=== PATIENT | female | born 1995 | race Caucasian/White ===

== ENCOUNTER 2025-06-08 06:55 | Day surgery (SDC) | payer MEDICAID, SELFPAY ==
[2025-06-08] VITALS (8 sets, daily range): BP systolic 100–133; BP diastolic 53–79; PULSE 78–96; RESP 14–16; TEMP 36.4–36.9; O2SAT 16–96; BMI 34.4
--- OUTSIDE RECORDS SUMMARY | 2025-06-08 07:02 | XMS RPT_ITS | CCD ---
Author Organization [facility] Care Team Providers Care Hand Zipper Trimmer Name Role Phone Unavailable Unavailable Unavailable UNKNOWN, PROVIDER Unavailable Unavailable Brody Carballo Unavailable Unavailable SAMANTHA STEELE Unavailable Unavailable IAN ARIZMENDI Unavailable Unavailable NICK MULE OPERATOR, MS ESPARZA Primary Care Physician [phone] Unavailable Primary Care Provider Unavailaba ROMERO MULE OPERATOR, ISAIAS Primary Care Physician ISAIAS ROMERO Primary Care Unavailable SAMANTHA GEE Referring Unavailabl e MARLEN, SAMANTHA Nelson Attending Unavailabl e SAMANTHA GEE Referring Unavailabl e VIN TAYLOR Attending Unavailable ISAIAS ROMERO Primary Care Unavailable ABBEAR DO, DR PRICE Primary Care Physician [phone] HYUN EUBANKS, AJ Attending Unavailable ROMAR DO, DR PRICE Primary Care Unavailable REBECCA MULE OPERATOR, SAMANTHA Puri Attending Unavailable ROMAR DO, DR PRICE Primary Care Unavailable REBECCA MULE OPERATOR, SAMANTHA Puri Attending Unavailable ROMAR DO, DR PRICE Primary Care Unavailable REBECCA MULE OPERATOR, SAMANTHA Puri Attending Unavailable ROMAR DO, DR PRICE Primary Care Unavailable ROMAR DO, DR PRICE Attending Unavailable ROMAR DO, DR PRICE Primary Care Unavailable ROMAR DO, DR PRICE Attending Unavailable ROMAR DO, DR PRICE Primary Care Unavailable ROMAR DO, DR PRICE Primary Care Unavailable MARVIN VARNER, MARCIA Rousseau Attending Honeyv azam Ga NP-CSamantha Attending Provider MARVIN VARNER, MARCIA Rousseau Attending Shirley ailable SHASHANK EUBANKS, DR PRICE Primary Care Unavailable SAMANTHA GA Attending Unavailable ROMAR DO, DR PRICE Primary Care Unavailable ROMAR DO, DR PRICE Referring Unavailable ROMAR DO, DR PRICE Attending Unavailable ROMAR DO, DR PRICE Primary Care Unavailable ROMAR DO, DR PRICE Primary Care Unavailable ROMAR DO, DR PRICE Attending Unavailable ROMAR DO, DR PRICE Primary Care Unavailable ROMAR DO, DR PRICE Attending Unavailable ROMAR DO, DR PRICE Primary Care Unavailable ROMAR DO, DR PRICE Attending Unavailable ROMAR DO, DR PRICE Primary Care Unavailable ROMAR DO, DR PRICE Attending Unavailable BARBARA DO, VITO Attending Unavailable ROMAR DO, DR PRICE Primary Care Unavailable ROMAR DO, DR PRICE Primary Care Unavailable ROMAR DO, DR PRICE Attending Unavailable ROMAR DO, DR PRICE Primary Care Unavailable ROMAR DO, DR PRICE Attending Unavailable BEITLER CATASTROPHE CLAIMS SUPERVISOR-CNM, MARCIA Rousseau Attending Unav ailable ROMAR DO, DR PRICE Primary Care Unavailable ROMAR DO, DR PRICE Primary Care Unavailable ROMAR DO, DR PRICE Attending Unavailable ROMAR DO, DR PRICE Primary Care Unavailable ROMAR DO, DR PRICE Attending Unavailable ROMAR DO, DR PRICE Primary Care Unavailable HARMEETCELESTE FISHMAN-PERSONAL CARE ASSISTANT, SAMANTHA Attending Unava ilable RUSSELL DO, NATALIE Puri Attending Unavailaba SOLARES MD, ABNER Callahan Unavail able ROMAR DO, DR PRICE Primary Care Unavailable Harmeet MULE OPERATOR-CSamantha Attending Physician Samantha Ga Attending Unavailable Samantha Ga Attending Unavailable Samantha Ga Attending Unavailable Chetan Woodall Attending Unavailable Allergies Allergy Classification Reported Allergen(s) Allergy Type Date of Onset Reaction(s) Facility (1 source) No Known Latex Allergy Allergy to Substance [address] [facility] (1 source) No Known Food Allergy Allergy to Substance [address] [facility] (1 source) UNKNOWN ALLERY. PT STATES SOME TYPE OF ANTIBIOTIC Allergy to Substance [address] [facility] (20 sources) cefdinir; Translations: [cefdinir] Drug Allergy 5 shortness of breath, rash, swelling in hands, Shortness of breath, rash, swelling of hands [facility] (20 sources) Ciprofloxacin; Translations: [ciprofloxacin] Drug Allergy 5 rash, swelling in hands, rash, swelling in hands [facility] (1 source) cefdinir Drug Allergy 5 [facility] (1 source) Ciprofloxacin Drug Allergy 5 [facility] Medications Current Medications Medication Drug Class(es) Dates Sig (Normalized) Sig (Original) amitriptyline hydrochloride 10 mg oral tablet (13 sources) Tricyclic Antidepressant Start: 12-01-2024 take 1 tablet by mouth once daily Start: 09-30-2024 End: 12-01-2024 take 1 tablet by mouth at bedtime Amitriptyline 25 mg tablet Discontinued 25 mg PO AT BEDTIME November 30, 2024 11:00pm December 01, 2024 12:43pm Start: 05-13-2024 End: 12-01-2024 take 1 tablet by mouth at bedtime Amitriptyline 50 mg tablet Discontinued 50 mg PO AT BEDTIME November 30, 2024 11:00pm December 01, 2024 12:43pm amLODIPine 5 mg oral tablet (5 sources) Dihydropyridine Calcium Channel [place] Start: 04-07-2025 amLODIPine 5 mg oral tablet Dose : 5 mg = 1 tab(s), Oral, qDay, # 90 tab(s), 0 Refill(s), [facility]: [id number], 157.5, cm, 04/07/25 11:08:00 EDT, Height, kg, 04/07/25 11:08:00 EDT, Dosing Weight Start Date: 04/07/25 Status: Ordered Medication Dispense Status: Completed Quantity: 90.0 Unit: tab(s) Total Allowed Fills: 1 Fills Dispensed: 0 Start: 01-13-2025 amLODIPine 5 m g oral tablet Dose : 5 mg = 1 tab(s), Oral, qDay, # 90 tab(s), 0 Refill(s), [facility]: [id number], 158, cm, 01/13/25 15:04:00 EDT, Height, kg, 01/13/25 15:04:00 EDT, Dosing Weight Start Date: 01/13/25 Status: Ordered Medication Dispense Status: Completed Quantity: 90.0 Unit: tab(s) Total Allowed Fills: 1 Fills Dispensed: 0 amoxicillin 500 mg oral tablet (1 source) Penicillin-class Antibacterial Start: 06-08-2022 End: 06-18-2022 amoxicillin 500 mg oral tablet Dose : 500 mg = 1 tab(s), Oral, TID, Take with a probiotic, X 10 day(s), # 30 tab(s), 0 Refill(s), 06/18/22 21:43:00 EST Start Date: 06/08/22 Stop Date: 06/18/22 Status: Ordered bacitracin 0.5 unt/mg topical ointment (1 source) Start: 07-06-2023 End: 07-20-2023 bacitracin topical ointment Apply 1 appl, Topical, TID, right ear until healed, X 14 day(s), # 30 gram(s), 0 Refill(s), [facility]acy: [id number], Ointment, 158.5, cm, 07/06/23 11:21:00 EST, Height, 73.1, kg, 07/06/23 11:21:00 EST, Dosing Weight Start Date: 07/06/23 Stop Date: 07/20/23 Status: Ordered cephalexin 500 mg oral capsule (1 source) Cephalosporin Antibacterial Start: 08-15-2021 End: 08-29-2021 Keflex 500 mg oral capsule Dose : 500 mg = 1 cap(s), Oral, QID, X 14 day(s), # 56 cap(s), 0 Refill(s), 08/29/21 11:19:00 EST, [facility]acy: [id number], 155, cm, 08/15/21 8:24:00 EST, Height, 75, kg, 08/15/21 8:24:00 EST, Dosing Weight Start Date: 08/15/21 Stop Date: 08/29/21 Status: Ordered chlorhexidine gluconate 40 mg/ml medicated liquid soap (11 sources) Start: 01-13-2025 Hibiclens 4% topical soap See Instructions, PRN Rash, Rinse area with water, then apply minimum amount necessary to cover skin or wound area and wash gently. Rinse again thoroughly., # 240 mL, 1 Refill(s), [facility]acy: [id number], 158, cm, 01/13/25 15:04:00 EDT, Height, kg, 01/13/25 15:04:00 EDT, Dosing Weight Start Date: 01/13/25 Status: Ordered Medication Dispense Status: Completed Quantity: 240.0 Unit: mL Total Allowed Fills: 2 Fills Dispensed: 0 Start: 05-13-2024 Hibiclens 4% t opical soap See Instructions, PRN Rash, Rinse area with water, then apply minimum amount necessary to cover skin or wound area and wash gently. Rinse again thoroughly., # 240 mL, 1 Refill(s), [facility]acy: [id number], 158, cm, 05/13/24 15:02:00 EDT, Height, kg, 05/13/24 15:02:00 EDT, Dosing Weight Start Date: 05/13/24 Status: Ordered Quantity: 240.0 Unit: mL Repeat number: 2 Diclegis 10 mg-10 mg oral delayed release tablet (4 sources) Start: 03-16-2021 take 1 tablet by mouth once daily at bedtime as needed for nausea Diclegis 10 mg-10 mg oral delayed release tablet Dose = 2 tab(s), Oral, qHS, PRN Nausea, # 20 tab(s), 0 Refill(s), Nausea Start Date: 03/16/21 Status: Ordered 24 hr diclofenac sodium 100 mg extended release oral tablet (1 source) Nonsteroidal Anti-inflammatory Drug Start: 03-08-2023 End: 04-07-2023 diclofenac sodium 100 mg oral tablet, extended release Dose : 100 mg = 1 tab(s), Oral, qDayM, PRN as needed for pain, with food and plenty of fluids. No other NSAIDs while on med., # 30 tab(s), 0 Refill(s), [facility]: [id number], 157, cm, 03/08/23 13:29:00 EDT, Height, kg, 03/08/23 13:29:00 EDT, Dosing Weight Start Date: 03/08/23 Stop Date: 04/07/23 Status: Ordered DME MISCellaneous (5 sources) Start: 01-13-2025 DME MISCellaneous See Instructions, Procare comfort form wrist medium left and right, Dx: G56.03, # 1 EA, 0 Refill(s), Carpal tunnel syndrome, bilateral, 85.2 Start Date: 01/13/25 Status: Ordered Medication Dispense Status: Completed Quantity: 1.0 Unit: EA Total Allowed Fills: 1 Fills Dispensed: 0 Indications: Carpal tunnel syndrome, bilateral upper limbs; Start: 01-13-2025 DME MISCellane ous See Instructions, BP cuff and machine, Dx: I10, # 1 EA, 0 Refill(s), 85.2 Start Date: 01/13/25 Status: Ordered Medication Dispense Status: Completed Quantity: 1.0 Unit: EA Total Allowed Fills: 1 Fills Dispensed: 0 Start: 11-11-2024 DME MISCellane ous See Instructions, Procare comfort form wrist medium bilateral, Dx: G56.03, # 1 EA, 0 Refill(s), Bilateral carpal tunnel syndrome, 83.7 Start Date: 11/11/24 Status: Ordered Quantity: 1.0 Unit: EA Repeat number: 1 Indications: Carpal tunnel syndrome, bilateral upper limbs; docusate sodium 100 mg oral capsule (8 sources) Start: 03-03-2025 End: 06-01-2025 docusate sodium 100 mg oral capsule Dose : 100 mg = 1 cap(s), Oral, BID, PRN for constipation, with plenty of water, # 180 cap(s), 0 Refill(s), [facility]acy: [id number], 157.5, cm, 03/03/25 8:50:00 EDT, Height, kg, 03/03/25 8:50:00 EDT, Dosing Weight Start Date: 03/03/25 Stop Date: 06/01/25 Status: Ordered Medication Dispense Status: Completed Quantity: 180.0 Unit: cap(s) Total Allowed Fills: 1 Fills Dispensed: 0 Start: 09-29-2022 Colace 100 mg oral capsule Dose : 100 mg = 1 cap(s), Oral, BID, # 20 cap(s), 0 Refill(s), [facility]acy: [id number], 155, cm, 09/27/22 20:11:00 EDT, Height Start Date: 09/29/22 Status: Ordered Start: 09-04-2021 End: 09-14-2021 Colace 100 mg oral capsule D ose : 100 mg = 1 cap(s), Oral, BID, PRN for constipation, # 20 cap(s), 0 Refill(s), [facility]: [id number], 155, cm, 08/31/21 19:32:00 EST, Height, kg, 08/31/21 19:32:00 EST, Dosing Weight Start Date: 09/04/21 Stop Date: 09/14/21 Status: Ordered doxylamine succinate 10 mg / pyridoxine hydrochloride 10 mg delayed release oral tablet (2 sources) Start: 03-16-2021 take 1 tablet by mouth once daily at bedtime as needed for nausea Diclegis 10 mg-10 mg oral delayed release tablet Dose = 2 tab(s), Oral, qHS, PRN Nausea, # 20 tab(s), 0 Refill(s), Nausea Start Date: 03/16/21 Status: Ordered escitalopram 10 mg oral tablet (14 sources) Serotonin Reuptake Inhibitor Start: 04-07-2025 End: 07-06-2025 take 1 tablet by mouth once daily escitalopram 20 mg oral tablet Dose : 20 mg = 1 tab(s), Oral, qDay, Take with 10 mg dose PO daily for total of 30 mg PO daily., # 90 tab(s), 0 Refill(s), [facility]: [facility], 157.5, cm, 04/07/25 11:08:00 EDT, Height, kg, 04/07/25 11:08:00 EDT, Dosing Weight Start Date: 04/07/25 Stop Date: 07/06/25 Status: Ordered Medication Dispense Status: Completed Quantity: 90.0 Unit: tab(s) Total Allowed Fills: 1 Fills Dispensed: 0 Start: 12-30-2024 End: 03-30-2025 escitalopram 20 mg oral tabl et Dose : 20 mg = 1 tab(s), Oral, qDay, # 90 tab(s), 0 Refill(s), [facility]: [facility], 158, cm, 12/30/24 10:38:00 EDT, Height, kg, 12/30/24 10:38:00 EDT, Dosing Weight Start Date: 12/30/24 Stop Date: 03/30/25 Status: Ordered Medication Dispense Status: Completed Quantity: 90.0 Unit: tab(s) Total Allowed Fills: 1 Fills Dispensed: 0 Start: 11-11-2024 End: 12-22-2025 take 1 tablet by mouth once daily escitalopram 10 mg oral tablet Dose : 10 mg = 1 tab(s), Oral, qDay, Take with 20 mg dose PO daily for total of 30 mg PO daily., # 90 tab(s), 0 Refill(s), [facility]: [id number], 157.5, cm, 04/07/25 11:08:00 EDT, Height, kg, 04/07/25 11:08:00 EDT, Dosing Weight Start Date: 04/07/25 Stop Date: 07/06/25 Status: Ordered Medication Dispense Status: Completed Quantity: 90.0 Unit: tab(s) Total Allowed Fills: 1 Fills Dispensed: 0 Norgestimate-Ethinyl Estradi ol (14 sources) Progestin, Estrogen Start: 12-01-2024 take 0.25 tablet by mouth once daily Start: 12-01-2024 take 0.25 tablet by mouth once daily Norgestimate-Ethinyl Estradiol (Sprintec (28)) 0.25-0.035 mg tablet Active 1 {tbl} PO daily December 01, 2024 12:00am Start: 11-11-2024 take 1 tablet by nicolás th once daily Sprintec 0.25 mg-35 mcg oral tablet Dose = 1 tab(s), Oral, qDay, # 28 tab(s), 3 Refill(s), [facility]: [id number], 158, cm, 09/30/24 16:03:00 EDT, Height, kg, 09/30/24 16:03:00 EDT, Dosing Weight Start Date: 11/11/24 Status: Ordered Quantity: 28.0 Unit: tab(s) Repeat number: 4 Start: 09-29-2022 take 1 tablet by nicolás th once daily Sprintec 0.25 mg-35 mcg oral tablet Dose = 1 tab(s), Oral, qDay, # 28 tab(s), 3 Refill(s), [facility]: [id number], 155, cm, 09/27/22 20:11:00 EDT, Height Start Date: 09/29/22 Status: Ordered Quantity: 28.0 Unit: tab(s) Repeat number: 4 Start: 09-29-2022 take 1 tablet by nicolás th once daily Sprintec 0.25 mg-35 mcg oral tablet Dose = 1 tab(s), Oral, qDay, # 28 tab(s), 3 Refill(s), [facility]: [id number], 155, cm, 09/27/22 20:11:00 EDT, Height Start Date: 09/29/22 Status: Ordered ferrous sulfate 325 mg oral tablet (5 sources) Start: 04-07-2025 End: 07-06-2025 ferrous sulfate 325 mg (65 m g elemental iron) oral tablet Dose : 325 mg = 1 tab(s), Oral, Sun/Sun/Sun, may take with food to minimize abdominal discomfort, # 39 tab(s), 0 Refill(s), [facility]: [id number], 157.5, cm, 04/07/25 11:08:00 EDT, Height, kg, 04/07/25 11:08:00 EDT, Dosing Weight Start Date: 04/07/25 Stop Date: 07/06/25 Status: Ordered Medication Dispense Status: Completed Quantity: 39.0 Unit: tab(s) Total Allowed Fills: 1 Fills Dispensed: 0 Start: 12-30-2024 End: 03-30-2025 ferrous sulfate 325 mg (65 m g elemental iron) oral tablet Dose : 325 mg = 1 tab(s), Oral, Sun/Sun/Sun, may take with food to minimize abdominal discomfort, # 39 tab(s), 0 Refill(s), [facility]: [id number], 158, cm, 12/30/24 10:38:00 EDT, Height, kg, 12/30/24 10:38:00 EDT, Dosing Weight Start Date: 12/30/24 Stop Date: 03/30/25 Status: Ordered Medication Dispense Status: Completed Quantity: 39.0 Unit: tab(s) Total Allowed Fills: 1 Fills Dispensed: 0 1 ml galcanezumab-gnlm 120 mg/ml auto-injector (8 sources) Start: 12-01-2024 End: 05-05-2025 inject 1 dose by subcutaneous injection every month Emgality Autoinjector 120 mg/mL subcutaneous solution Dose : 120 mg =, qmonth, 0 Refill(s) Start Date: 12/16/24 Status: Ordered Medication Dispense Status: Completed Total Allowed Fills: 1 Fills Dispensed: 0 Hydrocortisone / Neomycin / Polymyxin B (1 source) Aminoglycoside Antibacterial, Polymyxin-class Antibacterial, Corticosteroid Start: 06-08-2022 End: 06-18-2022 Cortisporin otic use hydrocortisone/n eomycin/polymyxi n B otic Dose = 4 drop(s), Ear, left, QID, X 10 day(s), # 10 mL, 0 Refill(s) Start Date: 06/08/22 Stop Date: 06/18/22 Status: Ordered ibuprofen 600 mg oral tablet (3 sources) Nonsteroidal Anti-inflammatory Drug Start: 09-29-2022 ibuprofen 600 mg oral tablet Dose : 600 mg = 1 tab(s), Oral, q8h, # 30 tab(s), 0 Refill(s), [facility]: [id number], 155, cm, 09/27/22 20:11:00 EDT, Height Start Date: 09/29/22 Status: Ordered Start: 09-04-2021 End: 09-09-2021 ibuprofen 600 mg oral tablet Dose : 600 mg = 1 tab(s), Oral, q6h, PRN for pain, Take with food or milk., X 5 day(s), # 20 tab(s), 0 Refill(s), 09/09/21 3:58:00 EST, [facility]acy: [id number], 155, cm, 08/31/21 19:32:00 EST, Height, kg, 08/31/21 19:32:00 EST, Dosing Weight Start Date: 09/04/21 Stop Date: 09/09/21 Status: Ordered Start: 08-29-2014 End: 07-15-2016 take 1 tablet by mouth three times daily as needed for pain Ibuprofen (Ibuprofen) 800 Mg Tab Tab, 800 Mg Po THREE TIMES A DAY PRN PAIN 08/29/14 Discontinued melatonin 3 mg oral capsule (14 sources) Start: 12-01-2024 take 1 capsule by mo uth at bedtime as needed Start: 01-30-2024 End: 02-29-2024 take 1-2 tablets by mouth once daily at bedtime as needed melatonin 3 mg oral tablet 1-2 tabs, Oral, qHS, PRN as needed for insomnia, Do not drive, operate heavy machinery, or drink alcohol while on med., # 60 tab(s), 0 Refill(s), [facility]: [facility], 158.5, cm, 01/30/24 14:51:00 EDT, Height, kg, 01/30/24 14:51:00 EDT, Dosing Weight Start Date: 01/30/24 Stop Date: 02/29/24 Status: Ordered Medication Dispense Status: Completed Quantity: 60.0 Unit: tab(s) Total Allowed Fills: 1 Fills Dispensed: 0 metroNIDAZOLE 500 mg oral tablet (4 sources) Nitroimidazole Antimicrobial Start: 05-29-2024 End: 06-05-2024 metroNIDAZOLE 500 mg oral tablet Dose : 500 mg = 1 tab(s), Oral, q8hr, X 7 day(s), # 21 tab(s), 0 Refill(s), 06/05/24 10:35:00 AM EST, [facility]acy: [id number], 158, cm, 05/28/24 10:51:00 EST, Height, 80.73, kg, 05/28/24 10:51:00 EST, Dosing Weight Start Date: 05/29/24 Stop Date: 06/05/24 Status: Ordered Start: 07-06-2023 End: 08-05-2023 metroNIDAZOLE 1% topical cre am Apply 1 giorgio, Topical, qDay, PRN Rash, apply a thin film to affected area around mouth after washing, # 60 gram(s), 0 Refill(s), [facility]acy: [id number], Cream, 158.5, cm, 07/06/23 11:21:00 EST, Height, 73.1, kg, 07/06/23 11:21:00 EST, Dosing Weight Start Date: 07/06/23 Stop Date: 08/05/23 Status: Ordered naratriptan 2.5 mg oral tablet (1 source) Serotonin-1b and Serotonin-1d Receptor Agonist Start: 12-16-2024 naratriptan 2.5 mg oral tablet Dose : 2.5 mg = 1 tab(s), Oral, qDay, PRN as needed for migraine headache, # 18 tab(s), 0 Refill(s) Start Date: 12/16/24 Status: Ordered Quantity: 18.0 Unit: tab(s) Repeat number: 1 norethindrone 0.35 mg oral tablet (10 sources) Start: 12-16-2024 Swati 0.35 mg oral tablet Dose : 0.35 mg = 1 tab(s), Oral, qDay, # 84 tab(s), 3 Refill(s), [facility]: [facility], 158, cm, 12/16/24 15:28:00 EDT, Height, kg, 12/16/24 15:28:00 EDT, Dosing Weight Start Date: 12/16/24 Status: Ordered Medication Dispense Status: Completed Quantity: 84.0 Unit: tab(s) Total Allowed Fills: 4 Fills Dispensed: 0 Start: 09-29-2022 norethindrone 0.35 mg oral tablet Dose : 0.35 mg = 1 tab(s), Oral, qDay, # 28 tab(s), 0 Refill(s), [facility]: [facility], 155, cm, 09/27/22 20:11:00 EDT, Height Start Date: 09/29/22 Status: Ordered Start: 09-04-2021 norethindrone 0.35 mg oral tablet Dose : 0.35 mg = 1 tab(s), Oral, qDay, # 28 tab(s), 5 Refill(s), [facility]: [facility], 155, cm, 08/31/21 19:32:00 EST, Height, kg, 08/31/21 19:32:00 EST, Dosing Weight Start Date: 09/04/21 Status: Ordered nystatin 100 unt/mg topical powder (11 sources) Polyene Antifungal Start: 12-01-2024 Start: 11-11-2024 End: 01-10-2025 nystatin 100,000 units/g top ical powder Apply 1 giorgio, Topical, TID, PRN Skin irritation, Apply to affected area 2 to 3 times daily until healing complete, # 60 gram(s), 1 Refill(s), [facility]: [facility], Powder, 158, cm, 11/11/24 15:59:00 EDT, Height, 83.7, kg, 11/11/24 15:59:00 EDT, Dosing Weight Start Date: 11/11/24 Stop Date: 01/10/25 Status: Ordered Medication Dispense Status: Completed Quantity: 60.0 Unit: g Total Allowed Fills: 2 Fills Dispensed: 0 Start: 06-08-2022 End: 06-18-2022 nystatin 100,000 units/g top ical ointment Apply 1 giorgio, Topical, TID, X 10 day(s), # 30 gram(s), 0 Refill(s), 65 Start Date: 06/08/22 Stop Date: 06/18/22 Status: Ordered ondansetron 4 mg disintegrating oral tablet (1 source) Serotonin-3 Receptor Antagonist Start: 02-22-2025 End: 03-08-2025 ondansetron 4 mg oral tablet, disintegrating Dose : 4 mg = 1 tab(s), Oral, q6h, PRN Nausea/Vomiting, # 20 tab(s), 0 Refill(s), 03/08/25 7:01:00 PM EDT Start Date: 02/22/25 Stop Date: 03/08/25 Status: Ordered Medication Dispense Status: Completed Quantity: 20.0 Unit: tab(s) Total Allowed Fills: 1 Fills Dispensed: 0 pantoprazole 40 mg delayed release oral tablet (1 source) Proton Pump Inhibitor Start: 05-05-2025 AD (6 sources) Start: 05-14-2021 take 1 tablet by mouth once daily AD Dose = 1 tab(s), Oral, qDay, 0 Refill(s) Start Date: 05/14/21 Status: Ordered sertraline 100 mg oral tablet (8 sources) Serotonin Reuptake Inhibitor Start: 03-24-2024 End: 01-02-2025 sertraline 100 mg oral tablet Dose : 100 mg = 1 tab(s), Oral, qDay, # 100 tab(s), 1 Refill(s), [facility]: [id number], 158, cm, 05/13/24 15:02:00 EDT, Height, kg, 05/13/24 15:02:00 EDT, Dosing Weight Start Date: 06/16/24 Stop Date: 01/02/25 Status: Ordered Quantity: 100.0 Unit: tab(s) Repeat number: 2 Start: 07-20-2023 End: 09-18-2023 take 1 tablet by mouth once daily sertraline 50 mg oral tablet Dose : 50 mg = 1 tab(s), Oral, qDay, Take 25 mg tab PO daily for two weeks, then increase to 50 mg tab daily thereafter., # 60 tab(s), 0 Refill(s), [facility]: [id number], 158.5, cm, 07/06/23 11:21:00 EST, Height, kg, 07/06/23 11:21:00 EST, Dosing Weight Start Date: 07/20/23 Stop Date: 09/18/23 Status: Ordered Start: 07-06-2023 End: 07-20-2023 take 1 tablet by mouth once daily sertraline 25 mg oral tablet Dose : 25 mg = 1 tab(s), Oral, qDay, Take one tab PO daily for two weeks, then increase to 50 mg tab daily thereafter., X 14 day(s), # 14 tab(s), 0 Refill(s), 07/20/23 11:40:00 AM EST, [facility]acy: [id number], 158.5, cm, 07/06/23 11:21:00 EST, Height, kg, 07/06/23 11:21:00 EST, Dosing Weight Start Date: 07/06/23 Stop Date: 07/20/23 Status: Ordered sulfamethoxazole 800 mg / trimethoprim 160 mg oral tablet (2 sources) Dihydrofolate Reductase Inhibitor Antibacterial, Sulfonamide Antimicrobial Start: 02-22-2025 End: 03-01-2025 take 1 tablet by mouth twice daily Bactrim DS 800 mg-160 mg oral tablet Dose = 1 tab(s), Oral, BID, X 7 day(s), # 14 tab(s), 0 Refill(s), 85.2 Start Date: 02/22/25 Stop Date: 03/01/25 Status: Ordered Medication Dispense Status: Completed Quantity: 14.0 Unit: tab(s) Total Allowed Fills: 1 Fills Dispensed: 0 Start: 09-11-2023 End: 09-18-2023 take 1 tablet by mouth twice daily Bactrim DS 800 mg-160 mg oral tablet Dose = 1 tab(s), Oral, BID, X 7 day(s), # 14 tab(s), 0 Refill(s), 73.1 Start Date: 09/11/23 Stop Date: 09/18/23 Status: Ordered Triamcinolone (1 source) Corticosteroid Start: 08-15-2021 End: 08-29-2021 triamcinolone 0.025% topical ointment Apply 1 giorgio, Topical, BID, X 14 day(s), # 30 gram(s), 0 Refill(s), [facility]: [id number], Ointment, 155, cm, 08/15/21 8:24:00 EST, Height, 75, kg, 08/15/21 8:24:00 EST, Dosing Weight Start Date: 08/15/21 Stop Date: 08/29/21 Status: Ordered ubrogepant 100 mg oral tablet (8 sources) Start: 12-16-2024 Ubrelvy 100 mg oral tablet Dose : 100 mg = 1 tab(s), Oral, Once, PRN as needed for migraine headache, may repeat dose in 2 hours if needed, # 16 tab(s), 0 Refill(s) Start Date: 12/16/24 Status: Ordered Medication Dispense Status: Completed Quantity: 16.0 Unit: tab(s) Total Allowed Fills: 1 Fills Dispensed: 0 Start: 12-01-2024 take 1 tablet by mouth once Completed/Discontinued Medications Medication Drug Class(es) Dates Sig (Normalized) Sig (Original) [No Home Meds] , (1 source) End: 07-15-2016 cyclobenzaprine hydrochloride 10 mg oral tablet (1 source) Muscle Relaxant Start: 08-29-2014 End: 07-15-2016 Cyclobenzaprine Hcl (Cyclobenzaprine) 10 Mg Tab Tab, 10 Mg Po EVERY 8 HOURS PRN MUSCLE SPASMS 08/29/14 Discontinued mupirocin 0.02 mg/mg topical ointment (1 source) RNA Synthetase Inhibitor Antibacterial Start: 07-15-2016 Mupirocin (Bactroban Ointment) 2 % OIN 1 GIORGIO TOP THREE TIMES A DAY 1 7 DAYS 07/15/16 Start: 07-15-2016 Mupirocin (Ignacia troban Ointment) 2 % OIN 1 GIORGIO TOP THREE TIMES A DAY 1 7 DAYS 07/15/16 polyethylene glycol [id number] mg powder for oral solution (4 sources) Osmotic Laxative Start: 03-03-2025 End: 05-02-2025 take 17 doses by mouth once daily as needed for constipation MiraLax oral powder for reconstitution Dose : 17 gram(s) =, Oral, qDay, PRN Constipation, dissolve in water or juice, # 250 gram(s), 1 Refill(s), [facility]: [id number], 157.5, cm, 03/03/25 8:50:00 EDT, Height, kg, 03/03/25 8:50:00 EDT, Dosing Weight Start Date: 03/03/25 Stop Date: 05/02/25 Status: Ordered Medication Dispense Status: Completed Quantity: 250.0 Unit: g Total Allowed Fills: 2 Fills Dispensed: 0 predniSONE 10 mg oral tablet (4 sources) Start: 12-01-2024 End: 12-01-2024 Prednisone 10 mg tablet Discontinued 10 mg PO As Directed November 30, 2024 11:00pm December 01, 2024 12:44pm see taper instructions 40,60,20,10 X2 days each dose Start: 11-11-2024 End: 11-19-2024 prednisone 10mg tab (TAPER) Taper 40-30-20-10 x 2 days each dose, Oral, qDayM, Take with food/meal. No NSAIDs while on this med., # 20 tab(s), 0 Refill(s), [facility]: [id number], 158, cm, 11/11/24 15:59:00 EDT, Height, kg, 11/11/24 15:59:00 EDT, Dosing Weight Start Date: 11/11/24 Stop Date: 11/19/24 Status: Ordered Quantity: 20.0 Unit: tab(s) Repeat number: 1 rimegepant 75 mg disintegrating oral tablet (8 sources) Start: 12-01-2024 End: 12-01-2024 take 1 tablet by mouth once as needed Rimegepant 75 mg tablet,disintegrating Discontinued 75 mg PO ONCE as needed November 30, 2024 11:00pm December 01, 2024 12:44pm as a single dose Start: 05-27-2024 Nurtec ODT 75 mg oral tablet, disintegrating Dose : 75 mg = 1 tab(s), Oral, Once, PRN as needed for migraine headache, # 8 tab(s), 0 Refill(s) Start Date: 05/27/24 Status: Ordered Quantity: 8.0 Unit: tab(s) Repeat number: 1 wheat dextrin oral powder fo r reconstitution (4 sources) Start: 03-03-2025 End: 05-02-2025 wheat dextrin oral powder fo r reconstitution 4 gram(s), Oral, BID, PRN as needed for constipation, dissolve in 4 to 8 oz of beverage or soft food- hot or cold, # 244 gram(s), 1 Refill(s), [facility]: [id number], 157.5, cm, 03/03/25 8:50:00 EDT, Height, kg, 03/03/25 8:50:00 EDT, Dosing Weight Start Date: 03/03/25 Stop Date: 05/02/25 Status: Ordered Medication Dispense Status: Completed Quantity: 244.0 Unit: g Total Allowed Fills: 2 Fills Dispensed: 0 Problems Active Problems Problem Classification Problem Date Documented Da te Episodic/Chronic Abdominal pain (15 sources) Abdominal pain; Translations: [Right upper quadrant pain] Onset: 8 09-30-2024 Episodic Administrative/social admission (11 sources) Difficulty cutting own toenails 05-28-2024 Episodic Anxiety disorders (20 sources) Generalized anxiety disorder; Translations: [Generalized anxiety disorder] Onset: 5 07-06-2023 Chronic Harris (5 sources) Superficial partial thickness burn of abdominal wall 12-30-2024 Episodic Cardiac dysrhythmias (11 sources) Tachycardia 05-13-2024 Episodic Coagulation and hemorrhagic disorders (9 sources) Thrombocytopenic disorder 09-10-2024 Chronic Diseases of mouth; excluding dental (15 sources) Stomatitis 07-03-2023 Episodic Diseases of white blood cells (6 sources) Leukocytosis; Translations: [Elevated white blood cell count, unspecified] Onset: 5 04-07-2025 Chronic Disorders of lipid metabolism (9 sources) Mixed hyperlipidemia 09-10-2024 Chronic Essential hypertension (5 sources) Hypertensive disorder 01-13-2025 Chronic Headache; including migraine (16 sources) Headache 01-04-2023 Episodic Headache; including migraine (2 sources) Headache; including migraine; Translations: [Headache, unspecified] Onset: 3 Immunizations and screening for infectious disease (5 sources) Anti-nuclear factor positive 01-13-2025 Episodic Mood disorders (20 sources) Recurrent major depressive episodes, moderate ; Translations: [Recurrent major depressive episodes, mild ] 07-06-2023 Chronic Nausea and vomiting (2 sources) Nausea; Translations: [Nausea] Onset: Episodic Nutritional deficiencies (7 sources) Iron deficiency; Translations: [Iron deficiency] Onset: 5 12-30-2024 Episodic Other and unspecified benign neoplasm (8 sources) Hemangioma of liver 10-28-2024 Episodic Other connective tissue disease (11 sources) Pain of toe of left foot 05-28-2024 Episodic Other connective tissue disease (11 sources) Pain of toe of right foot 05-28-2024 Episodic Other endocrine disorders (8 sources) Hyperestrogenism 10-03-2024 Chronic Other gastrointestinal disorders (1 source) Diarrhea; Translations: [Diarrhea, unspecified] Onset: Episodic Other gastrointestinal disorders (4 sources) Constipation 04-07-2025 Episodic Other gastrointestinal disorders (2 sources) Constipation, unspecified; Translations: [Constipation, unspecified] Onset: Episodic Other gastrointestinal disorders (1 source) Diarrhea, unspecified; Translations: [Diarrhea, unspecified] Onset: Episodic Other inflammatory condition of skin (15 sources) Perioral dermatitis 07-06-2023 Chronic Other liver diseases (8 sources) Steatosis of liver 10-28-2024 Chronic Other liver diseases (3 sources) Fatty (change of) liver, not elsewhere classified; Translations: [Fatty (change of) liver, not elsewhere classified] Onset: 5 Chronic Other liver diseases (12 sources) Elevated liver enzymes level; Translations: [Abnormal levels of other serum enzymes] 09-10-2024 Episodic Other male genital disorders (5 sources) Impotence 02-10-2025 Chronic Other nervous system disorders (20 sources) Carpal tunnel syndrome 11-01-2023 Chronic Other nervous system disorders (12 sources) Carpal tunnel syndrome of right wrist 01-30-2024 Chronic Other nervous system disorders (1 source) Carpal tunnel syndrome, bilateral upper limbs; Translations: [Carpal tunnel syndrome, bilateral upper limbs] Onset: 5 Chronic Other and delivery including normal (9 sources) Onset: 1 03-16-2021 Episodic Comment on above: System added from do cumentation. Status documented as Yes on Admission Other skin disorders (12 sources) Ingrowing nail; Translations: [Ingrowing nail] Onset: 4 Episodic Other upper respiratory disease (2 sources) Seasonal allergy; Translations: [Other seasonal allergic rhinitis] 12-01-2024 Chronic Other upper respiratory disease (11 sources) Lesion of nose 05-13-2024 Episodic Poisoning by nonmedicinal substances (12 sources) Insect sting 01-30-2024 Episodic Residual codes; unclassified (12 sources) Difficulty sleeping 01-30-2024 Episodic Residual codes; unclassified (8 sources) Flushing 09-30-2024 Episodic Skin and subcutaneous tissue infections (20 sources) Paronychia of toe of right foot; Translations: [Furuncle] 11-01-2023 Episodic Unclassified (2 sources) Unknown / UNK(Unknown) Onset: 8 Unclassified (19 sources) Otalgia of left ear 12-15-2021 Urinary tract infections (2 sources) Urinary tract infectious disease; Translations: [Urinary tract infection, site not specified] Onset: 5 Episodic Past or Other Problems Problem Classification Problem Date Documented Da te Episodic/Chronic Deficiency and other anemia (2 sources) Anemia, unspecified; Translations: [Anemia, unspecified] Onset: 03-08-2023 Episodic Other liver diseases (1 source) Abnormal levels of other serum enzymes; Translations: [Abnormal levels of other serum enzymes] Onset: 12-01-2024 Episodic Other screening for suspected conditions (not mental disorders or infectious disease) (2 sources) Encounter for screening for malignant neoplasm of cervix; Translations: [Encounter for screening for malignant neoplasm of cervix] Onset: 12-16-2024 Episodic Residual codes; unclassified (1 source) Flushing; Translations: [Flushing] Onset: 12-02-2024 Episodic Unclassified (1 source) PAIN,ABDOMEN,BACK ,SIDES Onset: 08-10-2017 Results Test Name Value Interpretation Reference Range Facility Gastroenterology Visit Repor ton 05-05-2025 Gastroenterology Visit Report [facility] [place] [address] OFFICE VISIT Date of Service: 05/05/25 MR#: [id number] Acct: [id number] Name: BELGICA CORBIN Rep #: [id number] : 1995 Provider: IMER meneses Age/Sex: 30/F Location[place] [facility] [email or web address] Status: Signed Intake Vital Signs 12/01/24 13:50 05/05/25 15:37 Height 5 ft 1 in 5 ft 1 in Weight: 185 lb 8 oz 184 lb 2 oz BMI 35.0 34.7 BP 161/120 H 105/61 Respiration 18 16 Pulse 103 H 93 Temp 98.0 F Temp Source Temporal Pulse Oximetry (%) 96 96 Oxygen Delivery Method room air room air Intake Visit Reasons: Test Result-Elevated liver enzymes Chief Complaint: high liver labs Active Directory Architect Required: No Accompanied by: and kids Is patient in pain?: No Allergies cefdinir (From Omnicef) Allergy (Severe, Verified 05/05/25 15:33) Shortness of breath, rash, swelling of hands ciprofloxacin Adverse Reaction (Mild, Verified 05/05/25 15:33) rash, swelling in hands Medications ???Medication ???Instructions ???Recorded ???Confirmed ???Type amitriptyline 10 mg tablet 10 mg PO QDAY 12/01/24 05/05/25 Hi story escitalopram oxalate 10 mg tablet 10 mg PO QDAY 12/01/24 05/05/25 H istory melatonin 3 mg capsule 3 mg PO HS PRN 12/01/24 05/05/25 H istory norgestimate 0.25 mg-ethinyl 1 tab PO QDAY 12/01/24 05/05/25 Hi story estradiol 0.035 mg tablet (Sprintec (28)) nystatin 100,000 unit/gram topical 1 applic topical TID PRN 5 05/05/25 History powder ubrogepant 100 mg tablet (Ubrelvy) 100 mg PO ONCE PRN 12/01/2404/16 History pantoprazole 40 mg tablet,delayed 40 mg PO QDAY #90 tabs 05/05/25 1 Rx release PFSH Medical History Stomatitis Sleep difficulties Recurrent headache Perioral dermatitis Paronychia of great toe, right Otalgia of left ear Depression Carpal tunnel syndrome, bilateral Tachycardia Recurrent boils Nasal lesion Family History Father Heart disease Myocardial infarction Mother Hypertension Sister Multiple sclerosis Social History Smoking Status: Never smoker alcohol intake: current alcohol intake frequency: holidays/special occasions only substance use type: does not use caffeine: Yes HPI HPI Chief Complaint: high liver labs Details: OV 12/01/2024 29-year-old female presenting with elevated liver enzymes in the setting of hepatic steatosis and hepatomegaly on imaging, likely consistent with MAS viral hepatitis panel is negative, and elastography suggest minimal fibrosis (F1). LD, particularly given her significant weight gain of 45 pounds over the past 6 months. MRI also noted a small hepatic hemangioma, an incidental and likely benign finding. She reports intermittent RUQ pain, often postprandial, which raises suspicion for biliary dyskinesia despite a normal ultrasound of the gallbladder and CBD. A HIDA scan has been ordered to assess gallbladder function. Additional labs including repeat CBC, CMP, in addition to autoimmune/infectious workup are pending to further evaluate potential causes of transaminitis. TSH, lipase, and iron studies are within normal limits. The patient will follow-up in 1 month to review results and discuss weight management strategies, as lifestyle modification remains a cornerstone of MASLD management. Consideration for hepatology referral will depend on her evolving clinical picture and lab findings. Note: Ambassador speech recognition building rigger software was used to create portions of this document. Sound-alike and misspelled words, as well as other building rigger errors may be contained in the documentation. Patient Instructions: Labs - patient will have completed at [facility] HIDA - patient will have completed at [facility] Plan Details Follow Up: 1 Month - seen in office today with and two toddlers - abdominal pain is primarily on the right and mid abdomen, worse with palpation of the abdomen - pain can be sharp and dull - pain is not triggered by PO intake - nausea can be triggered by PO intake - denies any HB - denies any weight loss HIDA completed 04/20/2025 revealed an EF of 87% ABD US 04/21/2025 no changes from previously - no previous EGD ROS Const Constitutional: Positive for headache(s); No fatigue, fever(s) or weight change ENT ENT: Positive for headache(s); No difficulty swallowing Gastro GI: Positive for abdominal pain; No belching, bloating, change in bowel habits, change in stool character, coffee ground emesis, constipation, cramping, diarrhea, heartburn, difficulty swallowing, feeling full early, excessive flatus, incontinent (more content not included)... Normal [facility] US ABDOMEN COMPLETEon 2024 US ABDOMEN COMPLETE ORIGINAL EXAMINATION: COMPLETE ABDOMINAL [id number]/7/2025 12:45 pm ULTRASOUND ABDOMEN COMPLETE COMPARISON: Ultrasound 09/23/2024 TECHNIQUE: This report is based on interpretation of permanently recorded ultrasound images. HISTORY: ORDERING SYSTEM PROVIDED HISTORY: Reason for Exam: generalized abdominal pain, history of enterocolitis, FINDINGS: Liver: . The visualized liver is mildly heterogeneous and coarsened with increased echogenicity. No suspicious focal lesion is seen and there is no obvious nodularity of the visualized liver margins. There is antegrade blood flow in the main portal vein. Bile ducts: There is no intrahepatic biliary duct dilatation. The common duct 3 mm at the dawosn hepatis. Gallbladder: The gallbladder is distended satisfactorily without calculi, wall thickening, pericholecystic edema or tenderness. Pancreas: The visualized pancreas shows no focal lesion or mass but some portions are obscured by bowel gas artifacts. . No free fluid is seen in the abdomen. Spleen: The spleen is normal in size and echogenic appearance. Kidneys: Limited survey images of the kidneys show normal cortical thickness and echogenicity and no pelvocaliectasis. . Visualized aorta: Normal Visualized IVC: Normal IMPRESSION: Hepatic steatosis or other diffuse hepatocellular disease. No acute findings. Interpreted by: Jr Arreola MD Preliminary Report By: Jr Arreola MD Electronically signed By Jr Arreola MD Dictated Date: 04/21/2025 4:51:55 PM Prelim Date: 04/21/2025 4:52:58 PM Sign Date: 04/21/2025 4:52:58 PM Ordering Provider: DEE ENCARNACION RP Normal [facility] HEPATOBILIARY DUCT SYSTEM IMAGINGon 04-20-2025 OR HEPATOBILIARY DUCT SYSTEM IMAGING ORIGINAL EXAMINATION: HIDA SCAN WITH EJECTION [id number]/6/2025 3:04 pm TECHNIQUE: Approximately 8 millicuries Tc99m Mebrofenin was administered IV. Then, dynamic images of the abdomen were obtained in the anterior projection for 60 mins. Slow infusion of 1.7 mcg cholecystokinin was administered intravenously over 30 mins. Images were obtained in the anterior projection and regions of interest were drawn around the gallbladder and ejection fraction was calculated. COMPARISON: None HISTORY: ORDERING SYSTEM PROVIDED HISTORY: RUQ FINDINGS: Prompt, homogenous uptake by the liver is noted with normal appearance of radiotracer excretion into the biliary system. Clearance of blood pool activity appears appropriate. Gallbladder and small bowel are visualized in appropriate time. Gallbladder ejection fraction is 87%. Normal value is >35% for CCK protocol. IMPRESSION: Gallbladder ejection fraction of 87%. Interpreted by: Romy Parker MD Preliminary Report By: Romy Parker MD Electronically signed By Romy Parker MD Dictated Date: 04/20/2025 3:47:00 PM Prelim Date: 04/20/2025 3:48:20 PM Sign Date: 04/20/2025 3:48:20 PM Ordering Provider: SAMANTHA GA RP Normal [facility] .Auto Diffon 04-07-2025 Basophil, Absolute 0.0 10 3/mcL Normal 0.0-0.3 [facility] Comment on above: Performed By: #### T SHR, CMP, CBC, [id number], LIP, GFR, ANEU, ADIFF #### [address] [address] #### LH, FSH #### [address] [address] Basophils/100 WBC (Bld) 0.7 % Normal 0.0-2.5 [facility] Comment on above: Performed By: #### T SHR, CMP, CBC, 533505, LIP, GFR, ANEU, ADIFF #### [address] [address] #### LH, FSH #### [address] [address] Eosinophil, Absolute 0.3 10 3/mcL Normal 0.0-0.7 [facility] Comment on above: Performed By: #### T SHR, CMP, CBC, 379004, LIP, GFR, ANEU, ADIFF #### [address] [address] #### LH, FSH #### [address] [address] Eosinophils/100 WBC (Bld) 5.3 % Normal 0.0-6.0 [facility] Comment on above: Performed By: #### T SHR, CMP, CBC, 059997, LIP, GFR, ANEU, ADIFF #### [address] [address] #### LH, FSH #### [address] [address] Lymphocyte, Absolute 1.7 10 3/mcL Normal 0.9-4.3 [facility] Comment on above: Performed By: #### T SHR, CMP, CBC, 141444, LIP, GFR, ANEU, ADIFF #### [address] [address] #### LH, FSH #### [address] [address] Lymphocytes/100 WBC (Bld) 29.2 % Normal 20.0-40.0 [facility] Comment on above: Performed By: #### T SHR, CMP, CBC, 061739, LIP, GFR, ANEU, ADIFF #### [address] [address] #### LH, FSH #### [address] [address] Monocyte, Absolute 0.6 10 3/mcL Normal 0.1-1.4 [facility] Comment on above: Performed By: #### T SHR, CMP, CBC, 868981, LIP, GFR, ANEU, ADIFF #### [address] [address] #### LH, FSH #### [address] [address] Monocytes/100 WBC (Bld) 10.2 % Normal 2.0-13.0 [facility] Comment on above: Performed By: #### T SHR, CMP, CBC, 522238, LIP, GFR, ANEU, ADIFF #### [address] [address] #### LH, FSH #### [address] [address] Neutrophils/100 WBC (Bld) 54.6 % Normal 50.0-75.0 [facility] Comment on above: Performed By: #### T SHR, CMP, CBC, 907131, LIP, GFR, ANEU, ADIFF #### [address] [address] #### LH, FSH #### [address] [address] .GFRon 04-07-2025 GFR/1.73 sq M.predicted among non-blacks MDRD (S/P/Bld) [Vol rate/Area] mL/min/{1.73_m2} Normal [facility] Comment on above: Result Comment: Stages of Chronic Kidney Disease (CKD) Stage Description eGFR(ml/min/1.73 sq.m.) CKD 1 Normal kidney function or >=90 normal kindney function with possible kidney damage (ex. Proteinuria) CKD 2 Kidney damage with mild loss 60-89 of kidney function CKD 3a Mild to moderate loss of kidney 45-59 function CKD 3b Moderate to severe loss of 30-44 of kindey function CKD 4 Severe loss of kidney function 15-29 CKD 5 Kidney failure <15 Note: (go live 2024) the eGFR calculation was updated to the 2020 CKD-EPI creatinine equation without a race factor to calculate the eGFR results. Performed By: #### T SHR, CMP, CBC, 857683, LIP, GFR, ANEU, ADIFF #### [address] [address] #### LH, FSH #### [address] [address] .NEUABSon 04-07-2025 Neutrophil, Absolute 3.1 10 3/mcL Normal 2.3-8.1 [facility] Comment on above: Performed By: #### T SHR, CMP, CBC, 841859, LIP, GFR, ANEU, ADIFF #### [address] [address] #### LH, FSH #### [address] [address] CBCon 04-07-2025 Erythrocyte distribution width (RBC) [Ratio] 14.2 % Normal 11.5-15.5 [facility] Comment on above: Performed By: #### T SHR, CMP, CBC, 997518, LIP, GFR, ANEU, ADIFF #### [place] [address] #### LH, FSH #### [place] [address] Hematocrit (Bld) [Volume fraction] 45.7 % Normal 34.0-46.0 [facility] Comment on above: Performed By: #### T SHR, CMP, CBC, 503698, LIP, GFR, ANEU, ADIFF #### [place] [address] #### LH, FSH #### [place] [address] Hgb 15.4 G/dL Normal 12.0-16.0 [facility] Comment on above: Performed By: #### T SHR, CMP, CBC, 569302, LIP, GFR, ANEU, ADIFF #### [place] [address] #### LH, FSH #### [place] [address] MCH (RBC) [Entitic mass] 27.5 pg Normal 27.0-33.0 [facility] Comment on above: Performed By: #### T SHR, CMP, CBC, 475595, LIP, GFR, ANEU, ADIFF #### [place] [address] #### LH, FSH #### [address] [address] MCHC 33.7 G/dL Normal 32.0-36.0 [facility] Comment on above: Performed By: #### T SHR, CMP, CBC, 178468, LIP, GFR, ANEU, ADIFF #### [place] [address] #### LH, FSH #### [place] [address] MCV (RBC) [Entitic vol] 81.5 fL Normal 80.0-99.0 [facility] Comment on above: Performed By: #### T SHR, CMP, CBC, 540687, LIP, GFR, ANEU, ADIFF #### [place] [address] #### LH, FSH #### [place] [address] Platelet 290 10 3/mcL Normal 150-450 [facility] Comment on above: Performed By: #### T SHR, CMP, CBC, 052131, LIP, GFR, ANEU, ADIFF #### [place] [address] #### LH, FSH #### [place] [address] Platelet mean volume (Bld) [Entitic vol] 8.4 fL Normal 6.6-10.5 [facility] Comment on above: Performed By: #### T SHR, CMP, CBC, 959253, LIP, GFR, ANEU, ADIFF #### [place] [address] #### LH, FSH #### [place] [address] RBC 5.61 10 6/mcL High 4.10-5.30 [facility] Comment on above: Performed By: #### T SHR, CMP, CBC, 462894, LIP, GFR, ANEU, ADIFF #### [place] [address] #### LH, FSH #### [place] [address] WBC 5.7 10 3/mcL Normal 4.5-10.8 [facility] Comment on above: Performed By: #### T SHR, CMP, CBC, 956727, LIP, GFR, ANEU, ADIFF #### [place] [address] #### LH, FSH #### [place] [address] CMPon 04-07-2025 Albumin Level 4.1 G/dL Normal 3.5-5.0 [facility] Comment on above: Performed By: #### T SHR, CMP, CBC, 771296, LIP, GFR, ANEU, ADIFF #### [place] [address] #### LH, FSH #### [place] [address] Albumin/Globulin [Mass ratio] 1.1 {ratio} Normal 1.1-2.5 [facility] Comment on above: Performed By: #### T SHR, CMP, CBC, 945160, LIP, GFR, ANEU, ADIFF #### [place] [address] #### LH, FSH #### [place] [address] ALP [Catalytic activity/Vol] 121 U/L Normal 40-135 [facility] Comment on above: Performed By: #### T SHR, CMP, CBC, 618818, LIP, GFR, ANEU, ADIFF #### [place] [address] #### LH, FSH #### [place] [id number] ALT [Catalytic activity/Vol] 67 U/L High 14-59 [facility] Comment on above: Performed By: #### T SHR, CMP, CBC, 388495, LIP, GFR, ANEU, ADIFF #### [place] [address] #### LH, FSH #### [address] [address] AST [Catalytic activity/Vol] 38 U/L Normal 10-40 [facility] Comment on above: Performed By: #### T SHR, CMP, CBC, 565197, LIP, GFR, ANEU, ADIFF #### [place] [address] #### LH, FSH #### [place] [address] Bili Total 0.4 mg/dL Normal 0.2-1.0 [facility] Comment on above: Result Comment: Use of this assay is not recommended for patients undergoing treatment with eltrombopag due to the potential for falsely elevated results. Performed By: #### T SHR, CMP, CBC, 889910, LIP, GFR, ANEU, ADIFF #### [place] [address] #### LH, FSH #### [place] [address] BUN/Creatinine Ratio 16 ratio Normal 7-27 [facility] Comment on above: Performed By: #### T SHR, CMP, CBC, 213556, LIP, GFR, ANEU, ADIFF #### [place] [address] #### LH, FSH #### [place] [address] Calcium [Mass/Vol] 9.5 mg/dL Normal 8.4-10.2 [facility] Comment on above: Performed By: #### T SHR, CMP, CBC, 615024, LIP, GFR, ANEU, ADIFF #### [place] [address] #### LH, FSH #### [place] [address] Chloride [Moles/Vol] 104 mmol/L Normal 98-107 [facility] Comment on above: Performed By: #### T SHR, CMP, CBC, 802800, LIP, GFR, ANEU, ADIFF #### [address] [address] #### LH, FSH #### [address] [address] CO2 [Moles/Vol] 27 mmol/L Normal 22-29 [facility] Comment on above: Performed By: #### T SHR, CMP, CBC, 532574, LIP, GFR, ANEU, ADIFF #### [place] [address] #### LH, FSH #### [address] [address] Creatinine [Mass/Vol] 0.64 mg/dL Normal 0.51-0.95 [facility] Comment on above: Performed By: #### T SHR, CMP, CBC, 183239, LIP, GFR, ANEU, ADIFF #### [place] [address] #### LH, FSH #### [place] [address] Electrolyte Balance 9.0 mEq/L Normal 4.0-15.0 [facility] Comment on above: Performed By: #### T SHR, CMP, CBC, 288715, LIP, GFR, ANEU, ADIFF #### [address] [address] #### LH, FSH #### [address] [address] Globulin 3.9 G/dL Normal 2.7-4.4 [facility] Comment on above: Performed By: #### T SHR, CMP, CBC, 728622, LIP, GFR, ANEU, ADIFF #### [place] [address] #### LH, FSH #### [address] [address] Glucose [Mass/Vol] 104 mg/dL Normal 70-105 [facility] Comment on above: Performed By: #### T SHR, CMP, CBC, 480862, LIP, GFR, ANEU, ADIFF #### [address] [address] #### LH, FSH #### [address] [address] Potassium [Moles/Vol] 4.1 mmol/L Normal 3.5-5.1 [facility] Comment on above: Performed By: #### T SHR, CMP, CBC, 770170, LIP, GFR, ANEU, ADIFF #### [place] [address] #### LH, FSH #### [place] [address] Sodium [Moles/Vol] 140 mmol/L Normal 136-145 [facility] Comment on above: Performed By: #### T SHR, CMP, CBC, 182325, LIP, GFR, ANEU, ADIFF #### [place] [address] #### LH, FSH #### [place] [address] Total Protein 8.0 G/dL Normal 6.4-8.2 [facility] Comment on above: Performed By: #### T SHR, CMP, CBC, 178701, LIP, GFR, ANEU, ADIFF #### [place] [address] #### LH, FSH #### [address] [address] Urea nitrogen [Mass/Vol] 10 mg/dL Normal 7-18 [facility] Comment on above: Performed By: #### T SHR, CMP, CBC, [id number], LIP, GFR, ANEU, ADIFF #### [place] [address] #### LH, FSH #### [address] [address] FEon 04-07-2025 Iron [Mass/Vol] 125 ug/dL Normal 50-170 [facility] Comment on above: Performed By: #### T SHR, CMP, CBC, [id number], LIP, GFR, ANEU, ADIFF #### [place] [id number] [place], [place] [address] #### LH, FSH #### [address] [address] LABORATORYOrdered By: SYSTEM SYSTEM on 04-07-2025 Albumin BCP dye [Mass/Vol] 4.1 G/dL Normal 3.5 - 5.0 G/dL AO ADM SS Albumin/Globulin [Mass ratio] 1.1 {ratio} Normal 1.1 - 2.5 ratio AO ADM SS ALP [Catalytic activity/Vol] 121 U/L Normal 40 - 135 U/L AO ADM SS ALT With P-5'-P [Catalytic activity/Vol] 67 U/L High 14 - 59 U/L AO ADM SS AST With P-5'-P [Catalytic activity/Vol] 38 U/L Normal 10 - 40 U/L AO ADM SS Basophils (Bld) [#/Vol] 0.0 103/mcL Normal 0.0 - 0.3 10^3/mcL AO Workflow SS Basophils/100 WBC (Bld) 0.7 % Normal 0.0 - 2.5 % AO Workflow SS Bilirubin [Mass/Vol] 0.4 mg/dL Normal 0.2 - 1 .0 mg/dL AO ADM SS Comment on above: Interpretive Data: U se of this assay is not recommended for patients undergoing treatment with eltrombopag due to the potential for falsely elevated results. Calcium [Mass/Vol] 9.5 mg/dL Normal 8.4 - 10. 2 mg/dL AO ADM SS Chloride [Moles/Vol] 104 mmol/L Normal 98 - 10 7 mmol/L AO ADM SS CO2 [Moles/Vol] 27 mmol/L Normal 22 - 29 mmol/L AO ADM SS Creatinine [Mass/Vol] 0.64 mg/dL Normal 0.51 - 0.95 mg/dL AO ADM SS Electrolyte Balance 9.0 mEq/L Normal 4.0 - 15 .0 mEq/L AO ADM SS Eosinophil, Absolute 0.3 103/mcL Normal 0.0 - 0 .7 10^3/mcL AO Workflow SS Eosinophils/100 WBC (Bld) 5.3 % Normal 0.0 - 6.0 % AO Workflow SS Erythrocyte distribution width (RBC) [Ratio] 14.2 % Normal 11.5 - 15.5 % AO Workflow SS Estimated Glomerular Filtration Rate ml/min/1.73sqm Invalid Interpretation Code AO Chemistry S Comment on above: Interpretive Data: Stages of Chronic Kidney Disease (CKD) Stage Description eGFR(ml/min/1.73 sq.m.) CKD 1 Normal kidney function or >=90 normal kindney function with possible kidney damage (ex. Proteinuria) CKD 2 Kidney damage with mild loss 60-89 of kidney function CKD 3a Mild to moderate loss of kidney 45-59 function CKD 3b Moderate to severe loss of 30-44 of kindey function CKD 4 Severe loss of kidney function 15-29 CKD 5 Kidney failure <15 Note: (go live 2024) the eGFR calculation was updated to the 2020 CKD-EPI creatinine equation without a race factor to calculate the eGFR results. Globulin 3.9 G/dL Normal 2.7 - 4.4 G/dL AO ADM SS Glucose [Mass/Vol] 104 mg/dL Normal 70 - 105 mg/dL AO ADM SS Hematocrit (Bld) [Volume fraction] 45.7 % Normal 34.0 - 46.0 % AO Workflow SS Hemoglobin (Bld) [Mass/Vol] 15.4 G/dL Normal 12.0 - 16.0 G/dL AO Workflow SS Iron [Mass/Vol] 125 ug/dL Normal 50 - 170 mcg/dL AO ADM SS Lipase [Catalytic activity/Vol] 30 U/L Normal 16 - 77 U/L AO ADM SS Lymphocytes (Bld) [#/Vol] 1.7 103/mcL Normal 0.9 - 4.3 10^3/mcL AO Workflow SS Lymphocytes/100 WBC (Bld) 29.2 % Normal 20.0 - 40.0 % AO Workflow SS MCH (RBC) [Entitic mass] 27.5 pg Normal 27.0 - 33.0 pg AO Workflow SS MCHC 33.7 G/dL Normal 32.0 - 36.0 G/dL AO Workflow SS MCV (RBC) [Entitic vol] 81.5 fL Normal 80.0 - 99.0 fL AO Workflow SS Monocytes (Bld) [#/Vol] 0.6 103/mcL Normal 0.1 - 1.4 10^3/mcL AO Workflow SS Monocytes/100 WBC (Bld) 10.2 % Normal 2.0 - 13.0 % AO Workflow SS Neutrophils (Bld) [#/Vol] 3.1 103/mcL Normal 2.3 - 8.1 10^3/mcL AO Workflow SS Neutrophils/100 WBC (Bld) 54.6 % Normal 50.0 - 75.0 % AO Workflow SS Platelet mean volume (Bld) [Entitic vol] 8.4 fL Normal 6.6 - 10.5 fL AO Workflow SS Platelets (Bld) [#/Vol] 290 103/mcL Normal 150 - 450 10^3/mcL AO Workflow SS Potassium [Moles/Vol] 4.1 mmol/L Normal 3.5 - 5.1 mmol/L AO ADM SS Protein [Mass/Vol] 8.0 G/dL Normal 6.4 - 8.2 G/dL AO ADM SS RBC (Bld) [#/Vol] 5.61 106/mcL High 4.10 - 5.30 10^6/mcL AO Workflow SS Sodium [Moles/Vol] 140 mmol/L Normal 136 - 145 mmol/L AO ADM SS Urea nitrogen [Mass/Vol] 10 mg/dL Normal 7 - 18 mg/dL AO ADM SS Urea nitrogen/Creatinine [Mass ratio] 16 ratio Normal 7 - 27 ratio AO ADM SS WBC (Bld) [#/Vol] 5.7 103/mcL Normal 4.5 - 10.8 10^3/mcL AO Workflow SS LIPon 04-07-2025 Lipase Level 30 U/L Normal 16-77 [facility] Comment on above: Performed By: #### T SHR, CMP, CBC, [id number], LIP, GFR, ANEU, ADIFF #### [address] [address] #### LH, FSH #### [address] [address] .Auto Diffon 02-22-2025 Basophil, Absolute 0.0 10 3/mcL Normal 0.0-0.3 [facility] Comment on above: Performed By: #### A DIFF, CBC, ANEU #### [address] [address] Basophils/100 WBC (Bld) 0.1 % Normal 0.0-2.5 [facility] Comment on above: Performed By: #### A DIFF, CBC, ANEU #### [address] [address] Eosinophil, Absolute 0.0 10 3/mcL Normal 0.0-0.7 [facility] Comment on above: Performed By: #### A DIFF, CBC, ANEU #### [address] [address] Eosinophils/100 WBC (Bld) 0.1 % Normal 0.0-6.0 [facility] Comment on above: Performed By: #### A DIFF, CBC, ANEU #### [address] [address] Lymphocyte, Absolute 0.5 10 3/mcL Low 0.9-4.3 [facility] Comment on above: Performed By: #### A DIFF, CBC, ANEU #### [address] [address] Lymphocytes/100 WBC (Bld) 3.7 % Low 20.0-40.0 [facility] Comment on above: Performed By: #### A DIFF, CBC, ANEU #### [address] [address] Monocyte, Absolute 0.7 10 3/mcL Normal 0.1-1.4 [facility] Comment on above: Performed By: #### A DIFF, CBC, ANEU #### [address] [address] Monocytes/100 WBC (Bld) 5.2 % Normal 2.0-13.0 [facility] Comment on above: Performed By: #### A DIFF, CBC, ANEU #### [address] [address] Neutrophils/100 WBC (Bld) 90.9 % High 50.0-75.0 [facility] Comment on above: Performed By: #### A DIFF, CBC, ANEU #### [address] [address] .GFRon 02-22-2025 Estimated Glomerular Filtration Rate 120 ml/min/1.73sqm Normal [facility] Comment on above: Result Comment: Stages of Chronic Kidney Disease (CKD) Stage Description eGFR(ml/min/1.73 sq.m.) CKD 1 Normal kidney function or >=90 normal kindney function with possible kidney damage (ex. Proteinuria) CKD 2 Kidney damage with mild loss 60-89 of kidney function CKD 3a Mild to moderate loss of kidney 45-59 function CKD 3b Moderate to severe loss of 30-44 of kindey function CKD 4 Severe loss of kidney function 15-29 CKD 5 Kidney failure <15 Note: (go live 2024) the eGFR calculation was updated to the 2020 CKD-EPI creatinine equation without a race factor to calculate the eGFR results. Performed By: #### T SHR, CMP, CBC, [id number], LIP, GFR, ANEU, ADIFF #### [place] [address] #### LH, FSH #### [address] [address] .MDWon 02-22-2025 Monocyte Distribution Width 19.42 Normal 0.00-20.00 [facility] Comment on above: Result Comment: For ED adult patients suspected of sepsis, MDW<=20.0 does not rule out sepsis or risk of sepsis Performed By: #### A DIFF, CBC, ANEU #### [place] [address] .NEUABSon 02-22-2025 Neutrophil, Absolute 12.0 10 3/mcL High 2.3-8.1 [facility] Comment on above: Performed By: #### A DIFF, CBC, ANEU #### [place] [address] CBCon 02-22-2025 Erythrocyte distribution width (RBC) [Ratio] 14.7 % Normal 11.5-15.5 [facility] Comment on above: Performed By: #### A DIFF, CBC, ANEU #### [place] [address] Hematocrit (Bld) [Volume fraction] 43.6 % Normal 34.0-46.0 [facility] Comment on above: Performed By: #### A DIFF, CBC, ANEU #### [place] [address] Hgb 14.5 G/dL Normal 12.0-16.0 [facility] Comment on above: Performed By: #### A DIFF, CBC, ANEU #### [address] [address] MCH (RBC) [Entitic mass] 27.6 pg Normal 27.0-33.0 [facility] Comment on above: Performed By: #### A DIFF, CBC, ANEU #### [address] [address] MCHC 33.2 G/dL Normal 32.0-36.0 [facility] Comment on above: Performed By: #### A DIFF, CBC, ANEU #### [address] [address] MCV (RBC) [Entitic vol] 83.1 fL Normal 80.0-99.0 [facility] Comment on above: Performed By: #### A DIFF, CBC, ANEU #### [address] [address] Platelet 278 10 3/mcL Normal 150-450 [facility] Comment on above: Performed By: #### A DIFF, CBC, ANEU #### [address] [address] Platelet mean volume (Bld) [Entitic vol] 8.5 fL Normal 6.6-10.5 [facility] Comment on above: Performed By: #### A DIFF, CBC, ANEU #### [address] [address] RBC 5.25 10 6/mcL Normal 4.10-5.30 [facility] Comment on above: Performed By: #### A DIFF, CBC, ANEU #### [address] [address] WBC 13.2 10 3/mcL High 4.5-10.8 [facility] Comment on above: Performed By: #### A DIFF, CBC, ANEU #### [address] [address] CMPon 02-22-2025 Albumin Level 3.9 G/dL Normal 3.5-5.0 [facility] Comment on above: Performed By: #### T SHR, CMP, CBC, [id number], LIP, GFR, ANEU, ADIFF #### [place] [address] #### LH, FSH #### [address] [address] Albumin/Globulin [Mass ratio] 1.1 {ratio} Normal 1.1-2.5 [facility] Comment on above: Performed By: #### T SHR, CMP, CBC, 833234, LIP, GFR, ANEU, ADIFF #### [place] [address] #### LH, FSH #### [place] [address] ALP [Catalytic activity/Vol] 111 U/L Normal 40-135 [facility] Comment on above: Performed By: #### T SHR, CMP, CBC, 439347, LIP, GFR, ANEU, ADIFF #### [place] [address] #### LH, FSH #### [place] [address] ALT [Catalytic activity/Vol] 69 U/L High 14-59 [facility] Comment on above: Performed By: #### T SHR, CMP, CBC, 331524, LIP, GFR, ANEU, ADIFF #### [place] [address] #### LH, FSH #### [place] [id number] AST [Catalytic activity/Vol] 35 U/L Normal 10-40 [facility] Comment on above: Performed By: #### T SHR, CMP, CBC, [id number], LIP, GFR, ANEU, ADIFF #### [place] [address] #### LH, FSH #### [place] [address] Bili Total 0.6 mg/dL Normal 0.2-1.0 [facility] Comment on above: Result Comment: Use of this assay is not recommended for patients undergoing treatment with eltrombopag due to the potential for falsely elevated results. Performed By: #### T SHR, CMP, CBC, 295168, LIP, GFR, ANEU, ADIFF #### [place] [address] #### LH, FSH #### [place] [address] BUN/Creatinine Ratio 19 ratio Normal 7-27 [facility] Comment on above: Performed By: #### T SHR, CMP, CBC, 470467, LIP, GFR, ANEU, ADIFF #### [place] [address] #### LH, FSH #### [place] [address] Calcium [Mass/Vol] 9.2 mg/dL Normal 8.4-10.2 [facility] Comment on above: Performed By: #### T SHR, CMP, CBC, 095546, LIP, GFR, ANEU, ADIFF #### [place] [address] #### LH, FSH #### [place] [address] Chloride [Moles/Vol] 105 mmol/L Normal 98-107 [facility] Comment on above: Performed By: #### T SHR, CMP, CBC, 251428, LIP, GFR, ANEU, ADIFF #### [place] [address] #### LH, FSH #### [place] [id number] CO2 [Moles/Vol] 24 mmol/L Normal 22-29 [facility] Comment on above: Performed By: #### T SHR, CMP, CBC, 507456, LIP, GFR, ANEU, ADIFF #### [place] [address] #### LH, FSH #### [place] [address] Creatinine [Mass/Vol] 0.69 mg/dL Normal 0.51-0.95 [facility] Comment on above: Performed By: #### T SHR, CMP, CBC, 085825, LIP, GFR, ANEU, ADIFF #### [place] [address] #### LH, FSH #### [place] [address] Electrolyte Balance 11.0 mEq/L Normal 4.0-15.0 [facility] Comment on above: Performed By: #### T SHR, CMP, CBC, 779885, LIP, GFR, ANEU, ADIFF #### [place] [address] #### LH, FSH #### [place] [address] Globulin 3.7 G/dL Normal 2.7-4.4 [facility] Comment on above: Performed By: #### T SHR, CMP, CBC, 067503, LIP, GFR, ANEU, ADIFF #### [place] [address] #### LH, FSH #### [place] [address] Glucose [Mass/Vol] 142 mg/dL High 70-105 [facility] Comment on above: Performed By: #### T SHR, CMP, CBC, 817127, LIP, GFR, ANEU, ADIFF #### [place] [address] #### LH, FSH #### [place] [address] Potassium [Moles/Vol] 4.0 mmol/L Normal 3.5-5.1 [facility] Comment on above: Performed By: #### T SHR, CMP, CBC, 787236, LIP, GFR, ANEU, ADIFF #### [place] [address] #### LH, FSH #### [address] [address] Sodium [Moles/Vol] 140 mmol/L Normal 136-145 [facility] Comment on above: Performed By: #### T SHR, CMP, CBC, 390589, LIP, GFR, ANEU, ADIFF #### [address] [address] #### LH, FSH #### [address] [address] Total Protein 7.6 G/dL Normal 6.4-8.2 [facility] Comment on above: Performed By: #### T SHR, CMP, CBC, 304903, LIP, GFR, ANEU, ADIFF #### [address] [address] #### LH, FSH #### [place] [address] Urea nitrogen [Mass/Vol] 13 mg/dL Normal 7-18 [facility] Comment on above: Performed By: #### T SHR, CMP, CBC, 621338, LIP, GFR, ANEU, ADIFF #### [place] [address] #### LH, FSH #### [address] [address] [address] ABD/PELVIS W/ IV CONTRAST ONLYon 02-22-2025 CT ABD/PELVIS W/ IV CONTRAST ONLY ORIGINAL EXAMINATION: CT OF THE ABDOMEN AND PELVIS WITH CONTRAST02/22/2025 6:32 pm TECHNIQUE: CT of the abdomen and pelvis was performed with the administration of intravenous contrast. Multiplanar reformatted images are provided for review. Automated exposure control, iterative reconstruction, and/or weight based adjustment of the mA/kV was utilized to reduce the radiation dose to as low as reasonably achievable. COMPARISON: MRI liver 10/28/2024. HISTORY: ORDERING SYSTEM PROVIDED HISTORY: Reason for Exam: Abdominal pain, acute, nonlocalized, FINDINGS: The included lung bases are clear. There is no visible pleural or pericardial effusion. The heart is normal in size. Trace pericardial fluid. Hepatic steatosis. Fatty sparing adjacent to the gallbladder fossa is noted. The liver is normal in contour. The spleen, pancreas, and adrenal glands are within normal limits. The gallbladder is unremarkable. Symmetric nephrograms. No hydronephrosis. The ureters are normal in course and caliber. The urinary bladder is under distended. The uterus is within normal limits. No adnexal mass. The large and small bowel demonstrate no obstruction. The appendix is normal. Some fluid-filled mid to distal small bowel loops and fluid in the right-sided colon. No free intraperitoneal fluid or gas is identified. The aorta is normal in caliber. No abdominopelvic lymphadenopathy. There is no acute fracture or aggressive osseous lesion. No acute soft tissue abnormality. Small fat containing umbilical hernia. There is a large amount of subcutaneous fat, compatible with obesity. IMPRESSION: Multiple nondilated fluid-filled small bowel loops and right-side colon. Although nonspecific, mild enterocolitis may be considered. Hepatic steatosis. I have personally reviewed the images of this examination and agree with the resident's findings and interpretation. Interpreted by: Neil Becerra DO Preliminary Report By: Aniket Vogel Electronically signed By Neil Becerra DO Dictated Date: 02/22/2025 6:41:26 PM Prelim Date: 02/22/2025 6:48:03 PM Sign Date: 02/22/2025 7:14:31 PM Ordering Provider: VITO Knight [facility] LABORATORYOrdered By: SYSTEM SYSTEM on 02-22-2025 Albumin BCP dye [Mass/Vol] 3.9 G/dL Normal 3.5 - 5.0 G/dL AO ADM SS Albumin/Globulin [Mass ratio] 1.1 {ratio} Normal 1.1 - 2.5 ratio AO ADM SS ALP [Catalytic activity/Vol] 111 U/L Normal 40 - 135 U/L AO ADM SS ALT With P-5'-P [Catalytic activity/Vol] 69 U/L High 14 - 59 U/L AO ADM SS AST With P-5'-P [Catalytic activity/Vol] 35 U/L Normal 10 - 40 U/L AO ADM SS Basophils (Bld) [#/Vol] 0.0 103/mcL Normal 0.0 - 0.3 10^3/mcL AO Workflow SS Basophils/100 WBC (Bld) 0.1 % Normal 0.0 - 2.5 % AO Workflow SS Bilirubin [Mass/Vol] 0.6 mg/dL Normal 0.2 - 1 .0 mg/dL AO ADM SS Comment on above: Interpretive Data: U se of this assay is not recommended for patients undergoing treatment with eltrombopag due to the potential for falsely elevated results. Calcium [Mass/Vol] 9.2 mg/dL Normal 8.4 - 10. 2 mg/dL AO ADM SS Chloride [Moles/Vol] 105 mmol/L Normal 98 - 10 7 mmol/L AO ADM SS CO2 [Moles/Vol] 24 mmol/L Normal 22 - 29 mmol/L AO ADM SS Creatinine [Mass/Vol] 0.69 mg/dL Normal 0.51 - 0.95 mg/dL AO ADM SS Electrolyte Balance 11.0 mEq/L Normal 4.0 - 15 .0 mEq/L AO ADM SS Eosinophil, Absolute 0.0 103/mcL Normal 0.0 - 0 .7 10^3/mcL AO Workflow SS Eosinophils/100 WBC (Bld) 0.1 % Normal 0.0 - 6.0 % AO Workflow SS Erythrocyte distribution width (RBC) [Ratio] 14.7 % Normal 11.5 - 15.5 % AO Workflow SS Estimated Glomerular Filtration Rate 120 ml/min/1.73sqm Invalid Interpretation Code AO Chemistry S Comment on above: Interpretive Data: Stages of Chronic Kidney Disease (CKD) Stage Description eGFR(ml/min/1.73 sq.m.) CKD 1 Normal kidney function or >=90 normal kindney function with possible kidney damage (ex. Proteinuria) CKD 2 Kidney damage with mild loss 60-89 of kidney function CKD 3a Mild to moderate loss of kidney 45-59 function CKD 3b Moderate to severe loss of 30-44 of kindey function CKD 4 Severe loss of kidney function 15-29 CKD 5 Kidney failure <15 Note: (go live 2024) the eGFR calculation was updated to the 2020 CKD-EPI creatinine equation without a race factor to calculate the eGFR results. Globulin 3.7 G/dL Normal 2.7 - 4.4 G/dL AO ADM SS Glucose [Mass/Vol] 142 mg/dL High 70 - 105 mg/dL AO ADM SS Hematocrit (Bld) [Volume fraction] 43.6 % Normal 34.0 - 46.0 % AO Workflow SS Hemoglobin (Bld) [Mass/Vol] 14.5 G/dL Normal 12.0 - 16.0 G/dL AO Workflow SS Lipase [Catalytic activity/Vol] 23 U/L Normal 16 - 77 U/L AO ADM SS Lymphocytes (Bld) [#/Vol] 0.5 103/mcL Low 0.9 - 4.3 10^3/mcL AO Workflow SS Lymphocytes/100 WBC (Bld) 3.7 % Low 20.0 - 40.0 % AO Workflow SS MCH (RBC) [Entitic mass] 27.6 pg Normal 27.0 - 33.0 pg AO Workflow SS MCHC 33.2 G/dL Normal 32.0 - 36.0 G/dL AO Workflow SS MCV (RBC) [Entitic vol] 83.1 fL Normal 80.0 - 99.0 fL AO Workflow SS Monocyte distribution width Auto (Bld) [Entitic vol] 19.42 1 Normal 0.00 - 20.00 AO Workflow SS Comment on above: Result Comment: For ED adult patients suspected of sepsis, MDW<=20.0 does not rule out sepsis or risk of sepsis Monocytes (Bld) [#/Vol] 0.7 103/mcL Normal 0.1 - 1.4 10^3/mcL AO Workflow SS Monocytes/100 WBC (Bld) 5.2 % Normal 2.0 - 13.0 % AO Workflow SS Neutrophils (Bld) [#/Vol] 12.0 103/mcL High 2.3 - 8.1 10^3/mcL AO Workflow SS Neutrophils/100 WBC (Bld) 90.9 % High 50.0 - 75.0 % AO Workflow SS Platelet mean volume (Bld) [Entitic vol] 8.5 fL Normal 6.6 - 10.5 fL AO Workflow SS Platelets (Bld) [#/Vol] 278 103/mcL Normal 150 - 450 10^3/mcL AO Workflow SS Potassium [Moles/Vol] 4.0 mmol/L Normal 3.5 - 5.1 mmol/L AO ADM SS Protein [Mass/Vol] 7.6 G/dL Normal 6.4 - 8.2 G/dL AO ADM SS RBC (Bld) [#/Vol] 5.25 106/mcL Normal 4.10 - 5.30 10^6/mcL AO Workflow SS Sodium [Moles/Vol] 140 mmol/L Normal 136 - 145 mmol/L AO ADM SS Troponin I.cardiac DL <= 0.01 ng/mL [Mass/Vol] ng/L Normal 0 - 51 ng/L AO ADM SS Comment on above: Interpretive Data: H igh Sensitive Troponin I Reference Ranges: Female: 0-51 ng/L Male: 0-76 ng/L Testing performed on [employer] using a homogeneous sandwich chemiluminescent immunoassay based on myhub technology. Urea nitrogen [Mass/Vol] 13 mg/dL Normal 7 - 18 mg/dL AO ADM SS Urea nitrogen/Creatinine [Mass ratio] 19 ratio Normal 7 - 27 ratio AO ADM SS WBC (Bld) [#/Vol] 13.2 103/mcL High 4.5 - 10.8 10^3/mcL AO Workflow SS LABORATORYOrdered By: Amada Simon on 02-22-2025 Ammonium urate crystals LM Ql (Urine sed) Trace /HPF Invalid Interpretation Code AO Auto Urine SS Appearance (U) Turbid *ABN* (02/22/25 5:39 PM) Invalid Interpretation Code Clear AO Auto Urine SS Bacteria LM.HPF (Urine sed) [#/Area] 2 /[HPF] Invalid Interpretation Code Negative AO Auto Urine SS Bilirubin Ql (U) Small *ABN* (02/22/25 5:39 PM) Invalid Interpretation Code Negative AO Auto Urine SS Calcium phosphate crystals LM.HPF (Urine sed) [#/Area] Trace /HPF Normal AO Auto Urine SS Color (U) Yellow (02/22/25 5:39 PM) Normal AO Auto Urine SS Crystals.amorphous LM.HPF (Urine sed) [#/Area] 3 /[HPF] Normal AO Auto Urine SS Glucose Test strip (U) [Mass/Vol] Negative Normal Negative AO Auto Urine SS HCG ( test) Ql Negative (02/22/25 5:39 PM) Normal AO Manual Urine SS Hemoglobin Auto test strip (U) [Mass/Vol] Trace (02/22/25 5:39 PM) Normal Negative AO Auto Urine SS Ketones Ql (U) Negative Normal Negative AO Auto Urine SS test (u) int Not detected Invalid Interpretation Code AO Manual Urine SS UA Leuk Est Negative (02/22/25 5:39 PM) Normal Negative AO Auto Urine SS UA Nitrite Positive *ABN* (02/22/25 5:39 PM) Invalid Interpretation Code Negative AO Auto Urine SS UA pH 6.0 (02/22/25 5:39 PM) Normal 5.0 - 8.0 AO Auto Urine SS UA Protein Trace mg/dL Normal Negative AO Auto Urine SS UA RBC 0-2 /HPF Normal 0-2 AO Auto Urine SS UA Spec Grav >=1.030 *ABN* (02/22/25 5:39 PM) Invalid Interpretation Code 1.015-1.02 5 AO Auto Urine SS UA Specimen Type Not Given (02/22/25 5:39 PM) Normal AO Auto Urine SS UA Squam Epithelial 0-2 /HPF Normal 0-20 AO Au to Urine SS UA Urobilinogen 0.2 E.U./dL Normal 0.2-1.0 AO Auto Urine SS WBC LM.HPF (Urine sed) [#/Area] 10-20 /HPF Invalid Interpretation Code 0-5 AO Auto Urine SS LIPon 02-22-2025 Lipase Level 23 U/L Normal 16-77 [facility] Comment on above: Performed By: #### A DIFF, CBC, ANEU #### [address] [address] PREGUon 02-22-2025 HCG ( test) Ql (U) Negative Normal [facility] Comment on above: Performed By: #### P REGU, UAMIC, UA #### [address] [address] test (u) int Not detected Invalid Interpretation Code [facility] Comment on above: Performed By: #### P REGU, UAMIC, UA #### [address] [address] TROPHSon 02-22-2025 High Sensitivity Troponin I <4 Normal 0-51 [facility] Comment on above: Result Comment: High Sensitive Troponin I Reference Ranges: Female: 0-51 ng/L Male: 0-76 ng/L Testing performed on [employer] using a homogeneous sandwich chemiluminescent immunoassay based on myhub technology. Performed By: #### T SHR, CMP, CBC, [id number], LIP, GFR, ANEU, ADIFF #### [address] [address] #### LH, FSH #### [address] [address] UAon 02-22-2025 Color (U) Yellow Normal [facility] Comment on above: Performed By: #### P REGU, UAMIC, UA #### [place] [address] Glucose (U) [Mass/Vol] Negative Normal Negative [facility] Comment on above: Performed By: #### P REGU, UAMIC, UA #### [place] [address] Ketones Ql (U) Negative Normal Negative [facility] Comment on above: Performed By: #### P REGU, UAMIC, UA #### [place] [address] UA Appear Turbid Abnormal Clear [facility] Comment on above: Performed By: #### P REGU, UAMIC, UA #### [place] [address] UA Bili Small Abnormal Negative [facility] Comment on above: Performed By: #### P REGU, UAMIC, UA #### [place] [address] UA Blood Trace Normal Negative [facility] Comment on above: Performed By: #### P REGU, UAMIC, UA #### [place] [address] UA Leuk Est Negative Normal Negative [facility] Comment on above: Performed By: #### P REGU, UAMIC, UA #### [place] [address] UA Nitrite Positive Abnormal Negative [facility] Comment on above: Performed By: #### P REGU, UAMIC, UA #### [place] [address] UA pH 6.0 Normal 5.0 - 8.0 [facility] Comment on above: Performed By: #### P REGU, UAMIC, UA #### [place] [address] UA Protein Trace Normal Negative [facility] Comment on above: Performed By: #### P REGU, UAMIC, UA #### [place] [address] UA Spec Grav >=1.030 Abnormal 1.015-1.[address] [facility] Comment on above: Performed By: #### P REGU, UAMIC, UA #### [place] [address] UA Urobilinogen 0.2 E.U./dL Normal 0.2-1.0 [facility] Comment on above: Performed By: #### P REGU, UAMIC, UA #### [place] [address] UA Specimen Type Not Given Normal [facility] Comment on above: Performed By: #### P REGU, UAMIC, UA #### [place] [address] UAMICon 02-22-2025 UA Am Biurate Crystals Trace Abnormal [facility] Comment on above: Performed By: #### P REGU, UAMIC, UA #### [place] [address] UA Amorphus 3+ /hpf Normal [facility] Comment on above: Performed By: #### P REGU, UAMIC, UA #### [place] [address] UA Bacteria 2+ /hpf Abnormal Negative [facility] Comment on above: Performed By: #### P REGU, UAMIC, UA #### [place] [address] UA CA Phosphate Crystals Trace Normal [facility] Comment on above: Performed By: #### P REGU, UAMIC, UA #### [place] [address] UA RBC 0-2 Normal 0-2 [facility] Comment on above: Performed By: #### P REGU, UAMIC, UA #### [place] [address] UA Squam Epithelial 0-2 Normal 0-20 [facility] Comment on above: Performed By: #### P REGU, UAMIC, UA #### [facility] [place] [address] [place], [place] [address] UA WBC 10-20 Abnormal 0-5 [facility] Comment on above: Performed By: #### P REGU, UAMIC, UA #### [facility] [place] [address] [place], [place] [address] XR CHEST 1 VIEWon 02-22-2025 XR CHEST 1 VIEW ORIGINAL EXAMINATION: ONE XRAY VIEW OF THE CHEST02/22/2025 6:33 pm COMPARISON: Chest radiograph 12/09/2019. HISTORY: ORDERING SYSTEM PROVIDED HISTORY: Reason for Exam: chest pain FINDINGS: Cardiomediastinal contours are within normal limits. Hypoventilatory changes with associated bronchovascular crowding. No focal consolidation. No pneumothorax or large pleural effusion. No acute osseous abnormalities. IMPRESSION: Hypoventilatory changes without an acute radiographic process. I have personally reviewed the images of this examination and agree with the resident's findings and interpretation. Interpreted by: Neil Becerra DO Preliminary Report By: Aniket Vogel Electronically signed By Neil Becerra DO Dictated Date: 02/22/2025 6:58:56 PM Prelim Date: 02/22/2025 7:01:22 PM Sign Date: 02/22/2025 9:01:30 PM Ordering Provider: VITO Knight [facility] Cytology Reporton 2024 [facility] Cytology Report . Pathology Reports Accession: Collected Date/Time: Received Date/Time: Pathologist: [id number] 12/16/2024 16:20 EDT 12/17/2024 12:34 EDT [facility] Cytology Report SPECIMEN: Specimen Description: Liquid Prep Reflex ASCUS+ Specimen: Cervical Screening or Diagnostic: Screening RELEVANT HISTORY: LMP: 11/2024 SPECIMEN ADEQUACY: SATISFACTORY FOR EVALUATION Endocervical/Transformationa l zone component present INTERPRETATION/RESULTS: NEGATIVE FOR INTRAEPITHELIAL LESION OR MALIGNANCY ORGANISMS: Shift in kaur consistent with bacterial vaginosis COMMENT: This Pap Test was successfully processed and evaluated with the assistance of the [employer] Test Imaging System. Verified by Pathology report verified by [facility] Screened by: KUSHAL Electronically signed by Mariel Kridler CT (ASCP) Sign-Out Date: 12/22/2024 12:03 Performing Lab: [facility], [address] [place] [address] Pathology Dept Disclaimer The Pap test is a screening test for cervical cancer. As evidenced by published data, it is subject to both inherent false negative and false positive results. Your patient's results should be interpreted in context with pertinent clinical history including gynecological examination. Normal [facility] CTPCRon 12-18-[address] C[address] trachomatis Interp See CT Interp N Normal See CT Interp N [facility] Comment on above: Result Comment: Clinical Interpretation: C. trachomatis DNA not detected. Specimen is presumptive negative for C. trachomatis. A negative result does not preclude C. trachomatis infection because results depend on adequate specimen collection, absence of inhibitors, and sufficient DNA to be detected. Performed By: #### A DIFF, CBC, ANEU #### [address] [address] C.trachomatis PCR Negative Normal Negative [facility] Comment on above: Result Comment: Mole cular (PCR) assay performed on the [employer] Aurora 4800 system. Performed By: #### A DIFF, CBC, ANEU #### [address] [address] Chlam Source Cervix Normal [facility] Comment on above: Performed By: #### A DIFF, CBC, ANEU #### [address] [address] [id number] 12-18-2024 GC PCR Source Cervix Normal [facility] Comment on above: Performed By: #### A DIFF, CBC, ANEU #### [address] [address] N. gonorrhoeae (PCR) Negative Normal Negative [facility] Comment on above: Result Comment: Mole cular (PCR) assay performed on the [employer] Aurora 4800 System. Performed By: #### A DIFF, CBC, ANEU #### [address] [address] N. gonorrhoeae Interp See NG Interp N Normal See NG Interp N [facility] Comment on above: Result Comment: Clinical Interpretation: N. gonorrhoeae DNA not detected. Specimen is presumptive negative for N. gonorrhoeae. A negative result does not preclude Neisseria gonorrhoeae infection because results depend on adequate specimen collection, absence of inhibitors, and sufficient DNA to be detected. Performed By: #### A DIFF, CBC, ANEU #### [facility] [place] [address] [place], [place] [address] LABORATORYOrdered By: Lorna Molina on 12-16-2024 C. trachomatis DNA AVIVA+probe Ql (Unsp spec) See CT Interp N 3 (12/16/24 4:20 PM) Normal See CT Interp N [facility] Comment on above: Result Comment: Clinical Interpretation: C. trachomatis DNA not detected. Specimen is presumptive negative for C. trachomatis. A negative result does not preclude C. trachomatis infection because results depend on adequate specimen collection, absence of inhibitors, and sufficient DNA to be detected. C. trachomatis DNA AVIVA+probe Ql (Unsp spec) Negative 2 (12/16/24 4:20 PM) Normal Negative [facility] Comment on above: Interpretive Data: M olecular (PCR) assay performed on the [employer] Aurora 4800 system. N. gonorrhoeae DNA AVIVA+probe Ql (Unsp spec) See NG Interp N 4 (12/16/24 4:20 PM) Normal See NG Interp N [facility] Auto Viro/Sero SS Comment on above: Result Comment: Clinical Interpretation: N. gonorrhoeae DNA not detected. Specimen is presumptive negative for N. gonorrhoeae. A negative result does not preclude Neisseria gonorrhoeae infection because results depend on adequate specimen collection, absence of inhibitors, and sufficient DNA to be detected. N. gonorrhoeae DNA AVIVA+probe Ql (Unsp spec) Negative 1 (12/16/24 4:20 PM) Normal Negative [facility]Sero SS Comment on above: Interpretive Data: M olecular (PCR) assay performed on the [employer] Aurora 4800 System. Laboratory - Specimen inform ationOrdered By: Lorna Molina on 12-16-2024 Specimen source Nom (Unsp spec) Cervix (12/16/24 4:20 PM) Normal AH Auto Viro/Sero SS ANCAon 12-09-2024 C-ANCA 0.7 Normal 0.0-20.0 [facility] Comment on above: Result Comment: NEW REFERENCE RANGES FOR ANCA BY EIA: NEGATIVE <= 20 UNITS WEAK POSITIVE 21 - 30 UNITS MOD. TO STRONG POSITIVE > 30 UNITS A positive result indicates the presence of AZ-3 antibodies and suggests the possibility of certain autoimmune vasculitides such as Price???s granulomatosis. A negative result indicates no AZ-3 antibody or levels below the negative cut-off of the assay. These results were obtained with the [employer] QUANTA Lite AZ-3 IgG BERNADETTE. AZ-3 values obtained with different manufacturers??? assay methods may not be used interchangeably. The magnitude of the reported IgG level cannot be correlated to an endpoint titer. Results of this assay should be used in conjunction with clinical findings. Performed By: #### A DIFF, CBC, ANEU #### [place] [address] Cytoplasmic Neutro. Ab. See Below Normal [facility] Comment on above: Performed By: #### A DIFF, CBC, ANEU #### [place] [address] P-ANCA 0.8 Normal 0.0-20.0 [facility] Comment on above: Result Comment: REFE RENCE RANGES FOR ANCA BY EIA: NEGATIVE <= 20 UNITS WEAK POSITIVE 21 - 30 UNITS MOD. TO STRONG POSITIVE > 30 UNITS A positive result indicates the presence of MPO antibodies and suggests the possibility of certain autoimmune vasculitides such as microscopic polyarteritis, and crescentic glomerulonephritis. A negative result indicates no MPO antibody or levels below the negative cut-off of the assay. These results were obtained with the [employer] QUANTA Lite MPO IgG BERNADETTE. MPO values obtained with different manufacturers??? assay methods may not be used interchangeably. The magnitude of the reported IgG level cannot be correlated to an endpoint titer. Results of this assay should be used in conjunction with clinical findings. Performed By: #### A DIFF, CBC, ANEU #### [place] [id number] ANAIFSon 12-04-2024 Antinuclear Ab Pattern Nuclear dense fine speckled Normal [facility] Comment on above: Result Comment: Perf ormed By: [facility] [employer] [address] [place] [address] Director Of Human Resources: Jose Carlos III, M.D. CLIA#: [id number] Performed By: #### A DIFF, CBC, ANEU #### [place] [address] Antinuclear Ab Screen Positive Abnormal Negative [facility] Comment on above: Result Comment: Anti -nuclear antibody test is used as an aid in diagnosis of systemic autoimmune diseases. Where positive and clinically warranted, follow-up using disease-specific testing is recommended. Low positive titers are not uncommon with advanced age, certain chronic infections, and malignancies among others. Test methodology: Indirect fluorescence immunoassay (IFA) using HEp-2 cells. Performed By: [facility] [employer] [address] [place] [address] Director Of Human Resources: Jose Carlos III, M.D. CLIA#: [id number] Performed By: #### A DIFF, CBC, ANEU #### [place] [address] Antinuclear Ab Titer 1:640 Normal [facility] Comment on above: Result Comment: Perf ormed By: [facility] [employer] [address] [place] [address] Director Of Human Resources: Jose Carlos III, M.D. CLIA#: [id number] Performed By: #### A DIFF, CBC, ANEU #### [place] [address] [facility] Hep B Core Total Ab Negative Normal Negative [facility] Comment on above: Result Comment: Perf ormed At: [facility] [id number] Petr Pratt PhD Ph:[phone] Performed By: #### A DIFF, CBC, ANEU #### [place] [address] AHAVGon 12-03-2024 Hepatitis A Antibody IgG Negative Normal [facility] Comment on above: Result Comment: No s erological evidence of past exposure to hepatitis A virus or hepatitis A vaccination. Should recent infection be suspected, repeat testing is suggested 3-4 weeks after this draw. Performed By: [facility] [employer] [address] [place] [address] Director Of Human Resources: Carlos Burnett III#: [id number] Performed By: #### A DIFF, CBC, ANEU #### [place] [address] HAVMon 12-03-2024 Hep A IgM Ab Non-Reactive Normal Non-Reacti ve [facility] Comment on above: Performed By: #### A DIFF, CBC, ANEU #### [place] [address] Hep A IgM Ab Int See Interp Normal [facility] Comment on above: Result Comment: Clinical Interpretation: No serological evidence of a current Hepatitis A infection. Performed By: #### A DIFF, CBC, ANEU #### [place] [address] HBSABon 12-03-2024 Hep B Surf Ab <3.1 Low >=10.0 [facility] Comment on above: Result Comment: 0 to < 10.0 mIU/mL Nonreactive Patient is considered not to have protective immunity to HBV infection >/= 10.0 mIU/mL Reactive Patient is considered to have protective immunity to HBV infection. This assay is traceable to the World Health Organization (WHO) Hepatitis B Immunoglobulin 1st International Reference Preparation (1976). The accepted criteria for immunity to HBV is anti-HBs activity >/= 10.0 mIU/mL, as defined by the WHO International Reference Preparation. Performed By: #### A DIFF, CBC, ANEU #### [place] [id number] HBSAGon 12-03-2024 Hep B Surf Ag Non-Reactive Normal Non-Reacti ve [facility] Comment on above: Performed By: #### A DIFF, CBC, ANEU #### [place] [id number] HCVon 12-03-2024 Hep C Ab Non-Reactive Normal Non-Reacti ve [facility] Comment on above: Performed By: #### A DIFF, CBC, ANEU #### [place] [address] Hep C Ab Int See Interp Normal [facility] Comment on above: Result Comment: Clinical Interpretation: Nonreactive: Samples with a value < 0.80 are considered nonreactive (negative) for antibodies to HCV. A negative test result does not exclude the possibility of exposure to or infection with HCV. HCV antibodies may be undetectable in some stages of the infection and in some clinical conditions. Performed By: #### A DIFF, CBC, ANEU #### [place] [address] SMUSCon 12-03-2024 Actin (Smooth Muscle) Antibody 2 units Normal 0-19 [facility] Comment on above: Result Comment: Nega tive 0 - 19 Weak positive 20 - 30 Moderate to strong positive >30 Actin Antibodies are found in 52-85% of patients with autoimmune hepatitis or chronic active hepatitis and in 22% of patients with primary biliary cirrhosis. Performed At: [facility] [address] [id number] Petr Pratt PhD Ph:[phone] Performed By: #### A DIFF, CBC, ANEU #### [place] [address] .Auto Diffon 12-02-2024 Basophil, Absolute 0.1 10 3/mcL Normal 0.0-0.3 [facility] Comment on above: Performed By: #### A DIFF, CBC, ANEU #### [place] [address] Basophils/100 WBC (Bld) 0.8 % Normal 0.0-2.5 [facility] Comment on above: Performed By: #### A DIFF, CBC, ANEU #### [place] [address] Eosinophil, Absolute 0.3 10 3/mcL Normal 0.0-0.7 [facility] Comment on above: Performed By: #### A DIFF, CBC, ANEU #### [address] [address] Eosinophils/100 WBC (Bld) 4.7 % Normal 0.0-6.0 [facility] Comment on above: Performed By: #### A DIFF, CBC, ANEU #### [address] [address] Lymphocyte, Absolute 1.7 10 3/mcL Normal 0.9-4.3 [facility] Comment on above: Performed By: #### A DIFF, CBC, ANEU #### [address] [address] Lymphocytes/100 WBC (Bld) 25.1 % Normal 20.0-40.0 [facility] Comment on above: Performed By: #### A DIFF, CBC, ANEU #### [address] [address] Monocyte, Absolute 0.6 10 3/mcL Normal 0.1-1.4 [facility] Comment on above: Performed By: #### A DIFF, CBC, ANEU #### [address] [address] Monocytes/100 WBC (Bld) 8.9 % Normal 2.0-13.0 [facility] Comment on above: Performed By: #### A DIFF, CBC, ANEU #### [address] [address] Neutrophils/100 WBC (Bld) 60.5 % Normal 50.0-75.0 [facility] Comment on above: Performed By: #### A DIFF, CBC, ANEU #### [address] [address] .GFRon 12-02-2024 GFR/1.73 sq M.predicted among non-blacks MDRD (S/P/Bld) [Vol rate/Area] mL/min/{1.73_m2} Normal [facility] Comment on above: Result Comment: Stages of Chronic Kidney Disease (CKD) Stage Description eGFR(ml/min/1.73 sq.m.) CKD 1 Normal kidney function or >=90 normal kindney function with possible kidney damage (ex. Proteinuria) CKD 2 Kidney damage with mild loss 60-89 of kidney function CKD 3a Mild to moderate loss of kidney 45-59 function CKD 3b Moderate to severe loss of 30-44 of kindey function CKD 4 Severe loss of kidney function 15-29 CKD 5 Kidney failure <15 Note: (go live 2024) the eGFR calculation was updated to the 2020 CKD-EPI creatinine equation without a race factor to calculate the eGFR results. Performed By: #### P REGU, UAMIC, UA #### [address] [address] .NEUABSon 12-02-2024 Neutrophil, Absolute 4.0 10 3/mcL Normal 2.3-8.1 [facility] Comment on above: Performed By: #### A DIFF, CBC, ANEU #### [place] [address] CBCon 12-02-2024 Erythrocyte distribution width (RBC) [Ratio] 14.1 % Normal 11.5-15.5 [facility] Comment on above: Performed By: #### A DIFF, CBC, ANEU #### [place] [address] Hematocrit (Bld) [Volume fraction] 40.2 % Normal 34.0-46.0 [facility] Comment on above: Performed By: #### A DIFF, CBC, ANEU #### [address] [address] Hgb 13.5 G/dL Normal 12.0-16.0 [facility] Comment on above: Performed By: #### A DIFF, CBC, ANEU #### [address] [address] MCH (RBC) [Entitic mass] 27.1 pg Normal 27.0-33.0 [facility] Comment on above: Performed By: #### A DIFF, CBC, ANEU #### [place] [address] MCHC 33.5 G/dL Normal 32.0-36.0 [facility] Comment on above: Performed By: #### A DIFF, CBC, ANEU #### [address] [address] MCV (RBC) [Entitic vol] 80.7 fL Normal 80.0-99.0 [facility] Comment on above: Performed By: #### A DIFF, CBC, ANEU #### [address] [address] Platelet 273 10 3/mcL Normal 150-450 [facility] Comment on above: Performed By: #### A DIFF, CBC, ANEU #### [address] [address] Platelet mean volume (Bld) [Entitic vol] 8.3 fL Normal 6.6-10.5 [facility] Comment on above: Performed By: #### A DIFF, CBC, ANEU #### [address] [address] RBC 4.98 10 6/mcL Normal 4.10-5.30 [facility] Comment on above: Performed By: #### A DIFF, CBC, ANEU #### [address] [address] WBC 6.6 10 3/mcL Normal 4.5-10.8 [facility] Comment on above: Performed By: #### A DIFF, CBC, ANEU #### [address] [address] CERULon 12-02-2024 Ceruloplasmin 30.0 mg/dL Normal 22.0-58.0 [facility] Comment on above: Performed By: #### A DIFF, CBC, ANEU #### [address] [address] CMPon 12-02-2024 Albumin Level 3.4 G/dL Low 3.5-5.0 [facility] Comment on above: Performed By: #### P REGU, UAMIC, UA #### [address] [address] Albumin/Globulin [Mass ratio] 0.8 {ratio} Low 1.1-2.5 [facility] Comment on above: Performed By: #### P REGU, UAMIC, UA #### [address] [address] ALP [Catalytic activity/Vol] 114 U/L Normal 40-135 [facility] Comment on above: Performed By: #### P REGU, UAMIC, UA #### [place] [phone] ALT [Catalytic activity/Vol] 80 U/L High 14-59 [facility] Comment on above: Performed By: #### P REGU, UAMIC, UA #### [place] [phone] AST [Catalytic activity/Vol] 50 U/L High 10-40 [facility] Comment on above: Performed By: #### P REGU, UAMIC, UA #### [place] [address] Bili Total 0.2 mg/dL Normal 0.2-1.0 [facility] Comment on above: Result Comment: Use of this assay is not recommended for patients undergoing treatment with eltrombopag due to the potential for falsely elevated results. Performed By: #### P REGU, UAMIC, UA #### [place] [id number] BUN/Creatinine Ratio 15 ratio Normal 7-27 [facility] Comment on above: Performed By: #### P REGU, UAMIC, UA #### [address] [address] Calcium [Mass/Vol] 9.0 mg/dL Normal 8.4-10.2 [facility] Comment on above: Performed By: #### P REGU, UAMIC, UA #### [place] [id number] Chloride [Moles/Vol] 103 mmol/L Normal 98-107 [facility] Comment on above: Performed By: #### P REGU, UAMIC, UA #### [place] [phone] CO2 [Moles/Vol] 24 mmol/L Normal 22-29 [facility] Comment on above: Performed By: #### P REGU, UAMIC, UA #### [place] [id number] Creatinine [Mass/Vol] 0.59 mg/dL Normal 0.51-0.95 [facility] Comment on above: Performed By: #### P REGU, UAMIC, UA #### [place] [id number] Electrolyte Balance 10.0 mEq/L Normal 4.0-15.0 [facility] Comment on above: Performed By: #### P REGU, UAMIC, UA #### [place] [address] Globulin 4.0 G/dL Normal 2.7-4.4 [facility] Comment on above: Performed By: #### P REGU, UAMIC, UA #### [place] [address] Glucose [Mass/Vol] 132 mg/dL High 70-105 [facility] Comment on above: Performed By: #### P REGU, UAMIC, UA #### [place] [address] Potassium [Moles/Vol] 3.7 mmol/L Normal 3.5-5.1 [facility] Comment on above: Performed By: #### P REGU, UAMIC, UA #### [place] [address] Sodium [Moles/Vol] 137 mmol/L Normal 136-145 [facility] Comment on above: Performed By: #### P REGU, UAMIC, UA #### [place] [id number] Total Protein 7.4 G/dL Normal 6.4-8.2 [facility] Comment on above: Performed By: #### P REGU, UAMIC, UA #### [place] [phone] Urea nitrogen [Mass/Vol] 9 mg/dL Normal 7-18 [facility] Comment on above: Performed By: #### P REGU, UAMIC, UA #### [address] [address] FEon 12-02-2024 Iron [Mass/Vol] 39 ug/dL Low 50-170 [facility] Comment on above: Performed By: #### A DIFF, CBC, ANEU #### [address] [address] Justin 12-02-2024 Ferritin [Mass/Vol] 79.0 ng/mL Normal 8.0-252.0 [facility] Comment on above: Performed By: #### A DIFF, CBC, ANEU #### [address] [address] HFPon 12-02-2024 Bili Indirect Unable to Calculate Normal [facility] Comment on above: Result Comment: Unab le to calculate this test result accurately. Results used to calculate this test are outside the reportable range. Performed By: #### A DIFF, CBC, ANEU #### [place] [address] Albumin Level 3.5 G/dL Normal 3.5-5.0 [facility] Comment on above: Performed By: #### A DIFF, CBC, ANEU #### [place] [address] Albumin/Globulin [Mass ratio] 0.9 {ratio} Low 1.1-2.5 [facility] Comment on above: Performed By: #### A DIFF, CBC, ANEU #### [address] [address] ALP [Catalytic activity/Vol] 113 U/L Normal 40-135 [facility] Comment on above: Performed By: #### A DIFF, CBC, ANEU #### [place] [address] ALT [Catalytic activity/Vol] 84 U/L High 14-59 [facility] Comment on above: Performed By: #### A DIFF, CBC, ANEU #### [address] [address] AST [Catalytic activity/Vol] 51 U/L High 10-40 [facility] Comment on above: Performed By: #### A DIFF, CBC, ANEU #### [place] [address] Bili Direct <0.1 Normal 0.0-0.2 [facility] Comment on above: Result Comment: Use of this assay is not recommended for patients undergoing treatment with eltrombopag due to the potential for falsely elevated results. Performed By: #### A DIFF, CBC, ANEU #### [place] [address] Bili Total 0.2 mg/dL Normal 0.2-1.0 [facility] Comment on above: Result Comment: Use of this assay is not recommended for patients undergoing treatment with eltrombopag due to the potential for falsely elevated results. Performed By: #### A DIFF, CBC, ANEU #### [place] [address] Globulin 3.9 G/dL Normal 2.7-4.4 [facility] Comment on above: Performed By: #### A DIFF, CBC, ANEU #### [place] [address] Total Protein 7.4 G/dL Normal 6.4-8.2 [facility] Comment on above: Performed By: #### A DIFF, CBC, ANEU #### [place] [id number] IBCon 12-02-2024 TIBC 342 mcg/dL Normal 250-450 [facility] Comment on above: Performed By: #### A DIFF, CBC, ANEU #### [place] [address] LABORATORYOrdered By: SYSTEM SYSTEM on 12-02-2024 Albumin BCP dye [Mass/Vol] 3.5 G/dL Normal 3.5 - 5.0 G/dL AO ADM SS Albumin/Globulin [Mass ratio] 0.9 {ratio} Low 1.1 - 2.5 ratio AO ADM SS ALP [Catalytic activity/Vol] 113 U/L Normal 40 - 135 U/L AO ADM SS ALT With P-5'-P [Catalytic activity/Vol] 84 U/L High 14 - 59 U/L AO ADM SS AST With P-5'-P [Catalytic activity/Vol] 51 U/L High 10 - 40 U/L AO ADM SS Basophils (Bld) [#/Vol] 0.1 103/mcL Normal 0.0 - 0.3 10^3/mcL AO Workflow SS Basophils/100 WBC (Bld) 0.8 % Normal 0.0 - 2.5 % AO Workflow SS Bilirubin [Mass/Vol] 0.2 mg/dL Normal 0.2 - 1 .0 mg/dL AO ADM SS Comment on above: Interpretive Data: U se of this assay is not recommended for patients undergoing treatment with eltrombopag due to the potential for falsely elevated results. Bilirubin.direct [Mass/Vol] mg/dL Normal 0.0 - 0.2 mg/dL AO ADM SS Comment on above: Interpretive Data: U se of this assay is not recommended for patients undergoing treatment with eltrombopag due to the potential for falsely elevated results. Bilirubin.direct [Mass/Vol] Unable to Calculate Invalid Interpretation Code AO Chemistry S Comment on above: Result Comment: Unab le to calculate this test result accurately. Results used to calculate this test are outside the reportable range. Ceruloplasmin [Mass/Vol] 30.0 mg/dL Normal 22.0 - 58.0 mg/dL ADM SS Eosinophil, Absolute 0.3 103/mcL Normal 0.0 - 0 .7 10^3/mcL AO Workflow SS Eosinophils/100 WBC (Bld) 4.7 % Normal 0.0 - 6.0 % AO Workflow SS Erythrocyte distribution width (RBC) [Ratio] 14.1 % Normal 11.5 - 15.5 % AO Workflow SS Ferritin [Mass/Vol] 79.0 ng/mL Normal 8.0 - 252.0 ng/mL AO ADM SS Globulin 3.9 G/dL Normal 2.7 - 4.4 G/dL AO ADM SS Hematocrit (Bld) [Volume fraction] 40.2 % Normal 34.0 - 46.0 % AO Workflow SS Hemoglobin (Bld) [Mass/Vol] 13.5 G/dL Normal 12.0 - 16.0 G/dL AO Workflow SS Iron [Mass/Vol] 39 ug/dL Low 50 - 170 mcg/dL AO ADM SS Iron binding capacity [Mass/Vol] 342 mcg/dL Normal 250 - 450 mcg/dL AO ADM SS Lymphocytes (Bld) [#/Vol] 1.7 103/mcL Normal 0.9 - 4.3 10^3/mcL AO Workflow SS Lymphocytes/100 WBC (Bld) 25.1 % Normal 20.0 - 40.0 % AO Workflow SS MCH (RBC) [Entitic mass] 27.1 pg Normal 27.0 - 33.0 pg AO Workflow SS MCHC 33.5 G/dL Normal 32.0 - 36.0 G/dL AO Workflow SS MCV (RBC) [Entitic vol] 80.7 fL Normal 80.0 - 99.0 fL AO Workflow SS Monocytes (Bld) [#/Vol] 0.6 103/mcL Normal 0.1 - 1.4 10^3/mcL AO Workflow SS Monocytes/100 WBC (Bld) 8.9 % Normal 2.0 - 13.0 % AO Workflow SS Neutrophils (Bld) [#/Vol] 4.0 103/mcL Normal 2.3 - 8.1 10^3/mcL AO Workflow SS Neutrophils/100 WBC (Bld) 60.5 % Normal 50.0 - 75.0 % AO Workflow SS Platelet mean volume (Bld) [Entitic vol] 8.3 fL Normal 6.6 - 10.5 fL AO Workflow SS Platelets (Bld) [#/Vol] 273 103/mcL Normal 150 - 450 10^3/mcL AO Workflow SS Protein [Mass/Vol] 7.4 G/dL Normal 6.4 - 8.2 G/dL AO ADM SS RBC (Bld) [#/Vol] 4.98 106/mcL Normal 4.10 - 5.30 10^6/mcL AO Workflow SS WBC (Bld) [#/Vol] 6.6 103/mcL Normal 4.5 - 10.8 10^3/mcL AO Workflow SS Albumin BCP dye [Mass/Vol] 3.4 G/dL Low 3.5 - 5.0 G/dL AO ADM SS Albumin/Globulin [Mass ratio] 0.8 {ratio} Low 1.1 - 2.5 ratio AO ADM SS ALP [Catalytic activity/Vol] 114 U/L Normal 40 - 135 U/L AO ADM SS ALT With P-5'-P [Catalytic activity/Vol] 80 U/L High 14 - 59 U/L AO ADM SS AST With P-5'-P [Catalytic activity/Vol] 50 U/L High 10 - 40 U/L AO ADM SS Bilirubin [Mass/Vol] 0.2 mg/dL Normal 0.2 - 1 .0 mg/dL AO ADM SS Comment on above: Interpretive Data: U se of this assay is not recommended for patients undergoing treatment with eltrombopag due to the potential for falsely elevated results. Calcium [Mass/Vol] 9.0 mg/dL Normal 8.4 - 10. 2 mg/dL AO ADM SS Chloride [Moles/Vol] 103 mmol/L Normal 98 - 10 7 mmol/L AO ADM SS CO2 [Moles/Vol] 24 mmol/L Normal 22 - 29 mmol/L AO ADM SS Creatinine [Mass/Vol] 0.59 mg/dL Normal 0.51 - 0.95 mg/dL AO ADM SS Electrolyte Balance 10.0 mEq/L Normal 4.0 - 15 .0 mEq/L AO ADM SS Estimated Glomerular Filtration Rate ml/min/1.73sqm Invalid Interpretation Code AO Chemistry S Comment on above: Interpretive Data: Stages of Chronic Kidney Disease (CKD) Stage Description eGFR(ml/min/1.73 sq.m.) CKD 1 Normal kidney function or >=90 normal kindney function with possible kidney damage (ex. Proteinuria) CKD 2 Kidney damage with mild loss 60-89 of kidney function CKD 3a Mild to moderate loss of kidney 45-59 function CKD 3b Moderate to severe loss of 30-44 of kindey function CKD 4 Severe loss of kidney function 15-29 CKD 5 Kidney failure <15 Note: (go live 2024) the eGFR calculation was updated to the 2020 CKD-EPI creatinine equation without a race factor to calculate the eGFR results. Globulin 4.0 G/dL Normal 2.7 - 4.4 G/dL AO ADM SS Glucose [Mass/Vol] 132 mg/dL High 70 - 105 mg/dL AO ADM SS Potassium [Moles/Vol] 3.7 mmol/L Normal 3.5 - 5.1 mmol/L AO ADM SS Protein [Mass/Vol] 7.4 G/dL Normal 6.4 - 8.2 G/dL AO ADM SS Sodium [Moles/Vol] 137 mmol/L Normal 136 - 145 mmol/L AO ADM SS Urea nitrogen [Mass/Vol] 9 mg/dL Normal 7 - 18 mg/dL AO ADM SS Urea nitrogen/Creatinine [Mass ratio] 15 ratio Normal 7 - 27 ratio AO ADM SS LABORATORYOrdered By: Harinder galan on 12-02-2024 HAV IgM IA Ql See Interp 5 *NA* (12/02/24 11:20 AM) Invalid Interpretation Code Chemistry S Comment on above: Result Comment: Clinical Interpretation: No serological evidence of a current Hepatitis A infection. HAV IgM IA Ql Non-Reactive (12/02/24 11:20 AM) Normal Non-Reacti ve AH ADM SS HBV surface Ab Qn (S) mIU/mL Low >=10.0 mIU/ mL AH ADM SS Comment on above: Interpretive Data: 0 to < 10.0 mIU/mL Nonreactive Patient is considered not to have protective immunity to HBV infection >/= 10.0 mIU/mL Reactive Patient is considered to have protective immunity to HBV infection. This assay is traceable to the World Health Organization (WHO) Hepatitis B Immunoglobulin 1st International Reference Preparation (1976). The accepted criteria for immunity to HBV is anti-HBs activity >/= 10.0 mIU/mL, as defined by the WHO International Reference Preparation. HBV surface Ag IA Ql Non-Reactive (12/02/24 11:20 AM) Normal Non-Reacti ve AH ADM SS HCV Ab IA Ql Non-Reactive (12/02/24 11:20 AM) Normal Non-Reacti ve AH ADM SS HCV Ab IA Ql See Interp 6 *NA* (12/02/24 11:20 AM) Invalid Interpretation Code Chemistry S Comment on above: Result Comment: Clinical Interpretation: Nonreactive: Samples with a value < 0.80 are considered nonreactive (negative) for antibodies to HCV. A negative test result does not exclude the possibility of exposure to or infection with HCV. HCV antibodies may be undetectable in some stages of the infection and in some clinical conditions. Gastroenterology Visit Repor ton 12-01-2024 Gastroenterology Visit Report [facility] [address] [place] [address] OFFICE VISIT Date of Service: 12/01/24 MR#: [id number] Acct: [id number] Name: BELGICA CORBIN Rep #: [id number] : 1995 Provider: IMER meneses Age/Sex: 29/F [place] [facility] [place] Status: Signed Intake Vital Signs 12/01/24 13:50 12/01/24 14:29 Height 5 ft 1 in Weight: 185 lb 8 oz BMI 35.0 BP 161/120 H 153/80 H Respiration 18 Pulse 103 H Pulse Oximetry (%) 96 Oxygen Delivery Method room air Intake Visit Reasons: ELEVATED LIVER ENZYMES HEPATIC STEATOSIS Chief Complaint: high liver labs Active Directory Architect Required: No Accompanied by: Is patient in pain?: No Allergies cefdinir (From Omnicef) Allergy (Severe, Verified 12/01/24 07:33) Shortness of breath, rash, swelling of hands ciprofloxacin Adverse Reaction (Mild, Verified 12/01/24 07:33) rash, swelling in hands Medications ???Medication ???Instructions ???Recorded ???Confirmed ???Type amitriptyline 10 mg tablet 10 mg PO QDAY 12/01/24 12/01/24 Hi story escitalopram oxalate 10 mg tablet 10 mg PO QDAY 12/01/24 12/01/24 H istory galcanezumab-gnlm 120 mg/mL 120 mg subcut QMONTH 12/01/2411/13 History subcutaneous pen injector (Emgality Pen) melatonin 3 mg capsule 3 mg PO HS PRN 12/01/24 12/01/24 H istory norgestimate 0.25 mg-ethinyl 1 tab PO QDAY 12/01/24 12/01/24 Hi story estradiol 0.035 mg tablet (Sprintec (28)) nystatin 100,000 unit/gram topical 1 applic topical TID PRN 2 5 12/01/24 History powder ubrogepant 100 mg tablet (Ubrelvy) 100 mg PO ONCE PRN 12/01/2411/13 History Nurse's Note: Right abdominal stabbing pain and pressure. Elevated liver enzymes. [facility] Medical History Stomatitis Sleep difficulties Recurrent headache Perioral dermatitis Paronychia of great toe, right Otalgia of left ear Depression Carpal tunnel syndrome, bilateral Tachycardia Recurrent boils Nasal lesion Family History Father Heart disease Myocardial infarction Mother Hypertension Sister Multiple sclerosis Social History Smoking Status: Never smoker alcohol intake: current alcohol intake frequency: holidays/special occasions only substance use type: does not use caffeine: Yes HPI HPI Chief Complaint: high liver labs Details: BELGICA CORBIN, is a 29 F who presents to the office today for HAV Ab IgM Ab: 09/16/2024 non-reactive HBV Core IgM Ab 09/16/2024 non-reactive HCV Ab Ab 09/16/2024 non-reactive CBC: 09/30/2024 HGB 13.5, PLT 324 CMP: 09/30/2024 AST 43, ALT 82 Fe: 09/16/2024 144 TSH: 09/30/2024 WNL Lipase: 09/30/2024 29 ABD US: 09/23/2024 hepatic steatosis Elastography 10/28/2024 Median Velocity 1.32, IQR 7.4%, F1 MRI Liver 10/28/2024 very prominent hepatic steatosis w/o cirrhosis, hemangioma - seen in office today with her - elevated liver enzymes for about 3 months - Mickie Perez - ABD US was completed completed the end of October - intermittent abdominal pain, can be intense and cause nausea - denies any h/o GB disease - family h/o liver disease secondary to Alcohol scheduled to have more labs completed - weight gain 45lbs in the past 6 months - denies any dietary or medication changes to contribute to weight loss - denies any chance of now - she does have tattoos - denies any h/o IVDU - she has never had a blood transfusion RUQ pain, radiates through to back - can be severe and just in the past 6-7 months ROS Const Constitutional: Positive for fatigue, headache(s) and weight change (gain); No fever(s) ENT ENT: Positive for headache(s); No difficulty swallowing Gastro GI: Positive for abdominal pain, heartburn and nausea/dyspepsia; No belching, bloating, change in bowel habits, change in stool character, coffee ground emesis, constipation, cramping, diarrhea, difficulty swallowing, feeling full early, excessive flatus, incontinent of stools, Vomiting blood/hematemesis, Blood in stool, loose stools, Black,tarry stools, pain with swallowing, vomiting or other Musc Musculoskeletal: Positive for numbness, tingling and leg pain at night; No joint pain Skin Skin: No yellowing of the eye or itchy eyes Neuro Neurology: Positive for headache(s), numbness and tingling Psych Psychiatric: No anxiety, Positive for depression and Positive for inattentiveness Endo Endocrine: Positive for fatigue and weight change (gain) Aller/Imm Allergy/Immunologic: No itchy eyes Eddie/Lymp Hematologic/Lymphatic: Positive for easy bruising; No easy bleeding Exam Const General: cooperative, healthy appearing, no (more content not included)... Normal [facility] MRI LIVERon 10-28-2024 MRI LIVER ORIGINAL EXAMINATION: MRI LIVER WITH AND WITHOUT IV CONTRAST TECHNIQUE: Multiplanar multisequence MRI of the abdomen limited was performed with and without administration of intravenous contrast. COMPARISON: Abdominal ultrasound 09/23/2024. HISTORY: CLINICAL STATEMENT: Hepatic steatosis, rule out fibrosis, right upper quadrant pain, elevated liver enzymes FINDINGS: Marked diffuse liver signal dropout on chemical shift imaging is noted with areas of minimal sparing in the anterior right hepatic lobe. The liver is normal in contour. No cirrhotic morphology is identified. No hepatic mass lesion visualized. There is a subcentimeter DWI hyperintense central right hepatic lobe lesion which demonstrates blush of contrast on arterial phase imaging and retains contrast on later delayed imaging. No other contributory findings. IMPRESSION: Very prominent hepatic steatosis without cirrhotic liver morphology. Subcentimeter right hepatic lobe capillary hemangioma. This finding is considered benign and requires no further follow-up imaging. No other focal liver lesions seen. I have personally reviewed the images of this examination and agree with the resident's findings and interpretation. Interpreted by: Angie Vega MD Preliminary Report By: Aniket Vogel Electronically signed By Angie Vega MD Dictated Date: 10/28/2024 10:25:46 AM Prelim Date: 10/28/2024 11:48:09 AM Sign Date: 10/28/2024 11:48:09 AM Ordering Provider: DEE ENCARNACION [facility] US ELASTOGRAPHY LIVER ONLYon 10-28-2024 US ELASTOGRAPHY LIVER ONLY ORIGINAL EXAMINATION: Hepatic elastography TECHNIQUE: 2D Shear Wave Elastography of the liver was performed in the right lobe. This report is based on interpretation of permanently recorded ultrasound images. A detailed grayscale evaluation of the liver and other right upper quadrant organs is not performed. COMPARISON: Ultrasound 09/23/2024 HISTORY: ORDERING SYSTEM PROVIDED HISTORY: Reason for Exam: hepatic steatosis, rule out fibrosis, RUQ pain, elevated liver enzymes, FINDINGS: Median velocity: 1.32 m/s IQR/median ratio: 7.4% (Value less than or equal to 15% should be seen to ensure exam adequacy.) IMPRESSION: Elastography indicates a essentially no risk of clinically significant liver fibrosis. Shear Wave Liver Elastography-liver fibrosis staging Median Velocity: Recommendation: 1.35-1.66 m/s (5.48 kPa - 8.29 kPa) Normal to mild risk of clinically significant liver fibrosis : METAVIR Stage F1 1.66-1.77 m/s (8.29 kPa - 9.40 kPa) Kipl-yz-ffwuyxfs risk of clinically significant liver fibrosis. (METAVIR Stage F2) 1.77-1.99 m/s (9.40 kPa - 11.9 kPa) Moderate to severe risk of clinically significant liver fibrosis (METAVIR Stage F3) > 1.99 m/s (> 11.9 kPa) Advanced Fibrosis and/or Cirrhosis: (METAVIR Stage F4) Interpreted by: Jr Arreola MD Preliminary Report By: Jr Arreola MD Electronically signed By Jr Arreola MD Dictated Date: 10/28/2024 5:20:37 PM Prelim Date: 10/28/2024 5:21:19 PM Sign Date: 10/28/2024 5:21:19 PM Ordering Provider: DEE ENCARNACION [facility] LCon 10-20-2024 Order Number [id number] [facility] Comment on above: Order Comment: estro gens total [id number] to [facility] Performed By: #### A DIFF, CBC, ANEU #### [address] Test Name estrogens total Normal [facility] Comment on above: Order Comment: estro gens total [id number] to [facility] Performed By: #### A DIFF, CBC, ANEU #### [address] [place], [place] [address] Misc LCon 10-17-2024 Misc Test Result COMMENT Normal [facility] Comment on above: Order Comment: estro gens total [id number] to [facility] Result Comment: Test Ordered: [id number] Estrogens, Total Estrogens, Total 95 pg/mL Prepubertal < 40 Female Cycle: 1-10 Days 16 - 328 11-20 Days 34 - 501 21-30 Days 48 - 350 Post-Menopausal 40 - 244 Performed At: [facility] [address] [id number] Petr Pratt PhD Ph:[phone] Performed At: [facility] [address] [id number] Joe Virgen MD Ph:[phone] Performed By: #### A DIFF, CBC, ANEU #### [address] [place], [place] [address] HCGQon 10-14-2024 hCG, quantitative <1.[address] [facility] Comment on above: Result Comment: HCG Levels with Gestation age: 0.2- 1 week. . . . . . . . . . . . . . . 5 - 50 mIU/mL 1-2 weeks . . . . . . . . . . . . . . . 50 - 500 mIU/mL 2-3 weeks . . . . . . . . . . . . . . . 100 - 5,000 mIU/ml 3-4 weeks . . . . . . . . . . . . . . . 500 - 10,000 mIU/mL 4-5 weeks . . . . . . . . . . . . . . . 1,000 - 5,000 mIU/mL 5-6 weeks . . . . . . . . . . . . . . . 10,000 - 100,000 mIU/mL 6-8 weeks . . . . . . . . . . . . . . . 15,000 - 200,000 mIU/mL 2-3 months . . . . . . . . . . . . . . . 10,000 - 100,000 mIU/mL Performed By: #### A DIFF, CBC, ANEU #### [address] [address] [facility] LCon 10-06-2024 LC Order Number [id number] [facility] Comment on above: Performed By: #### A DIFF, CBC, ANEU #### [address] Test Name Estrogens, Total Normal [facility] Comment on above: Performed By: #### A DIFF, CBC, ANEU #### [place] [address] ESTGENon 10-03-2024 Estradiol 474.0 pg/mL [facility] Comment on above: Result Comment: Adul t Female Range Follicular phase 12.5 - 166.0 Ovulation phase 85.8 - 498.0 Luteal phase 43.8 - 211.0 Postmenopausal <6.0 - 54.7 1st trimester 215.0 - >4300.0 Valorie ECLIA methodology Performed At: [facility] [address] [id number] Joe Virgen MD Ph:[phone] Performed At: [facility] [address] [id number] Petr Pratt PhD Ph:[phone] Performed By: #### P TRINIDAD GOTTLIEB, UA #### [place] [id number] Estrone 143 pg/mL Normal 27-231 [facility] Comment on above: Result Comment: Rang e Adult (Premenopausal) 27 - 231 Menstrual Cycle (1-10 days) 19 - 149 Menstrual Cycle (11-20 days) 32 - 176 Menstrual Cycle (21-30 days) 37 - 200 Performed By: #### P TOLUU UAMIC, UA #### [address] [address] [facility] LCon 10-02-2024 [facility] Test Result COMMENT Normal [facility] Comment on above: Result Comment: Test Ordered: [id number] Estrogens, Total Estrogens, Total 933 pg/mL Prepubertal < 40 Female Cycle: 1-10 Days 16 - 328 11-20 Days 34 - 501 21-30 Days 48 - 350 Post-Menopausal 40 - 244 Performed At: [facility] [address] [id number] Petr Pratt PhD Ph:[phone] Performed At: [facility] [address] [id number] Joe Virgen MD Ph:[phone] Performed By: #### A DIFF, CBC, ANEU #### [place] [address] .Auto Diffon 09-30-2024 Basophil, Absolute 0.0 10 3/mcL Normal 0.0-0.2 [facility] Comment on above: Performed By: #### T SHR, CMP, CBC, [id number], LIP, GFR, ANEU, ADIFF #### [place] [address] #### LH, FSH #### [address] [address] Basophils/100 WBC (Bld) 0.5 % Normal 0.0-2.5 [facility] Comment on above: Performed By: #### T SHR, CMP, CBC, [id number], LIP, GFR, ANEU, ADIFF #### [place] [address] #### LH, FSH #### [address] [address] Eosinophil, Absolute 0.4 10 3/mcL Normal 0.0-0.7 [facility] Comment on above: Performed By: #### T SHR, CMP, CBC, [id number], LIP, GFR, ANEU, ADIFF #### [place] [address] #### LH, FSH #### [address] [address] Eosinophils/100 WBC (Bld) 4.5 % Normal 0.0-7.0 [facility] Comment on above: Performed By: #### T SHR, CMP, CBC, [id number], LIP, GFR, ANEU, ADIFF #### [place] [address] #### LH, FSH #### [address] [address] Lymphocyte, Absolute 2.1 10 3/mcL Normal 0.9-4.3 [facility] Comment on above: Performed By: #### T SHR, CMP, CBC, [id number], LIP, GFR, ANEU, ADIFF #### [place] [address] #### LH, FSH #### [address] [address] Lymphocytes/100 WBC (Bld) 25.3 % Normal 20.0-40.0 [facility] Comment on above: Performed By: #### T SHR, CMP, CBC, [id number], LIP, GFR, ANEU, ADIFF #### [place] [address] #### LH, FSH #### [address] [address] Monocyte, Absolute 0.6 10 3/mcL Normal 0.1-1.4 [facility] Comment on above: Performed By: #### T SHR, CMP, CBC, 862750, LIP, GFR, ANEU, ADIFF #### [place] [address] #### LH, FSH #### [address] [address] Monocytes/100 WBC (Bld) 7.7 % Normal 2.0-13.0 [facility] Comment on above: Performed By: #### T SHR, CMP, CBC, 817615, LIP, GFR, ANEU, ADIFF #### [place] [address] #### LH, FSH #### [address] [address] Neutrophils/100 WBC (Bld) 62.0 % Normal 50.0-75.0 [facility] Comment on above: Performed By: #### T SHR, CMP, CBC, 559513, LIP, GFR, ANEU, ADIFF #### [address] [address] #### LH, FSH #### [address] [address] .GFRon 09-30-2024 GFR/1.73 sq M.predicted among non-blacks MDRD (S/P/Bld) [Vol rate/Area] mL/min/{1.73_m2} Normal [facility] Comment on above: Result Comment: Stages of Chronic Kidney Disease (CKD) Stage Description eGFR(ml/min/1.73 sq.m.) CKD 1 Normal kidney function or >=90 normal kindney function with possible kidney damage (ex. Proteinuria) CKD 2 Kidney damage with mild loss 60-89 of kidney function CKD 3a Mild to moderate loss of kidney 45-59 function CKD 3b Moderate to severe loss of 30-44 of kindey function CKD 4 Severe loss of kidney function 15-29 CKD 5 Kidney failure <15 Note: (go live 2024) the eGFR calculation was updated to the 2020 CKD-EPI creatinine equation without a race factor to calculate the eGFR results. Performed By: #### P REGU, UAMIC, UA #### [address] [address] .NEUABSon 09-30-2024 Neutrophil, Absolute 5.1 10 3/mcL Normal 2.3-8.1 [facility] Comment on above: Performed By: #### T SHR, CMP, CBC, [id number], LIP, GFR, ANEU, ADIFF #### [address] [address] #### LH, FSH #### [address] [address] CBCon 09-30-2024 Erythrocyte distribution width (RBC) [Ratio] 13.6 % Normal 11.5-15.5 [facility] Comment on above: Performed By: #### T SHR, CMP, CBC, 213663, LIP, GFR, ANEU, ADIFF #### [place] [address] #### LH, FSH #### [place] [address] Hematocrit (Bld) [Volume fraction] 39.8 % Normal 34.0-46.0 [facility] Comment on above: Performed By: #### T SHR, CMP, CBC, 564158, LIP, GFR, ANEU, ADIFF #### [place] [address] #### LH, FSH #### [place] [address] Hgb 13.5 G/dL Normal 12.0-16.0 [facility] Comment on above: Performed By: #### T SHR, CMP, CBC, 050912, LIP, GFR, ANEU, ADIFF #### [place] [address] #### LH, FSH #### [place] [address] MCH (RBC) [Entitic mass] 27.2 pg Normal 27.0-33.0 [facility] Comment on above: Performed By: #### T SHR, CMP, CBC, [id number], LIP, GFR, ANEU, ADIFF #### [place] [address] #### LH, FSH #### [place] [address] MCHC 33.9 G/dL Normal 32.0-36.0 [facility] Comment on above: Performed By: #### T SHR, CMP, CBC, 099041, LIP, GFR, ANEU, ADIFF #### [place] [address] #### LH, FSH #### [place] [address] MCV (RBC) [Entitic vol] 80.2 fL Normal 80.0-99.0 [facility] Comment on above: Performed By: #### T SHR, CMP, CBC, 085772, LIP, GFR, ANEU, ADIFF #### [place] [address] #### LH, FSH #### [place] [address] Platelet 324 10 3/mcL Normal 150-450 [facility] Comment on above: Performed By: #### T SHR, CMP, CBC, 984350, LIP, GFR, ANEU, ADIFF #### [place] [address] #### LH, FSH #### [place] [address] Platelet mean volume (Bld) [Entitic vol] 8.5 fL Normal 6.6-10.5 [facility] Comment on above: Performed By: #### T SHR, CMP, CBC, 434694, LIP, GFR, ANEU, ADIFF #### [place] [address] #### LH, FSH #### [place] [address] RBC 4.96 10 6/mcL Normal 4.10-5.30 [facility] Comment on above: Performed By: #### T SHR, CMP, CBC, 746838, LIP, GFR, ANEU, ADIFF #### [place] [address] #### LH, FSH #### [place] [address] WBC 8.3 10 3/mcL Normal 4.5-10.8 [facility] Comment on above: Performed By: #### T SHR, CMP, CBC, 615778, LIP, GFR, ANEU, ADIFF #### [place] [address] #### LH, FSH #### [place] [address] CMPon 09-30-2024 Albumin Level 3.7 G/dL Normal 3.5-5.0 [facility] Comment on above: Performed By: #### P REGU, UAMIC, UA #### [address] [address] Albumin/Globulin [Mass ratio] 0.9 {ratio} Low 1.1-2.5 [facility] Comment on above: Performed By: #### P REGU, UAMIC, UA #### [address] [address] ALP [Catalytic activity/Vol] 133 U/L Normal 40-135 [facility] Comment on above: Performed By: #### P REGU, UAMIC, UA #### [address] [address] ALT [Catalytic activity/Vol] 82 U/L High 14-59 [facility] Comment on above: Performed By: #### P REGU, UAMIC, UA #### [address] [address] AST [Catalytic activity/Vol] 43 U/L High 10-40 [facility] Comment on above: Performed By: #### P REGU, UAMIC, UA #### [address] [address] Bili Total 0.2 mg/dL Normal 0.2-1.0 [facility] Comment on above: Result Comment: Use of this assay is not recommended for patients undergoing treatment with eltrombopag due to the potential for falsely elevated results. Performed By: #### P REGU, UAMIC, UA #### [address] [address] BUN/Creatinine Ratio 21 ratio Normal 7-27 [facility] Comment on above: Performed By: #### P REGU, UAMIC, UA #### [address] [address] Calcium [Mass/Vol] 9.8 mg/dL Normal 8.4-10.2 [facility] Comment on above: Performed By: #### P REGU, UAMIC, UA #### [address] [address] Chloride [Moles/Vol] 101 mmol/L Normal 98-107 [facility] Comment on above: Performed By: #### P REGU, UAMIC, UA #### [place] [address] CO2 [Moles/Vol] 25 mmol/L Normal 22-29 [facility] Comment on above: Performed By: #### P REGU, UAMIC, UA #### [place] [address] Creatinine [Mass/Vol] 0.67 mg/dL Normal 0.55-1.02 [facility] Comment on above: Result Comment: Test ing performed on Siemens Dimension EXL analyzer using a modified kinetic Crisitan technique. Performed By: #### P REGU, UAMIC, UA #### [place] [address] Electrolyte Balance 10.0 mEq/L Normal 4.0-15.0 [facility] Comment on above: Performed By: #### P REGU, UAMIC, UA #### [place] [address] Globulin 3.9 G/dL High 1.5-3.8 [facility] Comment on above: Performed By: #### P REGU, UAMIC, UA #### [place] [address] Glucose [Mass/Vol] 141 mg/dL High 70-105 [facility] Comment on above: Performed By: #### P REGU, UAMIC, UA #### [place] [address] Potassium [Moles/Vol] 3.7 mmol/L Normal 3.5-5.1 [facility] Comment on above: Performed By: #### P REGU, UAMIC, UA #### [place] [address] Sodium [Moles/Vol] 136 mmol/L Normal 136-145 [facility] Comment on above: Performed By: #### P REGU, UAMIC, UA #### [place] [address] Total Protein 7.6 G/dL Normal 6.4-8.2 [facility] Comment on above: Performed By: #### P REGU, UAMIC, UA #### [address] [address] Urea nitrogen [Mass/Vol] 14 mg/dL Normal 7-18 [facility] Comment on above: Performed By: #### P REGU, UAMIC, UA #### [place] [id number] FSHon 09-30-2024 FSH 4.1 mIU/mL Normal [facility] Comment on above: Result Comment: Adul t Female FSH Reference Ranges (06/08/99): Follicular phase 2.5 - 10.2 mIU/mL Midcycle phase 3.4 - 33.4 mIU/mL Luteal phase 1.5 - 9.1 mIU/mL Post menopausal 23.0 -116.3 mIU/mL Adult Male: 1.4 - 18.1 mIU/mL Performed By: #### P REGU, UAMIC, UA #### [address] [address] LHon 09-30-2024 LH 11.2 mIU/mL Normal [facility] Comment on above: Result Comment: No te - New Reference Range in effect 20Adult Female LH Reference Ranges: Follicular phase 1.9 - 12.5 mIU/mL Midcycle phase 8.7 - 76.3 mIU/mL Luteal phase 0.5 - 16.9 mIU/mL Post menopausal 5.0 - 55.2 mIU/mL Performed By: #### P REGU, UAMIC, UA #### [address] [address] LIPon 09-30-2024 Lipase Level 29 U/L Normal 16-77 [facility] Comment on above: Performed By: #### T SHR, CMP, CBC, 390238, LIP, GFR, ANEU, ADIFF #### [address] [address] #### LH, FSH #### [facility] [address] [place] [address] TSHRon 09-30-2024 TSH Qn 1.33 m[IU]/L Normal 0.36-3.74 [facility] Comment on above: Performed By: #### P REGU, UAMIC, UA #### [address] [place], [place] [address] US ABDOMEN LIMITEDon 025 US ABDOMEN LIMITED ORIGINAL EXAMINATION: LIMITED ABDOMINAL ULTRASOUND09/23/2024 10:02 am Limited ultrasound of the abdomen attention right upper quadrant TECHNIQUE: This report is based on interpretation of permanently recorded ultrasound images. COMPARISON: None HISTORY: ORDERING SYSTEM PROVIDED HISTORY: Reason for Exam: elevated liver enzymes, FINDINGS: The gallbladder is distended satisfactorily without calculi, wall thickening, pericholecystic edema or tenderness. There is no intrahepatic bile duct dilatation. The common duct is 3 mm at the dawson hepatis. The visualized liver is 21.8 cm vertical dimension and shows coarsening of echotexture and increased echogenicity with decreased through transmission. There is some masking of the portal triads. Antegrade blood flow in the main portal vein. There are some areas of focal fatty sparing adjacent to the gallbladder.. The pancreas is partially obscured by artifacts and suboptimally evaluated.. No ascites is seen in the RIGHT upper quadrant. Limited survey images of the RIGHT kidney show normal size and echogenicity with no pelvocaliectasis. IMPRESSION: Hepatic steatosis or other diffuse hepatocellular disease. No acute findings. Interpreted by: Jr Arreola MD Preliminary Report By: Jr Arreola MD Electronically signed By Jr Arreola MD Dictated Date: 09/23/2024 4:00:09 PM Prelim Date: 09/23/2024 4:01:47 PM Sign Date: 09/23/2024 4:01:47 PM Ordering Provider: DEE Knight [facility] FEon 09-16-2024 Iron [Mass/Vol] 144 ug/dL Normal 50-170 [facility] Comment on above: Performed By: #### A DIFF, CBC, ANEU #### [address] [place], [place] [address] HEPACon 09-16-2024 Hep A IgM Ab Non-Reactive Normal Non-Reacti [facility] Comment on above: Performed By: #### A DIFF, CBC, ANEU #### [place] [address] Hep A IgM Ab Int [facility] Comment on above: Result Comment: No s erological evidence of a current Hepatitis A infection. See Interp Performed By: #### A DIFF, CBC, ANEU #### [place] [address] Hep B Core IgM Ab Non-Reactive Normal Non-Reacti [facility] Comment on above: Performed By: #### A DIFF, CBC, ANEU #### [place] [address] Hep B Core IgM Ab Int [facility] Comment on above: Result Comment: Samp les with a value < 0.80 Index are considered nonreactive (negative) for IgM antibodies to hepatitis B core antigen. See Interp Performed By: #### A DIFF, CBC, ANEU #### [place] [address] Hep B Surf Ag Non-Reactive [place] Non-Reacti [facility] Comment on above: Performed By: #### A DIFF, CBC, ANEU #### [place] [address] Hep C Ab Non-Reactive [place] Non-Reacti [facility] Comment on above: Performed By: #### A DIFF, CBC, ANEU #### [place] [address] Hep C Ab Int [facility] Comment on above: Result Comment: Nonr eactive: Samples with a value < 0.80 are considered nonreactive (negative) for antibodies to HCV. A negative test result does not exclude the possibility of exposure to or infection with HCV. HCV antibodies may be undetectable in some stages of the infection and in some clinical conditions. See Interp Performed By: #### A DIFF, CBC, ANEU #### [place] [address] IBCon 09-16-2024 TIBC 334 mcg/dL Normal 250-450 [facility] Comment on above: Performed By: #### A DIFF, CBC, ANEU #### [address] [place], [place] [address] LABORATORYOrdered By: Philippe Cross on 09-16-2024 HAV IgM IA Ql Non-Reactive (09/16/24 10:58 AM) Normal Non-Reacti ve AH ADM SS HAV IgM IA Ql No serological evide nce of a current Hepatitis A infection. Invalid Interpretation Code Chemistry S HBV core IgM IA Ql Non-Reactive (09/16/24 10:58 AM) Normal Non-Reacti ve AH ADM SS HBV core IgM IA Ql Samples with a value < 0.80 Index are considered nonreactive (negative) for IgM antibodies to hepatitis B core antigen. Invalid Interpretation Code Chemistry S HBV surface Ag IA Ql Non-Reactive (09/16/24 10:58 AM) Normal Non-Reacti ve AH ADM SS HCV Ab IA Ql Non-Reactive (09/16/24 10:58 AM) Normal Non-Reacti ve AH ADM SS HCV Ab IA Ql Nonreactive: Samples with a value < 0.80 are considered nonreactive (negative) for antibodies to HCV.A negative test result does not exclude the possibility of exposure to or infection with HCV. HCV antibodies may be undetectable in some stages of the infection and in some clinical conditions. Invalid Interpretation Code Chemistry S LABORATORYOrdered By: SYSTEM SYSTEM on 09-16-2024 Iron [Mass/Vol] 144 ug/dL Normal 50 - 170 mcg/dL AO ADM SS Iron binding capacity [Mass/Vol] 334 mcg/dL Normal 250 - 450 mcg/dL AO ADM SS .Auto Diffon 09-09-2024 Basophil, Absolute 0.1 10 3/mcL Normal 0.0-0.2 [facility] Comment on above: Performed By: #### A DIFF, CBC, ANEU #### [address] [place], [place] [address] Basophils/100 WBC (Bld) 1.2 % Normal 0.0-2.5 [facility] Comment on above: Performed By: #### A DIFF, CBC, ANEU #### [address] [place], [place] [address] Eosinophil, Absolute 0.3 10 3/mcL Normal 0.0-0.7 [facility] Comment on above: Performed By: #### A DIFF, CBC, ANEU #### [address] [address] Eosinophils/100 WBC (Bld) 5.2 % Normal 0.0-7.0 [facility] Comment on above: Performed By: #### A DIFF, CBC, ANEU #### [address] [address] Lymphocyte, Absolute 2.0 10 3/mcL Normal 0.9-4.3 [facility] Comment on above: Performed By: #### A DIFF, CBC, ANEU #### [address] [address] Lymphocytes/100 WBC (Bld) 29.6 % Normal 20.0-40.0 [facility] Comment on above: Performed By: #### A DIFF, CBC, ANEU #### [address] [address] Monocyte, Absolute 0.5 10 3/mcL Normal 0.1-1.4 [facility] Comment on above: Performed By: #### A DIFF, CBC, ANEU #### [address] [address] Monocytes/100 WBC (Bld) 7.5 % Normal 2.0-13.0 [facility] Comment on above: Performed By: #### A DIFF, CBC, ANEU #### [address] [address] Neutrophils/100 WBC (Bld) 56.5 % Normal 50.0-75.0 [facility] Comment on above: Performed By: #### A DIFF, CBC, ANEU #### [address] [address] .GFRon 09-09-2024 Estimated Glomerular Filtration Rate 101 ml/min/1.73sqm Normal [facility] Comment on above: Result Comment: Stages of Chronic Kidney Disease (CKD) Stage Description eGFR(ml/min/1.73 sq.m.) CKD 1 Normal kidney function or >=90 normal kindney function with possible kidney damage (ex. Proteinuria) CKD 2 Kidney damage with mild loss 60-89 of kidney function CKD 3a Mild to moderate loss of kidney 45-59 function CKD 3b Moderate to severe loss of 30-44 of kindey function CKD 4 Severe loss of kidney function 15-29 CKD 5 Kidney failure <15 Note: (go live 2024) the eGFR calculation was updated to the 2020 CKD-EPI creatinine equation without a race factor to calculate the eGFR results. Performed By: #### P REGU, UAMIC, UA #### [place] [address] .NEUABSon 09-09-2024 Neutrophil, Absolute 3.7 10 3/mcL Normal 2.3-8.1 [facility] Comment on above: Performed By: #### A DIFF, CBC, ANEU #### [place] [address] CBCon 09-09-2024 Erythrocyte distribution width (RBC) [Ratio] 14.3 % Normal 11.5-15.5 [facility] Comment on above: Performed By: #### A DIFF, CBC, ANEU #### [place] [address] Hematocrit (Bld) [Volume fraction] 42.1 % Normal 34.0-46.0 [facility] Comment on above: Performed By: #### A DIFF, CBC, ANEU #### [place] [address] Hgb 14.2 G/dL Normal 12.0-16.0 [facility] Comment on above: Performed By: #### A DIFF, CBC, ANEU #### [place] [address] MCH (RBC) [Entitic mass] 27.4 pg Normal 27.0-33.0 [facility] Comment on above: Performed By: #### A DIFF, CBC, ANEU #### [place] [address] MCHC 33.7 G/dL Normal 32.0-36.0 [facility] Comment on above: Performed By: #### A DIFF, CBC, ANEU #### [address] [address] MCV (RBC) [Entitic vol] 81.4 fL Normal 80.0-99.0 [facility] Comment on above: Performed By: #### A DIFF, CBC, ANEU #### [address] [address] Platelet 121 10 3/mcL Low 150-450 [facility] Comment on above: Performed By: #### A DIFF, CBC, ANEU #### [address] [address] Platelet mean volume (Bld) [Entitic vol] 8.5 fL Normal 6.6-10.5 [facility] Comment on above: Performed By: #### A DIFF, CBC, ANEU #### [address] [address] RBC 5.18 10 6/mcL Normal 4.10-5.30 [facility] Comment on above: Performed By: #### A DIFF, CBC, ANEU #### [address] [address] WBC 6.6 10 3/mcL Normal 4.5-10.8 [facility] Comment on above: Performed By: #### A DIFF, CBC, ANEU #### [address] [address] CMPon 09-09-2024 Albumin Level 3.8 G/dL Normal 3.5-5.0 [facility] Comment on above: Performed By: #### P REGU, UAMIC, UA #### [address] [address] Albumin/Globulin [Mass ratio] 1.0 {ratio} Low 1.1-2.5 [facility] Comment on above: Performed By: #### P REGU, UAMIC, UA #### [address] [address] ALP [Catalytic activity/Vol] 124 U/L Normal 40-135 [facility] Comment on above: Performed By: #### P REGU, UAMIC, UA #### [address] [address] ALT [Catalytic activity/Vol] 89 U/L High 14-59 [facility] Comment on above: Performed By: #### P REGU, UAMIC, UA #### [address] [address] AST [Catalytic activity/Vol] 67 U/L High 10-40 [facility] Comment on above: Performed By: #### P REGU, UAMIC, UA #### [address] [address] Bili Total 0.2 mg/dL Normal 0.2-1.0 [facility] Comment on above: Result Comment: Use of this assay is not recommended for patients undergoing treatment with eltrombopag due to the potential for falsely elevated results. Performed By: #### P REGU, UAMIC, UA #### [address] [address] BUN/Creatinine Ratio 11 ratio Normal 7-27 [facility] Comment on above: Performed By: #### P REGU, UAMIC, UA #### [address] [address] Calcium [Mass/Vol] 9.3 mg/dL Normal 8.4-10.2 [facility] Comment on above: Performed By: #### P REGU, UAMIC, UA #### [address] [address] Chloride [Moles/Vol] 103 mmol/L Normal 98-107 [facility] Comment on above: Performed By: #### P REGU, UAMIC, UA #### [address] [address] CO2 [Moles/Vol] 23 mmol/L Normal 22-29 [facility] Comment on above: Performed By: #### P REGU, UAMIC, UA #### [address] [address] Creatinine [Mass/Vol] 0.81 mg/dL Normal 0.55-1.02 [facility] Comment on above: Result Comment: Test ing performed on Siemens Dimension EXL analyzer using a modified kinetic Cristian technique. Performed By: #### P REGU, UAMIC, UA #### [address] [address] Electrolyte Balance 11.0 mEq/L Normal 4.0-15.0 [facility] Comment on above: Performed By: #### P REGU, UAMIC, UA #### [address] [address] Globulin 3.7 G/dL Normal 1.5-3.8 [facility] Comment on above: Performed By: #### P REGU, UAMIC, UA #### [address] [address] Glucose [Mass/Vol] 87 mg/dL Normal 70-105 [facility] Comment on above: Performed By: #### P REGU, UAMIC, UA #### [address] [address] Potassium [Moles/Vol] 3.7 mmol/L Normal 3.5-5.1 [facility] Comment on above: Performed By: #### P REGU, UAMIC, UA #### [address] [address] Sodium [Moles/Vol] 137 mmol/L Normal 136-145 [facility] Comment on above: Performed By: #### P REGU, UAMIC, UA #### [address] [address] Total Protein 7.5 G/dL Normal 6.4-8.2 [facility] Comment on above: Performed By: #### P REGU, UAMIC, UA #### [address] [address] Urea nitrogen [Mass/Vol] 9 mg/dL Normal 7-18 [facility] Comment on above: Performed By: #### P TRINIDAD GOTTLIEB, UA #### [address] [place] [address] LABORATORYOrdered By: SYSTEM SYSTEM on 09-09-2024 Basophils (Bld) [#/Vol] 0.1 103/mcL Normal 0.0 - 0.2 10^3/mcL AO Workflow SS Basophils/100 WBC (Bld) 1.2 % Normal 0.0 - 2.5 % AO Workflow SS Eosinophil, Absolute 0.3 103/mcL Normal 0.0 - 0 .7 10^3/mcL AO Workflow SS Eosinophils/100 WBC (Bld) 5.2 % Normal 0.0 - 7.0 % AO Workflow SS Erythrocyte distribution width (RBC) [Ratio] 14.3 % Normal 11.5 - 15.5 % AO Workflow SS Hematocrit (Bld) [Volume fraction] 42.1 % Normal 34.0 - 46.0 % AO Workflow SS Hemoglobin (Bld) [Mass/Vol] 14.2 G/dL Normal 12.0 - 16.0 G/dL AO Workflow SS Lymphocytes (Bld) [#/Vol] 2.0 103/mcL Normal 0.9 - 4.3 10^3/mcL AO Workflow SS Lymphocytes/100 WBC (Bld) 29.6 % Normal 20.0 - 40.0 % AO Workflow SS MCH (RBC) [Entitic mass] 27.4 pg Normal 27.0 - 33.0 pg AO Workflow SS MCHC 33.7 G/dL Normal 32.0 - 36.0 G/dL AO Workflow SS MCV (RBC) [Entitic vol] 81.4 fL Normal 80.0 - 99.0 fL AO Workflow SS Monocytes (Bld) [#/Vol] 0.5 103/mcL Normal 0.1 - 1.4 10^3/mcL AO Workflow SS Monocytes/100 WBC (Bld) 7.5 % Normal 2.0 - 13.0 % AO Workflow SS Neutrophils (Bld) [#/Vol] 3.7 103/mcL Normal 2.3 - 8.1 10^3/mcL AO Workflow SS Neutrophils/100 WBC (Bld) 56.5 % Normal 50.0 - 75.0 % AO Workflow SS Platelet mean volume (Bld) [Entitic vol] 8.5 fL Normal 6.6 - 10.5 fL AO Workflow SS Platelets (Bld) [#/Vol] 121 103/mcL Low 150 - 450 10^3/mcL AO Workflow SS RBC (Bld) [#/Vol] 5.18 106/mcL Normal 4.10 - 5.30 10^6/mcL AO Workflow SS WBC (Bld) [#/Vol] 6.6 103/mcL Normal 4.5 - 10.8 10^3/mcL AO Workflow SS Albumin BCP dye [Mass/Vol] 3.8 G/dL Normal 3.5 - 5.0 G/dL AO ADM SS Albumin/Globulin [Mass ratio] 1.0 {ratio} Low 1.1 - 2.5 ratio AO ADM SS ALP [Catalytic activity/Vol] 124 U/L Normal 40 - 135 U/L AO ADM SS ALT With P-5'-P [Catalytic activity/Vol] 89 U/L High 14 - 59 U/L AO ADM SS AST With P-5'-P [Catalytic activity/Vol] 67 U/L High 10 - 40 U/L AO ADM SS Bilirubin [Mass/Vol] 0.2 mg/dL Normal 0.2 - 1 .0 mg/dL AO ADM SS Comment on above: Interpretive Data: U se of this assay is not recommended for patients undergoing treatment with eltrombopag due to the potential for falsely elevated results. Calcium [Mass/Vol] 9.3 mg/dL Normal 8.4 - 10. 2 mg/dL AO ADM SS Chloride [Moles/Vol] 103 mmol/L Normal 98 - 10 7 mmol/L AO ADM SS CO2 [Moles/Vol] 23 mmol/L Normal 22 - 29 mmol/L AO ADM SS Creatinine [Mass/Vol] 0.81 mg/dL Normal 0.55 - 1.02 mg/dL AO ADM SS Comment on above: Interpretive Data: T esting performed on Siemens Dimension EXL analyzer using a modified kinetic Cristian technique. Electrolyte Balance 11.0 mEq/L Normal 4.0 - 15 .0 mEq/L AO ADM SS Estimated Glomerular Filtration Rate 101 ml/min/1.73sqm Invalid Interpretation Code AO Chemistry S Comment on above: Interpretive Data: Stages of Chronic Kidney Disease (CKD) Stage Description eGFR(ml/min/1.73 sq.m.) CKD 1 Normal kidney function or >=90 normal kindney function with possible kidney damage (ex. Proteinuria) CKD 2 Kidney damage with mild loss 60-89 of kidney function CKD 3a Mild to moderate loss of kidney 45-59 function CKD 3b Moderate to severe loss of 30-44 of kindey function CKD 4 Severe loss of kidney function 15-29 CKD 5 Kidney failure <15 Note: (go live 2024) the eGFR calculation was updated to the 2020 CKD-EPI creatinine equation without a race factor to calculate the eGFR results. Globulin 3.7 G/dL Normal 1.5 - 3.8 G/dL AO ADM SS Glucose [Mass/Vol] 87 mg/dL Normal 70 - 105 mg/dL AO ADM SS Potassium [Moles/Vol] 3.7 mmol/L Normal 3.5 - 5.1 mmol/L AO ADM SS Protein [Mass/Vol] 7.5 G/dL Normal 6.4 - 8.2 G/dL AO ADM SS Sodium [Moles/Vol] 137 mmol/L Normal 136 - 145 mmol/L AO ADM SS Urea nitrogen [Mass/Vol] 9 mg/dL Normal 7 - 18 mg/dL AO ADM SS Urea nitrogen/Creatinine [Mass ratio] 11 ratio Normal 7 - 27 ratio AO ADM SS LABORATORYOrdered By: Amada Simon on 09-09-2024 Cholesterol [Mass/Vol] 238 mg/dL High 0 - 200 mg/dL AO ADM SS Comment on above: Interpretive Data: C holesterol Reference Interval: Less than 200 Desirable 200-239 Borderline high risk 240 and above High risk Cholesterol in HDL [Mass/Vol] 71 mg/dL High 40 - 60 mg/dL AO ADM SS Cholesterol in LDL [Mass/Vol] 148 mg/dL High 0 - 130 mg/dL AO ADM SS Triglyceride [Mass/Vol] 97 mg/dL Normal 0 - 150 mg/dL AO ADM SS Comment on above: Interpretive Data: T riglyceride Reference Interval: Less than 150 Normal 150-199 Borderline high risk 200-499 High risk 500 or higher Very high risk LIPIDon 09-09-2024 Cholesterol [Mass/Vol] 238 mg/dL High 0-200 [facility] Comment on above: Result Comment: Chol esterol Reference Interval: Less than 200 Desirable 200-239 Borderline high risk 240 and above High risk Performed By: #### P REGU, UAMIC, UA #### [address] [address] Cholesterol in HDL [Mass/Vol] 71 mg/dL High 40-60 [facility] Comment on above: Performed By: #### P REGU, UAMIC, UA #### [address] [place], [place] [address] Cholesterol in LDL [Mass/Vol] 148 mg/dL High 0-130 [facility] Comment on above: Performed By: #### P REGU, UAMIC, UA #### [address] [place], [place] [address] Triglyceride [Mass/Vol] 97 mg/dL Normal 0-150 [facility] Comment on above: Result Comment: Trig lyceride Reference Interval: Less than 150 Normal 150-199 Borderline high risk 200-499 High risk 500 or higher Very high risk Performed By: #### P REGU, UAMIC, UA #### [address] [place], [place] [address] CTPCRon 05-28-2024 C. trachomatis Interp Normal See CT Interp N [facility] Comment on above: Result Comment: C. t rachomatis DNA not detected. Specimen is presumptive negative for C. trachomatis. A negative result does not preclude C. trachomatis infection because results depend on adequate specimen collection, absence of inhibitors, and sufficient DNA to be detected. See CT Interp N Performed By: #### T SHR, CMP, CBC, [id number], LIP, GFR, ANEU, ADIFF #### [address] [address] #### LH, FSH #### [address] [address] C.trachomatis PCR Negative Normal Negative [facility] Comment on above: Result Comment: Mole cular (PCR) assay performed on the Valorie Aurora 4800 system. Performed By: #### T SHR, CMP, CBC, [id number], LIP, GFR, ANEU, ADIFF #### [address] [address] #### LH, FSH #### [address] [address] Chlam Source Cervix Normal [facility] Comment on above: Performed By: #### T SHR, CMP, CBC, [id number], LIP, GFR, ANEU, ADIFF #### [address] [address] #### LH, FSH #### [address] [address] [id number] 05-28-2024 GC PCR Source Cervix Normal [facility] Comment on above: Performed By: #### T SHR, CMP, CBC, 114206, LIP, GFR, ANEU, ADIFF #### [address] [address] #### LH, FSH #### [place] [address] N. gonorrhoeae (PCR) Negative Normal Negative [facility] Comment on above: Result Comment: Mole cular (PCR) assay performed on the [employer] Aurora 4800 System. Performed By: #### T SHR, CMP, CBC, [id number], LIP, GFR, ANEU, ADIFF #### [address] [address] #### LH, FSH #### [place] [address] N. gonorrhoeae Interp Normal See NG Interp N [facility] Comment on above: Result Comment: N. g onorrhoeae DNA not detected. Specimen is presumptive negative for N. gonorrhoeae. A negative result does not preclude Neisseria gonorrhoeae infection because results depend on adequate specimen collection, absence of inhibitors, and sufficient DNA to be detected. See NG Interp N Performed By: #### T SHR, CMP, CBC, [id number], LIP, GFR, ANEU, ADIFF #### [place] [address] #### LH, FSH #### [place] [address] LABORATORYOrdered By: Lorna Molina on 05-27-2024 C. trachomatis DNA AVIVA+probe Ql (Unsp spec) Negative 2 (05/27/24 2:00 PM) Normal Negative AH Auto Viro/Sero SS Comment on above: Interpretive Data: M olecular (PCR) assay performed on the [employer] Aurora 4800 system. C. trachomatis DNA AVIVA+probe Ql (Unsp spec) C. trachomatis DNA not detected. Specimen is presumptive negative forC. trachomatis.A negative result does not preclude C. trachomatis infection becauseresults depend on adequate specimen collection, absence of inhibitors,and sufficient DNA to be detected. Normal See CT Interp N AH Auto Viro/Sero SS N. gonorrhoeae DNA AVIVA+probe Ql (Unsp spec) Negative 1 (05/27/24 2:00 PM) Normal Negative AH Auto Viro/Sero SS Comment on above: Interpretive Data: M olecular (PCR) assay performed on the [employer] Aurora 4800 System. N. gonorrhoeae DNA AVIVA+probe Ql (Unsp spec) N. gonorrhoeae DNA not detected. Specimen is presumptive negative forN. gonorrhoeae. A negative result does not preclude Neisseria gonorrhoeaeinfection because results depend on adequate specimen collection, absenceof inhibitors, and sufficient DNA to be detected. Normal See NG Interp N Auto Viro/Sero SS Laboratory - Specimen inform ationOrdered By: Lorna Molina on 05-27-2024 Specimen source Nom (Unsp spec) Cervix (05/27/24 2:00 PM) Normal Auto Viro/Sero SS No Panel InformationOrdered By: Joceline Hubbard on 05-27-2024 Affirm Pathogens DNA Direct Probe Gardnerella vaginalis DNA Probe Positive Sejal species DNA Probe Negative Trichomonas vaginalis DNA Probe Negative [facility] [id number] 07-20-2023 Complement C3A 165.0 mg/dL High 84.0-160.0 [facility] ([place]) Comment on above: Result Comment: No te - New Reference Range in effect 20 Performed By: #### F T4, TSH, ESR #### [facility] [place] [address] [place], [place] [address] #### C3C4A #### [facility] [address] [place] [address] Complement C4A 41.0 mg/dL High 16.0-38.0 [facility] ([place]) Comment on above: Performed By: #### F T4, TSH, ESR #### [address] [address] #### C3C4A #### [place] [address] ESRon 07-20-2023 Erythrocyte Sed Rate 7 mm/hr Normal 0-20 [facility] ([place]) Comment on above: Performed By: #### F T4, TSH, ESR #### [address] [address] #### C3C4A #### [place] [address] FT4on 07-20-2023 Free T4 [Mass/Vol] 0.84 ng/dL Normal 0.76-1.46 [facility] ([place]) Comment on above: Performed By: #### F T4, TSH, ESR #### [address] [address] #### C3C4A #### [place] [address] LABORATORYOrdered By: SYSTEM SYSTEM on 07-20-2023 Complement C3 [Mass/Vol] 165.0 mg/dL High 84.0 - 160.0 mg/dL AH ADM SS Comment on above: Interpretive Data: * *Note - New Reference Range in effect 20 Complement C4 [Mass/Vol] 41.0 mg/dL High 16.0 - 38.0 mg/dL AH ADM SS Free T4 [Mass/Vol] 0.84 ng/dL Normal 0.76 - 1.46 ng/dL AO ADM SS TSH Qn 0.72 m[IU]/L Normal 0.36 - 3.74 mcIU/mL AO ADM SS LABORATORYOrdered By: Domonique Vogel on 07-20-2023 ESR Photometric method (Bld) [Velocity] 7 mm/hr Normal 0 - 20 mm/hr AO Man Heme SS TSHon 07-20-2023 TSH Qn 0.72 m[IU]/L Normal 0.36-3.74 [facility] ([place]) Comment on above: Performed By: #### F T4, TSH, ESR #### [address] [address] #### C3C4A #### [address] [address] [facility]. Send Out See Comments Normal [facility] ([place]) Comment on above: Order Comment: Food, allergen, Mixed Nuts, ARUP 48426 X 8 Result Comment: Comp lete reference lab report scanned to EMR. Performed By: #### F T4, TSH, ESR #### [address] [address] #### C3C4A #### [address] 05-10-2023 Yeast IgE <0.35 Normal <0.35 [facility] ([place]) Comment on above: Result Comment: Perf ormed By: [facility] [place] [address] Director Of Human Resources: Jose Carlos III, M.D. CLIA#: [id number] Performed By: #### F T4, TSH, ESR #### [address] [address] #### C3C4A #### [place] [address] Yeast-Class Class 0 Normal Class 0 [facility] ([place]) Comment on above: Result Comment: Perf ormed By: [facility] [place] [address] Director Of Human Resources: Jose Carlos III, M.D. CLIA#: [id number] Performed By: #### F T4, TSH, ESR #### [address] [address] #### C3C4A #### [address] 05-10-2023 Shirley IgE <0.35 Normal <0.35 [facility] ([place]) Comment on above: Result Comment: Perf ormed By: [facility] [employer] [place] [address] Director Of Human Resources: Jose Carlos III, M.D. CLIA#: [id number] Performed By: #### F T4, TSH, ESR #### [address] [address] #### C3C4A #### [address] [address] Shirley-Class Class 0 Normal Class 0 [facility] ([place]) Comment on above: Result Comment: Perf ormed By: [place] [address] Director Of Human Resources: Jose Carlos III, M.D. CLIA#: [id number] Performed By: #### F T4, TSH, ESR #### [address] [address] #### C3C4A #### [place] [address] EGGWHTon 05-10-2023 Egg White Class Class 0 Normal Class 0 [facility] ([place]) Comment on above: Result Comment: Perf ormed By: [place] [address] Director Of Human Resources: Jose Carlos III, M.D. CLIA#: [id number] Performed By: #### F T4, TSH, ESR #### [address] [address] #### C3C4A #### [place] [id number] Egg White IgE <0.35 Normal <0.35 [facility] ([place]) Comment on above: Result Comment: Perf ormed By: [place] [address] Director Of Human Resources: Jose Carlos III, M.D. CLIA#: [id number] Performed By: #### F T4, TSH, ESR #### [address] [address] #### C3C4A #### [place] [address] EGYOLKon 05-10-2023 Egg Yolk Class Class 0 Normal Class 0 [facility] ([place]) Comment on above: Result Comment: Perf ormed By: [place] [id number] Director Of Human Resources: Jose Carlos III, M.D. CLIA#: [id number] Performed By: #### F T4, TSH, ESR #### [address] [address] #### C3C4A #### [address] [address] Egg Yolk IgE <0.35 Normal <0.35 [facility] ([place]) Comment on above: Result Comment: Perf ormed By: [place] [address] Director Of Human Resources: Jose Carlos III, M.D. CLIA#: [id number] Performed By: #### F T4, TSH, ESR #### [address] [address] #### C3C4A #### [place] [address] MILKCon 05-10-2023 Milk Cow Class Class 0 Normal Class 0 [facility] ([place]) Comment on above: Result Comment: Perf ormed By: [place] [address] Director Of Human Resources: Jose Carlos III, M.D. CLIA#: [id number] Performed By: #### F T4, TSH, ESR #### [place] [address] #### C3C4A #### [place] [id number] Milk Cow IgE <0.35 Normal <0.35 [facility] ([place]) Comment on above: Result Comment: Perf ormed By: [place] [address] Director Of Human Resources: Jose Carlos III, M.D. CLIA#: [id number] Performed By: #### F T4, TSH, ESR #### [place] [address] #### C3C4A #### [address] [address] [facility]. Send Out See Comments Normal [facility] ([place]) Comment on above: Order Comment: Shell fish [place], [place] [address] x 3 Result Comment: Comp janethe reference lab report scanned to EMR. Performed By: #### F T4, TSH, ESR #### [address] [address] #### C3C4A #### [place] [address] PEANUT 05-10-2023 Peanut Class Class 0 Normal Class 0 [facility] ([place]) Comment on above: Result Comment: Perf ormed By: [place] [address] Director Of Human Resources: Jose Carlos III, M.D. CLIA#: [id number] Performed By: #### F T4, TSH, ESR #### [place] [address] #### C3C4A #### [place] [address] Peanut IgE <0.35 Normal <0.35 [facility] ([place]) Comment on above: Result Comment: Perf ormed By: [place] [address] Director Of Human Resources: Jose Carlos III, M.D. CLIA#: [id number] Performed By: #### F T4, TSH, ESR #### [place] [address] #### C3C4A #### [place] [address] POTATO 05-10-2023 Potato Class Class 0 Normal Class 0 [facility] ([place]) Comment on above: Result Comment: Perf ormed By: [facility] [employer] [address] [place] [address] Director Of Human Resources: Jose Carlos III, M.D. CLIA#: [id number] Performed By: #### F T4, TSH, ESR #### [place] [id number] #### C3C4A #### [address] [address] Potato IgE <0.35 Normal <0.35 [facility] ([place]) Comment on above: Result Comment: Perf ormed By: [place] [address] Director Of Human Resources: Jose Carols III, M.D. CLIA#: [id number] Performed By: #### F T4, TSH, ESR #### [address] [address] #### C3C4A #### [address] 05-10-2023 Rice Class Class 0 Normal Class 0 [facility] ([place]) Comment on above: Result Comment: Perf ormed By: [place] [address] Director Of Human Resources: Jose Carlos III, M.D. CLIA#: [id number] Performed By: #### F T4, TSH, ESR #### [address] [address] #### C3C4A #### [place] [address] Rice IgE <0.35 Normal <0.35 [facility] ([place]) Comment on above: Result Comment: Perf ormed By: [place] [address] Director Of Human Resources: Jose Carlos III, M.D. CLIA#: [id number] Performed By: #### F T4, TSH, ESR #### [address] [address] #### C3C4A #### [address] 05-10-2023 Shrimp IgE <0.35 Normal <0.35 [facility] ([place]) Comment on above: Result Comment: Perf ormed By: [place] [address] Director Of Human Resources: Jose Carlos III, M.D. CLIA#: [id number] Performed By: #### F T4, TSH, ESR #### [address] [address] #### C3C4A #### [place] [address] Shrimp-Class Class 0 Normal Class 0 [facility] ([place]) Comment on above: Result Comment: Perf ormed By: [place] [address] Director Of Human Resources: Jose Carlos III, M.D. CLIA#: [id number] Performed By: #### F T4, TSH, ESR #### [place] [address] #### C3C4A #### [address] 05-10-2023 Soybean IgE <0.35 Normal <0.35 [facility] ([place]) Comment on above: Result Comment: Perf ormed By: [place] [address] Director Of Human Resources: Jose Carlos III, M.D. CLIA#: [id number] Performed By: #### F T4, TSH, ESR #### [address] [address] #### C3C4A #### [place] [address] Soybean-Class Class 0 Normal Class 0 [facility] ([place]) Comment on above: Result Comment: Perf ormed By: [place] [address] Director Of Human Resources: Jose Carlos III, M.D. CLIA#: [id number] Performed By: #### F T4, TSH, ESR #### [address] [address] #### C3C4A #### [address] 05-10-2023 Tomato IgE <0.35 Normal <0.35 [facility] ([place]) Comment on above: Result Comment: Perf ormed By: [place] [id number] Director Of Human Resources: Jose Carlos III, M.D. CLIA#: [id number] Performed By: #### F T4, TSH, ESR #### [address] [address] #### C3C4A #### [address] [address] Tomato-Class Class 0 Normal Class 0 [facility] ([place]) Comment on above: Result Comment: Perf ormed By: [place] [id number] Director Of Human Resources: Jose Carlos III, M.D. CLIA#: [id number] Performed By: #### F T4, TSH, ESR #### [address] [address] #### C3C4A #### [place] [id number] Dwayne 05-10-2023 Wheat Class Class 0 Normal Class 0 [facility] ([place]) Comment on above: Result Comment: Perf ormed By: [place] [id number] Director Of Human Resources: Jose Carlos III, M.D. CLIA#: [id number] Performed By: #### F T4, TSH, ESR #### [address] [address] #### C3C4A #### [place] [id number] Wheat IgE <0.35 Normal <0.35 [facility] ([place]) Comment on above: Result Comment: Perf ormed By: [place] [id number] Director Of Human Resources: Jose Carlos III, M.D. CLIA#: [id number] Performed By: #### F T4, TSH, ESR #### [address] [address] #### C3C4A #### [address] [address] IGEon 05-09-2023 IgE 71.0 IU/mL Normal 0.0-378.0 [facility] ([place]) Comment on above: Result Comment: No te - New Reference Range in effect 20 Performed By: #### F T4, TSH, ESR #### [place] [address] [place], [place] [address] #### C3C4A #### [address] [address] .Auto Diffon 03-08-2023 Basophil, Absolute 0.0 10 3/mcL Normal 0.0-0.2 [facility] ([place]) Comment on above: Performed By: #### C MP, ADIFF, GFR, CBC, TSH, ANEU #### [address] [address] Basophils/100 WBC (Bld) 0.5 % Normal 0.0-2.5 [facility] ([place]) Comment on above: Performed By: #### C MP, ADIFF, GFR, CBC, TSH, ANEU #### [address] [address] Eosinophil, Absolute 0.3 10 3/mcL Normal 0.0-0.4 [facility] ([place]) Comment on above: Performed By: #### C MP, ADIFF, GFR, CBC, TSH, ANEU #### [address] [address] Eosinophils/100 WBC (Bld) 3.0 % Normal 0.0-7.0 [facility] ([place]) Comment on above: Performed By: #### C MP, ADIFF, GFR, CBC, TSH, ANEU #### [address] [address] Lymphocyte, Absolute 2.0 10 3/mcL Normal 0.8-3.9 [facility] ([place]) Comment on above: Performed By: #### C MP, ADIFF, GFR, CBC, TSH, ANEU #### [address] [address] Lymphocytes/100 WBC (Bld) 21.2 % Normal 10.0-50.0 [facility] ([place]) Comment on above: Performed By: #### C MP, ADIFF, GFR, CBC, TSH, ANEU #### [address] [address] Monocyte, Absolute 0.9 10 3/mcL Normal 0.2-1.0 [facility] ([place]) Comment on above: Performed By: #### C MP, ADIFF, GFR, CBC, TSH, ANEU #### [address] [address] Monocytes/100 WBC (Bld) 9.4 % Normal 1.7-13.0 [facility] ([place]) Comment on above: Performed By: #### C MP, ADIFF, GFR, CBC, TSH, ANEU #### [address] [address] Neutrophils/100 WBC (Bld) 65.9 % Normal 37.0-80.0 [facility] ([place]) Comment on above: Performed By: #### C MP, ADIFF, GFR, CBC, TSH, ANEU #### [address] [address] .GFRon 03-08-2023 GFR 133 ml/min/1.73sqm Normal [facility] ([place]) Comment on above: Result Comment: GFR Population mean for , Non- Americans Ages 20-29 = 116 mL/min/1.73 sq.m. Ages 30-39 = 107 mL/min/1.73 sq.m. Ages 40-49 = 99 mL/min/1.73 sq.m. Ages 50-59 = 93 mL/min/1.73 sq.m. Ages 60-69 = 85 mL/min/1.73 sq.m. Ages 70+ = 75 mL/min/1.73 sq.m. Chronic Kidney Disease: Less than 60 mL/min/1.73 square meters End Stage Renal Disease: Less than 15 mL/min/1.73 square meters Performed By: #### C MP, ADIFF, GFR, CBC, TSH, ANEU #### [address] [address] GFR Non- 109 ml/min/1.73sqm Normal [facility] ([place]) Comment on above: Result Comment: GFR Population mean for , Non- Americans Ages 20-29 = 116 mL/min/1.73 sq.m. Ages 30-39 = 107 mL/min/1.73 sq.m. Ages 40-49 = 99 mL/min/1.73 sq.m. Ages 50-59 = 93 mL/min/1.73 sq.m. Ages 60-69 = 85 mL/min/1.73 sq.m. Ages 70+ = 75 mL/min/1.73 sq.m. Chronic Kidney Disease: Less than 60 mL/min/1.73 square meters End Stage Renal Disease: Less than 15 mL/min/1.73 square meters Performed By: #### C MP, ADIFF, GFR, CBC, TSH, ANEU #### [address] [address] .NEUABSon 03-08-2023 Neutrophil, Absolute 6.2 10 3/mcL Normal 2.9-6.2 [facility] ([place]) Comment on above: Performed By: #### C MP, ADIFF, GFR, CBC, TSH, ANEU #### [address] [address] CBCon 03-08-2023 Erythrocyte distribution width (RBC) [Ratio] 13.8 % Normal 11.5-14.5 [facility] ([place]) Comment on above: Performed By: #### C MP, ADIFF, GFR, CBC, TSH, ANEU #### [place] [address] Hematocrit (Bld) [Volume fraction] 41.2 % Normal 37.0-47.0 [facility] ([place]) Comment on above: Performed By: #### C MP, ADIFF, GFR, CBC, TSH, ANEU #### [place] [address] Hgb 13.7 G/dL Normal 12.0-16.0 [facility] ([place]) Comment on above: Performed By: #### C MP, ADIFF, GFR, CBC, TSH, ANEU #### [place] [address] MCH (RBC) [Entitic mass] 26.6 pg Low 27.0-31.2 [facility] ([place]) Comment on above: Performed By: #### C MP, ADIFF, GFR, CBC, TSH, ANEU #### [place] [address] MCHC 33.3 G/dL Normal 33.0-37.0 [facility] ([place]) Comment on above: Performed By: #### C MP, ADIFF, GFR, CBC, TSH, ANEU #### [place] [address] MCV (RBC) [Entitic vol] 80.0 fL Normal 80.0-94.0 [facility] ([place]) Comment on above: Performed By: #### C MP, ADIFF, GFR, CBC, TSH, ANEU #### [place] [address] Platelet 317 10 3/mcL Normal 130-400 [facility] ([place]) Comment on above: Performed By: #### C MP, ADIFF, GFR, CBC, TSH, ANEU #### [place] [address] Platelet mean volume (Bld) [Entitic vol] 8.5 fL Normal 7.4-10.4 [facility] ([place]) Comment on above: Performed By: #### C MP, ADIFF, GFR, CBC, TSH, ANEU #### [place] [address] RBC 5.15 10 6/mcL Normal 4.20-5.40 [facility] ([place]) Comment on above: Performed By: #### C MP, ADIFF, GFR, CBC, TSH, ANEU #### [place] [address] WBC 9.4 10 3/mcL Normal 4.6-10.8 [facility] ([place]) Comment on above: Performed By: #### C MP, ADIFF, GFR, CBC, TSH, ANEU #### [place] [address] CMPon 03-08-2023 Albumin Level 4.0 G/dL Normal 3.5-5.0 [facility] ([place]) Comment on above: Performed By: #### C MP, ADIFF, GFR, CBC, TSH, ANEU #### [place] [id number] Albumin/Globulin [Mass ratio] 1.1 {ratio} Normal 1.1-2.5 [facility] ([place]) Comment on above: Performed By: #### C MP, ADIFF, GFR, CBC, TSH, ANEU #### [place] [id number] ALP [Catalytic activity/Vol] 96 U/L Normal 40-135 [facility] ([place]) Comment on above: Performed By: #### C MP, ADIFF, GFR, CBC, TSH, ANEU #### [place] [id number] ALT [Catalytic activity/Vol] 34 U/L Normal 14-59 [facility] ([place]) Comment on above: Performed By: #### C MP, ADIFF, GFR, CBC, TSH, ANEU #### [place] [id number] AST [Catalytic activity/Vol] 15 U/L Normal 10-40 [facility] ([place]) Comment on above: Performed By: #### C MP, ADIFF, GFR, CBC, TSH, ANEU #### [place] [id number] Bili Total 0.3 mg/dL Normal 0.2-1.0 [facility] ([place]) Comment on above: Result Comment: Use of this assay is not recommended for patients undergoing treatment with eltrombopag due to the potential for falsely elevated results. Performed By: #### C MP, ADIFF, GFR, CBC, TSH, ANEU #### [place] [id number] BUN/Creatinine Ratio 17 ratio Normal 7-27 [facility] ([place]) Comment on above: Performed By: #### C MP, ADIFF, GFR, CBC, TSH, ANEU #### [place] [id number] Calcium [Mass/Vol] 9.0 mg/dL Normal 8.4-10.2 [facility] ([place]) Comment on above: Performed By: #### C MP, ADIFF, GFR, CBC, TSH, ANEU #### [address] [address] Chloride [Moles/Vol] 103 mmol/L Normal 98-107 [facility] ([place]) Comment on above: Performed By: #### C MP, ADIFF, GFR, CBC, TSH, ANEU #### [address] [address] CO2 [Moles/Vol] 28 mmol/L Normal 22-29 [facility] ([place]) Comment on above: Performed By: #### C MP, ADIFF, GFR, CBC, TSH, ANEU #### [address] [address] Creatinine [Mass/Vol] 0.65 mg/dL Normal 0.55-1.02 [facility] ([place]) Comment on above: Performed By: #### C MP, ADIFF, GFR, CBC, TSH, ANEU #### [address] [address] Electrolyte Balance 10.0 mEq/L Normal 4.0-15.0 [facility] ([place]) Comment on above: Performed By: #### C MP, ADIFF, GFR, CBC, TSH, ANEU #### [address] [address] Globulin 3.8 G/dL Normal [facility] ([place]) Comment on above: Performed By: #### C MP, ADIFF, GFR, CBC, TSH, ANEU #### [address] [address] Glucose [Mass/Vol] 99 mg/dL Normal 70-105 [facility] ([place]) Comment on above: Performed By: #### C MP, ADIFF, GFR, CBC, TSH, ANEU #### [address] [address] Potassium [Moles/Vol] 4.1 mmol/L Normal 3.5-5.1 [facility] ([place]) Comment on above: Performed By: #### C MP, ADIFF, GFR, CBC, TSH, ANEU #### [facility] [address] [place] [address] Sodium [Moles/Vol] 141 mmol/L Normal 136-145 [facility] ([place]) Comment on above: Performed By: #### C MP, ADIFF, GFR, CBC, TSH, ANEU #### [address] [address] Total Protein 7.8 G/dL Normal 6.4-8.2 [facility] ([place]) Comment on above: Performed By: #### C MP, ADIFF, GFR, CBC, TSH, ANEU #### [address] [address] Urea nitrogen [Mass/Vol] 11 mg/dL Normal 7-18 [facility] ([place]) Comment on above: Performed By: #### C MP, ADIFF, GFR, CBC, TSH, ANEU #### [address] [address] LABORATORYOrdered By: SYSTEM SYSTEM on 03-08-2023 Albumin BCP dye [Mass/Vol] 4.0 G/dL Invalid Interpretation Code 3.5 - 5.0 G/dL AO ADM SS Albumin/Globulin [Mass ratio] 1.1 {ratio} Invalid Interpretation Code 1.1 - 2.5 ratio AO ADM SS ALP [Catalytic activity/Vol] 96 U/L Invalid Interpretation Code 40 - 135 U/L AO ADM SS ALT With P-5'-P [Catalytic activity/Vol] 34 U/L Invalid Interpretation Code 14 - 59 U/L AO ADM SS AST With P-5'-P [Catalytic activity/Vol] 15 U/L Invalid Interpretation Code 10 - 40 U/L AO ADM SS Basophil, Absolute 0.0 103/mcL Invalid Interpretation Code 0.0 - 0.2 10^3/mcL AO Workflow SS Basophils/100 WBC (Bld) 0.5 % Invalid Interpretation Code 0.0 - 2.5 % AO Workflow SS Bilirubin [Mass/Vol] 0.3 mg/dL Invalid Interpretation Code 0.2 - 1.0 mg/dL AO ADM SS Comment on above: Interpretive Data: U se of this assay is not recommended for patients undergoing treatment with eltrombopag due to the potential for falsely elevated results. Calcium [Mass/Vol] 9.0 mg/dL Invalid Interpretation Code 8.4 - 10.2 mg/dL AO ADM SS Chloride [Moles/Vol] 103 mmol/L Invalid Interpretation Code 98 - 107 mmol/L AO ADM SS CO2 [Moles/Vol] 28 mmol/L Invalid Interpretation Code 22 - 29 mmol/L AO ADM SS Creatinine [Mass/Vol] 0.65 mg/dL Invalid Interpretation Code 0.55 - 1.02 mg/dL AO ADM SS Electrolyte Balance 10.0 mEq/L Invalid Interpretation Code 4.0 - 15.0 mEq/L AO ADM SS Eosinophil, Absolute 0.3 103/mcL Invalid Interpretation Code 0.0 - 0.4 10^3/mcL AO Workflow SS Eosinophils/100 WBC (Bld) 3.0 % Invalid Interpretation Code 0.0 - 7.0 % AO Workflow SS Erythrocyte distribution width (RBC) [Ratio] 13.8 % Invalid Interpretation Code 11.5 - 14.5 % AO Workflow SS GFR/1.73 sq M.predicted among blacks MDRD (S/P/Bld) [Vol rate/Area] 133 ml/min/1.73sqm Invalid Interpretation Code AO Chemistry S Comment on above: Interpretive Data: GFR Population mean for , Non- Americans Ages 20-29 = 116 mL/min/1.73 sq.m. Ages 30-39 = 107 mL/min/1.73 sq.m. Ages 40-49 = 99 mL/min/1.73 sq.m. Ages 50-59 = 93 mL/min/1.73 sq.m. Ages 60-69 = 85 mL/min/1.73 sq.m. Ages 70+ = 75 mL/min/1.73 sq.m. Chronic Kidney Disease: Less than 60 mL/min/1.73 square meters End Stage Renal Disease: Less than 15 mL/min/1.73 square meters GFR/1.73 sq M.predicted among non-blacks MDRD (S/P/Bld) [Vol rate/Area] 109 ml/min/1.73sqm Invalid Interpretation Code AO Chemistry S Comment on above: Interpretive Data: GFR Population mean for , Non- Americans Ages 20-29 = 116 mL/min/1.73 sq.m. Ages 30-39 = 107 mL/min/1.73 sq.m. Ages 40-49 = 99 mL/min/1.73 sq.m. Ages 50-59 = 93 mL/min/1.73 sq.m. Ages 60-69 = 85 mL/min/1.73 sq.m. Ages 70+ = 75 mL/min/1.73 sq.m. Chronic Kidney Disease: Less than 60 mL/min/1.73 square meters End Stage Renal Disease: Less than 15 mL/min/1.73 square meters Globulin 3.8 G/dL Invalid Interpretation Code AO ADM SS Glucose [Mass/Vol] 99 mg/dL Invalid Interpretation Code 70 - 105 mg/dL AO ADM SS Hematocrit (Bld) [Volume fraction] 41.2 % Invalid Interpretation Code 37.0 - 47.0 % AO Workflow SS Hemoglobin (Bld) [Mass/Vol] 13.7 G/dL Invalid Interpretation Code 12.0 - 16.0 G/dL AO Workflow SS Lymphocyte, Absolute 2.0 103/mcL Invalid Interpretation Code 0.8 - 3.9 10^3/mcL AO Workflow SS Lymphocytes/100 WBC (Bld) 21.2 % Invalid Interpretation Code 10.0 - 50.0 % AO Workflow SS MCH (RBC) [Entitic mass] 26.6 pg Invalid Interpretation Code 27.0 - 31.2 pg AO Workflow SS MCHC 33.3 G/dL Invalid Interpretation Code 33.0 - 37.0 G/dL AO Workflow SS MCV (RBC) [Entitic vol] 80.0 fL Invalid Interpretation Code 80.0 - 94.0 fL AO Workflow SS Monocyte, Absolute 0.9 103/mcL Invalid Interpretation Code 0.2 - 1.0 10^3/mcL AO Workflow SS Monocytes/100 WBC (Bld) 9.4 % Invalid Interpretation Code 1.7 - 13.0 % AO Workflow SS Neutrophil, Absolute 6.2 103/mcL Invalid Interpretation Code 2.9 - 6.2 10^3/mcL AO Workflow SS Neutrophils/100 WBC (Bld) 65.9 % Invalid Interpretation Code 37.0 - 80.0 % AO Workflow SS Platelet mean volume (Bld) [Entitic vol] 8.5 fL Invalid Interpretation Code 7.4 - 10.4 fL AO Workflow SS Platelets (Bld) [#/Vol] 317 103/mcL Invalid Interpretation Code 130 - 400 10^3/mcL AO Workflow SS Potassium [Moles/Vol] 4.1 mmol/L Invalid Interpretation Code 3.5 - 5.1 mmol/L AO ADM SS Protein [Mass/Vol] 7.8 G/dL Invalid Interpretation Code 6.4 - 8.2 G/dL AO ADM SS RBC (Bld) [#/Vol] 5.15 106/mcL Invalid Interpretation Code 4.20 - 5.40 10^6/mcL AO Workflow SS Sodium [Moles/Vol] 141 mmol/L Invalid Interpretation Code 136 - 145 mmol/L AO ADM SS TSH Qn 1.03 m[IU]/L Invalid Interpretation Code 0.36 - 3.74 mcIU/mL AO ADM SS Urea nitrogen [Mass/Vol] 11 mg/dL Invalid Interpretation Code 7 - 18 mg/dL AO ADM SS Urea nitrogen/Creatinine [Mass ratio] 17 ratio Invalid Interpretation Code 7 - 27 ratio AO ADM SS WBC (Bld) [#/Vol] 9.4 103/mcL Invalid Interpretation Code 4.6 - 10.8 10^3/mcL AO Workflow SS TSHon 03-08-2023 TSH Qn 1.03 m[IU]/L Normal 0.36-3.74 [facility] ([place]) Comment on above: Performed By: #### C MP, ADIFF, GFR, CBC, TSH, ANEU #### [place] [address] LABORATORYOrdered By: SYSTEM SYSTEM on 09-29-2022 Hematocrit (Bld) [Volume fraction] 33.2 % Invalid Interpretation Code 34.0 - 46.0 % AH Workflow SS Hemoglobin (Bld) [Mass/Vol] 11.3 G/dL Invalid Interpretation Code 12.0 - 16.0 G/dL Workflow SS LABORATORYOrdered By: Katlyn Gonzales on 09-27-2022 ABO and Rh group Nom (Bld) O positive (09/27/22 8:11 PM) [facility] Work Phone: Group B Strep Date Performed [id number] [facility] Work Phone: Group B Strep, External Negative (09/27/22 8:11 PM) [facility] Work Phone: Hepatitis B Date Performed [id number] [facility] Work Phone: Hepatitis B, External Negative (09/27/22 8:11 PM) [facility] Work Phone: HIV Antibodies, External Negative (09/27/22 8:11 PM) [facility] Work Phone: RPR, External Nonreactive (09/27/22 8:11 PM) [facility] Work Phone: Rubella, External Immune (09/27/22 8:11 PM) [facility] Work Phone: LABORATORYOrdered By: Yoselin Holder on 09-27-2022 ABO and Rh group Nom (Bld) Blood group O Rh(D) positive Invalid Interpretation Code BB Auto SS Blood group antibody screen Ql Negative ABSC (09/27/22 8:04 PM) Invalid Interpretation Code BB Auto SS LABORATORYOrdered By: SYSTEM SYSTEM on 09-27-2022 Basophils (Bld) [#/Vol] 0.0 103/mcL Invalid Interpretation Code 0.0 - 0.3 10^3/mcL Workflow SS Basophils/100 WBC (Bld) 0.3 % Invalid Interpretation Code 0.0 - 2.5 % Workflow SS Eosinophils (Bld) [#/Vol] 0.1 103/mcL Invalid Interpretation Code 0.0 - 0.7 10^3/mcL Workflow SS Eosinophils/100 WBC (Bld) 0.8 % Invalid Interpretation Code 0.0 - 6.0 % Workflow SS Erythrocyte distribution width (RBC) [Ratio] 14.7 % Invalid Interpretation Code 11.5 - 15.5 % Workflow SS Hematocrit (Bld) [Volume fraction] 37.6 % Invalid Interpretation Code 34.0 - 46.0 % Workflow SS Hemoglobin (Bld) [Mass/Vol] 12.8 G/dL Invalid Interpretation Code 12.0 - 16.0 G/dL Workflow SS Lymphocytes (Bld) [#/Vol] 2.1 103/mcL Invalid Interpretation Code 0.9 - 4.3 10^3/mcL Workflow SS Lymphocytes/100 WBC (Bld) 16.2 % Invalid Interpretation Code 20.0 - 40.0 % Workflow SS MCH (RBC) [Entitic mass] 28.5 pg Invalid Interpretation Code 27.0 - 33.0 pg Workflow SS MCHC 34.0 G/dL Invalid Interpretation Code 32.0 - 36.0 G/dL AH Workflow SS MCV (RBC) [Entitic vol] 83.8 fL Invalid Interpretation Code 80.0 - 99.0 fL AH Workflow SS Monocytes (Bld) [#/Vol] 1.0 103/mcL Invalid Interpretation Code 0.1 - 1.4 10^3/mcL AH Workflow SS Monocytes/100 WBC (Bld) 7.9 % Invalid Interpretation Code 2.0 - 13.0 % AH Workflow SS Neutrophils (Bld) [#/Vol] 9.7 103/mcL Invalid Interpretation Code 2.3 - 8.1 10^3/mcL AH Workflow SS Neutrophils/100 WBC (Bld) 74.8 % Invalid Interpretation Code 50.0 - 75.0 % AH Workflow SS Platelet mean volume (Bld) [Entitic vol] 9.8 fL Invalid Interpretation Code 6.6 - 10.5 fL AH Workflow SS Platelets (Bld) [#/Vol] 234 103/mcL Invalid Interpretation Code 150 - 450 10^3/mcL AH Workflow SS RBC (Bld) [#/Vol] 4.48 106/mcL Invalid Interpretation Code 4.10 - 5.30 10^6/mcL AH Workflow SS WBC (Bld) [#/Vol] 13.0 103/mcL Invalid Interpretation Code 4.5 - 10.8 10^3/mcL AH Workflow SS LABORATORYOrdered By: Lorna Molina on 09-27-2022 Reagin Ab RPR Ql (S) Non-Reactive (09/27/22 8:04 PM) Invalid Interpretation Code Non-Reacti ve AH Man Viro/Sero SS LABORATORYOrdered By: SYSTEM SYSTEM on 09-03-2021 Albumin BCP dye [Mass/Vol] 2.1 G/dL Invalid Interpretation Code 3.2 - 4.8 G/dL ADM SS Albumin/Globulin [Mass ratio] 0.7 {ratio} Invalid Interpretation Code 0.9 - 1.6 ratio AH ADM SS ALP [Catalytic activity/Vol] 192 U/L Invalid Interpretation Code 38 - 126 U/L ADM SS ALT No additional P-5'-P [Catalytic activity/Vol] 27 U/L Invalid Interpretation Code 10 - 49 U/L ADM SS AST [Catalytic activity/Vol] 21 U/L Invalid Interpretation Code 8 - 34 U/L ADM SS Basophils (Bld) [#/Vol] 0.00 103/mcL Invalid Interpretation Code 0.00 - 0.27 10^3/mcL AH Remisol SS Basophils/100 WBC (Bld) 0.3 % Invalid Interpretation Code 0.0 - 2.5 % AH Remisol SS Bilirubin [Mass/Vol] mg/dL Invalid Interpretation Code 0.20 - 1.20 mg/dL AH ADM SS Calcium [Mass/Vol] 8.9 mg/dL Invalid Interpretation Code 8.7 - 10.4 mg/dL AH ADM SS Chloride [Moles/Vol] 108 mmol/L Invalid Interpretation Code 98 - 110 mEq/L AH ADM SS CO2 [Moles/Vol] 26 mmol/L Invalid Interpretation Code 22 - 32 mEq/L AH ADM SS Creatinine [Mass/Vol] 0.98 mg/dL Invalid Interpretation Code 0.50 - 1.20 mg/dL AH ADM SS Electrolyte Balance 8.0 mEq/L Invalid Interpretation Code 4.0 - 15.0 mEq/L AH ADM SS Eosinophils (Bld) [#/Vol] 0.20 103/mcL Invalid Interpretation Code 0.00 - 0.65 10^3/mcL AH Remisol SS Eosinophils/100 WBC (Bld) 1.2 % Invalid Interpretation Code 0.0 - 6.0 % AH Remisol SS Erythrocyte distribution width (RBC) [Ratio] 14.9 % Invalid Interpretation Code 11.5 - 15.5 % AH Remisol SS GFR/1.73 sq M.predicted among blacks MDRD (S/P/Bld) [Vol rate/Area] ml/min/1.73sqm Invalid Interpretation Code AH Chemistry S GFR/1.73 sq M.predicted among non-blacks MDRD (S/P/Bld) [Vol rate/Area] ml/min/1.73sqm Invalid Interpretation Code Chemistry S Globulin 2.9 G/dL Invalid Interpretation Code 1.5 - 3.8 G/dL AH ADM SS Glucose [Mass/Vol] 106 mg/dL Invalid Interpretation Code 70 - 110 mg/dL AH ADM SS Hematocrit (Bld) [Volume fraction] 29.1 % Invalid Interpretation Code 34.0 - 46.0 % AH Remisol SS Hemoglobin (Bld) [Mass/Vol] 9.4 G/dL Invalid Interpretation Code 12.0 - 16.0 G/dL AH Remisol SS LDH Lactate to pyruvate reaction [Catalytic activity/Vol] 189 1 Invalid Interpretation Code 120 - 246 U/L AH ADM SS Lymphocytes (Bld) [#/Vol] 2.20 103/mcL Invalid Interpretation Code 0.90 - 4.32 10^3/mcL AH Remisol SS Lymphocytes/100 WBC (Bld) 13.7 % Invalid Interpretation Code 20.0 - 40.0 % AH Remisol SS MCH (RBC) [Entitic mass] 27.4 pg Invalid Interpretation Code 27.0 - 33.0 pg AH Remisol SS MCHC (RBC) [Mass/Vol] 32.3 G/dL Invalid Interpretation Code 32.0 - 36.0 G/dL AH Remisol SS MCV (RBC) [Entitic vol] 84.7 fL Invalid Interpretation Code 80.0 - 99.0 fL AH Remisol SS Monocytes (Bld) [#/Vol] 1.00 103/mcL Invalid Interpretation Code 0.09 - 1.40 10^3/mcL AH Remisol SS Monocytes/100 WBC (Bld) 6.3 % Invalid Interpretation Code 2.0 - 13.0 % AH Remisol SS Neutrophils (Bld) [#/Vol] 12.80 103/mcL Invalid Interpretation Code 2.25 - 8.10 10^3/mcL AH Remisol SS Neutrophils/100 WBC (Bld) 78.5 % Invalid Interpretation Code 50.0 - 75.0 % AH Remisol SS Platelet mean volume (Bld) [Entitic vol] 9.0 fL Invalid Interpretation Code 6.6 - 10.5 fL AH Remisol SS Platelets (Bld) [#/Vol] 208 103/mcL Invalid Interpretation Code 150 - 450 10^3/mcL AH Remisol SS Potassium [Moles/Vol] 4.4 mmol/L Invalid Interpretation Code 3.5 - 5.0 mEq/L AH ADM SS Protein [Mass/Vol] 5.0 G/dL Invalid Interpretation Code 5.7 - 8.2 G/dL AH ADM SS RBC (Bld) [#/Vol] 3.44 106/mcL Invalid Interpretation Code 4.10 - 5.30 10^6/mcL AH Remisol SS Sodium [Moles/Vol] 142 mmol/L Invalid Interpretation Code 136 - 145 mEq/L AH ADM SS Urea nitrogen [Mass/Vol] 13.0 mg/dL Invalid Interpretation Code 8.0 - 22.0 mg/dL AH ADM SS Urea nitrogen/Creatinine [Mass ratio] 13.3 ratio Invalid Interpretation Code 10.0 - 22.0 ratio AH ADM SS WBC (Bld) [#/Vol] 16.20 103/mcL Invalid Interpretation Code 4.50 - 10.80 10^3/mcL AH Remisol SS Albumin BCP dye [Mass/Vol] 1.8 G/dL Invalid Interpretation Code 3.2 - 4.8 G/dL AH ADM SS Albumin/Globulin [Mass ratio] 0.7 {ratio} Invalid Interpretation Code 0.9 - 1.6 ratio AH ADM SS ALP [Catalytic activity/Vol] 179 U/L Invalid Interpretation Code 38 - 126 U/L AH ADM SS ALT No additional P-5'-P [Catalytic activity/Vol] 27 U/L Invalid Interpretation Code 10 - 49 U/L AH ADM SS AST [Catalytic activity/Vol] 23 U/L Invalid Interpretation Code 8 - 34 U/L AH ADM SS Basophils (Bld) [#/Vol] 0.10 103/mcL Invalid Interpretation Code 0.00 - 0.27 10^3/mcL AH Remisol SS Basophils/100 WBC (Bld) 0.3 % Invalid Interpretation Code 0.0 - 2.5 % AH Remisol SS Bilirubin [Mass/Vol] 0.20 mg/dL Invalid Interpretation Code 0.20 - 1.20 mg/dL AH ADM SS Calcium [Mass/Vol] 8.1 mg/dL Invalid Interpretation Code 8.7 - 10.4 mg/dL AH ADM SS Chloride [Moles/Vol] 110 mmol/L Invalid Interpretation Code 98 - 110 mEq/L ADM SS CO2 [Moles/Vol] 25 mmol/L Invalid Interpretation Code 22 - 32 mEq/L AH ADM SS Creatinine [Mass/Vol] 1.05 mg/dL Invalid Interpretation Code 0.50 - 1.20 mg/dL AH ADM SS Electrolyte Balance 8.0 mEq/L Invalid Interpretation Code 4.0 - 15.0 mEq/L AH ADM SS Eosinophils (Bld) [#/Vol] 0.20 103/mcL Invalid Interpretation Code 0.00 - 0.65 10^3/mcL AH Remisol SS Eosinophils/100 WBC (Bld) 1.1 % Invalid Interpretation Code 0.0 - 6.0 % AH Remisol SS Erythrocyte distribution width (RBC) [Ratio] 15.1 % Invalid Interpretation Code 11.5 - 15.5 % AH Remisol SS GFR/1.73 sq M.predicted among blacks MDRD (S/P/Bld) [Vol rate/Area] ml/min/1.73sqm Invalid Interpretation Code AH Chemistry S GFR/1.73 sq M.predicted among non-blacks MDRD (S/P/Bld) [Vol rate/Area] ml/min/1.73sqm Invalid Interpretation Code Chemistry S Globulin 2.6 G/dL Invalid Interpretation Code 1.5 - 3.8 G/dL ADM SS Glucose [Mass/Vol] 67 mg/dL Invalid Interpretation Code 70 - 110 mg/dL ADM SS Hematocrit (Bld) [Volume fraction] 28.0 % Invalid Interpretation Code 34.0 - 46.0 % Remisol SS Hemoglobin (Bld) [Mass/Vol] 9.3 G/dL Invalid Interpretation Code 12.0 - 16.0 G/dL AH Remisol SS Lymphocytes (Bld) [#/Vol] 2.60 103/mcL Invalid Interpretation Code 0.90 - 4.32 10^3/mcL AH Remisol SS Lymphocytes/100 WBC (Bld) 13.9 % Invalid Interpretation Code 20.0 - 40.0 % AH Remisol SS MCH (RBC) [Entitic mass] 27.7 pg Invalid Interpretation Code 27.0 - 33.0 pg AH Remisol SS MCHC (RBC) [Mass/Vol] 33.2 G/dL Invalid Interpretation Code 32.0 - 36.0 G/dL AH Remisol SS MCV (RBC) [Entitic vol] 83.5 fL Invalid Interpretation Code 80.0 - 99.0 fL AH Remisol SS Monocytes (Bld) [#/Vol] 1.10 103/mcL Invalid Interpretation Code 0.09 - 1.40 10^3/mcL AH Remisol SS Monocytes/100 WBC (Bld) 6.1 % Invalid Interpretation Code 2.0 - 13.0 % AH Remisol SS Neutrophils (Bld) [#/Vol] 14.60 103/mcL Invalid Interpretation Code 2.25 - 8.10 10^3/mcL AH Remisol SS Neutrophils/100 WBC (Bld) 78.6 % Invalid Interpretation Code 50.0 - 75.0 % AH Remisol SS Platelet mean volume (Bld) [Entitic vol] 9.9 fL Invalid Interpretation Code 6.6 - 10.5 fL AH Remisol SS Platelets (Bld) [#/Vol] 171 103/mcL Invalid Interpretation Code 150 - 450 10^3/mcL AH Remisol SS Potassium [Moles/Vol] 4.0 mmol/L Invalid Interpretation Code 3.5 - 5.0 mEq/L AH ADM SS Protein [Mass/Vol] 4.4 G/dL Invalid Interpretation Code 5.7 - 8.2 G/dL AH ADM SS RBC (Bld) [#/Vol] 3.36 106/mcL Invalid Interpretation Code 4.10 - 5.30 10^6/mcL AH Remisol SS Sodium [Moles/Vol] 143 mmol/L Invalid Interpretation Code 136 - 145 mEq/L AH ADM SS Urea nitrogen [Mass/Vol] 13.0 mg/dL Invalid Interpretation Code 8.0 - 22.0 mg/dL AH ADM SS Urea nitrogen/Creatinine [Mass ratio] 12.4 ratio Invalid Interpretation Code 10.0 - 22.0 ratio AH ADM SS WBC (Bld) [#/Vol] 18.60 103/mcL Invalid Interpretation Code 4.50 - 10.80 10^3/mcL AH Remisol SS LABORATORYOrdered By: Iveth Hubbard on 09-02-2021 Appearance (U) Clear (09/02/21 5:48 PM) Invalid Interpretation Code Clear AH Auto Urine SS Bilirubin Ql (U) Negative (09/02/21 5:48 PM) Invalid Interpretation Code Neg-Trace AH Auto Urine SS Color (U) Straw (09/02/21 5:48 PM) Invalid Interpretation Code AH Auto Urine SS Glucose Test strip (U) [Mass/Vol] Negative Invalid Interpretation Code Negativemg /dL AH Auto Urine SS Hemoglobin Auto test strip (U) [Mass/Vol] Trace (09/02/21 5:48 PM) Invalid Interpretation Code Neg-Trace AH Auto Urine SS Ketones Ql (U) Negative Invalid Interpretation Code Neg-Tracem g/dL AH Auto Urine SS UA Leuk Est Negative (09/02/21 5:48 PM) Invalid Interpretation Code Negative AH Auto Urine SS UA Nitrite Negative (09/02/21 5:48 PM) Invalid Interpretation Code Negative AH Auto Urine SS UA pH 5.5 (09/02/21 5:48 PM) Invalid Interpretation Code 5.0 - 8.0 AH Auto Urine SS UA Protein Negative Invalid Interpretation Code Negativemg /dL Auto Urine SS UA Spec Grav <=1.005 *ABN* (09/02/21 5:48 PM) Invalid Interpretation Code 1.006-1.02 9 Auto Urine SS UA Specimen Type Clean Catch (09/02/21 5:48 PM) Invalid Interpretation Code Auto Urine SS UA Urobilinogen 0.2 E.U./dL Invalid Interpretation Code 0.2-1.0E.U ./dL Auto Urine SS LABORATORYOrdered By: Laxmi Fierro on 09-02-2021 Creatinine (U) [Mass/Vol] 22.7 mg/dL Invalid Interpretation Code ADM SS Protein (U) [Mass/Vol] mg/dL Invalid Interpretation Code ADM SS U Ratio Prot/Creat Unable to Calculate Invalid Interpretation Code AH ADM SS Comment on above: Result Comment: Unab le to calculate this test result accurately. Results used to calculate this test are outside the reportable range. LABORATORYOrdered By: SYSTEM SYSTEM on 09-02-2021 Albumin BCP dye [Mass/Vol] 2.1 G/dL Invalid Interpretation Code 3.2 - 4.8 G/dL ADM SS Albumin/Globulin [Mass ratio] 0.7 {ratio} Invalid Interpretation Code 0.9 - 1.6 ratio ADM SS ALP [Catalytic activity/Vol] 228 U/L Invalid Interpretation Code 38 - 126 U/L AH ADM SS ALT No additional P-5'-P [Catalytic activity/Vol] 36 U/L Invalid Interpretation Code 10 - 49 U/L AH ADM SS AST [Catalytic activity/Vol] 36 U/L Invalid Interpretation Code 8 - 34 U/L AH ADM SS Basophils (Bld) [#/Vol] 0.00 103/mcL Invalid Interpretation Code 0.00 - 0.27 10^3/mcL AH Remisol SS Basophils/100 WBC (Bld) 0.1 % Invalid Interpretation Code 0.0 - 2.5 % Remisol SS Bilirubin [Mass/Vol] 0.20 mg/dL Invalid Interpretation Code 0.20 - 1.20 mg/dL AH ADM SS Calcium [Mass/Vol] 9.0 mg/dL Invalid Interpretation Code 8.7 - 10.4 mg/dL AH ADM SS Chloride [Moles/Vol] 109 mmol/L Invalid Interpretation Code 98 - 110 mEq/L AH ADM SS CO2 [Moles/Vol] 25 mmol/L Invalid Interpretation Code 22 - 32 mEq/L AH ADM SS Creatinine [Mass/Vol] 1.21 mg/dL Invalid Interpretation Code 0.50 - 1.20 mg/dL AH ADM SS Electrolyte Balance 8.0 mEq/L Invalid Interpretation Code 4.0 - 15.0 mEq/L AH ADM SS Eosinophils (Bld) [#/Vol] 0.10 103/mcL Invalid Interpretation Code 0.00 - 0.65 10^3/mcL AH Remisol SS Eosinophils/100 WBC (Bld) 0.2 % Invalid Interpretation Code 0.0 - 6.0 % AH Remisol SS Erythrocyte distribution width (RBC) [Ratio] 15.4 % Invalid Interpretation Code 11.5 - 15.5 % AH Remisol SS GFR/1.73 sq M.predicted among blacks MDRD (S/P/Bld) [Vol rate/Area] ml/min/1.73sqm Invalid Interpretation Code AH Chemistry S GFR/1.73 sq M.predicted among non-blacks MDRD (S/P/Bld) [Vol rate/Area] 54 ml/min/1.73sqm Invalid Interpretation Code Chemistry S Globulin 2.9 G/dL Invalid Interpretation Code 1.5 - 3.8 G/dL ADM SS Glucose [Mass/Vol] 89 mg/dL Invalid Interpretation Code 70 - 110 mg/dL AH ADM SS Hematocrit (Bld) [Volume fraction] 30.0 % Invalid Interpretation Code 34.0 - 46.0 % AH Remisol SS Hemoglobin (Bld) [Mass/Vol] 9.8 G/dL Invalid Interpretation Code 12.0 - 16.0 G/dL AH Remisol SS LDH Lactate to pyruvate reaction [Catalytic activity/Vol] 260 1 Invalid Interpretation Code 120 - 246 U/L AH ADM SS Lymphocytes (Bld) [#/Vol] 2.00 103/mcL Invalid Interpretation Code 0.90 - 4.32 10^3/mcL AH Remisol SS Lymphocytes/100 WBC (Bld) 8.6 % Invalid Interpretation Code 20.0 - 40.0 % AH Remisol SS MCH (RBC) [Entitic mass] 27.6 pg Invalid Interpretation Code 27.0 - 33.0 pg AH Remisol SS MCHC (RBC) [Mass/Vol] 32.7 G/dL Invalid Interpretation Code 32.0 - 36.0 G/dL AH Remisol SS MCV (RBC) [Entitic vol] 84.3 fL Invalid Interpretation Code 80.0 - 99.0 fL AH Remisol SS Monocytes (Bld) [#/Vol] 1.40 103/mcL Invalid Interpretation Code 0.09 - 1.40 10^3/mcL AH Remisol SS Monocytes/100 WBC (Bld) 6.3 % Invalid Interpretation Code 2.0 - 13.0 % AH Remisol SS Neutrophils (Bld) [#/Vol] 19.50 103/mcL Invalid Interpretation Code 2.25 - 8.10 10^3/mcL AH Remisol SS Neutrophils/100 WBC (Bld) 84.8 % Invalid Interpretation Code 50.0 - 75.0 % AH Remisol SS Platelet mean volume (Bld) [Entitic vol] 10.1 fL Invalid Interpretation Code 6.6 - 10.5 fL AH Remisol SS Platelets (Bld) [#/Vol] 178 103/mcL Invalid Interpretation Code 150 - 450 10^3/mcL AH Remisol SS Potassium [Moles/Vol] 3.9 mmol/L Invalid Interpretation Code 3.5 - 5.0 mEq/L AH ADM SS Protein [Mass/Vol] 5.0 G/dL Invalid Interpretation Code 5.7 - 8.2 G/dL AH ADM SS RBC (Bld) [#/Vol] 3.56 106/mcL Invalid Interpretation Code 4.10 - 5.30 10^6/mcL AH Remisol SS Sodium [Moles/Vol] 142 mmol/L Invalid Interpretation Code 136 - 145 mEq/L AH ADM SS Urea nitrogen [Mass/Vol] 17.0 mg/dL Invalid Interpretation Code 8.0 - 22.0 mg/dL AH ADM SS Urea nitrogen/Creatinine [Mass ratio] 14.0 ratio Invalid Interpretation Code 10.0 - 22.0 ratio AH ADM SS WBC (Bld) [#/Vol] 23.00 103/mcL Invalid Interpretation Code 4.50 - 10.80 10^3/mcL AH Remisol SS No Panel Informationon 09-02 Culture Urine No growth at 48 hours. [facility] Work Phone: LABORATORYOrdered By: Lorna Molina on 08-31-2021 Reagin Ab RPR Ql (S) Non-Reactive (08/31/21 8:29 PM) Invalid Interpretation Code Non-Reacti ve AH Man Viro/Sero SS LABORATORYOrdered By: Yoselin Holder on 08-31-2021 ABO and Rh group Nom (Bld) Blood group O Rh(D) positive Invalid Interpretation Code AH BB Auto SS Blood group antibody screen Ql NEG (08/31/21 8:24 PM) Invalid Interpretation Code AH BB Auto SS LABORATORYOrdered By: Autumn Reddy on 08-15-2021 Appearance (U) Hazy *ABN* (08/15/21 9:12 AM) Invalid Interpretation Code Clear AH Auto Urine SS Bilirubin Ql (U) Negative (08/15/21 9:12 AM) Invalid Interpretation Code Neg-Trace AH Auto Urine SS Color (U) Yellow (08/15/21 9:12 AM) Invalid Interpretation Code AH Auto Urine SS Glucose Test strip (U) [Mass/Vol] Negative Invalid Interpretation Code Negativemg /dL AH Auto Urine SS Hemoglobin Auto test strip (U) [Mass/Vol] Negative (08/15/21 9:12 AM) Invalid Interpretation Code Neg-Trace AH Auto Urine SS Ketones Ql (U) Negative Invalid Interpretation Code Neg-Tracem g/dL AH Auto Urine SS UA Leuk Est Large *ABN* (08/15/21 9:12 AM) Invalid Interpretation Code Negative AH Auto Urine SS UA Mucous 2+ /HPF Invalid Interpretation Code AH Auto Urine SS UA Nitrite Negative (08/15/21 9:12 AM) Invalid Interpretation Code Negative AH Auto Urine SS UA pH 6.5 (08/15/21 9:12 AM) Invalid Interpretation Code 5.0 - 8.0 AH Auto Urine SS UA Protein Negative Invalid Interpretation Code Negativemg /dL AH Auto Urine SS UA RBC Rare /HPF Invalid Interpretation Code 0-2/HPF AH Auto Urine SS UA Spec Grav 1.010 (08/15/21 9:12 AM) Invalid Interpretation Code 1.006-1.02 9 AH Auto Urine SS UA Specimen Type Clean Catch (08/15/21 9:12 AM) Invalid Interpretation Code AH Auto Urine SS UA Squam Epithelial 25-50 /HPF Invalid Interpretation Code 0-20/HPF AH Auto Urine SS UA Urobilinogen 0.2 E.U./dL Invalid Interpretation Code 0.2-1.0E.U ./dL AH Auto Urine SS WBC LM.HPF (Urine sed) [#/Area] 50-100 /HPF Invalid Interpretation Code 0-5/HPF AH Auto Urine SS ED PROV NOTEon 02-04-2018 Protein mass conc HNO ID: [id number] thor: Ian Arevalo: (none)Author Type: PhysicianType: ED Provider NotesFiled: 05/16/2018 7:20 PMNote Text:[place], [place] [address]DNHOIN INFORMATION MANAGEMENTEMERGENCY DEPARTMENT REPORTPatient: YAEL CORBINBRITTAliciaIAN D.O.[id number]: DEP ER EDDate of Service: 01/30/18CHIEF COMPLAINTChest pain.ALLERGIESOmnicef.SOCIAL HISTORYNo alcohol use, illicit drug use or tobacco use.PAST SURGICAL HISTORYNone.PAST MEDICAL HISTORYSignificant for seasonal allergies.MEDICATIONSMultivi tamin and control pill.HISTORY OF PRESENT ILLNESSThe patient is a 22-year-old female presenting to the emergency departmentwith a chief complaint of chest pain. She states that it has beenconstant for 5 days. She states the only thing that makes it worse istaking a deep breath. She denies any injury. She states sometimes ithurts a little bit more when she moves. She denies any shortness ofbreath but just states it gets intensified when she takes a deep breath.It has not gone away at all. She denies any swelling of her legs. Shedoes take control pills. She does admit to recent travel by car [employer]. She states her cousins have history of blood clots. Shedenies any numbness or tingling. She denies any lightheadedness. Shedenies any back pain. She denies any radiation of the pain. She statesit does hurt when she pushes on her chest.REVIEW OF SYSTEMSA 10-point review of system was performed and negative except for HPI.PHYSICAL EXAMINATIONGeneral: The patient is alert. Blood pressure is 130/91, temperature is99.2, pulse was 127, respirations 26, O2 sat was 98% on room air. Herskin was warm and dry. The head was normocephalic, atraumatic. Eyes:Pupils equal and react to light with normal conjunctivae. ENT: The oralmucosa moist. Heart: In triage her heart rate was tachycardic but uponauscultation she was already under 100. Her heart was regular with nomurmurs, gallops or rubs. Lungs were clear to auscultation bilaterally.No wheezes or rhonchi. The abdomen is soft and nontender. She did havereproducible chest wall tenderness which reproduced her symptoms.Abdomen soft, nontender. There is no lower extremity edema. NegativeHomans.EMERGENCY DEPARTMENT CLINICAL COURSEThe patient remained hemodynamically stable, nonseptic and nontoxicthroughout the entire ED course. I did do a cardiac workup on thepatient including EKG and CT scan of her chest because she wastachycardic upon arrival. Her CBC was unremarkable. Her INR is 1.0.Chemistry panel was unremarkable with negative cardiac enzymes. Hertroponin was negative. test was negative. Urinalysis and drugscreen did not show any acute process. CT scan of the chest did not showany evidence of pulmonary embolism. At this point she was given Toradolfor pain and it has gone away. At this point I did repeat an EKG. Theinitial EKG showed minimal ST depression. I repeated an EKG and it wasread as normal sinus rhythm. At this point she has had chest painconstantly for 5 days, it is reproducible. She has had a negativetroponin and negative CT scan of her chest. She has a very low HEARTscore. It is either a 1 to a 2. At this point I do not think the patient warrants admission. I am going to give her a doctor to follow up withhowever. I told her that if her symptoms return [facility]. At this point I do notsuspect ACS nature of her symptoms. I am going to discharge her home instable condition.IMPRESSIONReproduc ible chest wall pain.DISPOSITIONThe patient to be discharged home. 02/08/18 1004 IAN ARIZMENDI D.O.cc: IAN ARIZMENDI D.O. << Signature on File>> Reported By: IAN ARIZMENDI D.O. Signed By: IAN ARIZMENDI D.O.Tests performed at:[id number] [place], [place] [phone] Normal [facility] EMERGENCY DEPARTMENT REPORTo n 02-04-2018 EMERGENCY DEPARTMENT REPORT [place], [place] [id number] INFORMATION MANAGEMENTEMERGENCY DEPARTMENT REPORTPatient: EMERALDRADHAAliciaIAN D.O.[id number] FStatus: DEP ER EDDate of Service: 01/30/18CHIEF COMPLAINTChest pain.ALLERGIESOmnicef.SOCIAL HISTORYNo alcohol use, illicit drug use or tobacco use.PAST SURGICAL HISTORYNone.PAST MEDICAL HISTORYSignificant for seasonal allergies.MEDICATIONSMultivi tamin and control pill.HISTORY OF PRESENT ILLNESSThe patient is a 22-year-old female presenting to the emergency department with a chiefcomplaint of chest pain. She states that it has been constant for 5 days. She states theonly thing that makes it worse is taking a deep breath. She denies any injury. She statessometimes it hurts a little bit more when she moves. She denies any shortness of breathbut just states it gets intensified when she takes a deep breath. It has not gone away atall. She denies any swelling of her legs. She does take control pills. She doesadmit to recent travel by car to [place]. She states her cousins have history of bloodclots. She denies any numbness or tingling. She denies any lightheadedness. She deniesany back pain. She denies any radiation of the pain. She states it does hurt when shepushes on her chest.REVIEW OF SYSTEMSA 10-point review of system was performed and negative except for HPI.PHYSICAL EXAMINATIONGeneral: The patient is alert. Blood pressure is 130/91, temperature is 99.2, pulse ehx112, respirations 26, O2 sat was 98% on room air. Her skin was warm and dry. The head wasnormocephalic, atraumatic. Eyes: Pupils equal and react to light with normalconjunctivae. ENT: The oral mucosa moist. Heart: In triage her heart rate wastachycardic but upon auscultation she was already under 100. Her heart was regular with nomurmurs, gallops or rubs. Lungs were clear to auscultation bilaterally. No wheezes orrhonchi. The abdomen is soft and nontender. She did have reproducible chest walltenderness which reproduced her symptoms. Abdomen soft, nontender. There is no lowerextremity edema. Negative Homans.EMERGENCY DEPARTMENT CLINICAL COURSEThe patient remained hemodynamically stable, nonseptic and nontoxic throughout the entireED course. I did do a cardiac workup on the patient including EKG and CT scan of her chestbecause she was tachycardic upon arrival. Her CBC was unremarkable. Her INR is 1.0.Chemistry panel was unremarkable with negative cardiac enzymes. Her troponin was negative. test was negative. Urinalysis and drug screen did not show any acute process.CT scan of the chest did not show any evidence of pulmonary embolism. At this point shewas given Toradol for pain and it has gone away. At this point I did repeat an EKG. Theinitial EKG showed minimal ST depression. I repeated an EKG and it was read as normalsinus rhythm. At this point she has had chest pain constantly for 5 days, it isreproducible. She has had a negative troponin and negative CT scan of her chest. She hasa very low HEART score. It is either a 1 to a 2. At this point I do not think the patientwarrants admission. I am going to give her a doctor to follow up with however. I told herthat if her symptoms return she is to come back to the emergency department for furtherevaluation. At this point I do not suspect ACS nature of her symptoms. I am going todischarge her home in stable condition.IMPRESSIONReproduc ible chest wall pain.DISPOSITIONThe patient to be discharged home. 02/08/18 1004 IAN ARIZMENDI D.O.cc: IAN ARIZMENDI D.O. << Signature on File>> Reported By: IAN ARIZMENDI D.O. Signed By: IAN ARIZMENDI D.O.Tests performed at:[address] [phone] Normal [facility] ELECTROCARDIOGRAMon 01-31-20 ELECTROCARDIOGRAM [place], [place] [address]OYENQS INFORMATION MANAGEMENTELECTROCARDIOGRAM REPORTPatient: MARGARET CORBINKELLYOrdering: IAN ARIZMENDI D.O.[id number] Date: 01/30/18Report #: [id number]: REG ER EDSINUS RHYTHMNORMAL ECGno stemiPREVIOUS TRACIN01/30/18 16.54Physician Active Directory Architect: IAN ARIZMENDI D.O.Ventricular Rate EK /minR-R Interval: 749 msP Wave duration: 92 msQRS duration: 72 msP-R interval: 127 msQ-T interval: 361 msQ-T interval (corrected): 399 msQ-T Dispersion: msP wave axis: 35 degQRS axis: 15 degT axis: 39 degSigned in PYRAMIS01/30/182101 IAN ARIZMENDI D.O.cc: << Signature on File>> Reported By: IAN ARIZMENDI D.O. Signed By: IAN ARIZMENDI D.O.Tests performed at:[address] [phone] Normal [facility] ELECTROCARDIOGRAM [place], [place] [id number] INFORMATION MANAGEMENTELECTROCARDIOGRAM REPORTPatient: EMERALDMARGARETKELLYOrdering: NO DOCTOR [id number] Date: 01/30/18Report #: [id number]: REG ER EDSINUS RHYTHM WITH SINUS ARRHYTHMIAno stemiNO PREVIOUS TRACINGPhysician Active Directory Architect: IAN ARIZMENDI D.O.Ventricular Rate EK /minR-R Interval: 604 msP Wave duration: 98 msQRS duration: 78 msP-R interval: 120 msQ-T interval: 317 msQ-T interval (corrected): 377 msQ-T Dispersion: msP wave axis: 41 degQRS axis: 14 degT axis: 45 degSigned in PYRAMIS01/30/182101 IAN ARIZMENDI D.O.cc: << Signature on File>> Reported By: IAN ARIZMENDI D.O. Signed By: IAN ARIZMENDI D.O.Tests performed at:[address] [phone] Normal [facility] BHCG (SERUM)on 01-30-2018 HCG.beta subunit Qn Negative Normal NEGATIVE [facility] Comment on above: Result Comment: Seru m Test is more Sensitive than a UrinePregnancy Test. Please Note Threshold Values: SERUM - 10mlU/mL URINE - 20mlU/mL Performed By: #### L 200.3000, L200.3190 #### - [address] [address] BMPon 01-30-2018 Anion gap 15.9 mmol/L Normal 15-22 [facility] Comment on above: Performed By: #### L 200.3000, L200.3190 ####[address] [address] Calcium 9.6 mg/dL Normal 8.6-10.0 [facility] Comment on above: Performed By: #### L 200.3000, L200.3190 ####ML - UZPH[address]WH[address] [place] [address] Chloride 104 mmol/L Normal 98-107 [facility] Comment on above: Performed By: #### L 200.3000, L200.3190 ####[address] [address] Creatinine 0.62 mg/dL Normal 0.50-0.90 [facility] Comment on above: Performed By: #### L 200.3000, L200.3190 #### - [address] [place] [address] eGFR if AFR DAVI > 60 ml/min/1.73m2 Normal [facility] Comment on above: Result Comment: eGFR >= 60 Indicates normal kidney function. * eGFR IS AN ESTIMATE * (AFR DAVI = ) (non-AFR AM = NON-) MDRD calculation used in the eGFR should not be used to dose medications. For further limitations of the eGFR please refer to the Physician Website or the National Kidney Disease Education Program website (www.nkdep.nih.gov). Performed By: #### L 200.3000, L200.3190 ####ML - [id number] [place] [address] eGFR nonAFR Davi > 60 ml/Min/1.73m2 Normal [facility] Comment on above: Performed By: #### L 200.3000, L200.3190 ####ML - UITSYSBYQR806 [place] [address] Glucose mass conc 111 mg/dL High 74-106 [facility] Comment on above: Performed By: #### L 200.3000, L200.3190 ####ML - JWDUGWRLHU927 [place] [address] Potassium molar conc 3.9 mmol/L Normal 3.5-5.0 [facility] Comment on above: Performed By: #### L 200.3000, L200.3190 ####ML - IRZRVGAAFC[address] [place] [address] Sodium 142 mmol/L Normal 135-145 [facility] Comment on above: Performed By: #### L 200.3000, L200.3190 #### - MATARPOENB387 [place] [address] TCO2 26 mmol/L Normal 22-29 [facility] Comment on above: Performed By: #### L 200.3000, L200.3190 ####[facility] HVXEJOMDFY038 [place] [address] Urea nitrogen 7 mg/dL Normal 6-20 [facility] Comment on above: Performed By: #### L 200.3000, L200.3190 ####ML [facility] [address]UCWG[address] [place] [address] CBCon 01-30-2018 Basophils Auto #/vol (Bld) 0.10 x10(3) Normal 0.00-0.10 [facility] Comment on above: Performed By: #### L 200.3000, L200.3190 ####ML [facility] [address]XFRE[address] [place] [address] Basophils/100 WBC Auto (Bld) 0.9 % Normal 0.0-1.0 [facility] Comment on above: Performed By: #### L 200.3000, L200.3190 ####ML [facility] [address]LOZFODMS[address] [place] [address] Eosinophils 0.20 x10(3) Normal 0.00-0.54 [facility] Comment on above: Performed By: #### L 200.3000, L200.3190 ####ML [facility] OQXCTNSV[address] [place] [address] Eosinophils/100 leukocytes 2.7 % Normal 0.5-4.9 [facility] Comment on above: Performed By: #### L 200.3000, L200.3190 ####[facility] CNJSIVEHJY[address] [place] [address] Erythrocyte distribution width Auto Ratio (RBC) 13.6 % Normal 12.5-15.7 [facility] Comment on above: Performed By: #### L 200.3000, L200.3190 ####ML [facility] WM[address]ZKATVJ[address] [place] [address] Erythrocytes (RBC) 4.94 x10(6) Normal 3.30-5.00 [facility] Comment on above: Performed By: #### L 200.3000, L200.3190 ####[facility] TQ[address] [place] [address] Hematocrit (HCT) 40.7 % Normal 36.0-48.0 [facility] Comment on above: Performed By: #### L 200.3000, L200.3190 ####ML - CQMDOTSCWB559 [place] [address] Hemoglobin mass conc (Bld) 14.0 g/dL Normal 12.0-16.0 [facility] Comment on above: Performed By: #### L 200.3000, L200.3190 ####ML - VKXHWZZGOI[address] [place] [address] Lymphocytes 2.00 x10(3) Normal 1.00-3.50 [facility] Comment on above: Performed By: #### L 200.3000, L200.3190 ####ML - TIDGTJNFHO[address] [place] [address] Lymphocytes/100 leukocytes 28.1 % Normal 16.0-48.0 [facility] Comment on above: Performed By: #### L 200.3000, L200.3190 ####ML - DKXJTOIXIQ[address] [place] [address] MCH 28.4 pg Low 28.5-32.9 [facility] Comment on above: Performed By: #### L 200.3000, L200.3190 ####ML - WILWIIBVNB[address] [place] [address] MCHC mass conc (RBC) 34.5 g/dL Normal 33.0-36.0 [facility] Comment on above: Performed By: #### L 200.3000, L200.3190 ####ML - GQPFLQGRRO[address] [place] [address] MCV 82.4 fL Normal 80.0-99.0 [facility] Comment on above: Performed By: #### L 200.3000, L200.3190 ####ML - RBPGXSXQSF[address] [place] [address] Monocytes 0.70 x10(3) Normal 0.30-0.80 [facility] Comment on above: Performed By: #### L 200.3000, L200.3190 ####ML - PRPGBEVFCB[address] [place] [address] Monocytes/100 leukocytes 9.4 % Normal 4.3-11.2 [facility] Comment on above: Performed By: #### L 200.3000, L200.3190 ####ML - KBVQBFRIQR[address] [place] [address] Neutrophils 4.10 x10(3) Normal 1.40-6.50 [facility] Comment on above: Performed By: #### L 200.3000, L200.3190 ####ML - VWEKMPQFNP[address] [place] [address] Neutrophils/100 WBC Auto (Bld) 58.9 % Normal 45.0-73.0 [facility] Comment on above: Performed By: #### L 200.3000, L200.3190 ####ML - [address] [address] Platelet mean volume (PMV) 8.2 fL Normal 7.5-9.5 [facility] Comment on above: Performed By: #### L 200.3000, L200.3190 ####ML - [address] [address] Platelets 274 X10(3) Normal 150-450 [facility] Comment on above: Performed By: #### L 200.3000, L200.3190 ####ML [facility] TILE[address]NXIE[address] [place] [address] WBC (Leukocytes) 6.9 x10(3) Normal 4.5-10.0 [facility] Comment on above: Performed By: #### L 200.3000, L200.3190 ####ML - VPCZLZMODG[address] [place] [address] CKon 01-30-2018 Creatine kinase (CK) 75 U/L Normal 26-192 [facility] Comment on above: Result Comment: Rela tive Index is not calculated as it is onlyapplicable to CK values greater than or equal to 192 IU/L. NO RELATIVE INDEX PERFORMED Performed By: #### L 200.3000, L200.3190 ####ML - [address] [address] CK-MBon 01-30-2018 CKMB ng/mL Low 1.0-5.34 [facility] Comment on above: Result Comment: R elative Index cannot be reported with a CKMB that is below 1.0 ng/mL. Performed By: #### L 200.3000, L200.3190 ####ML - [facility] [address] [address] [address] CHEST FOR PE W/ CONTon CT CHEST FOR PE W/ CONT [place] [id number]: BELGICA CORBINPhys: IAN ARIZMENDI D.O.: 95 Age: 22 Sex: FAcct: [id number] Loc: EDExam Date: 01/30/18 Status: REG ERRadiology No.: [id number] Number: [id number] # Type/[id number] CT / CT CHEST FOR PE W/ CONTCTA Chest with IV contrast, PE Protocol with 3-D rendering and PostprocessingClinical statement: Midsternal chest painComparison: None3-D rendering and postprocessing were performed on an independent workstation.Axial, reconstructed coronal/sagittal, and 3-D rendered images were reviewed.Findings: No pulmonary arterial filling defect is noted. The aorta shows nodilatation or dissection. Atherosclerotic aortic and coronary calcificationsare noted. No pericardial or pleural effusion. No adenopathy is noted. Nopneumothorax. No consolidation or suspicious nodule is seen.IMPRESSION:No acute process. No evidence of PE or aortic dissection.This exam was performed according to our departmental dose optimizationprogram, and includes the following measures where applicable: automatedexposure control, adjustment of the mAs and/or kVp according to patient sizeand/or exam, and an iterative reconstruction algorithm.Professional interpretation provided by [facility] [id number].Thank you for this referral.< >Reported By: NEIL BECERRA D.O.Signed In NovaPro By: NEIL BECERRA D.O. << Signature on File>> Reported By: NEIL BECERRA D.O. Signed By: NEIL BECERRA D.O.Tests performed at:[address] [phone] Normal [facility] DRUG SCREENon 01-30-2018 AMPHETAMINE Negative Normal NEGATIVE [facility] Comment on above: Performed By: #### L 200.3000, L200.3190 ####ML - KTGEBFZBWL764 [place] [address] BARBITUATES Negative Normal NEGATIVE [facility] Comment on above: Performed By: #### L 200.3000, L200.3190 ####ML - VWZFTGAMEH[address] [place] [address] BENZODIAZEPINE Negative Normal NEGATIVE [facility] Comment on above: Performed By: #### L 200.3000, L200.3190 ####ML - CFNZLIWQFV[address] [place] [address] CANNABINOID Negative Normal NEGATIVE [facility] Comment on above: Performed By: #### L 200.3000, L200.3190 #### - BOJORJXLNG[address] [place] [address] OXYCODONE Negative Normal NEGATIVE [facility] Comment on above: Performed By: #### L 200.3000, L200.3190 ####ML - GGDSOSRBMC[address] [place] [address] Protein Negative Normal NEGATIVE [facility] Comment on above: Performed By: #### L 200.3000, L200.3190 ####ML - DENFUTJZUT422 [place] [address] Urine, cocaine presence Negative Normal NEGATIVE [facility] Comment on above: Performed By: #### L 200.3000, L200.3190 ####ML - UUHEWCXKXK171 [place] [address] Urine, methadone presence Negative Normal NEGATIVE [facility] Comment on above: Performed By: #### L 200.3000, L200.3190 ####ML - QLEHJYSJFP[address] [place] [address] Urine, opiates presence Negative Normal NEGATIVE [facility] Comment on above: Performed By: #### L 200.3000, L200.3190 ####ML - SBQHXBJGRG256 [place] [address] Urine, phencyclidine presence Negative Normal NEGATIVE [facility] Comment on above: Result Comment: COMM ENT: SPECIMEN TYPE - URINE. Unconfirmed screening results for the Drug Screen Panel should not be used for non-medical purposes.CUTOFFS: Amphetamine cutoff concentration: 1000 ng/mL Cocaine cutoff concentration: 300 ng/mL Opiates cutoff concentration: 300 ng/mL Benzodiazepine cutoff concentration: 200 ng/mL Barbituate cutoff concentration: 200 ng/mL Cannabinoid cutoff concentration: 50 ng/mL Propoxyphene cutoff concentration: 300 ng/mL Methadone cutoff concentration: 300 ng/mL Oxycodone cutoff concentration: 100 ng/mL Phencyclidine cutoff concentration: 25 ng/mL Valorie Method Performed By: #### L 200.3000, L200.3190 ####ML - [facility] PMSUKPDKTY429 [place] [address] PTon 01-30-2018 INR Coag RelTime (PPP) 1.1 {INR} Normal [facility] Comment on above: Result Comment: CO UMADIN PROTOCOLSINR values are generated for use in patients on coumadin.INR values stabilize 7 days after the start of coumadin orchanges in coumadin dosage. The usual TARGET/INR range is:INDICATION INR RANGEProphylaxis/treatment of: Venous Thrombosis, Pulmonary Embolism 2.0-3.0Prevention of systemic embolism from: Tissue heart valves 2.0-3.0 Acute myocardial infarction (to prevent systemic embolism) 2.0-3.0 AMI (to prevent recurrent GA) 2.5-3.5Valvular heart disease 2.0-3.0 Atrial fibrillation 2.0-3.0Mechanical prosthetic valves (high risk) 2.5-3.5Bileaflet mechanical valve in aortic position 2.0-3.0Presence of Lupus Anticoagulant orAntiphospholipid Antibodies 2.5-3.5PANIC VALUE: GREATER THAN OR EQUAL TO 4.5 Performed By: #### L 200.3000, L200.3190 ####ML - [facility] DYUUEWCSDT[address] [place] [address] Prothrombin time (PT) Coag time (PPP) 12.5 s Normal 9.4-12.5 [facility] Comment on above: Performed By: #### L 200.3000, L200.3190 ####ML - [facility] FXZXJGRDLK102 [place] [address] PTTon 01-30-2018 aPTT 30.2 s Normal 25.1-36.5 [facility] Comment on above: Result Comment: Hepa rin Protocol Therapeutic Range = 54.0-90.0 secs Performed By: #### L 200.3000, L200.3190 ####ML - [facility] MJVPPVHSTO[address] [place] [address] TROPONIN Ton 01-30-2018 Troponin T.cardiac mass conc ug/L Normal 0-0.010 [facility] Comment on above: Performed By: #### L 200.3000, L200.3190 ####ML - [facility] FZLKJKHUGO[address] [place] [address] SCon 10-07-2017 [facility] RE[facility] This is a preliminary report only, as the practitioner review and authentication has not occurred. [facility] DATE OF SERVICE: 10/07/2017HISTORY OF PRESENT ILLNESS: This 22-year-old female presents with pain in the leftside of her neck after awakening last night. No fever or chills. No nausea orvomiting. Pain is worse with movement. She denies any pain to the bones of theneck. She states it is all left sided, worse with palpation and movement of her headto the right. This has happened in the past.PHYSICAL EXAMINATION:Vital Signs: Noted and within normal limits.General: Nontoxic, no acute distress.Neck: There is tenderness along the left paraspinal musculature. No rash. Noexternal signs of injury. No meningismus.Extremities: Upper extremities: Strength is 5/5 and symmetric. Distal sensation isintact.Given the above, I feel the symptoms are consistent with acute cervical strain. Shewill be treated with antiinflammatories and muscle relaxers. Follow up withoutpatient referral.DIAGNOSTIC IMPRESSION: Acute cervical strain. __JESSIKA Templeton-DENTON/[id number]: 10/07/2017 16:59DT: 10/07/2017 21:15SSI File#: [id number] #: [id number] [facility] PATIENT NAME: BELGICA CORBIN [id number] [facility] [address] Epstein MEDICAL REC #: [id number] [address] [facility]IC[facility] Normal [facility] ED PROV NOTEon 08-11-2017 Protein mass conc HNO ID: [id number] thor: [place]: (none)Author Type: PhysicianType: ED Provider NotesFiled: 05/16/2018 2:07 PMNote Text:[place], [place] [address]KLZZGY INFORMATION MANAGEMENTEMERGENCY DEPARTMENT REPORTPatient: EMERALDTAY CARR M.D.[id number] FStatus: DEP ER EDDate of Service: 08/10/17This dictation is an addendum to previous dictated note. I saw thispatient in conjunction with Samantha echeverria PA. I personallyexamined her. She does have tenderness in the right lower quadrant. Sobecause of that we went ahead and performed a CT scan with a concernobviously being that she had appendicitis. However, at this time itappears more of an ovarian cyst. The patient will be discharge home. Shecan follow up as an outpatient. 08/23/17 1741 BREANA MIGUEL M.D.cc: TAY MIGUEL M.D. << Signature on File>> Reported By: TAY MIGUEL M.D. Signed By: TAY MIGUEL M.D.Tests performed at:[place] [phone] Normal [facility] Protein mass conc HNO ID: [id number] thor: Tay Palm: (none)Author Type: PhysicianType: ED Provider NotesFiled: 05/16/2018 2:07 PMNote Text:[place], [place] [address]CAMDWP INFORMATION MANAGEMENTEMERGENCY DEPARTMENT REPORTPatient: BRUNO CORBIN NATHAN A M.D. as dictated by JESSIKA MOREIRA-[id number]/27/[id number] FStatus: DEP ER EDDate of Service: 08/10/17CHIEF COMPLAINTAbdominal pain.HISTORY OF PRESENT ILLNESSThis is a 22-year-old female who presents to the emergency department withconcern of abdominal pain. [facility] and theyreferred her to the ER because of concern for possible appendicitis. Shesaid that she had pain in her right lower portion of her abdomen andback, and her significant other said that when she was going out to worktoday she fell down on the sidewalk from the pain. She did not loseconsciousness. She did not hit her head. She is continuing to have painrating it at a 10 out of 10. She denies any nausea or vomiting. Norecent diarrhea.PAST MEDICAL HISTORYKidney stones in the past.PAST SURGICAL HISTORYNegative.ALLERGIESOmn icef.MEDICATIONSNo home regular medications.PHYSICAL EXAMINATIONVitals: Temperature is 97.9, pulse 90, respirations 20, blood /85, O2 sat is 100% on room air. Physical exam this is awell-nourished, well-developed 22-year-old female. When I go in toevaluate her she is reclining in the bed. She does not appear to be insignificant distress related to pain despite rating her pain as a 10 outof 10. She is able to converse. Her face is symmetric. She isnormocephalic, atraumatic. Neck is supple. Heart has a regular rhythm.Rate is 90. Lungs are clear to auscultation posteriorly. Abdomen issoft. Positive bowel sounds are auscultated. Reproducible tenderness inthe right upper and right lower quadrants of the abdomen most tender inthe lower aspect of the abdomen there. She has no CVA tendernessposteriorly. She is denying any urinary pain, frequency, or blood.EMERGENCY DEPARTMENT COURSECBC and BMP are unremarkable. Urine is negative for urinary tractinfection. She is not . Hepatic panel and lipase are normal.CT of the abdomen and pelvis with contrast was obtained and shows no signof acute appendicitis. There is a noted right ovarian cyst measuringapproximately 4 cm in diameter.IMPRESSIONRight ovarian cyst.PLANAt this time the patient was notified of the findings of her CT scan. Atthis time we will plan to discharge her home. She may follow up with areferral with Dr. Alen Sargent in outpatient basis. She has alsorecently become established with a information systems supervisor. Return to the ER ifworsening symptoms arise. 08/23/17 1741 TAY MIGUEL M.D.cc: TAY MIGUEL M.D. << Signature on File>> Reported By: TAY MIGUEL M.D. Signed By: TAY MIGUEL M.D.Tests performed at:[address] [phone] Normal [facility] ED REPORTon 08-11-2017 ED REPORT [place], [place] [address]LNBXMP INFORMATION MANAGEMENTEMERGENCY DEPARTMENT REPORTPatient: BRUNO CORBIN NATHAN A M.D. as dictated by JESSIKA MOREIRA-[id number]/27/95 FStatus: DEP ER EDDate of Service: 08/10/17CHIEF COMPLAINTAbdominal pain.HISTORY OF PRESENT ILLNESSThis is a 22-year-old female who presents to the emergency department with concern ofabdominal pain. She had gone to [facility] originally and they referred her to the ERbecause of concern for possible appendicitis. She said that she had pain in her rightlower portion of her abdomen and back, and her significant other said that when she wasgoing out to work today she fell down on the sidewalk from the pain. She did not loseconsciousness. She did not hit her head. She is continuing to have pain rating it at a 10out of 10. She denies any nausea or vomiting. No recent diarrhea.PAST MEDICAL HISTORYKidney stones in the past.PAST SURGICAL HISTORYNegative.ALLERGIESOmn icef.MEDICATIONSNo home regular medications.PHYSICAL EXAMINATIONVitals: Temperature is 97.9, pulse 90, respirations 20, blood pressure 130/85, O2 sat is100% on room air. Physical exam this is a well-nourished, well-developed 85-qses-hbsjehybp. When I go in to evaluate her she is reclining in the bed. She does not appear chelsi in significant distress related to pain despite rating her pain as a 10 out of 10. Sheis able to converse. Her face is symmetric. She is normocephalic, atraumatic. Neck issupple. Heart has a regular rhythm. Rate is 90. Lungs are clear to auscultationposteriorly. Abdomen is soft. Positive bowel sounds are auscultated. Reproducibletenderness in the right upper and right lower quadrants of the abdomen most tender in thelower aspect of the abdomen there. She has no CVA tenderness posteriorly. She is denyingany urinary pain, frequency, or blood.EMERGENCY DEPARTMENT COURSECBC and BMP are unremarkable. Urine is negative for urinary tract infection. She is not. Hepatic panel and lipase are normal. CT of the abdomen and pelvis with contrastwas obtained and shows no sign of acute appendicitis. There is a noted right ovarian cystmeasuring approximately 4 cm in diameter.IMPRESSIONRight ovarian cyst.PLANAt this time the patient was notified of the findings of her CT scan. At this time we willplan to discharge her home. She may follow up with a referral with Dr. Alen Sargent inoutpatient basis. She has also recently become established with a information systems supervisor. Return tothe ER if worsening symptoms arise. 08/23/17 1741 TAY MIGUEL M.D.cc: TAY MIGUEL M.D. << Signature on File>> Reported By: TAY MIGUEL M.D. Signed By: TAY MIGUEL M.D.Tests performed at:[address] [phone] Normal [facility] EMERGENCY DEPARTMENT REPORTo n 08-11-2017 EMERGENCY DEPARTMENT REPORT [place], [place] [address]TTHVOG INFORMATION MANAGEMENTEMERGENCY DEPARTMENT REPORTPatient: LOANMANUELTAY CARR M.D.[id number] FStatus: DEP ER EDDate of Service: 08/10/17This dictation is an addendum to previous dictated note. I saw this patient in conjunctionwith Samantha echeverria PA. I personally examined her. She does have tenderness in theright lower quadrant. So because of that we went ahead and performed a CT scan with aconcern obviously being that she had appendicitis. However, at this time it appears moreof an ovarian cyst. The patient will be discharge home. She can follow up as an outpatient. 08/23/17 1741 BREANA MIGUEL M.D.cc: TAY MIGUEL M.D. << Signature on File>> Reported By: TAY MIGUEL M.D. Signed By: TAY MIGUEL M.D.Tests performed at:[address] [phone] Normal [facility] BHCG (URINE)on 08-10-2017 HCG.beta subunit ( test) Ql (U) Negative Normal NEGATIVE [facility] Comment on above: Result Comment: Seru m Test is more Sensitive than a UrinePregnancy Test. Please Note Threshold Values: SERUM - 10mlU/mL URINE - 20mlU/mL Performed By: #### L 200.4105 ####ML - [facility] [id number] [place] [address] BMPon 08-10-2017 Anion gap 20.8 mmol/L Normal - [facility] Comment on above: Performed By: #### L 100.0010 ####ML - [facility] TBZBXJMSWS328 [place] [address] Calcium 8.9 mg/dL Normal 8.6-10.0 [facility] Comment on above: Performed By: #### L 100.0010 ####[address] [address] Chloride 100 mmol/L Normal 98-107 [facility] Comment on above: Performed By: #### L 100.0010 ####[address] [address] Creatinine 0.54 mg/dL Normal 0.50-0.90 [facility] Comment on above: Performed By: #### L 100.0010 ####[address] [address] eGFR if AFR DAVI > 60 ml/min/1.73m2 Normal [facility] Comment on above: Result Comment: eGFR >= 60 Indicates normal kidney function. * eGFR IS AN ESTIMATE * (AFR DAVI = ) (non-AFR AM = NON-) MDRD calculation used in the eGFR should not be used to dose medications. For further limitations of the eGFR please refer to the Physician Website or the National Kidney Disease Education Program website (www.nkdep.nih.gov). Performed By: #### L 100.0010 ####[facility] SFIZZDMIOH[address] [place] [address] eGFR nonAFR Davi > 60 ml/Min/1.73m2 Normal [facility] Comment on above: Performed By: #### L 100.0010 ####[facility] [place] [address] Glucose mass conc 113 mg/dL High 74-106 [facility] Comment on above: Performed By: #### L 100.0010 ####ML [facility] [address]SH[address] [place] [address] Potassium molar conc 3.8 mmol/L Normal 3.5-5.0 [facility] Comment on above: Performed By: #### L 100.0010 ####ML [facility] JYQLMBOGMA[address] [place] [address] Sodium 138 mmol/L Normal 135-145 [facility] Comment on above: Performed By: #### L 100.0010 ####ML [facility] VMKBJNEHND[address] [place] [address] TCO2 21 mmol/L Low 22-29 [facility] Comment on above: Performed By: #### L 100.0010 ####ML [facility] [facility] [id number] [place] [address] 92064 Urea nitrogen 7 mg/dL Normal 6-20 [facility] Comment on above: Performed By: #### L 100.0010 ####ML [facility] GWFRTBXAPQ[address] [place] [address] 33700 CBCon 08-10-2017 Basophils Auto #/vol (Bld) 0.00 x10(3) Normal 0.00-0.10 [facility] Comment on above: Performed By: #### L 200.0010 ####ML [facility] DOALCIDCPT[address] [place] [address] 52397 Basophils/100 WBC Auto (Bld) 0.6 % Normal 0.0-1.0 [facility] Comment on above: Performed By: #### L 200.0010 ####ML [facility] MPKHHXWDVP[address] [place] [address] 87708 Eosinophils 0.20 x10(3) Normal 0.00-0.54 [facility] Comment on above: Performed By: #### L 200.0010 ####ML [facility] PKSFEEAN[address] [place] [address] 25721 Eosinophils/100 leukocytes 2.2 % Normal 0.5-4.9 [facility] Comment on above: Performed By: #### L 200.0010 ####ML [facility] DWLMTLVJJO[address] [place] [address] 65347 Erythrocyte distribution width Auto Ratio (RBC) 13.9 % Normal 12.5-15.7 [facility] Comment on above: Performed By: #### L 200.0010 ####ML - AMFXGXVYUI7[address] [place] [address] Erythrocytes (RBC) 4.80 x10(6) Normal 3.30-5.00 [facility] Comment on above: Performed By: #### L 200.0010 ####ML - PFQQNRCFBK[address] [place] [address] 94786 Hematocrit (HCT) 38.9 % Normal 36.0-48.0 [facility] Comment on above: Performed By: #### L 200.0010 ####ML - XHBNFDACNG[address] [place] [address] 59729 Hemoglobin mass conc (Bld) 13.2 g/dL Normal 12.0-16.0 [facility] Comment on above: Performed By: #### L 200.0010 ####ML [facility] AGAPIRPUKL[address] [place] [address] 23237 Lymphocytes 1.50 x10(3) Normal 1.00-3.50 [facility] Comment on above: Performed By: #### L 200.0010 ####ML [facility] AJFIFBEIDQ[address] [place] [address] 11504 Lymphocytes/100 leukocytes 18.4 % Normal 16.0-48.0 [facility] Comment on above: Performed By: #### L 200.0010 ####ML [facility] SDESSSYJDH[address] [place] [address] 92170 MCH 27.5 pg Low 28.5-32.9 [facility] Comment on above: Performed By: #### L 200.0010 ####ML - NRKSMVCBIH[address] [place] [address] 22683 MCHC mass conc (RBC) 34.0 g/dL Normal 33.0-36.0 [facility] Comment on above: Performed By: #### L 200.0010 ####ML [facility] WIPRWAGBMJ[address] [place] [address] 49159 MCV 81.0 fL Normal 80.0-99.0 [facility] Comment on above: Performed By: #### L 200.0010 ####ML [facility] SLOZZEZSVN[address] [place] [address] 39746 Monocytes 0.80 x10(3) Normal 0.30-0.80 [facility] Comment on above: Performed By: #### L 200.0010 ####ML [facility] NUMXYAULCW[address] [place] [address] 47950 Monocytes/100 leukocytes 9.8 % Normal 4.3-11.2 [facility] Comment on above: Performed By: #### L 200.0010 ####ML [facility] HPNMMJPVJS[address] [place] [address] 29141 Neutrophils 5.70 x10(3) Normal 1.40-6.50 [facility] Comment on above: Performed By: #### L 200.0010 ####ML [facility] KSYSSQALAN[address] [place] [address] 86598 Neutrophils/100 WBC Auto (Bld) 69.0 % Normal 45.0-73.0 [facility] Comment on above: Performed By: #### L 200.0010 ####[address] [address] Platelet mean volume (PMV) 8.3 fL Normal 7.5-9.5 [facility] Comment on above: Performed By: #### L 200.0010 ####ML [facility] SXBUALALPU[address] [place] [address] 77914 Platelets 271 X10(3) Normal 150-450 [facility] Comment on above: Performed By: #### L 200.0010 ####ML [address] [address] WBC (Leukocytes) 8.2 x10(3) Normal 4.5-10.0 [facility] Comment on above: Performed By: #### L 200.0010 ####ML [facility] NPFPAMEZIU[address] [place] [address] ABD/PEL W CONTRASTon 07-17 CT ABD/PEL W CONTRAST [facility] [place], [place] [address]Cpkv: BELGICA CORBINPhys: SAMANTHA STEELE-CDOB: [birth year] Age: 22 Sex: FAcct: [id number] Loc: EDExam Date: 08/10/17 Status: REG ERRadiology No.: [id number] Number: [id number] # [id number] CT / CT ABD/PEL W CONTRASTCOMPUTED TOMOGRAPHY ABDOMEN/PELVIS WITH IV CONTRASTClinical information: Abdominal painComparison: None.The liver is normal in size and attenuation. No focal mass, diffuse change, orbiliary duct dilatation is seen. The spleen and pancreas are normal inappearance. Gallbladder is unremarkable.The adrenal glands are normal in configuration. The kidneys are functioningand show no mass or hydronephrosis. No retroperitoneal mass or adenopathy ispresent. The urinary bladder is unremarkable. Uterus is normal in size. Rightovary contains a 4 cm cyst. No additional pelvic mass or free fluid isidentified.There is no abnormality of the stomach, small or large bowel. The appendix isseen and appears normal. Skeletal structures are normal. Scans obtainedthrough the lung bases show no significant findings.IMPRESSION:4 cm right ovarian cyst, almost certainly benign. No imaging followup asindicated.No CT findings to suggest appendicitis.This exam was performed according to our departmental dose optimizationprogram, and includes the following measures where applicable: automatedexposure control, adjustment of the mAs and/or kVp according to patient sizeand/or exam, and an iterative reconstruction algorithm.Professional interpretation provided by [facility] [address].Thank you for this referral.< >Reported By: BARBARA PASTRANA M.D.Signed In NovaPro By: BARBARA PASTRANA M.D. << Signature on File>> Reported By: BARBARA PASTRANA M.D. Signed By: BARBARA PASTRANA M.D.Tests performed at:[address] [phone] Normal [facility] HEPATIC PANELon 08-10-2017 A:G RATIO 1.41 Normal 1.1-2.5 [facility] Comment on above: Performed By: #### L 100.0030, L100.0350 ####ML - [facility] FDIAZNAFMH[address] [place] [address] 83608 Alanine aminotransferase (ALT) 26 U/L Normal 5-33 [facility] Comment on above: Performed By: #### L 100.0030, L100.0350 ####ML - RGQKNJTUAX111 [place] [address] Albumin 4.4 g/dL Normal 3.5-5.2 [facility] Comment on above: Performed By: #### L 100.0030, L100.0350 ####ML - KEHHBIYFUL954 [place] [address] ALK. PHOS 67 U/L Normal 35-105 [facility] Comment on above: Performed By: #### L 100.0030, L100.0350 ####ML [facility] WLQGOQVVTN830 [place] [address] Aspartate aminotransferase (AST) 22 U/L Normal 5-32 [facility] Comment on above: Performed By: #### L 100.0030, L100.0350 ####[facility] PHLC[address] [place] [address] 89096 Bilirubin Ql (U) 0.5 mg/dL Normal 0.2-1.2 [facility] Comment on above: Performed By: #### L 100.0030, L100.0350 ####ML - CQEXAVKIZW[address] [place] [address] 65463 DIRECT BILIRUBI <0.2 Normal 0.0-0.3 [facility] Comment on above: Performed By: #### L 100.0030, L100.0350 ####[facility] KLOSDRAYGX125 [place] [address] Globulin 3.1 g/dL Normal 1.5-4.5 [facility] Comment on above: Performed By: #### L 100.0030, L100.0350 ####ML - BHHYVLELIP339 [place] [address] Protein 7.5 g/dL Normal 6.4-8.3 [facility] Comment on above: Performed By: #### L 100.0030, L100.0350 ####ML - PEFSEFEASM370 [place] [address] LIPASEon 08-10-2017 Lipase 23 U/L Normal 13-60 [facility] Comment on above: Performed By: #### L 100.0030, L100.0350 ####ML - [facility] YCATFRFRWT[address] [place] [address] [facility] DATE OF SERVICE: 08/10/2017CHIEF COMPLAINT: Right lower quadrant abdominal pain.HISTORY OF PRESENT ILLNESS: This 22-year-old female presented with right lowerquadrant pain. No other complaints. She just saw her information systems supervisor yesterday. Aftershe got home, the pain started.DRUG ALLERGIES: OMNICEF.MEDICATIONS: She is on control.PHYSICAL EXAMINATION:Vital signs: Blood pressure is 118/80, pulse 110, respirations 16, temperature 98,pulse oximetry 98.HEENT: Within normal limits.Lungs: Within normal limits.Abdomen: Severe tenderness in the right lower quadrant. No rebound tenderness. Nopalpable mass.ASSESSMENT: Right lower quadrant abdominal pain.PLAN: Discussed with patient treatment and plan. I will send her to the emergencyroom for further evaluation to rule out appendicitis. MEGAN Welsh/[id number]: 08/10/2017 14:37DT: 08/11/2017 15:03SSI File#: [id number] #: [id number]/Reviewed by08/16/17 190Du PUENTES *[facility] PATIENT NAME: BELGICA CORBIN [id number] [facility] [address] Epstein MEDICAL REC #: [id number], [place] [address] STATCARE REPORT STATCARE PHYSICIAN Normal [facility] TUSCARASTEVEN STATCARE REPORT Normal [facility] URINALYSISon 08-10-2017 Bilirubin Ql (U) Negative Normal NEGATIVE [facility] Comment on above: Order Comment: Sourc e: Clean Catch .. Y Performed By: #### L 200.3000, L200.3190 ####ML - [facility] NJNXXOTJHC[address] [place] [address] URINE APPEARANC CLEAR Normal CLEAR [facility] Comment on above: Order Comment: Sourc e: Clean Catch .. Y Performed By: #### L 200.3000, L200.3190 ####ML - [facility] VWHFGEFUFP[address] [place] [address] URINE KETONE Negative Normal NEGATIVE [facility] Comment on above: Order Comment: Sourc e: Clean Catch .. Y Performed By: #### L 200.3000, L200.3190 ####ML - [facility] GHTFPEAFRP[address] [facility] [place] [address] URINE SPECIFIC <=1.005 Normal 1.001-1.03 5 [facility] Comment on above: Order Comment: Sourc e: Clean Catch .. Y Performed By: #### L 200.3000, L200.3190 ####ML - [facility] [id number] [place] [address] URINE UROBILINO 0.2 EU/DL Normal 0.2-1.0 [facility] Comment on above: Order Comment: Sourc e: Clean Catch .. Y Performed By: #### L 200.3000, L200.3190 ####ML - [facility] ZVZBKKSHDA[address] [place] [address] Urine, color YELLOW Normal YELLOW [facility] Comment on above: Order Comment: Sourc e: Clean Catch .. Y Performed By: #### L 200.3000, L200.3190 ####ML - [facility] QGRVJBJNIO[address] [place] [address] Urine, glucose presence Negative Normal NEGATIVE [facility] Comment on above: Order Comment: Sourc e: Clean Catch .. Y Performed By: #### L 200.3000, L200.3190 ####ML - [facility] MTUVNFVXEH[address] [place] [address] Urine, hemoglobin presence TRACE-INTACT Normal NEGATIVE [facility] Comment on above: Order Comment: Sourc e: Clean Catch .. Y Performed By: #### L 200.3000, L200.3190 ####ML - [facility] [id number] [place] [address] Urine, leukocyte esterase presence SMALL Normal NEGATIVE [facility] Comment on above: Order Comment: Sourc e: Clean Catch .. Y Performed By: #### L 200.3000, L200.3190 ####ML - [facility] [id number] [place] [address] Urine, nitrite presence Negative Normal NEGATIVE [facility] Comment on above: Order Comment: Sourc e: Clean Catch .. Y Performed By: #### L 200.3000, L200.3190 ####ML - [facility] ZTSCRIAZUB[address] [place] [address] Urine, pH 5.5 [pH] Normal 5.0-8.0 [facility] Comment on above: Order Comment: Sourc e: Clean Catch .. Y Performed By: #### L 200.3000, L200.3190 ####ML - [facility] MZUHZRBNKF[address] [place] [address] Urine, protein presence Negative Normal NEGATIVE [facility] Comment on above: Order Comment: Sourc e: Clean Catch .. Y Performed By: #### L 200.3000, L200.3190 ####ML - [facility] [id number] [place] [address] URINE MICROSCOPon 08-10-2017 SQUAMOUS OCC Normal NEGATIVE [facility] Comment on above: Order Comment: Sourc e: Clean Catch .. Y Performed By: #### L 200.3000, L200.3190 ####ML - [facility] [id number] [place] [address] Urine, bacteria in sediment TR Normal NEGATIVE [facility] Comment on above: Order Comment: Sourc e: Clean Catch .. Y Performed By: #### L 200.3000, L200.3190 ####ML - [facility] [id number] [place] [address] Urine, erythrocytes 1-3 Normal 0-2 [facility] Comment on above: Order Comment: Sourc e: Clean Catch .. Y Performed By: #### L 200.3000, L200.3190 ####ML - [facility] [id number] [place] [address] Urine, leukocytes 1-3 Normal 0-5 [facility] Comment on above: Order Comment: Sourc e: Clean Catch .. Y Performed By: #### L 200.3000, L200.3190 ####ML - [facility] [id number] [place] [place] [address] Urine, mucus presence in sediment 1+ Normal NEGATIVE [facility] Comment on above: Order Comment: Sourc e: Clean Catch .. Y Performed By: #### L 200.3000, L200.3190 ####ML - [facility] [id number] [place] [address] Vital Signs Date Time Vital Sign Value Performing Clinician Facility 05-05-2025 15:37-0400 Body height 154.94 cm Samantha GOULDC Work Phone: [facility] 05-05-2025 15:37-0400 Body mass index (BMI) [Ratio] 34.7 kg/m2 Samantha Ga NP-C Work Phone: [facility] 05-05-2025 15:37-0400 Body temperature 98 [degF] Samantha Ga MULE OPERATOR-C Work Phone: [facility] 05-05-2025 15:37-0400 Body weight 83.51 kg Samantha Ga NP-C Work Phone: [facility] 05-05-2025 15:37-0400 Diastolic blood pressure 61 mm[Hg] Samantha Ga NP-C Work Phone: [facility] 05-05-2025 15:37-0400 Heart rate 93 /min Samantha Ga NP-C Work Phone: [facility] 05-05-2025 15:37-0400 Respiratory rate 16 /min Samantha Ga NP-C Work Phone: [facility] 05-05-2025 15:37-0400 SaO2% (BldA) [Mass fraction] 96 % Samantha Ga NP-C Work Phone: [facility] 05-05-2025 15:37-0400 Systolic blood pressure 105 mm[Hg] Samantha Ga MULE OPERATOR-C Work Phone: [facility] 12-01-2024 13:50-0400 Body height 154.94 cm Samantha Ga MULE OPERATOR-C Work Phone: [facility] 12-01-2024 13:50-0400 Body mass index (BMI) [Ratio] 35 kg/m2 Samantha Ga MULE OPERATOR-C Work Phone: [facility] 12-01-2024 13:50-0400 Body weight 84.14 kg Samantha Ga MULE OPERATOR-C Work Phone: [facility] 12-01-2024 13:50-0400 Diastolic blood pressure 120 mm[Hg] Samantha Ga MULE OPERATOR-C Work Phone: [facility] 12-01-2024 13:50-0400 Heart rate 103 /min Samantha Ga MULE OPERATOR-C Work Phone: [facility] 12-01-2024 13:50-0400 Respiratory rate 18 /min Samantha Ga MULE OPERATOR-C Work Phone: [facility] 12-01-2024 13:50-0400 SaO2% (BldA) [Mass fraction] 96 % Samantha Ga MULE OPERATOR-C Work Phone: [facility] 12-01-2024 13:50-0400 Systolic blood pressure 161 mm[Hg] Samantha Ga MULE OPERATOR-C Work Phone: [facility] 09-11-2023 23:20-0500 Body temperature 97.52 [degF] AJ PURVIS DO [facility] 09-11-2023 23:20-0500 Diastolic Blood Pressure Non-Invasive 82 mm[Hg] [facility] 09-11-2023 23:20-0500 Heart rate 102 /min [facility] DO [facility] 09-11-2023 23:20-0500 Respiratory rate 18 /min [facility] DO [facility] 09-11-2023 23:20-0500 Systolic Blood Pressure Non-Invasive 132 mm[Hg] [facility] DO [facility] 09-29-2022 08:39-0400 Body temperature 98.06 [degF] SAJI HUNTER MD [facility] 09-29-2022 08:39-0400 Diastolic Blood Pressure Non-Invasive 71 1 SAJI HUNTER MD [facility] 09-29-2022 08:39-0400 Heart rate 87 /min SAJI HUNTER MD [facility] 09-29-2022 08:39-0400 Respiratory rate 20 /min SAJI HUNTER MD [facility] 09-29-2022 08:39-0400 Systolic Blood Pressure Non-Invasive 118 1 SAJI HUNTER MD [facility] 09-28-2022 23:04-0400 Body temperature 97.7 [degF] SAJI HUNTER MD [facility] 09-28-2022 23:04-0400 Diastolic Blood Pressure Non-Invasive 74 1 SAJI HUNTER MD [facility] 09-28-2022 23:04-0400 Heart rate 85 /min SAJI HUNTER MD [facility] 09-28-2022 23:04-0400 Respiratory rate 16 /min SAJI HUNTER MD [facility] 09-28-2022 23:04-0400 Systolic Blood Pressure Non-Invasive 109 1 SAJI HUNTER MD [facility] 09-28-2022 19:36-0400 Body temperature 97.52 [degF] SAJI HUNTER MD [facility] 09-28-2022 19:36-0400 Diastolic Blood Pressure Non-Invasive 56 1 SAJI HUNTER MD [facility] 09-28-2022 19:36-0400 Heart rate 92 /min SAJI HUNTER MD [facility] 09-28-2022 19:36-0400 Systolic Blood Pressure Non-Invasive 108 1 SAJI HUNTER MD [facility] 09-28-2022 14:57-0400 Respiratory rate 20 /min SAJI HUNTER MD [facility] 09-27-2022 20:11-0400 Body height 155 cm SAJI HUNTER MD [facility] 09-27-2022 20:11-0400 Body weight 77 kg SAJI HUNTER MD [facility] 09-27-2022 20:11-0400 Body weight 32.05 kg/m2 SAJI HUNTER MD [facility] 06-08-2022 21:26-0500 Body temperature 98.6 [degF] DR MIKA MICHEL DO [facility] 06-08-2022 21:26-0500 Diastolic Blood Pressure Non-Invasive [address] MIKA MICHEL DO [facility] 06-08-2022 21:26-0500 Heart rate 98 /min DR MIKA MICHEL DO [facility] 06-08-2022 21:26-0500 Respiratory rate 16 /min DR MIKA MICHEL DO [facility] 06-08-2022 21:26-0500 Systolic Blood Pressure Non-Invasive [address] MIKA MICHEL DO [facility] 09-04-2021 08:15-0500 Body temperature 98.24 [degF] JUAN SHORE MD [facility] 09-04-2021 08:15-0500 Diastolic blood pressure 79 mm[Hg] JUAN SHORE MD [facility] 09-04-2021 08:15-0500 Respiratory rate 18 /min JUAN SHORE MD [facility] 09-04-2021 08:15-0500 Systolic blood pressure 120 mm[Hg] JUAN SHORE MD [facility] 09-03-2021 23:26-0500 Body temperature 98.06 [degF] JUAN SHORE MD [facility] 09-03-2021 23:26-0500 Diastolic blood pressure 81 mm[Hg] JUAN SHORE MD [facility] 09-03-2021 23:26-0500 Heart rate 84 /min JUAN SHORE MD [facility] 09-03-2021 23:26-0500 Mean blood pressure 95 mm[Hg] JUAN SHORE MD [facility] 09-03-2021 23:26-0500 Respiratory rate 18 /min JUAN SHORE MD [facility] 09-03-2021 23:26-0500 Systolic blood pressure 123 mm[Hg] JUAN SHORE MD [facility] 09-03-2021 20:00-0500 Diastolic blood pressure 82 mm[Hg] JUAN SHORE MD [facility] 09-03-2021 20:00-0500 Heart rate 86 /min JUAN SHORE MD [facility] 09-03-2021 20:00-0500 Mean blood pressure 96 mm[Hg] JUAN SHORE MD [facility] 09-03-2021 20:00-0500 Systolic blood pressure 124 mm[Hg] JUAN SHORE MD [facility] 09-03-2021 15:45-0500 Heart rate 82 /min JUAN SHORE MD [facility] 09-03-2021 15:45-0500 Mean blood pressure 95 mm[Hg] JUAN SHORE MD [facility] 08-31-2021 19:32-0500 Body height 155 cm JUAN SHORE MD [facility] 08-31-2021 19:32-0500 Body weight 77.3 kg JUAN SHORE MD [facility] 08-31-2021 19:32-0500 Body weight 32.17 kg/m2 JUAN SHORE MD [facility] 08-31-2021 18:21-0500 Body height 155 cm JUAN SHORE MD [facility] 08-31-2021 18:21-0500 Body weight 77.3 kg JUAN SHORE MD [facility] 08-31-2021 18:21-0500 Body weight 32.17 kg/m2 JUAN SHORE MD [facility] 08-15-2021 08:35-0500 Diastolic blood pressure 77 mm[Hg] JADE PETER MD [facility] 08-15-2021 08:35-0500 Heart rate 88 /min JADE PETER MD [facility] 08-15-2021 08:35-0500 Mean blood pressure 93 mm[Hg] JADE PETER MD [facility] 08-15-2021 08:35-0500 Systolic blood pressure 124 mm[Hg] JADE PETER MD [facility] 08-15-2021 08:34-0500 Body temperature 97.88 [degF] JADE PETER MD [facility] 08-15-2021 08:24-0500 Body height 155 cm JADE PETER MD [facility] 08-15-2021 08:24-0500 Body weight 75 kg JADE PETER MD [facility] 08-15-2021 08:24-0500 Body weight 31.22 kg/m2 JADE PETER MD [facility] 05-14-2021 00:25-0400 Body height 155 cm JADE PETER MD [facility] 05-14-2021 00:25-0400 Body weight 79.5 kg JADE PETER MD [facility] 05-14-2021 00:25-0400 Body weight 33.09 kg/m2 JADE PETER MD [facility] 05-14-2021 00:22-0400 Body temperature 98.6 [degF] JADE PETER MD [facility] 05-14-2021 00:22-0400 Diastolic blood pressure 66 mm[Hg] JADE PETER MD [facility] 05-14-2021 00:22-0400 Heart rate 101 /min JADE PETER MD [facility] 05-14-2021 00:22-0400 Mean blood pressure 81 mm[Hg] JADE PETER MD [facility] 05-14-2021 00:22-0400 Systolic blood pressure 110 mm[Hg] JADE PETER MD [facility] Encounters Encounter Date Encounter Type Care Provider Facility Start: 06-08-2025 ambulatory [facility] Facility :[facility] Start: 05-05-2025 End: 05-05-2025 Patient encounter procedure Samantha WILLAMS -[facility] Work Phone: Start: 05-05-2025 End: 05-05-2025 ambulatory Samantha Ga -[facility] Start: 05-04-2025 End: 05-04-2025 ambulatory NATALIE RUSSELL DO Facility:A Start: 05-04-2025 End: 05-04-2025 Minor Procedure NATALIE RUSSELL DO [facility] Start: 04-21-2025 End: 04-21-[address] DEE ENCARNACION DO Facility:[facility] Start: 04-21-2025 End: 04-21-[address] DEE ENCARNACION DO [facility] Start: 04-20-2025 End: 04-20-[address] DEE ENCARNACION DO Facility:A Start: 04-20-2025 End: 04-20-2025 Patient encounter procedure SAMANTHA OQUENDO [facility] Start: 04-07-2025 End: 04-11-[address] DEE ENCARNACION DO Facility:[facility] Start: 04-07-2025 End: 04-11-[address] DEE ENCARNACION DO [facility] Start: 02-22-2025 End: 02-22-2025 Emergency department patient visit VITO JIMENEZ DO [facility] Start: 02-10-2025 ambulatory Samantha Tinsley ty:[facility] Start: 12-16-2024 End: 12-20-2024 ambulatory MARCIA WONG APRN-CNM Facility:[facility] Start: 12-16-2024 End: 12-20-2024 Encounter for gynecological examination (general) (routine) without abnormal findings MARCIA WONG APRN-CNM Facility:[facility] Start: 12-16-2024 End: 12-20-2024 Outreach Lab MARCIA WONG APRN-MAIRA [facility] Start: 12-02-2024 End: 12-02-2024 ambulatory SAMANTHA GA Facility:[facility] Start: 12-02-2024 End: 12-02-[address] DEE ENCARNACION DO [facility] Start: 12-01-2024 End: 12-01-2024 Patient encounter procedure Samantha Ga MULE OPERATOR-C -[facility] Work Phone: Start: 12-01-2024 End: 12-01-2024 ambulatory Samantha Ga [facility] Work Phone: Start: 10-28-2024 End: 10-28-[address] DEE ENCARNACION DO Facility:[facility] Start: 10-14-2024 End: 10-14-[address] DEE ENCARNACION DO Facility:[facility] Start: 09-30-2024 End: 09-30-[address] DEE ENCARNACION DO Facility:[facility] Start: 09-23-2024 End: 09-23-[address] DEE ENCARNACION DO Facility:[facility] Start: 09-16-2024 End: 09-16-[address] DEE ENCARNACION DO Facility:[facility] Start: 09-16-2024 End: 09-16-[address] DEE ENCARNACION DO [facility] Start: 09-09-2024 End: 09-09-[address] DEE ENCARNACION DO Facility:[facility] Start: 09-09-2024 End: 09-09-[address] DEE ENCARNACION DO [facility] Start: 06-09-2024 End: 10-02-[address] DEE ENCARNACION DO Facility:A Start: 05-27-2024 End: 05-31-2024 ambulatory MARCIA WONG APRN-CNM Facility:[facility] Start: 05-27-2024 End: 05-31-2024 Outreach Lab MARCIA WONG [facility] Start: 04-15-2024 End: 04-15-[address] DEE ENCARNACION DO [facility] Start: 02-12-[address] DEE ENCARNACION DO Facili ty:A Start: 09-11-2023 End: 09-11-2023 Emergency department patient visit AJ PURVIS DO [facility] Start: 07-20-2023 End: 07-20-2023 ambulatory SAMANTHA FERNANDEZ MULE OPERATOR Facility:B Start: 07-20-2023 End: 07-20-2023 Patient encounter procedure SAMANTHA FERNANDEZ MULE OPERATOR [facility] Start: 07-06-2023 End: 07-06-2023 ambulatory SAMANTHA FERNANDEZ MULE OPERATOR Facility:B Start: 07-06-2023 End: 07-06-2023 Patient encounter procedure SAMANTHA FERNANDEZ MULE OPERATOR [facility] Start: 05-09-2023 End: 05-09-2023 ambulatory SAMANTHA FERNANDEZ MULE OPERATOR Facility:B Start: 03-08-2023 End: 03-12-[address] DEE ENCARNACION DO Facility:B Start: 03-08-2023 End: 03-12-[address] DEE ENCARNACION DO [facility] Start: 09-27-2022 End: 09-29-2022 Evaluation and management of inpatient SAJI HUNTER MD [facility] Start: 06-08-2022 End: 06-08-2022 Emergency department patient visit DR MIKA MICHEL DO [facility] Start: 05-08-2022 End: 05-08-2022 ambulatory ISAIAS ROMERO [facility] Start: 02-21-2022 End: 02-21-2022 Patient encounter procedure SAMANTHA GEE CATASTROPHE CLAIMS SUPERVISOR-PERSONAL CARE ASSISTANT [facility] Start: 08-31-2021 End: 09-04-2021 Evaluation and management of inpatient PAVEL GARCIA MD [facility] Start: 08-15-2021 End: 08-15-2021 SAME DAY STAY JADE PETER MD [facility] Start: 06-15-2021 End: 06-15-2021 ambulatory SAMANTHA S MARLEN [facility] Start: 05-14-2021 End: 05-14-2021 SAME DAY STAY JADE PETER MD [facility] Start: 04-25-2021 End: 04-25-2021 Patient encounter procedure ANGIE EPPS MD [facility] Start: 01-30-2018 End: 01-30-2018 Emergency department patient visit IAN ARIZMENDI Facility:[facility] Start: 10-07-2017 Ambulatory Brody Carballo Facili ty:[facility] Start: 10-07-2017 Patient encounter procedure Brody Carballo PA-C Work Phone: [facility] Start: 10-07-2017 Progress Note Brody Carballo PA-C Work Phone: [facility] Start: 08-10-2017 End: 08-10-2017 Emergency department patient visit SAMANTHA STEELE Facility:[facility] Start: 08-10-2017 Ambulatory PROVIDER UNKNOWN Facili ty:[facility] Start: 07-15-2016 End: 07-15-2016 Emergency department patient visit Ki Carmona [facility] Procedures Date Procedure Procedure Detail Performing Clinician None (qualifier value) ANITHA WONG CATASTROPHE CLAIMS SUPERVISOR-CNM Plan of Treatment Date Care Activity Detail Author Alpha 1 antitrypsin [Mass/volume] in Serum or Plasma [facility] CBC W Auto Differential panel - Blood [facility] Ceruloplasmin [Mass/volume] in Serum or P [facility] Cytoplasmic ANCA Screen [facility] Ferritin [Mass/volume] in Serum or Plasma [facility] Hepatic function panel [facility] Hepatitis A virus Ab [Presence] in Serum [facility] virus calderon rface Ab [Presence] in Serum [facility] Hepatitis C antibody measurement [facility] IgA [Mass/volume] in Serum or Plasma [facility] Iron and Iron bindin g capacity panel - Serum or Plasma [facility] Mitochondria Ab [Presence] in Serum [facility] Radionuclide study of abdomen [facility] Smooth muscle Ab [Presence] in Serum [facility] Tissue transglutamin ase IgA Ab [Units/volume] in Serum [facility] Immunizations Immunization Date Immunization Notes Care Provider Fa [facility] 07-13-2022 tetanus toxoid, redu claudette diphtheria toxoid, and acellular pertussis vaccine, adsorbed DR DEE ENCARNACION DO [facility] [place] 06-22-2021 tetanus toxoid, redu claudette diphtheria toxoid, and acellular pertussis vaccine, adsorbed JUAN SHORE MD [facility] 03-24-2009 Human Papillomavirus Sarah SHORE MD [facility] 11-16-2008 Human Papillomavirus Sarah SHORE MD [facility] 09-18-2008 Human Papillomavirus Quadval JUAN SHORE MD [facility] 03-26-2000 measles/mumps/rubell a virus vaccine JUAN SHORE MD [facility] 03-26-2000 varicella virus vaccine KOJO SHORE MD [facility] 06-26-1996 measles/mumps/rubell a virus vaccine JUAN SHORE MD [facility] 1995 hepatitis B pediatri c vaccine JUAN SHORE MD [facility] 1995 hepatitis B pediatri c vaccine JUAN SHORE MD [facility] 1995 hepatitis B pediatri c vaccine JUAN SHORE MD [facility] no vaccine administered [facility] Payers Date Payer Category Payer Self-pay 2023 Unknown [id number] 2023 Unknown [id number] 2022 Unknown [id number] 2022 Medicaid [id number] 1995 Unknown [id number] 2.16. 840.1.968506.3.579.2.479 1995 Unknown [id number] 2.16. 840.1.907792.3.579.2.479 1995 Unknown [id number] 2.16.8 40.1.785557.3.579.2.627 1995 Unknown [id number] 2.16.8 40.1.848717.3.579.2. 1995 Unknown [id number] 2.16.8 40.1.955804.3.579.2. 1995 Unknown [id number] 2.16.8 40.1.233398.3.579.2. 1995 Unknown [id number] 2.16.8 40.1.779661.3.579.2. 1995 Unknown [id number] 2.16.8 40.1.926143.3.579.2. 1995 Unknown [id number] 2.16.8 40.1.101545.3.579.2. 1995 Unknown [id number] 2.16 840.1.749672.3.579.2. 1995 Unknown [id number] 2.16. 840.1.240308.3.579.2. 1995 Unknown [id number] 2.16. 840.1.175188.3.579.2. 1995 Unknown [id number] 2.16. 840.1.784795.3.579.2. 1995 Unknown [id number] 2.16.8 40.1.181073.3.579.2. 1995 Unknown [id number] 2.16. 840.1.360121.3.579.2. 1995 Unknown [id number] 2.16.8 40.1.216627.3.579.2. 1995 Unknown [id number] 2.16.8 40.1.075210.3.579.2. 1995 Unknown [id number] 2.16.8 40.1.960399.3.579.2. 1995 Unknown [id number] 2.16.8 40.1.323949.3.579.2.627 1995 Unknown [id number] 2.16.8 40.1.269688.3.579.2.627 1995 Unknown [id number] 2.16.8 40.1.233082.3.579.2.627 1995 Unknown [id number] 2.16.8 40.1.458343.3.579.2.627 1995 Unknown [id number] 2.16. 840.1.965570.3.579.2.627 1995 Unknown [id number] 2.16. 840.1.444090.3.579.2.627 Unknown [id number] Unknown [id number] 2.16.8 40.1.270304.3.579.2.462 Unknown [id number] 2.16.8 40.1.800462.3.579.2.462 Unknown [id number] 2.16.8 40.1.226498.3.579.2.462 Unknown [id number] 2.16.8 40.1.760871.3.579.2.462 Social History Date Type Detail Facility Never smoker (Ne dajuan Smoked) [facility] Start: 06-08-2022 End: 05-05-2025 Never smoked tobacco (finding) [facility] Sex Assigned At [facility] Tobacco smoking status DCIS Tobacco smoking consumption unknown [facility] Start: 1995 Sex Assigned At Not on file C [facility] Start: 08-09-2017 Sex Female (finding) [facility] Start: 1995 Sex Assigned At Female [facility] Sex Female [facility] Functional Status Date Assessment Result Facility 09-11-2023 Functional Status ID band on, Call device within reach, Bed in low position [facility] 09-29-2022 Functional Status Holding baby, Visiting with family [facility] 09-29-2022 Functional Status [facility] 09-29-2022 Functional Status [facility] 09-29-2022 Functional Status Demonstrates C orrect Call Light Use Yes [facility] 09-28-2022 Functional Status Done [facility] 09-28-2022 Functional Status [facility] 09-27-2022 Functional Status Home with family care A [facility] 06-08-2022 Functional Status Standard Safet y ID band on, Call device within reach, Bed in low position, Wheels locked, Upper/Half-Length side-rails up, Bedside Cart Locked, Visitor at bedside, Safety level maintained [facility] Mental Status Date Assessment Result Facility 09-11-2023 Mental Status Oriented x 4 [facility] 06-08-2022 Mental Status Orientation Oriented x 4 [facility] Clinical Notes 10-07-2017 to 05-05-2025 Note Date & Type Note Facility 05-05-2025 Progress note [facility] 05-05-2025 Progress note Note Date/Time May 05, 2025 5:05pm [facility] Gastroenterology [address] [place] [address] OFFICE VISIT Date of Service: 05/05/25 MR#: [id number] Acct: [id number] Name: BELGICA CORBIN Rep #: [id number] : 1995 Provider: IMER aG Age/Sex: 30/F Location: [facility] Status: Signed Intake Vital Signs 12/01/24 13:50 05/05/25 15:37 Height 5 ft 1 in 5 ft 1 in Weight: 185 lb 8 oz 184 lb 2 oz BMI 35.0 34.7 BP 161/120 H 105/61 Respiration 18 16 Pulse 103 H 93 Temp 98.0 F Temp Source Temporal Pulse Oximetry (%) 96 96 Oxygen Delivery Method room air room air Intake Visit Reasons: Test Result-Elevated liver enzymes Chief Complaint: high liver labs Active Directory Architect Required: No Accompanied by: and kids Is patient in pain?: No Allergies cefdinir (From [employer] Socket) Allergy (Severe, Verified 05/05/25 15:33) Shortness of breath, rash, swelling of hands ciprofloxacin Adverse Reaction (Mild, Verified 05/05/25 15:33) rash, swelling in hands Medications ?Medication ?Instructions ?Recorded ?Confirmed ?Type amitriptyline 10 mg tablet 10 mg PO QDAY 12/01/2404/16 History escitalopram oxalate 10 mg tablet 10 mg PO QDAY 05/05/25 History melatonin 3 mg capsule 3 mg PO HS PRN 12/01/2404/16 History norgestimate 0.25 mg-ethinyl 1 tab PO QDAY 12/01/24 History estradiol 0.035 mg tablet (Sprintec (28)) nystatin 100,000 unit/gram topical 1 applic topical TI D PRN 12/01/24 05/05/25 History powder ubrogepant 100 mg tablet (Ubrelvy) 100 mg PO ONCE PRN 12/01/24 05/05/25 History pantoprazole 40 mg tablet,delayed 40 mg PO QDAY #90 ta bs 05/05/25 05/05/25 Rx release PFSH Medical History Stomatitis Sleep difficulties Recurrent headache Perioral dermatitis Paronychia of great toe, right Otalgia of left ear Depression Carpal tunnel syndrome, bilateral Tachycardia Recurrent boils Nasal lesion Family History Father Heart disease Myocardial infarction Mother Hypertension Sister Multiple sclerosis Social History Smoking Status: Never smoker alcohol intake: current alcohol intake frequency: holidays/special occasions only substance use type: does not use caffeine: Yes HPI HPI Chief Complaint: high liver labs Details: OV 12/01/2024 29-year-old female presenting with elevated liver enzymes in the setting of hepatic steatosis and hepatomegaly on imaging, likely consistent with MAS viral hepatitis panel is negative, and elastography suggest minimal fibrosis (F1). LD, particularly given her significant weight gain of 45 pounds over the past 6 months. MRI also noted a small hepatic hemangioma, an incidental and likely benign finding. She reports intermittent RUQ pain, often postprandial, which raises suspicion for biliary dyskinesia despite a normal ultrasound of the gallbladder and CBD. A HIDA scan has been ordered to assess gallbladder function. Additional labs including repeat CBC, CMP, in addition to autoimmune/infectious workup are pending to further evaluate potential causes oftransaminitis. TSH, lipase, and iron studies are within normal limits. The patient will follow-up in 1 month to review results and discuss weight management strategies, as lifestyle modification remains a cornerstone of MASLD management. Consideration for hepatology referral will depend on her evolving clinical picture and lab findings. Note: Ambassador speech recognition building rigger software was used to create portions of this document. Sound-alike and misspelled words, as well as other building rigger errors may be contained in the documentation. Patient Instructions: Labs - patient will have completed at [facility] HIDA - patient will have completed at [facility] Plan Details Follow Up: 1 Month - seen in office today with and two toddlers - abdominal pain is primarily on the right and mid abdomen, worse with palpationof the abdomen - pain can be sharp and dull - pain is not triggered by PO intake - nausea can be triggered by PO intake - denies any HB - denies any weight loss HIDA completed 04/20/2025 revealed an EF of 87% ABD US 04/21/2025 no changes from previously - no previous EGD ROS Const Constitutional: Positive for headache(s); No fatigue, fever(s) or weight change ENT ENT: Positive for headache(s); No difficulty swallowing Gastro GI: Positive for abdominal pain; No belching, bloating, change in bowel habits, change in stool character, coffeeground emesis, constipation, cramping, diarrhea, heartburn, difficulty swallowing, feeling full early, excessive flatus, incontinent of stools, Vomiting blood/hematemesis, Blood in stool, loose stools, Black,tarry stools, nausea/dyspepsia, pain with swallowing, vomiting or other Musc Musculoskeletal: Positive for back pain, numbness and tingling; No joint pain Skin Skin: No yellowing of the eye or itchy eyes Neuro Neurology: Positive for headache(s), numbness and tingling Psych Psychiatric: No anxiety and No depression Endo Endocrine: No fatigue or weight change Aller/Imm Allergy/Immunologic: No itchy eyes Eddie/Lymp Hematologic/Lymphatic: No easy bleeding or easy bruising Exam Const General: cooperative, healthy appearing, no acute distress and well developed Nutritional Appearance: well nourished and obese Orientation: alert and oriented x3 HENMT Head: normocephalic Ears: hearing grossly normal bilaterally Mouth: moist mucous membranes Teeth and gingiva: dentition normal Eyes Conjunctivae: conjunctivae normal Sclera: sclerae normal Neck Neck: normal visual inspection, full ROM and trachea midline Resp Effort & Inspection: normal respiratory effort, able to speak in complete sentences and symmetric chest movement Neuro General: patient alert and patient oriented x3 Cranial Nerves: other (CN's grossly intact, non-focal exam) Cognition: normal cognition Speech: speech normal Gait: normal gait Psych Appearance: grossly normal and well kempt Affect: normal affect Attitude: cooperative Thought Process: normal Assessment and Plan Assessment and Plan (1) Epigastric pain: Status: Acute (2) RUQ pain: Status: Acute Medications: New pantoprazole Take once daily 30 minutes before first meal 40 mg PO QDAY 90 tabs 1RF Plan 30-year-old female with a history of epigastric and RUQ abdominal pain presents for follow-up. She was last seen in the office this past November. Abdominal ultrasound was previously revealing for hepatic steatosis. Recent HIDA scan revealed an EF of 87%. Her symptoms are not typical for biliary colic. Pain begins RUQ and either radiates to the right flank or epigastric area, can be dull or sharp, is occasionally associated with nausea. Pain is primarily triggered by applying pressure to the abdomen. Denies any increase in abdominalpain with p.o. intake, although she does report an increase in nausea with eating. I have started her on a PPI daily and scheduled her for an EGD. Patient Instructions: Start daily PPI EGD Coding Level of Care Code Off vis,est,level 4 Diagnoses Epigastric pain R10.13 RUQ pain R10.11 Clinical Quality Measures Smoking Screening Smoking Status: Never smoker 05/05/25 1606 <Electronically signed by Samantha WILLAMS> Date _ Samantha Harmeet MULE OPERATOR-C Cosigner Signature: Date (if applicable) CC: ~ [place] [employer] Work Phone: [phone] Note* Exam Date Time Procedure Performing Provider Status 04/21/25 12:42 PM US Abdomen Complete JR ARREOLA MD; Auth (Verified) [id number] ORIGINAL EXAMINATION: COMPLETE ABDOMINAL [id number]/7/2025 12:45 pm ULTRASOUND ABDOMEN COMPLETE COMPARISON: Ultrasound 09/23/2024 TECHNIQUE: This report is based on interpretation of permanently recorded ultrasound images. HISTORY: ORDERING SYSTEM PROVIDED HISTORY: Reason for Exam: generalized abdominal pain, history of enterocolitis, FINDINGS: Liver: . The visualized liver is mildly heterogeneous and coarsened with increased echogenicity. No suspicious focal lesion is seen and there is no obvious nodularity of the visualized liver margins. There is antegrade blood flow in the main portal vein. Bile ducts: There is no intrahepatic biliary duct dilatation. The common duct 3 mm at the dawson hepatis. Gallbladder: The gallbladder is distended satisfactorily without calculi, wall thickening, pericholecystic edema or tenderness. Pancreas: The visualized pancreas shows no focal lesion or mass but some portions are obscured by bowel gas artifacts. . No free fluid is seen in the abdomen. Spleen: The spleen is normal in size and echogenic appearance. Kidneys: Limited survey images of the kidneys show normal cortical thickness and echogenicity and no pelvocaliectasis. . Visualized aorta: Normal Visualized IVC: Normal IMPRESSION: Hepatic steatosis or other diffuse hepatocellular disease. No acute findings. Interpreted by: Jr Arreola MD Preliminary Report By: Jr Arreola MD Electronically signed By Jr Arreola MD Dictated Date: 04/21/2025 4:51:55 PM Prelim Date: 04/21/2025 4:52:58 PM Sign Date: 04/21/2025 4:52:58 PM Ordering Provider: DEE ENCARNACION RP [facility]10-06-2025 Note* Exam Date Time Procedure Performing Provider Status 04/20/25 3:04 PM NM Hepatobiliary Live t System Imaging PARKER, MALAYKUMAR MD; Auth (Verified) [id number] ORIGINAL EXAMINATION: HIDA SCAN WITH EJECTION [id number]/6/2025 3:04 pm TECHNIQUE: Approximately 8 millicuries Tc99m Mebrofenin was administered IV. Then, dynamic images of the abdomen were obtained in the anterior projection for 60 mins. Slow infusion of 1.7 mcg cholecystokinin was administered intravenously over 30 mins. Images were obtained in the anterior projection and regions of interest were drawn around the gallbladder and ejection fraction was calculated. COMPARISON: None HISTORY: ORDERING SYSTEM PROVIDED HISTORY: RUQ FINDINGS: Prompt, homogenous uptake by the liver is noted with normal appearance of radiotracer excretion into the biliary system. Clearance of blood pool activity appears appropriate. Gallbladder and small bowel are visualized in appropriate time. Gallbladder ejection fraction is 87%. Normal value is >35% for CCK protocol. IMPRESSION: Gallbladder ejection fraction of 87%. Interpreted by: Romy Parker MD Preliminary Report By: Romy Parker MD Electronically signed By Romy Parker MD Dictated Date: 04/20/2025 3:47:00 PM Prelim Date: 04/20/2025 3:48:20 PM Sign Date: 04/20/2025 3:48:20 PM Ordering Provider: SAMANTHA GA [id number] Note. MICRO - Microbiology PROCEDURE: Urine Culture [O1 *1] SOURCE: Urine BODY SITE: COLLECTED DATE/TIME: 02/22/2025 18:05 EDT RECEIVED DATE/TIME: 02/23/2025 14:39 EDT START DATE/TIME: 02/23/2025 14:39 EDT FREE TEXT SOURCE: FINAL REPORTS Final Report [] Verified Date/Time/Personnel: 02/25/2025 07:34 EDT 10,000 - 50,000 cfu/ml Mixed growth consistent with normal urogenital kaur. PRELIMINARY REPORTS Preliminary Report [] Verified Date/Time/Personnel: 02/24/2025 08:29 EDT No growth to date Preliminary Report [] Verified Date/Time/Personnel: 02/23/2025 15:59 EDT Specimen received in lab. Order Comments O1: Urine Culture Added by Discern Performing Locations *1: This test was performed at: [facility], [address] [place] [address], [id number] , [facility]08-10-2025 Hospital Discharge instructions Patient Education 02/22/2025 18:59:32 Bladder Infection, Female (Adult) Bladder Infection, Female (Adult) Urine is normally doesn't have any bacteria in it. But bacteria can get into the urinary tract fromthe skin around the rectum. Or they can travel in the blood from elsewhere in the body. Once they are in your urinary tract, they can cause infection in the urethra (urethritis), the bladder (cystitis), or the kidneys (pyelonephritis). The most common place for an infection is in the bladder. This is called a bladder infection. This is one of the most common infections in women. Most bladder infections are easily treated. They are not serious unless the infection spreads to the kidney. The phrases bladder infection, UTI, and cystitis are often used to describe the same thing. But they are not always the same. Cystitis is an inflammation of the bladder. The most common cause of cystitis is an infection. Symptoms The infection causes inflammation in the urethra and bladder. This causes many of the symptoms. Themost common symptoms of a bladder infection are: Pain or burning when urinating Having to urinate more often than usual Urgent need to urinate Only a small amount of urine comes out Blood in urine Abdominal discomfort. This is usually in the lower abdomen above the pubic bone. Cloudy urine Strong- or bad-smelling urine Unable to urinate (urinary retention) Unable to hold urine in (urinary incontinence) Fever Loss of appetite Confusion (in older adults) Causes Bladder infections are not contagious. You can't get one from someone else, from a toilet seat, or from sharing a bath. The most common cause of bladder infections is bacteria from the bowels. The bacteria get onto the skin around the opening of the urethra. From there, they can get into the urine and travel up to thebladder, causing inflammation and infection. This usually happens because of: Wiping improperly after urinating. Always wipe from front to back. Bowel incontinence Procedures such as having a catheter inserted Older age Not emptying your bladder. This can allow bacteria a chance to grow in your urine. Dehydration Constipation Sex Use of a diaphragm for control Treatment Bladder infections are diagnosed by a urine test. They are treated with antibiotics and usually clear up quickly without complications. Treatment helps prevent a more serious kidney infection. Medicines Medicines can help in the treatment of a bladder infection: Take antibiotics until they are used up, even if you feel better. It is important to finish them tomake sure the infection has cleared. You can use acetaminophen or ibuprofen for pain, fever, or discomfort, unless another medicine was prescribed. If you have chronic liver or kidney disease, talk with your healthcare provider before using these medicines. Also talk with your provider if you've ever had a stomach ulcer or gastrointestinal bleeding, or are taking blood-thinner medicines. If you are given phenazopydridine to reduce burning with urination, it will cause your urine to become a bright orange color. This can stain clothing. Care and prevention These self-care steps can help prevent future infections: Drink plenty of fluids to prevent dehydration and flush out your bladder. Do this unless you must restrict fluids for other health reasons, or your doctor told you not to. Proper cleaning after going to the bathroom is important. Wipe from front to back after using the toilet to prevent the spread of bacteria. Urinate more often. Don't try to hold urine in for a long time. Wear loose-fitting clothes and cotton underwear. Avoid tight-fitting pants. Improve your diet and prevent constipation. Eat more fresh fruit and vegetables, and fiber, and less junk and fatty foods. Avoid sex until your symptoms are gone. Avoid caffeine, alcohol, and spicy foods. These can irritate your bladder. Urinate right after intercourse to flush out your bladder. If you use control pills and have frequent bladder infections, discuss it with your doctor. Follow-up care Call your healthcare provider if all symptoms are not gone after 3 days of treatment. This is especially important if you have repeat infections. If a culture was done, you will be told if your treatment needs to be changed. If directed, you cancall to find out the results. If X-rays were done, you will be told if the results will affect your treatment. Call 911 Call 911 if any of the following occur: Trouble breathing Hard to wake up or confusion Fainting or loss of consciousness Rapid heart rate When to seek medical advice Call your healthcare provider right away if any of these occur: Fever of 100.4 F (38.0 C) or higher, or as directed by your healthcare provider Symptoms are not better by the third day of treatment Back or belly (abdominal) pain that gets worse Repeated vomiting, or unable to keep medicine down Weakness or dizziness Vaginal discharge Pain, redness, or swelling in the outer vaginal area (labia) 4250-14[address] [employer]. [address] [place] [address]. All rights reserved. This information is not intended as a substitute for professional medical care. Always follow yourhealthcare professional's instructions. Follow Up Care 02/22/2025 16:38:35 With:Go to emergency room if symptoms worsen Address:Unknown When:2-4 days With:DEE ENCARNACION DO Address: [address] [place] [phone] When:2-4 days [facility] 08-10-2025 Note Discharge Instructions Thank you for allowing [facility] to assist you with your healthcare needs. The following is importantdischarge information regarding your hospital visit. Diagnosis from Today's Visit Diarrhea Nausea UTI (urinary tract infection) What to Do Next Instructions from Your Care Team Please take antibiotics as prescribed for urinary tract infection. You were also prescribed nausea medication as needed for any persistent nausea. Get plenty of fluids and rest. Follow-up with your primary doctor. return to ED for any acute worsening symptoms or concerns. No qualifying data available. Post Acute Orders No qualifying data available. You Need to Schedule the Following Appointments Follow Up with Go to emergency room if symptoms worsen When:Within 2-4 days Follow Up with DEE ENCARNACION DO When:Within 2-4 days Where:[address] [place] [phone] Allergies Omnicef(Severe) shortness of breath, rash, swelling in hands ciprofloxacin (Mild) rash, swelling in hands Medications Please ask your primary doctor or pharmacist before taking any other medication not listed, including over the counter drugs, herbal medications, vitamins and or supplements as they may interact withyour home medications. What How Much When Why Instructions Last Dose New ondansetron (ondansetron 4 mg oral tablet, disintegrating) 1 tab(s) by mouth Every 6 hours as needed for Nausea/Vomiting Printed Prescription New sulfamethoxazole-trimethoprim (Bactrim DS 800 mg-160 mg oral tablet) 1 tab(s) by mouth Two (2) times a day Duration: 7 Days Printed Prescription Unchanged amLODIPine (amLODIPine 5 mg oral tablet) 1 tab(s) by mouth Once a day Unchanged chlorhexidine topical (Hibiclens 4% topical soap) See instructions Rinse area with water, then apply minimum amount necessary to cover skin or wound area and wash gently. Rinse again thoroughly., As needed for Rash Unchanged DME (DME MISCellaneous) See instructions BP cuff and machine, Dx: I10 Unchanged DME (DME MISCellaneous) See instructions Carpal tunnel syndrome, bilateral Procare comfort form wrist medium left and right, Dx: G56.03 Unchanged escitalopram (escitalopram 20 mg oral tablet) 1 tab(s) by mouth Once a day Duration: 90 Days Unchanged ferrous sulfate (ferrous sulfate 325 mg (65 mg elemental iron) oral tablet) 1 tab(s) by mouth Sunday / Sunday / Sunday Duration: 90 Days may take with food to minimize abdominal discomfort Unchanged galcanezumab (Emgality Autoinjector 120 mg/ mL subcutaneous solution) 120 Milligram Once a month Unchanged melatonin (melatonin 3 mg oral tablet) 1-2 tabs by mouth Daily at bedtime as needed for as needed for insomnia Duration: [address], operate heavy machinery, or drink alcohol while on med. Unchanged norethindrone (Swati 0.35 mg oral tablet) 1 tab(s) by mouth Once a day Unchanged nystatin topical (nystatin 100,000 units/ g topical powder) 1 application Topical Three (3) times a day as needed for Skin irritation Duration: 30 Days Apply to affected area 2 to 3 times daily until healing complete Unchanged ubrogepant (Ubrelvy 100 mg oral tablet) 1 tab(s) by mouth Once as needed for as needed for migraine headache may repeat dose in 2 hours if needed Please take this list to your next doctor s visit. Bring all medications you take, including over the counter medications, herbals and other supplements with you to your doctor s visit. Patients and families are reminded to discard old lists and to update any records with all medication providers or retail pharmacies. Education Materials Bladder Infection, Female (Adult) Urine is normally doesn't have any bacteria in it. But bacteria can get into the urinary tract fromthe skin around the rectum. Or they can travel in the blood from elsewhere in the body. Once they are in your urinary tract, they can cause infection in the urethra (urethritis), the bladder (cystitis), or the kidneys (pyelonephritis). The most common place for an infection is in the bladder. This is called a bladder infection. This is one of the most common infections in women. Most bladder infections are easily treated. They are not serious unless the infection spreads to the kidney. The phrases bladder infection, UTI, and cystitis are often used to describe the same thing. But they are not always the same. Cystitis is an inflammation of the bladder. The most common cause of cystitis is an infection. Symptoms The infection causes inflammation in the urethra and bladder. This causes many of the symptoms. Themost common symptoms of a bladder infection are: Pain or burning when urinating Having to urinate more often than usual Urgent need to urinate Only a small amount of urine comes out Blood in urine Abdominal discomfort. This is usually in the lower abdomen above the pubic bone. Cloudy urine Strong- or bad-smelling urine Unable to urinate (urinary retention) Unable to hold urine in (urinary incontinence) Fever Loss of appetite Confusion (in older adults) Causes Bladder infections are not contagious. You can't get one from someone else, from a toilet seat, or from sharing a bath. The most common cause of bladder infections is bacteria from the bowels. The bacteria get onto the skin around the opening of the urethra. From there, they can get into the urine and travel up to thebladder, causing inflammation and infection. This usually happens because of: Wiping improperly after urinating. Always wipe from front to back. Bowel incontinence Procedures such as having a catheter inserted Older age Not emptying your bladder. This can allow bacteria a chance to grow in your urine. Dehydration Constipation Sex Use of a diaphragm for control Treatment Bladder infections are diagnosed by a urine test. They are treated with antibiotics and usually clear up quickly without complications. Treatment helps prevent a more serious kidney infection. Medicines Medicines can help in the treatment of a bladder infection: Take antibiotics until they are used up, even if you feel better. It is important to finish them tomake sure the infection has cleared. You can use acetaminophen or ibuprofen for pain, fever, or discomfort, unless another medicine was prescribed. If you have chronic liver or kidney disease, talk with your healthcare provider before using these medicines. Also talk with your provider if you've ever had a stomach ulcer or gastrointestinal bleeding, or are taking blood-thinner medicines. If you are given phenazopydridine to reduce burning with urination, it will cause your urine to become a bright orange color. This can stain clothing. Care and prevention These self-care steps can help prevent future infections: Drink plenty of fluids to prevent dehydration and flush out your bladder. Do this unless you must restrict fluids for other health reasons, or your doctor told you not to. Proper cleaning after going to the bathroom is important. Wipe from front to back after using the toilet to prevent the spread of bacteria. Urinate more often. Don't try to hold urine in for a long time. Wear loose-fitting clothes and cotton underwear. Avoid tight-fitting pants. Improve your diet and prevent constipation. Eat more fresh fruit and vegetables, and fiber, and less junk and fatty foods. Avoid sex until your symptoms are gone. Avoid caffeine, alcohol, and spicy foods. These can irritate your bladder. Urinate right after intercourse to flush out your bladder. If you use control pills and have frequent bladder infections, discuss it with your doctor. Follow-up care Call your healthcare provider if all symptoms are not gone after 3 days of treatment. This is especially important if you have repeat infections. If a culture was done, you will be told if your treatment needs to be changed. If directed, you cancall to find out the results. If X-rays were done, you will be told if the results will affect your treatment. Call 911 Call 911 if any of the following occur: Trouble breathing Hard to wake up or confusion Fainting or loss of consciousness Rapid heart rate When to seek medical advice Call your healthcare provider right away if any of these occur: Fever of 100.4 F (38.0 C) or higher, or as directed by your healthcare provider Symptoms are not better by the third day of treatment Back or belly (abdominal) pain that gets worse Repeated vomiting, or unable to keep medicine down Weakness or dizziness Vaginal discharge Pain, redness, or swelling in the outer vaginal area (labia) [id number] [employer]. [address] [place] [address]. All rights reserved. This information is not intended as a substitute for professional medical care. Always follow yourhealthcare professional's instructions. Additional Information VACCINATE! IT SAVES LIVES! Members of the community who have not yet received the COVID-19 vaccine and would like to receive it can visit one of [facility] vaccine clinics. There are many vaccine clinic locations within the [facility]. For locations and available times, please visit www.gettheshot.coronavirus.[place].gov/. It is important to note that some COVID mobile vaccine clinics are held outdoors and may be canceled in rainy or stormy conditions. To learn more about pediatric vaccinations (ages 5-11), we invite you to visit the [facility] webpage. [email or web address] learn more about the COVID-19 vaccine, we invite you to visit the CDC website for a list of frequently asked questions. https://www.cdc.gov/coronavirus/2019-ncov/vaccines/faq.html [facility] Patient Portal Access Instructions: Stay connected with your healthcare team and access your personal medical information anytime with the [facility] Patient Portal. If you would like a full copy of your medical records please contact the [facility] Medical Records Department Sunday through Sunday between 8a.m. and 4:30p.m. Please follow the directions below to access the portal: 1.Access the email account you provided upon registration to the [facility].2.Look for an invitation email from [facility].3.Open the email and access the invitation link: Accept Invitation to [facility].Fill in the required melara to create your account. Sign into [email or web address] with your username and password that you created in the above steps to stay up to date. You can then view a summary of results, a summary of your visits, and the ability to download your summaries to your computer or send the information securely to a physician. Remember that your healthcare information is confidential, so carefully consider who you will allow to register on the [facility] Patient Portal for access to your information. You can also access the [facility] Patient Portal on the [employer] giorgio. Simply click on Health Records under hybris and then click on the [employer] logo. HOW TO SAFELY DISPOSE OF PRESCRIPTION MEDICATIONS Please use one of the following methods to safely dispose of your unused medications. 1.Use a drug disposal kit: the drug disposal pouch allows you to safely discard your old and unuseddrugs. Ask your nurse to give you one when you are discharged.2.Visit a local take-back location: Many local pharmacies and police departments have programs that collect old and unwanted prescriptiondrugs. Call your local pharmacy or go to [email or web address] to find one close to you.3.Make use of household items: Use cat litter or old coffee grounds to dispose medications if other options arenot available. Mix your drugs with these household products, seal them in an airtight container andthrow it into the garbage. Call [facility]: [phone] to be sure your drugs can be disposed of in this way. Some medicines may require a different approach.4.Never flush your medications down the toilet. IF YOU HAVE BEEN PRESCRIBED AN OPIOIDS FOR PAIN If you have been prescribed an opioid (such as hydrocodone, oxycodone or morphine), it is critical to understand the possible side effects and risks of opioid pain medications. Even when taken as directed, opioids can have several side effects including: Tolerance, meaning you might need to take more of a medication for the same pain relief. Nausea, vomiting and/or constipation. Sleepiness, dizziness, dry mouth, confusion, depression or itching. Physical dependence, meaning you have withdrawal symptoms when a medication is stopped ? this can develop within a few days. KNOW YOUR RESPONSIBILITIES It is important to know exactly how much and how often to take the opioid pain medications you are prescribed. Never take opioids in higher amounts or more often than prescribed. Do not combine opioids with alcohol or other drugs that cause drowsiness, such as benzodiazepines, also known as benzos,including diazepam and alprazolam, muscle relaxants or sleep aids. Never sell or share prescriptionopioids. This is illegal. Store opioids in a secure place and out of reach of others (including children, family, friends and visitors). The last page(s) of this document has been signed and retained as a CHART COPY Signatures Patient Education Materials Bladder Infection, Female (Adult) Medication Leaflets My discharge plan and instructions have been reviewed and explained to me and I,BELGICA CORBIN understand my current condition and have read and understand these discharge instructions. I have received a written copy of the plan/instructions. If I have questions, I am aware that I should contact my doctor. 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 The following is importantdischarge information regarding your hospital visit. Diagnosis from Today's Visit Diarrhea Nausea UTI (urinary tract infection) What to Do Next Instructions from Your Care Team Please take antibiotics as prescribed for urinary tract infection. You were also prescribed nausea medication as needed for any persistent nausea. Get plenty of fluids and rest. Follow-up with your primary doctor. return to ED for any acute worsening symptoms or concerns. No qualifying data available. Post Acute Orders No qualifying data available. You Need to Schedule the Following Appointments Follow Up with Go to emergency room if symptoms worsen When:Within 2-4 days Follow Up with DEE ENCARNACION DO When:Within 2-4 days Where:0 [facility] [place] [phone]- [phone] Allergies Omnicef(Severe) shortness of breath, rash, swelling in hands ciprofloxacin (Mild) rash, swelling in hands Medications Please ask your primary doctor or pharmacist before taking any other medication not listed, including over the counter drugs, herbal medications, vitamins and or supplements as they may interact withyour home medications. What How Much When Why Instructions Last Dose New ondansetron (ondansetron 4 mg oral tablet, disintegrating) 1 tab(s) by mouth Every 6 hours as needed for Nausea/Vomiting Printed Prescription New sulfamethoxazole-trimethoprim (Bactrim DS 800 mg-160 mg oral tablet) 1 tab(s) by mouth Two (2) times a day Duration: 7 Days Printed Prescription Unchanged amLODIPine (amLODIPine 5 mg oral tablet) 1 tab(s) by mouth Once a day Unchanged chlorhexidine topical (Hibiclens 4% topical soap) See instructions Rinse area with water, then apply minimum amount necessary to cover skin or wound area and wash gently. Rinse again thoroughly., As needed for Rash Unchanged DME (DME MISCellaneous) See instructions BP cuff and machine, Dx: I10 Unchanged DME (DME MISCellaneous) See instructions Carpal tunnel syndrome, bilateral Procare comfort form wrist medium left and right, Dx: G56.03 Unchanged escitalopram (escitalopram 20 mg oral tablet) 1 tab(s) by mouth Once a day Duration: 90 Days Unchanged ferrous sulfate (ferrous sulfate 325 mg (65 mg elemental iron) oral tablet) 1 tab(s) by mouth Sunday / Sunday / Sunday Duration: 90 Days may take with food to minimize abdominal discomfort Unchanged galcanezumab (Emgality Autoinjector 120 mg/ mL subcutaneous solution) 120 Milligram Once a month Unchanged melatonin (melatonin 3 mg oral tablet) 1-2 tabs by mouth Daily at bedtime as needed for as needed for insomnia Duration: [address], operate heavy machinery, or drink alcohol while on med. Unchanged norethindrone (Swati 0.35 mg oral tablet) 1 tab(s) by mouth Once a day Unchanged nystatin topical (nystatin 100,000 units/ g topical powder) 1 application Topical Three (3) times a day as needed for Skin irritation Duration: 30 Days Apply to affected area 2 to 3 times daily until healing complete Unchanged ubrogepant (Ubrelvy 100 mg oral tablet) 1 tab(s) by mouth Once as needed for as needed for migraine headache may repeat dose in 2 hours if needed Please take this list to your next doctor s visit. Bring all medications you take, including over the counter medications, herbals and other supplements with you to your doctor s visit. Patients and families are reminded to discard old lists and to update any records with all medication providers or retail pharmacies. Education Materials Bladder Infection, Female (Adult) Urine is normally doesn't have any bacteria in it. But bacteria can get into the urinary tract fromthe skin around the rectum. Or they can travel in the blood from elsewhere in the body. Once they are in your urinary tract, they can cause infection in the urethra (urethritis), the bladder (cystitis), or the kidneys (pyelonephritis). The most common place for an infection is in the bladder. This is called a bladder infection. This is one of the most common infections in women. Most bladder infections are easily treated. They are not serious unless the infection spreads to the kidney. The phrases bladder infection, UTI, and cystitis are often used to describe the same thing. But they are not always the same. Cystitis is an inflammation of the bladder. The most common cause of cystitis is an infection. Symptoms The infection causes inflammation in the urethra and bladder. This causes many of the symptoms. Themost common symptoms of a bladder infection are: Pain or burning when urinating Having to urinate more often than usual Urgent need to urinate Only a small amount of urine comes out Blood in urine Abdominal discomfort. This is usually in the lower abdomen above the pubic bone. Cloudy urine Strong- or bad-smelling urine Unable to urinate (urinary retention) Unable to hold urine in (urinary incontinence) Fever Loss of appetite Confusion (in older adults) Causes Bladder infections are not contagious. You can't get one from someone else, from a toilet seat, or from sharing a bath. The most common cause of bladder infections is bacteria from the bowels. The bacteria get onto the skin around the opening of the urethra. From there, they can get into the urine and travel up to thebladder, causing inflammation and infection. This usually happens because of: Wiping improperly after urinating. Always wipe from front to back. Bowel incontinence Procedures such as having a catheter inserted Older age Not emptying your bladder. This can allow bacteria a chance to grow in your urine. Dehydration Constipation Sex Use of a diaphragm for control Treatment Bladder infections are diagnosed by a urine test. They are treated with antibiotics and usually clear up quickly without complications. Treatment helps prevent a more serious kidney infection. Medicines Medicines can help in the treatment of a bladder infection: Take antibiotics until they are used up, even if you feel better. It is important to finish them tomake sure the infection has cleared. You can use acetaminophen or ibuprofen for pain, fever, or discomfort, unless another medicine was prescribed. If you have chronic liver or kidney disease, talk with your healthcare provider before using these medicines. Also talk with your provider if you've ever had a stomach ulcer or gastrointestinal bleeding, or are taking blood-thinner medicines. If you are given phenazopydridine to reduce burning with urination, it will cause your urine to become a bright orange color. This can stain clothing. Care and prevention These self-care steps can help prevent future infections: Drink plenty of fluids to prevent dehydration and flush out your bladder. Do this unless you must restrict fluids for other health reasons, or your doctor told you not to. Proper cleaning after going to the bathroom is important. Wipe from front to back after using the toilet to prevent the spread of bacteria. Urinate more often. Don't try to hold urine in for a long time. Wear loose-fitting clothes and cotton underwear. Avoid tight-fitting pants. Improve your diet and prevent constipation. Eat more fresh fruit and vegetables, and fiber, and less junk and fatty foods. Avoid sex until your symptoms are gone. Avoid caffeine, alcohol, and spicy foods. These can irritate your bladder. Urinate right after intercourse to flush out your bladder. If you use control pills and have frequent bladder infections, discuss it with your doctor. Follow-up care Call your healthcare provider if all symptoms are not gone after 3 days of treatment. This is especially important if you have repeat infections. If a culture was done, you will be told if your treatment needs to be changed. If directed, you cancall to find out the results. If X-rays were done, you will be told if the results will affect your treatment. Call 911 Call 911 if any of the following occur: Trouble breathing Hard to wake up or confusion Fainting or loss of consciousness Rapid heart rate When to seek medical advice Call your healthcare provider right away if any of these occur: Fever of 100.4 F (38.0 C) or higher, or as directed by your healthcare provider Symptoms are not better by the third day of treatment Back or belly (abdominal) pain that gets worse Repeated vomiting, or unable to keep medicine down Weakness or dizziness Vaginal discharge Pain, redness, or swelling in the outer vaginal area (labia) [id number] [employer] [place] [address], [place] [address]. All rights reserved. This information is not intended as a substitute for professional medical care. Always follow yourhealthcare professional's instructions. Additional Information VACCINATE! IT SAVES LIVES! Members of the community who have not yet received the COVID-19 vaccine and would like to receive it can visit one of [facility] vaccine clinics. There are many vaccine clinic locations within the [facility]. For locations and available times, please visit www.[email or web address].[place].gov/. It is important to note that some COVID mobile vaccine clinics are held outdoors and may be canceled in rainy or stormy conditions. To learn more about pediatric vaccinations (ages 5-11), we invite you to visit the [facility] webpage. [email or web address]://[email or web address].[email or web address]/[email or web address] [email or web address] learn more about the COVID-19 vaccine, we invite you to visit the CDC website for a list of frequently asked questions. https://www.cdc.gov/coronavirus/2019-ncov/vaccines/faq.html [facility] Patient Portal Access Instructions: Stay connected with your healthcare team and access your personal medical information anytime with the [facility] Patient Portal. If you would like a full copy of your medical records please contact the [facility] Medical Records Department Sunday through Sunday between 8a.m. and 4:30p.m. Please follow the directions below to access the portal: 1.Access the email account you provided upon registration to the hospital.2.Look for an invitation email from [facility].3.Open the email and access the invitation link: Accept Invitation to [facility]4.Fill in the required melara to create your account. Sign into [email or web address] with your username and password that you created in the above steps to stay up to date. You can then view a summary of results, a summary of your visits, and the ability to download your summaries to your computer or send the information securely to a physician. Remember that your healthcare information is confidential, so carefully consider who you will allow to register on the [facility] Patient Portal for access to your information. You can also access the [facility] Patient Portal on the [employer] giorgio. Simply click on Health Records under hybris and then click on the [employer] logo. HOW TO SAFELY DISPOSE OF PRESCRIPTION MEDICATIONS Please use one of the following methods to safely dispose of your unused medications. 1.Use a drug disposal kit: the drug disposal pouch allows you to safely discard your old and unuseddrugs. Ask your nurse to give you one when you are discharged.2.Visit a local take-back location: Many local pharmacies and police departments have programs that collect old and unwanted prescriptiondrugs. Call your local pharmacy or go to http://[employer]/[email or web address] to find one close to you.3.Make use of household items: Use cat litter or old coffee grounds to dispose medications if other options arenot available. Mix your drugs with these household products, seal them in an airtight container andthrow it into the garbage. Call [facility]: [phone] to be sure your drugs can be disposed of in this way. Some medicines may require a different approach.4.Never flush your medications down the toilet. IF YOU HAVE BEEN PRESCRIBED AN OPIOIDS FOR PAIN If you have been prescribed an opioid (such as hydrocodone, oxycodone or morphine), it is critical to understand the possible side effects and risks of opioid pain medications. Even when taken as directed, opioids can have several side effects including: Tolerance, meaning you might need to take more of a medication for the same pain relief. Nausea, vomiting and/or constipation. Sleepiness, dizziness, dry mouth, confusion, depression or itching. Physical dependence, meaning you have withdrawal symptoms when a medication is stopped ? this can develop within a few days. KNOW YOUR RESPONSIBILITIES It is important to know exactly how much and how often to take the opioid pain medications you are prescribed. Never take opioids in higher amounts or more often than prescribed. Do not combine opioids with alcohol or other drugs that cause drowsiness, such as benzodiazepines, also known as benzos,including diazepam and alprazolam, muscle relaxants or sleep aids. Never sell or share prescriptionopioids. This is illegal. Store opioids in a secure place and out of reach of others (including children, family, friends and visitors). The last page(s) of this document has been signed and retained as a CHART COPY Signatures Patient Education Materials Bladder Infection, Female (Adult) Medication Leaflets My discharge plan and instructions have been reviewed and explained to me and I,BELGICA CORBIN understand my current condition and have read and understand these discharge instructions. I have received a written copy of the plan/instructions. If I have questions, I am aware that I should contact my doctor. 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 The following is importantdischarge information regarding your hospital visit. Diagnosis from Today's Visit Diarrhea Nausea UTI (urinary tract infection) What to Do Next Instructions from Your Care Team Please take antibiotics as prescribed for urinary tract infection. You were also prescribed nausea medication as needed for any persistent nausea. Get plenty of fluids and rest. Follow-up with your primary doctor. return to ED for any acute worsening symptoms or concerns. No qualifying data available. Post Acute Orders No qualifying data available. You Need to Schedule the Following Appointments Follow Up with Go to emergency room if symptoms worsen When:Within 2-4 days Follow Up with DEE ENCARNACION DO When:Within 2-4 days Where:0 [facility] [place] [address]- [id number] Allergies Omnicef(Severe) shortness of breath, rash, swelling in hands ciprofloxacin (Mild) rash, swelling in hands Medications Please ask your primary doctor or pharmacist before taking any other medication not listed, including over the counter drugs, herbal medications, vitamins and or supplements as they may interact withyour home medications. What How Much When Why Instructions Last Dose New ondansetron (ondansetron 4 mg oral tablet, disintegrating) 1 tab(s) by mouth Every 6 hours as needed for Nausea/Vomiting Printed Prescription New sulfamethoxazole-trimethoprim (Bactrim DS 800 mg-160 mg oral tablet) 1 tab(s) by mouth Two (2) times a day Duration: 7 Days Printed Prescription Unchanged amLODIPine (amLODIPine 5 mg oral tablet) 1 tab(s) by mouth Once a day Unchanged chlorhexidine topical (Hibiclens 4% topical soap) See instructions Rinse area with water, then apply minimum amount necessary to cover skin or wound area and wash gently. Rinse again thoroughly., As needed for Rash Unchanged DME (DME MISCellaneous) See instructions BP cuff and machine, Dx: I10 Unchanged DME (DME MISCellaneous) See instructions Carpal tunnel syndrome, bilateral Procare comfort form wrist medium left and right, Dx: G56.03 Unchanged escitalopram (escitalopram 20 mg oral tablet) 1 tab(s) by mouth Once a day Duration: 90 Days Unchanged ferrous sulfate (ferrous sulfate 325 mg (65 mg elemental iron) oral tablet) 1 tab(s) by mouth Sunday / Sunday / Sunday Duration: 90 Days may take with food to minimize abdominal discomfort Unchanged galcanezumab (Emgality Autoinjector 120 mg/ mL subcutaneous solution) 120 Milligram Once a month Unchanged melatonin (melatonin 3 mg oral tablet) 1-2 tabs by mouth Daily at bedtime as needed for as needed for insomnia Duration: [address], operate heavy machinery, or drink alcohol while on med. Unchanged norethindrone (Swati 0.35 mg oral tablet) 1 tab(s) by mouth Once a day Unchanged nystatin topical (nystatin 100,000 units/ g topical powder) 1 application Topical Three (3) times a day as needed for Skin irritation Duration: 30 Days Apply to affected area 2 to 3 times daily until healing complete Unchanged ubrogepant (Ubrelvy 100 mg oral tablet) 1 tab(s) by mouth Once as needed for as needed for migraine headache may repeat dose in 2 hours if needed Please take this list to your next doctor s visit. Bring all medications you take, including over the counter medications, herbals and other supplements with you to your doctor s visit. Patients and families are reminded to discard old lists and to update any records with all medication providers or retail pharmacies. Education Materials Bladder Infection, Female (Adult) Urine is normally doesn't have any bacteria in it. But bacteria can get into the urinary tract fromthe skin around the rectum. Or they can travel in the blood from elsewhere in the body. Once they are in your urinary tract, they can cause infection in the urethra (urethritis), the bladder (cystitis), or the kidneys (pyelonephritis). The most common place for an infection is in the bladder. This is called a bladder infection. This is one of the most common infections in women. Most bladder infections are easily treated. They are not serious unless the infection spreads to the kidney. The phrases bladder infection, UTI, and cystitis are often used to describe the same thing. But they are not always the same. Cystitis is an inflammation of the bladder. The most common cause of cystitis is an infection. Symptoms The infection causes inflammation in the urethra and bladder. This causes many of the symptoms. Themost common symptoms of a bladder infection are: Pain or burning when urinating Having to urinate more often than usual Urgent need to urinate Only a small amount of urine comes out Blood in urine Abdominal discomfort. This is usually in the lower abdomen above the pubic bone. Cloudy urine Strong- or bad-smelling urine Unable to urinate (urinary retention) Unable to hold urine in (urinary incontinence) Fever Loss of appetite Confusion (in older adults) Causes Bladder infections are not contagious. You can't get one from someone else, from a toilet seat, or from sharing a bath. The most common cause of bladder infections is bacteria from the bowels. The bacteria get onto the skin around the opening of the urethra. From there, they can get into the urine and travel up to thebladder, causing inflammation and infection. This usually happens because of: Wiping improperly after urinating. Always wipe from front to back. Bowel incontinence Procedures such as having a catheter inserted Older age Not emptying your bladder. This can allow bacteria a chance to grow in your urine. Dehydration Constipation Sex Use of a diaphragm for control Treatment Bladder infections are diagnosed by a urine test. They are treated with antibiotics and usually clear up quickly without complications. Treatment helps prevent a more serious kidney infection. Medicines Medicines can help in the treatment of a bladder infection: Take antibiotics until they are used up, even if you feel better. It is important to finish them tomake sure the infection has cleared. You can use acetaminophen or ibuprofen for pain, fever, or discomfort, unless another medicine was prescribed. If you have chronic liver or kidney disease, talk with your healthcare provider before using these medicines. Also talk with your provider if you've ever had a stomach ulcer or gastrointestinal bleeding, or are taking blood-thinner medicines. If you are given phenazopydridine to reduce burning with urination, it will cause your urine to become a bright orange color. This can stain clothing. Care and prevention These self-care steps can help prevent future infections: Drink plenty of fluids to prevent dehydration and flush out your bladder. Do this unless you must restrict fluids for other health reasons, or your doctor told you not to. Proper cleaning after going to the bathroom is important. Wipe from front to back after using the toilet to prevent the spread of bacteria. Urinate more often. Don't try to hold urine in for a long time. Wear loose-fitting clothes and cotton underwear. Avoid tight-fitting pants. Improve your diet and prevent constipation. Eat more fresh fruit and vegetables, and fiber, and less junk and fatty foods. Avoid sex until your symptoms are gone. Avoid caffeine, alcohol, and spicy foods. These can irritate your bladder. Urinate right after intercourse to flush out your bladder. If you use control pills and have frequent bladder infections, discuss it with your doctor. Follow-up care Call your healthcare provider if all symptoms are not gone after 3 days of treatment. This is especially important if you have repeat infections. If a culture was done, you will be told if your treatment needs to be changed. If directed, you cancall to find out the results. If X-rays were done, you will be told if the results will affect your treatment. Call 911 Call 911 if any of the following occur: Trouble breathing Hard to wake up or confusion Fainting or loss of consciousness Rapid heart rate When to seek medical advice Call your healthcare provider right away if any of these occur: Fever of 100.4 F (38.0 C) or higher, or as directed by your healthcare provider Symptoms are not better by the third day of treatment Back or belly (abdominal) pain that gets worse Repeated vomiting, or unable to keep medicine down Weakness or dizziness Vaginal discharge Pain, redness, or swelling in the outer vaginal area (labia) [id number] [employer]. [address] [place] [address], [place] [address]. All rights reserved. This information is not intended as a substitute for professional medical care. Always follow yourhealthcare professional's instructions. Additional Information VACCINATE! IT SAVES LIVES! Members of the community who have not yet received the COVID-19 vaccine and would like to receive it can visit one of [facility] vaccine clinics. There are many vaccine clinic locations within the [facility]. For locations and available times, please visit www.gettheshot.[email or web address].[place].gov/. It is important to note that some COVID mobile vaccine clinics are held outdoors and may be canceled in rainy or stormy conditions. To learn more about pediatric vaccinations (ages 5-11), we invite you to visit the [facility] webpage. [email or web address].[email or web address]/[email or web address]-[email or web address] [email or web address] learn more about the COVID-19 vaccine, we invite you to visit the CDC website for a list of frequently asked questions. https://www.cdc.gov/coronavirus/2019-ncov/vaccines/faq.html [facility] Patient Portal Access Instructions: Stay connected with your healthcare team and access your personal medical information anytime with the [facility] Patient Portal. If you would like a full copy of your medical records please contact the [facility] Medical Records Department Sunday through Sunday between 8a.m. and 4:30p.m. Please follow the directions below to access the portal: 1.Access the email account you provided upon registration to the hospital.2.Look for an invitation email from [facility].3.Open the email and access the invitation link: Accept Invitation to [facility]4.Fill in the required melara to create your account. Sign into [email or web address] with your username and password that you created in the above steps to stay up to date. You can then view a summary of results, a summary of your visits, and the ability to download your summaries to your computer or send the information securely to a physician. Remember that your healthcare information is confidential, so carefully consider who you will allow to register on the [facility] Patient Portal for access to your information. You can also access the [facility] Patient Portal on the [employer] giorgio. Simply click on Health Records under hybris and then click on the [employer] logo. HOW TO SAFELY DISPOSE OF PRESCRIPTION MEDICATIONS Please use one of the following methods to safely dispose of your unused medications. 1.Use a drug disposal kit: the drug disposal pouch allows you to safely discard your old and unuseddrugs. Ask your nurse to give you one when you are discharged.2.Visit a local take-back location: Many local pharmacies and police departments have programs that collect old and unwanted prescriptiondrugs. Call your local pharmacy or go to http://[employer]/2H9Hg7k to find one close to you.3.Make use of household items: Use cat litter or old coffee grounds to dispose medications if other options arenot available. Mix your drugs with these household products, seal them in an airtight container andthrow it into the garbage. Call [facility]: [phone] to be sure your drugs can be disposed of in this way. Some medicines may require a different approach.4.Never flush your medications down the toilet. IF YOU HAVE BEEN PRESCRIBED AN OPIOIDS FOR PAIN If you have been prescribed an opioid (such as hydrocodone, oxycodone or morphine), it is critical to understand the possible side effects and risks of opioid pain medications. Even when taken as directed, opioids can have several side effects including: Tolerance, meaning you might need to take more of a medication for the same pain relief. Nausea, vomiting and/or constipation. Sleepiness, dizziness, dry mouth, confusion, depression or itching. Physical dependence, meaning you have withdrawal symptoms when a medication is stopped ? this can develop within a few days. KNOW YOUR RESPONSIBILITIES It is important to know exactly how much and how often to take the opioid pain medications you are prescribed. Never take opioids in higher amounts or more often than prescribed. Do not combine opioids with alcohol or other drugs that cause drowsiness, such as benzodiazepines, also known as benzos,including diazepam and alprazolam, muscle relaxants or sleep aids. Never sell or share prescriptionopioids. This is illegal. Store opioids in a secure place and out of reach of others (including children, family, friends and visitors). The last page(s) of this document has been signed and retained as a CHART COPY Signatures Patient Education Materials Bladder Infection, Female (Adult) Medication Leaflets My discharge plan and instructions have been reviewed and explained to me and I,BELGICA CORBIN M understand my current condition and have read and understand these discharge instructions. I have received a written copy of the plan/instructions. If I have questions, I am aware that I should contact my doctor. 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 HISTORY: ORDERING SYSTEM PROVIDED HISTORY: Reason for Exam: chest pain FINDINGS: Cardiomediastinal contours are within normal limits. Hypoventilatory changes with associated bronchovascular crowding. No focal consolidation. No pneumothorax or large pleural effusion. No acute osseous abnormalities. IMPRESSION: Hypoventilatory changes without an acute radiographic process. I have personally reviewed the images of this examination and agree with the resident's findings and interpretation. Interpreted by: Neil Becerra DO Preliminary Report By: Aniket Vogel Electronically signed By Neil Becerra DO Dictated Date: 02/22/2025 6:58:56 PM Prelim Date: 02/22/2025 7:01:22 PM Sign Date: 02/22/2025 9:01:30 PM Ordering Provider: VITO JIMENEZ [facility]08-10-2025 Note* Exam Date Time Procedure Performing Provider Status 02/22/25 6:[address] Abd/Pelvis w/ IV Contrast Only NEIL BECERRA DO; Auth (Verified) [id number] ORIGINAL EXAMINATION: CT OF THE ABDOMEN AND PELVIS WITH CONTRAST02/22/2025 6:32 pm TECHNIQUE: CT of the abdomen and pelvis was performed with the administration of intravenous contrast. Multiplanar reformatted images are provided for review. Automated exposure control, iterative reconstruction, and/or weight based adjustment of the mA/kV was utilized to reduce the radiation dose to as low as reasonably achievable. COMPARISON: MRI liver 10/28/2024. HISTORY: ORDERING SYSTEM PROVIDED HISTORY: Reason for Exam: Abdominal pain, acute, nonlocalized, FINDINGS: The included lung bases are clear. There is no visible pleural or pericardial effusion. The heart is normal in size. Trace pericardial fluid. Hepatic steatosis. Fatty sparing adjacent to the gallbladder fossa is noted. The liver is normal in contour. The spleen, pancreas, and adrenal glands are within normal limits. The gallbladder is unremarkable. Symmetric nephrograms. No hydronephrosis. The ureters are normal in course and caliber. The urinary bladder is under distended. The uterus is within normal limits. No adnexal mass. The large and small bowel demonstrate no obstruction. The appendix is normal. Some fluid-filled mid to distal small bowel loops and fluid in the right-sided colon. No free intraperitoneal fluid or gas is identified. The aorta is normal in caliber. No abdominopelvic lymphadenopathy. There is no acute fracture or aggressive osseous lesion. No acute soft tissue abnormality. Small fat containing umbilical hernia. There is a large amount of subcutaneous fat, compatible with obesity. IMPRESSION: Multiple nondilated fluid-filled small bowel loops and right-side colon. Although nonspecific, mild enterocolitis may be considered. Hepatic steatosis. I have personally reviewed the images of this examination and agree with the resident's findings and interpretation. Interpreted by: Neil Becerra DO Preliminary Report By: Aniket Vogel Electronically signed By Neil Becerra DO Dictated Date: 02/22/2025 6:41:26 PM Prelim Date: 02/22/2025 6:48:03 PM Sign Date: 02/22/2025 7:14:31 PM Ordering Provider: VITO JIMENEZ [facility]08-10-2025 Note* Exam Date Time Procedure Performing Provider Status 02/22/25 5:21 PM EKG [ED AOH] - CV VITO JIMENEZ DO; Au th (Verified) ECG Final Report Sinus tachycardia LVH by voltage Prolonged QT interval Electronic Signature: VITO JIMENEZ DO 02/22/2025 17:52:54 [facility]11-13-2024 Note. MICRO - Microbiology PROCEDURE: Affirm Pathogens DNA Direct Probe [*1] SOURCE: Vaginal Fluid BODY SITE: Cervix COLLECTED DATE/TIME: 05/27/2024 14:00 EST RECEIVED DATE/TIME: 05/27/2024 18:55 EST START DATE/TIME: 05/27/2024 18:55 EST FREE TEXT SOURCE: FINAL REPORTS Final Report [] Verified Date/Time/Personnel: 05/28/2024 13:54 EST Gardnerella vaginalis DNA Probe Positive Sejal species DNA Probe Negative Trichomonas vaginalis DNA Probe Negative Performing Locations *1: This test was performed at: [address], [address] , [facility]02-28-2024 Hospital Discharge instructions Patient Education 09/11/2023 23:27:43 Ingrown Toenail, Infected (Antibiotics, No Excision) Ingrown Toenail, Infected (Antibiotics, No Excision) An ingrown toenail occurs when the nail grows sideways into the skin alongside the nail. This can cause pain. It can also lead to an infection with redness, swelling, and sometimes drainage. The most common cause of an ingrown toenail is trimming your nails wrong. Most people trim the nails too close to the skin and try to round the nail too tightly around the shape of the toe. When you do this, the nail can grow into the skin of your toe. It is safer to trim the nail ending in a straight line rather than a curve. Other causes include injury or wearing shoes that are too short or tight. This can cause the same problem that happens when trimming your nails. Your genetics can also make this more likely to happen. The following are the most common symptoms of an ingrown toenail: Pain Redness Swelling Drainage If the infection is mild, you may be able to take care of it at home with the following measures: Frequent warm water soaks Keeping it clean Wearing loose, comfortable shoes or sandals Another method involves using a small piece of cotton or waxed dental floss to gently lift up the corner of the problem nail. Change the cotton or floss frequently, especially if it gets dirty. If your infection is mild, and the above methods aren t working, or if the infection gets worse, see your healthcare provider. Signs of worsening infection include: Swelling Redness Pus drainage In some cases, you may need antibiotics along with warm soaks. If after 2 to 3 days of antibiotics the toenail doesn't get better or gets worse, part of the nail may need to be removed to drain the infection. With treatment, it can take 1 to 2 weeks to clear up completely. Home care Wound care For the next 3 days, soak and clean your toe in warm water a few times a day. Twice a day for the first 3 days, clean and soak the toe as follows: 1. Soak your foot in a tub of warm water for 5 minutes. Or, hold your toe under a faucet of warm running water for 5 minute 2. Clean any remaining crust away with soap and water using a cotton swab. 3. Put a small amount of antibiotic ointment on the infected area. Change the dressing or bandage every time you soak or clean it, or whenever it becomes wet or dirty. If you were prescribed antibiotics, take them as directed until they are all gone. Wear comfortable shoes with a lot of toe room, or open-toe sandals, while your toe is healing. Medicines You can take gsbh-ppe-aksotwe medicine for pain, unless you were given a different pain medicine touse. Note: Talk with your provider before using these medicines if you have chronic liver or kidneydisease, ever had a stomach ulcer or GI (gastrointestinal) bleeding, or are taking blood thinner medicines. If you were given antibiotics, take them until they are used up or your provider tells you to stop,even if the wound looks better. This ensures that the infection clears up. Prevention To prevent ingrown toenails: Wear shoes that fit well. Avoid shoes that pinch the toes together. When you trim your toenails, do not cut them too short. Cut straight across at the top and don t round the edges. Don t use a sharp object to clean under your nail since this might cause an infection. If the toenail starts to grow into the skin again, put a small piece of waxed dental floss or cotton under that side of the nail to help it grow out straight. Follow-up care Follow up with your healthcare provider, or as advised. If the antibiotic doesn't work, or if the condition recurs, you may need a minor procedure to have part of the nail removed. When to seek medical advice Call your healthcare provider right away if any of the following occur: Increasing redness, pain, or swelling of the toe Red streaks in the skin leading away from the wound Pus or fluid drainage Fever of 100.4 F (38 C) or higher, or as directed by your provider [id number] [employer] [place] [address]. All rights reserved. This information is not intended as a substitute for professional medical care. Always follow yourhealthcare professional's instructions. Follow Up Care 09/11/2023 23:17:55 With:Go to emergency room if symptoms worsen Address:Unknown When:2-4 days With:DEE ENCARNACION DO Address: [address] [facility] [place] [address]- [phone] When:2-4 days With:CIERRA BEARD DPM, Surgery Address: [address] [place] [address], [place] [address] [facility] [place] [address]- When:1-2 days [facility] 02-27-2024 Note Discharge Instructions Thank you for allowing [facility] to assist you with your healthcare needs. The following is importantdischarge information regarding your hospital visit. Diagnosis from Today's Visit Ingrown toenail Toe pain-swelling What to Do Next Instructions from Your Care Team Take Bactrim as prescribed for antibiotic coverage. Follow-up with Dr. Beard of podiatry. The podiatry for definitive management of ingrown toenail. Return the emergency department if experience worsening symptoms or any other care concern. No qualifying data available. Post Acute Orders No qualifying data available. You Need to Schedule the Following Appointments Follow Up with Go to emergency room if symptoms worsen When Within 2-4 days Follow Up with DEE ENCARNACION DO When Within 2-4 days Where: [address] [facility] [place], [place] [id number] [phone] Follow Up with CIERRA BEARD DPM, Surgery When Within 1-2 days Where: [address] [place], [address] [facility] [place] [address]- Allergies Omnicef (shortness of breath, rash, swelling in hands) ciprofloxacin (rash, swelling in hands) Medications Please ask your primary doctor or pharmacist before taking any other medication not listed, including over the counter drugs, herbal medications, vitamins and or supplements as they may interact withyour home medications. What How Much When Instructions Last Dose New sulfamethoxazole-trimethoprim (Bactrim DS 800 mg-160 mg oral tablet) 1 tab(s) by mouth Two (2) times a day Duration: 7 Days Printed Prescription Unchanged ethinyl estradiol-norgestimate (Sprintec 0.25 mg-35 mcg oral tablet) 1 tab(s) by mouth Once a day Unchanged metroNIDAZOLE topical (metroNIDAZOLE 1% topical cream) 1 application Topical Once a day as needed for Rash Duration: 30 Days apply a thin film to affected area around mouth after washing Unchanged sertraline (sertraline 50 mg oral tablet) 1 tab(s) by mouth Once a day Duration: 60 Days Take 25 mg tab PO daily for two weeks, then increase to 50 mg tab daily thereafter. Please take this list to your next doctor s visit. Bring all medications you take, including over the counter medications, herbals and other supplements with you to your doctor s visit. Patients and families are reminded to discard old lists and to update any records with all medication providers or retail pharmacies. Education Materials Ingrown Toenail, Infected (Antibiotics, No Excision) An ingrown toenail occurs when the nail grows sideways into the skin alongside the nail. This can cause pain. It can also lead to an infection with redness, swelling, and sometimes drainage. The most common cause of an ingrown toenail is trimming your nails wrong. Most people trim the nails too close to the skin and try to round the nail too tightly around the shape of the toe. When you do this, the nail can grow into the skin of your toe. It is safer to trim the nail ending in a straight line rather than a curve. Other causes include injury or wearing shoes that are too short or tight. This can cause the same problem that happens when trimming your nails. Your genetics can also make this more likely to happen. The following are the most common symptoms of an ingrown toenail: Pain Redness Swelling Drainage If the infection is mild, you may be able to take care of it at home with the following measures: Frequent warm water soaks Keeping it clean Wearing loose, comfortable shoes or sandals Another method involves using a small piece of cotton or waxed dental floss to gently lift up the corner of the problem nail. Change the cotton or floss frequently, especially if it gets dirty. If your infection is mild, and the above methods aren t working, or if the infection gets worse, see your healthcare provider. Signs of worsening infection include: Swelling Redness Pus drainage In some cases, you may need antibiotics along with warm soaks. If after 2 to 3 days of antibiotics the toenail doesn't get better or gets worse, part of the nail may need to be removed to drain the infection. With treatment, it can take 1 to 2 weeks to clear up completely. Home care Wound care For the next 3 days, soak and clean your toe in warm water a few times a day. Twice a day for the first 3 days, clean and soak the toe as follows: 1. Soak your foot in a tub of warm water for 5 minutes. Or, hold your toe under a faucet of warm running water for 5 minute 2. Clean any remaining crust away with soap and water using a cotton swab. 3. Put a small amount of antibiotic ointment on the infected area. Change the dressing or bandage every time you soak or clean it, or whenever it becomes wet or dirty. If you were prescribed antibiotics, take them as directed until they are all gone. Wear comfortable shoes with a lot of toe room, or open-toe sandals, while your toe is healing. Medicines You can take gfly-ald-iwemmxy medicine for pain, unless you were given a different pain medicine touse. Note: Talk with your provider before using these medicines if you have chronic liver or kidneydisease, ever had a stomach ulcer or GI (gastrointestinal) bleeding, or are taking blood thinner medicines. If you were given antibiotics, take them until they are used up or your provider tells you to stop,even if the wound looks better. This ensures that the infection clears up. Prevention To prevent ingrown toenails: Wear shoes that fit well. Avoid shoes that pinch the toes together. When you trim your toenails, do not cut them too short. Cut straight across at the top and don t round the edges. Don t use a sharp object to clean under your nail since this might cause an infection. If the toenail starts to grow into the skin again, put a small piece of waxed dental floss or cotton under that side of the nail to help it grow out straight. Follow-up care Follow up with your healthcare provider, or as advised. If the antibiotic doesn't work, or if the condition recurs, you may need a minor procedure to have part of the nail removed. When to seek medical advice Call your healthcare provider right away if any of the following occur: Increasing redness, pain, or swelling of the toe Red streaks in the skin leading away from the wound Pus or fluid drainage Fever of 100.4 F (38 C) or higher, or as directed by your provider [id number] [employer]. [address] [place] [address]. All rights reserved. This information is not intended as a substitute for professional medical care. Always follow yourhealthcare professional's instructions. Additional Information VACCINATE! IT SAVES LIVES! Members of the community who have not yet received the COVID-19 vaccine and would like to receive it can visit one of [facility] vaccine clinics. There are many vaccine clinic locations within the [facility]. For locations and available times, please visit www.[email or web address].[place].gov/. It is important to note that some COVID mobile vaccine clinics are held outdoors and may be canceled in rainy or stormy conditions. To learn more about pediatric vaccinations (ages 5-11), we invite you to visit the [facility] webpage. [email or web address] learn more about the COVID-19 vaccine, we invite you to visit the CDC website for a list of frequently asked questions. https://www.cdc.gov/coronavirus/2019-ncov/vaccines/faq.html [facility] Patient Portal Access Instructions: Stay connected with your healthcare team and access your personal medical information anytime with the [facility] Patient Portal. If you would like a full copy of your medical records please contact the [facility] Medical Records Department Sunday through Sunday between 8a.m. and 4:30p.m. Please follow the directions below to access the portal: 1.Access the email account you provided upon registration to the [facility].2.Look for an invitation email from [facility].3.Open the email and access the invitation link: Accept Invitation to [facility].Fill in the required melara to create your account. Sign into [email or web address] with your username and password that you created in the above steps to stay up to date. You can then view a summary of results, a summary of your visits, and the ability to download your summaries to your computer or send the information securely to a physician. Remember that your healthcare information is confidential, so carefully consider who you will allow to register on the [facility] Patient Portal for access to your information. You can also access the [facility] Patient Portal on the [employer] giorgio. Simply click on Health Records under hybris and then click on the [facility] logo. HOW TO SAFELY DISPOSE OF PRESCRIPTION MEDICATIONS Please use one of the following methods to safely dispose of your unused medications. 1.Use a drug disposal kit: the drug disposal pouch allows you to safely discard your old and unuseddrugs. Ask your nurse to give you one when you are discharged.2.Visit a local take-back location: Many local pharmacies and police departments have programs that collect old and unwanted prescriptiondrugs. Call your local pharmacy or go to http://bit.ly/5L2Fd2g to find one close to you.3.Make use of household items: Use cat litter or old coffee grounds to dispose medications if other options arenot available. Mix your drugs with these household products, seal them in an airtight container andthrow it into the garbage. Call [facility]: [phone] to be sure your drugs can be disposed of in this way. Some medicines may require a different approach.4.Never flush your medications down the toilet. IF YOU HAVE BEEN PRESCRIBED AN OPIOIDS FOR PAIN If you have been prescribed an opioid (such as hydrocodone, oxycodone or morphine), it is critical to understand the possible side effects and risks of opioid pain medications. Even when taken as directed, opioids can have several side effects including: Tolerance, meaning you might need to take more of a medication for the same pain relief. Nausea, vomiting and/or constipation. Sleepiness, dizziness, dry mouth, confusion, depression or itching. Physical dependence, meaning you have withdrawal symptoms when a medication is stopped ? this can develop within a few days. KNOW YOUR RESPONSIBILITIES It is important to know exactly how much and how often to take the opioid pain medications you are prescribed. Never take opioids in higher amounts or more often than prescribed. Do not combine opioids with alcohol or other drugs that cause drowsiness, such as benzodiazepines, also known as benzos,including diazepam and alprazolam, muscle relaxants or sleep aids. Never sell or share prescriptionopioids. This is illegal. Store opioids in a secure place and out of reach of others (including children, family, friends and visitors). The last page(s) of this document has been signed and retained as a CHART COPY Signatures Patient Education Materials Ingrown Toenail, Infected (Antibiotics, No Excision) Medication Leaflets My discharge plan and instructions have been reviewed and explained to me and I,BELGICA CORBIN M understand my current condition and have read and understand these discharge instructions. I have received a written copy of the plan/instructions. If I have questions, I am aware that I should contact my doctor. 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 You may not realize that you have hypertension if your blood pressure is not being checked regularly. In most cases, hypertension will go away on its own, usually within a week of delivery. However, for some women, medical treatment is required to prevent serious complications, such as seizures or stroke. What are the causes? This condition may be caused by one or more of the following: Hypertension that existed before (chronic hypertension). Hypertension that comes on as a result of (gestational hypertension). Hypertensive disorders during (preeclampsia) or seizures in women who have high blood pressure during (eclampsia). A condition in which the liver, platelets, and red blood cells are damaged during (HELLP syndrome). A condition in which the thyroid produces too much hormones (hyperthyroidism). Other rare problems of the nerves (neurological disorders) or blood disorders. In some cases, the cause may not be known. What increases the risk? The following factors may make you more likely to develop this condition: Chronic hypertension. In some cases, this may not have been diagnosed before . Obesity. Type 2 diabetes. Kidney disease. History of preeclampsia or eclampsia. Other medical conditions that change the level of hormones in the body (hormonal imbalance). What are the signs or symptoms? As with all types of hypertension, hypertension may not have any symptoms. Depending on how high your blood pressure is, you may experience: Headaches. These may be mild, moderate, or severe. They may also be steady, constant, or sudden in onset (thunderclap headache). Changes in your ability to see (visual changes). Dizziness. Shortness of breath. Swelling of your hands, feet, lower legs, or face. In some cases, you may have swelling in more than one of these locations. Heart palpitations or a racing heartbeat. Difficulty breathing while lying down. Decrease in the amount of urine that you pass. Other rare signs and symptoms may include: Sweating more than usual. This lasts longer than a few days after delivery. Chest pain. Sudden dizziness when you get up from sitting or lying down. Seizures. Nausea or vomiting. Abdominal pain. How is this diagnosed? This condition may be diagnosed based on the results of a physical exam, blood pressure measurements, and blood and urine tests. You may also have other tests, such as a CT scan or an MRI, to check for other problems of hypertension. How is this treated? If blood pressure is high enough to require treatment, your options may include: Medicines to reduce blood pressure (antihypertensives). Tell your health care provider if you are or if you plan to breastfeed. There are many antihypertensive medicines that are safe to take while . Stopping medicines that may be causing hypertension. Treating medical conditions that are causing hypertension. Treating the complications of hypertension, such as seizures, stroke, or kidney problems. Your health care provider will also continue to monitor your blood pressure closely until it is within a safe range for you. Follow these instructions at home: Take rzat-zad-qfvxyvt and prescription medicines only as told by your health care provider. Return to your normal activities as told by your health care provider. Ask your health care provider what activities are safe for you. Do not use any products that contain nicotine or tobacco, such as cigarettes and e-cigarettes. If you need help quitting, ask your health care provider. Keep all follow-up visits as told by your health care provider. This is important. Contact a health care provider if: Your symptoms get worse. You have new symptoms, such as: ?A headache that does not get better. ?Dizziness. ?Visual changes. Get help right away if: You suddenly develop swelling in your hands, ankles, or face. You have sudden, rapid weight gain. You develop difficulty breathing, chest pain, racing heartbeat, or heart palpitations. You develop severe pain in your abdomen. You have any symptoms of a stroke. BE FAST is an easy way to remember the main warning signs of astroke: ?B - Balance. Signs are dizziness, sudden trouble walking, or loss of balance. ?E - Eyes. Signs are trouble seeing or a sudden change in vision. ?F - Face. Signs are sudden weakness or numbness of the face, or the face or eyelid drooping on oneside. ?A - Arms. Signs are weakness or numbness in an arm. This happens suddenly and usually on one side of the body. ?S - Speech. Signs are sudden trouble speaking, slurred speech, or trouble understanding what people say. ?T - Time. Time to call emergency services. Write down what time symptoms started. You have other signs of a stroke, such as: ?A sudden, severe headache with no known cause. ?Nausea or vomiting. ?Seizure. These symptoms may represent a serious problem that is an emergency. Do not wait to see if the symptoms will go away. Get medical help right away. Call your local emergency services (911 in the [place] Do not drive yourself to the hospital. Summary hypertension is high blood pressure that remains higher than normal after childbirth. In most cases, hypertension will go away on its own, usually within a week of delivery. For some women, medical treatment is required to prevent serious complications, such as seizures orstroke. This information is not intended to replace advice given to you by your health care provider. Make sure you discuss any questions you have with your health care provider. Document Released: 03/05/2015 Document Revised: 08/08/2019 Document Reviewed: 04/22/2018 [employer] Patient Education 2020 [employer]. 09/29/2022 08:01:25 Hemorrhage Hemorrhage hemorrhage is excessive blood loss after childbirth. Vaginal bleeding after delivery is normal and should be expected. Bleeding (lochia) will occur for several days after childbirth. This can be expected with normal vaginal deliveries and deliveries. However, hemorrhage is a potentially serious condition. What are the causes? This condition is caused by: A loss of muscle tone in the uterus after childbirth. This can be caused by: ?An abnormal placenta. ?Infection. ?Bladder swelling (distension). Failure to deliver all of the placenta or the retention of clots. Wounds in the canal caused by delivery of the fetus. Infection of the uterus. Infection of tissue around the fetus. A tear in the uterus. Tearing of the vagina or cervix during delivery. A maternal bleeding disorder that prevents blood from clotting (rare). What increases the risk? This condition is likely to develop in people who: Have a history of hemorrhage. Had a delivery that lasted longer than usual. Have an excess of amniotic fluid in the amniotic sac (polyhydramnios), leading the uterus to stretch too much. Have delivered quintuplets or more babies. Had high blood pressure, seizures, or coma during . Had a condition called preeclampsia or eclampsia during . Had problems with the placenta. Had complications during labor or delivery. Are obese. Are 40 years old or older. Are or . What are the signs or symptoms? Symptoms of this condition include: Passing large clots or pieces of tissue. These may be small pieces of placenta left after delivery. Soaking more than one sanitary pad per hour for several hours. Heavy, bright-red bleeding that occurs 4 days or more after delivery. Discharge that has a bad smell. An unexplained fever. Nausea or vomiting. Pain or swelling near the vagina or perineum. A drop in blood pressure. Lightheadedness or fainting. Shortness of breath. A fast heart rate that happens with very little activity. Signs of shock, such as: ?Blurry vision. ?Chills. ?Dizziness. ?Weakness. How is this diagnosed? This condition may be diagnosed based on: Your symptoms. A physical exam of your perineum, vagina, cervix, and uterus. Tests, including: ?Blood pressure and pulse measurements. ?Blood tests. ?Blood clotting tests. ?Ultrasonography. How is this treated? Treatment for this condition depends on the severity of your symptoms. It may include: Uterine massage. Medicines to help the uterus contract. Blood transfusions. Fluids given through the vein. A medical procedure to compress arteries supplying the uterus. Sometimes bleeding occurs if portions of the placenta are left behind in the uterus after delivery.If this happens, a curettage or scraping of the inside of the uterus must be done (rare). This usually stops the bleeding. If curettage does not stop the bleeding, surgery may be done to remove the uterus (hysterectomy), but this rarely occurs. If bleeding is due to clotting or bleeding problems that are not related to the , other treatments may be needed. Follow these instructions at home: Limit your activity as directed by your health care provider. Your health care provider may order bed rest (getting up to go to the bathroom only) or may allow you to continue light activity. Keep track of the number of pads you use each day and how soaked (saturated) they are. Write down this information. Do not use tampons. Do not douche or have sexual intercourse until your health care provider approves. Drink enough fluids to keep your urine clear or pale yellow. Get enough rest. Eat foods that are rich in iron, such as spinach, red meat, and legumes. Take any aljg-gnw-qxzrual and prescription medicines only as told by your health care provider. Keep all follow-up visits as told by your health care provider. This is important. Get help right away if: You experience severe cramps in your stomach, back, or abdomen. You have a fever. You pass large clots or tissue. Save any tissue for your health care provider to look at. Your bleeding increases. You have heavy bleeding that soaks one pad per hour for 2 hours in a row. You faint or become dizzy, weak, or lightheaded. Your sanitary pad count per hour is increasing. You are urinating less than usual or not at all. You have shortness of breath. Your heart rate is faster than usual. You have sudden chest pain. This information is not intended to replace advice given to you by your health care provider. Make sure you discuss any questions you have with your health care provider. Document Released: 09/21/2004 Document Revised: 06/14/2018 Document Reviewed: 02/02/2017 [employer] Patient Education [employer]. 09/29/2022 08:01:19 7b- Depression and Blues (04/2020) (CUSTOM) [facility] Depression and Blues All mothers are at risk of developing depression or the blues. These mood changes can occur right after giving , or they may occur many months after giving . blues or depression can be mild or severe. Additionally, depression can goaway rather quickly, or it can be a long-term condition. CAUSES Raised hormone levels and the rapid drop in those levels are thought to be a main cause of depression and blues. A number of hormones change during and after . Estrogenand progesterone usually decrease right after delivery. The levels of thyroid hormone and various cortisol steroids also rapidly drop. Other factors that play a role in these mood changes include major life events and genetics. RISK FACTORS If you have any of the following risks for blues or depression, know what symptoms to watch out for during the period. Risk factors that may increase the likelihood of getting blues or depression include: Having a personal or family history of depression. Having depression while being . Having premenstrual mood issues or mood issues related to oral contraceptives. Having a lot of life stress. Having marital conflict. Lacking a social support network. Having health problems, such as diabetes. SIGNS AND SYMPTOMS Symptoms of blues include: Brief changes in mood, such as going from extreme happiness to sadness. Decreased concentration. Difficulty sleeping. Crying spells, tearfulness. Irritability. Anxiety. Symptoms of depression typically begin within the first month after giving . These symptoms include: Difficulty sleeping or excessive sleepiness. Marked weight loss. Agitation. Feelings of worthlessness. Lack of interest in activity or food. psychosis is a very serious condition and can be dangerous. Fortunately, it is rare. Displaying any of the following symptoms is cause for immediate medical attention. Symptoms of psychosis include: Hallucinations and delusions. Bizarre or disorganized behavior. Confusion or disorientation. DIAGNOSIS A diagnosis is made by an evaluation of your symptoms. There are no medical or lab tests that lead to a diagnosis, but there are various questionnaires that a health care provider may use to identifythose with blues, depression, or psychosis. Often, a screening tool called the Malcom Depression Scale is used to diagnose depression in the period. TREATMENT blues usually goes away on its own in 1 2 weeks. Social support is often all that is needed. You will be encouraged to get adequate sleep and rest. Occasionally, you may be given medicinesto help you sleep. depression requires treatment because it can last several months or longer if it is not treated. Treatment may include individual or group therapy, medicine, or both to address any social,physiological, and psychological factors that may play a role in the depression. Regular exercise, a healthy diet, rest, and social support may also be strongly recommended. psychosis is more serious and needs treatment right away. Hospitalization is often needed. HOME CARE INSTRUCTIONS Get as much rest as you can. Exercise regularly. Some women find yoga and walking to be beneficial. Eat a balanced and nourishing diet. Do little things that you enjoy. Have a cup of tea, take a bubble bath, read your favorite magazine, or listen to your favorite music. Avoid alcohol. Ask for help with correctional substance abuse counselor, cooking, grocery shopping, or running errands as needed. Do nottry to do everything. Talk to people close to you about how you are feeling. Get support from your partner, family members, and friends. Try to stay positive in how you think. Think about the things you are grateful for. Do not spend a lot of time alone. Only take lzin-fbz-mesxgzi or prescription medicine as directed by your health care provider. Keep all your appointments. Let your health care provider know if you have any concerns. SEEK MEDICAL CARE IF: You are having a reaction to or problems with your medicine. SEEK IMMEDIATE MEDICAL CARE IF: You have suicidal feelings. You think you may harm yourself or someone else. MAKE SURE YOU: Understand these instructions. Will watch your condition. Will get help right away if you are not doing well or get worse. Resource: [facility] Patient Information 2014 [employer] [facility]. This information is not intended to replace advicegiven to you by your health care provider. Make sure you discuss any questions you have with your health care provider. 09/29/2022 08:01:09 7- Home Care Instructions After Delivery 08/2019 (CUSTOM) Home Care Instructions After Delivery After discharge you may discover that you still have questions about body changes, activity, and care during the next few weeks. The following information should be helpful in answering many of your questions. ACTIVITY Resume your daily activities at home gradually. Allow time for rest periods during the day Avoid heavy lifting (more than 10 pounds/4.5 kilograms) and strenuous work or sports. If you had a , you should refrain from vacuuming, stair-climbing, and driving a car for 2 to 3 weeks. VAGINAL FLOW & RETURN OF MENSES Vaginal flow may continue for 4 to 6 weeks after delivery. Usually the amount decreases and the color of blood gets basin tender. Bright red and increased flow may reoccur if you have been too active. Lie down, rest, and call your caregiver if you are soaking more than 1 pad an hour or passing largeclots. Menstrual period will usually return 6 to 8 weeks after delivery. PERINEAL CARE Use the laila-bottle and change sanitary pads each time you go to the bathroom. Use towelettes in place of toilet paper until stitches are healed. Continue to use tucks and/or spray dermoplast. Lidocaine cream for episiotomy pain with your care givers approval. Do not use tampons or douches until vaginal bleeding has stopped (about 4 weeks). No Sexual intercourse until seen by physician. INCISION (CUT BY THE SURGEON) CARE Following , shower as desired but try to keep your incision dry. A small amount of clear or pink drainage is normal. The incision site will be tender for several weeks. Take prescription or lugm-qoq-fwlcify medications for pain with your care givers approval. Contact your caregiver if the drainage increases, becomes foul smelling, the incision reddens, or you develop a fever. BOWELS/HEMORRHOIDS Try to avoid constipation by increasing the fluids and fiber in your diet. Drink at least 6 to 8 glasses of non-caffeinated fluids per day. Include whole grains, raw fruits and vegetables in your diet. Avoid straining when trying to pass a stool. Bani-xra-apkvzpt medications, stool softeners, can be used. Check with your caregiver. NUTRITION Eat a well-balanced diet that includes the basic food groups. Do not try to lose weight quickly by drastically cutting back on calories. EXERCISES Kegel exercises Start this exercise right after delivery. You can do it while standing, sitting, or lying down. Tighten your stomach muscles and the muscles surrounding your canal. Hold for a few seconds and then relax. Do Kegel exercises when you take a sitz bath. Repeat often during the day. Choose specialtimes during the day when you will remember to do this (for example, when using the bathroom, turning the water faucet on, etc.). Repeat 5 times each time. Make Kegel exercises a part of your daily routine to maintain the tone of muscles that support your vagina, bladder, and bowels. SELF BREAST EXAMINATION A self breast exam needs to be an important part of every woman's self-care. Do your self breast exam once a month, 5 to 7 days after your period begins, unless you are . Do self breast exams at the same time of the month each month, on a day of your choice. Any lump, bump or discharge should be reported to your caregiver. SEEK MEDICAL CARE IMMEDIATELY IF YOU NOTICE: Sanitary pad soaked with blood in 1 hour or less. Severe lower abdominal pain or cramping. Foul-smelling discharge from vagina. Increased rather than decreased pain around stitches and/or swelling, redness or hardness in area. Pain and/or redness in calf of the leg. Nausea with vomiting for 12 hours. Sudden, severe chest pain. Shortness of breath. Painful urination. Severe headache. Area of the breast is red and sore and you have a fever. (You may feel like you have flu symptoms.) Follow Up Care 09/26/2022 16:53:17 With:OB, CLINIC Address: When:11/10/2022 [facility] 03-17-2023 Note Discharge Instructions Thank you for allowing [facility] to assist you with your healthcare needs. The following is importantdischarge information regarding your hospital visit. Your Care Team ISAIAS ROMERO NP What to do next Follow Up Appointments Follow Up with OB, CLINIC When In 6 weeks 11/10/2022 EDT Where: Someone Will Contact You Regarding These Home Health Referrals No home referrals have been ordered for you. No one will call you. The Following Activity and Diet Have Been Ordered for You Discharge Activity - Ordered -- May Shower, No sexual intercourse or anything inside of the vagina x 6 wks. No tub baths x 2 wks, No lifting >15lbs x 6 wks, Don't operate a vehicle for 2 wks and until pain free,, 09/29/22 5:59:00 EDT Discharge Diet - Ordered -- Type of Diet: Regular, No changes were made to your diet during your hospital stay. Please resume your pre hospitalization diet on discharge., 09/29/22 5:59:00 EDT The Following Equipment Has Been Ordered for You Discharge Home Equipment Discharge Wound Care - Ordered -- call the office if exp a temp >100.4, Increase in Bleeding, Increase in Pain, or Increase in foul odors, 09/29/22 5:59:00 EDT The Following Treatments Have Been Arranged for You Discharge Labs No qualifying data available. Discharge Radiology No qualifying data available. Other Therapies No qualifying data available. Allergies Omnicef (shortness of breath, rash, swelling in hands) ciprofloxacin (rash, swelling in hands) Immunizations This Visit Not Given Vaccine Commentstetanus/diphth/pertuss (Tdap) adult/adol Patient Refuses Medications Please ask your primary doctor or pharmacist before taking any other medication not listed, including over the counter drugs, herbal medications, vitamins and or supplements as they may interact withyour home medications. What How Much When Instructions Last Dose New docusate (Colace 100 mg oral capsule) 1 cap by mouth Two (2) times a day Pickup at [facility] New ethinyl estradiol-norgestimate (Sprintec 0.25 mg-35 mcg oral tablet) 1 tab(s) by mouth Once a day Refills: 3 Pickup at [facility] New ibuprofen (ibuprofen 600 mg oral tablet) 1 tab(s) by mouth Every 8 hours Pickup at [facility] New norethindrone (norethindrone 0.35 mg oral tablet) 1 tab(s) by mouth Once a day Pickup at [facility] Unchanged multivitamin, ( AD) 1 tab(s) by mouth Once a day Pharmacy Information [id number]: [address] [place], [place] [id number] [phone] What How Much When Comments Stop Taking aspirin (aspirin 81 mg oral delayed release tablet) 1 tab(s) by mouth Once a day Please take this list to your next doctor s visit. Bring all medications you take, including over the counter medications, herbals and other supplements with you to your doctor s visit. Patients and families are reminded to discard old lists and to update any records with all medication providers or retail pharmacies. Education Materials Hypertension hypertension is high blood pressure that remains higher than normal after childbirth. You may not realize that you have hypertension if your blood pressure is not being checked regularly. In most cases, hypertension will go away on its own, usually within a week of delivery. However, for some women, medical treatment is required to prevent serious complications, such as seizures or stroke. What are the causes? This condition may be caused by one or more of the following: Hypertension that existed before (chronic hypertension). Hypertension that comes on as a result of (gestational hypertension). Hypertensive disorders during (preeclampsia) or seizures in women who have high blood pressure during (eclampsia). A condition in which the liver, platelets, and red blood cells are damaged during (HELLP syndrome). A condition in which the thyroid produces too much hormones (hyperthyroidism). Other rare problems of the nerves (neurological disorders) or blood disorders. In some cases, the cause may not be known. What increases the risk? The following factors may make you more likely to develop this condition: Chronic hypertension. In some cases, this may not have been diagnosed before . Obesity. Type 2 diabetes. Kidney disease. History of preeclampsia or eclampsia. Other medical conditions that change the level of hormones in the body (hormonal imbalance). What are the signs or symptoms? As with all types of hypertension, hypertension may not have any symptoms. Depending on how high your blood pressure is, you may experience: Headaches. These may be mild, moderate, or severe. They may also be steady, constant, or sudden in onset (thunderclap headache). Changes in your ability to see (visual changes). Dizziness. Shortness of breath. Swelling of your hands, feet, lower legs, or face. In some cases, you may have swelling in more than one of these locations. Heart palpitations or a racing heartbeat. Difficulty breathing while lying down. Decrease in the amount of urine that you pass. Other rare signs and symptoms may include: Sweating more than usual. This lasts longer than a few days after delivery. Chest pain. Sudden dizziness when you get up from sitting or lying down. Seizures. Nausea or vomiting. Abdominal pain. How is this diagnosed? This condition may be diagnosed based on the results of a physical exam, blood pressure measurements, and blood and urine tests. You may also have other tests, such as a CT scan or an MRI, to check for other problems of hypertension. How is this treated? If blood pressure is high enough to require treatment, your options may include: Medicines to reduce blood pressure (antihypertensives). Tell your health care provider if you are or if you plan to breastfeed. There are many antihypertensive medicines that are safe to take while . Stopping medicines that may be causing hypertension. Treating medical conditions that are causing hypertension. Treating the complications of hypertension, such as seizures, stroke, or kidney problems. Your health care provider will also continue to monitor your blood pressure closely until it is within a safe range for you. Follow these instructions at home: Take apim-nuh-pkcvnbq and prescription medicines only as told by your health care provider. Return to your normal activities as told by your health care provider. Ask your health care provider what activities are safe for you. Do not use any products that contain nicotine or tobacco, such as cigarettes and e-cigarettes. If you need help quitting, ask your health care provider. Keep all follow-up visits as told by your health care provider. This is important. Contact a health care provider if: Your symptoms get worse. You have new symptoms, such as: ? A headache that does not get better. ? Dizziness. ? Visual changes. Get help right away if: You suddenly develop swelling in your hands, ankles, or face. You have sudden, rapid weight gain. You develop difficulty breathing, chest pain, racing heartbeat, or heart palpitations. You develop severe pain in your abdomen. You have any symptoms of a stroke. BE FAST is an easy way to remember the main warning signs of astroke: ? B - Balance. Signs are dizziness, sudden trouble walking, or loss of balance. ? E - Eyes. Signs are trouble seeing or a sudden change in vision. ? F - Face. Signs are sudden weakness or numbness of the face, or the face or eyelid drooping on one side. ? A - Arms. Signs are weakness or numbness in an arm. This happens suddenly and usually on one side of the body. ? S - Speech. Signs are sudden trouble speaking, slurred speech, or trouble understanding what peoplesay. ? T - Time. Time to call emergency services. Write down what time symptoms started. You have other signs of a stroke, such as: ? A sudden, severe headache with no known cause. ? Nausea or vomiting. ? Seizure. These symptoms may represent a serious problem that is an emergency. Do not wait to see if the symptoms will go away. Get medical help right away. Call your local emergency services (911 in the [place] Do not drive yourself to the hospital. Summary hypertension is high blood pressure that remains higher than normal after childbirth. In most cases, hypertension will go away on its own, usually within a week of delivery. For some women, medical treatment is required to prevent serious complications, such as seizures orstroke. This information is not intended to replace advice given to you by your health care provider. Make sure you discuss any questions you have with your health care provider. Document Released: 03/05/2015 Document Revised: 08/08/2019 Document Reviewed: 04/22/2018 [employer] Patient Education 2020 [employer] Hemorrhage hemorrhage is excessive blood loss after childbirth. Vaginal bleeding after delivery is normal and should be expected. Bleeding (lochia) will occur for several days after childbirth. This can be expected with normal vaginal deliveries and deliveries. However, hemorrhage is a potentially serious condition. What are the causes? This condition is caused by: A loss of muscle tone in the uterus after childbirth. This can be caused by: ? An abnormal placenta. ? Infection. ? Bladder swelling (distension). Failure to deliver all of the placenta or the retention of clots. Wounds in the canal caused by delivery of the fetus. Infection of the uterus. Infection of tissue around the fetus. A tear in the uterus. Tearing of the vagina or cervix during delivery. A maternal bleeding disorder that prevents blood from clotting (rare). What increases the risk? This condition is likely to develop in people who: Have a history of hemorrhage. Had a delivery that lasted longer than usual. Have an excess of amniotic fluid in the amniotic sac (polyhydramnios), leading the uterus to stretch too much. Have delivered quintuplets or more babies. Had high blood pressure, seizures, or coma during . Had a condition called preeclampsia or eclampsia during . Had problems with the placenta. Had complications during labor or delivery. Are obese. Are 40 years old or older. Are or . What are the signs or symptoms? Symptoms of this condition include: Passing large clots or pieces of tissue. These may be small pieces of placenta left after delivery. Soaking more than one sanitary pad per hour for several hours. Heavy, bright-red bleeding that occurs 4 days or more after delivery. Discharge that has a bad smell. An unexplained fever. Nausea or vomiting. Pain or swelling near the vagina or perineum. A drop in blood pressure. Lightheadedness or fainting. Shortness of breath. A fast heart rate that happens with very little activity. Signs of shock, such as: ? Blurry vision. ? Chills. ? Dizziness. ? Weakness. How is this diagnosed? This condition may be diagnosed based on: Your symptoms. A physical exam of your perineum, vagina, cervix, and uterus. Tests, including: ? Blood pressure and pulse measurements. ? Blood tests. ? Blood clotting tests. ? Ultrasonography. How is this treated? Treatment for this condition depends on the severity of your symptoms. It may include: Uterine massage. Medicines to help the uterus contract. Blood transfusions. Fluids given through the vein. A medical procedure to compress arteries supplying the uterus. Sometimes bleeding occurs if portions of the placenta are left behind in the uterus after delivery.If this happens, a curettage or scraping of the inside of the uterus must be done (rare). This usually stops the bleeding. If curettage does not stop the bleeding, surgery may be done to remove the uterus (hysterectomy), but this rarely occurs. If bleeding is due to clotting or bleeding problems that are not related to the , other treatments may be needed. Follow these instructions at home: Limit your activity as directed by your health care provider. Your health care provider may order bed rest (getting up to go to the bathroom only) or may allow you to continue light activity. Keep track of the number of pads you use each day and how soaked (saturated) they are. Write down this information. Do not use tampons. Do not douche or have sexual intercourse until your health care provider approves. Drink enough fluids to keep your urine clear or pale yellow. Get enough rest. Eat foods that are rich in iron, such as spinach, red meat, and legumes. Take any nbif-jlt-pweujqs and prescription medicines only as told by your health care provider. Keep all follow-up visits as told by your health care provider. This is important. Get help right away if: You experience severe cramps in your stomach, back, or abdomen. You have a fever. You pass large clots or tissue. Save any tissue for your health care provider to look at. Your bleeding increases. You have heavy bleeding that soaks one pad per hour for 2 hours in a row. You faint or become dizzy, weak, or lightheaded. Your sanitary pad count per hour is increasing. You are urinating less than usual or not at all. You have shortness of breath. Your heart rate is faster than usual. You have sudden chest pain. This information is not intended to replace advice given to you by your health care provider. Make sure you discuss any questions you have with your health care provider. Document Released: 09/21/2004 Document Revised: 06/14/2018 Document Reviewed: 02/02/2017 [employer] Patient Education 2020 [employer] [facility] Depression and Blues All mothers are at risk of developing depression or the blues. These mood changes can occur right after giving , or they may occur many months after giving . blues or depression can be mild or severe. Additionally, depression can goaway rather quickly, or it can be a long-term condition. CAUSES Raised hormone levels and the rapid drop in those levels are thought to be a main cause of depression and blues. A number of hormones change during and after . Estrogenand progesterone usually decrease right after delivery. The levels of thyroid hormone and various cortisol steroids also rapidly drop. Other factors that play a role in these mood changes include major life events and genetics. RISK FACTORS If you have any of the following risks for blues or depression, know what symptoms to watch out for during the period. Risk factors that may increase the likelihood of getting blues or depression include: Having a personal or family history of depression. Having depression while being . Having premenstrual mood issues or mood issues related to oral contraceptives. Having a lot of life stress. Having marital conflict. Lacking a social support network. Having health problems, such as diabetes. SIGNS AND SYMPTOMS Symptoms of blues include: Brief changes in mood, such as going from extreme happiness to sadness. Decreased concentration. Difficulty sleeping. Crying spells, tearfulness. Irritability. Anxiety. Symptoms of depression typically begin within the first month after giving . These symptoms include: Difficulty sleeping or excessive sleepiness. Marked weight loss. Agitation. Feelings of worthlessness. Lack of interest in activity or food. psychosis is a very serious condition and can be dangerous. Fortunately, it is rare. Displaying any of the following symptoms is cause for immediate medical attention. Symptoms of psychosis include: Hallucinations and delusions. Bizarre or disorganized behavior. Confusion or disorientation. DIAGNOSIS A diagnosis is made by an evaluation of your symptoms. There are no medical or lab tests that lead to a diagnosis, but there are various questionnaires that a health care provider may use to identifythose with blues, depression, or psychosis. Often, a screening tool called the Malcom Depression Scale is used to diagnose depression in the period. TREATMENT blues usually goes away on its own in 1 2 weeks. Social support is often all that is needed. You will be encouraged to get adequate sleep and rest. Occasionally, you may be given medicinesto help you sleep. depression requires treatment because it can last several months or longer if it is not treated. Treatment may include individual or group therapy, medicine, or both to address any social,physiological, and psychological factors that may play a role in the depression. Regular exercise, a healthy diet, rest, and social support may also be strongly recommended. psychosis is more serious and needs treatment right away. Hospitalization is often needed. HOME CARE INSTRUCTIONS Get as much rest as you can. Exercise regularly. Some women find yoga and walking to be beneficial. Eat a balanced and nourishing diet. Do little things that you enjoy. Have a cup of tea, take a bubble bath, read your favorite magazine, or listen to your favorite music. Avoid alcohol. Ask for help with correctional substance abuse counselor, cooking, grocery shopping, or running errands as needed. Do nottry to do everything. Talk to people close to you about how you are feeling. Get support from your partner, family members, and friends. Try to stay positive in how you think. Think about the things you are grateful for. Do not spend a lot of time alone. Only take ftmq-gip-zbbzfrk or prescription medicine as directed by your health care provider. Keep all your appointments. Let your health care provider know if you have any concerns. SEEK MEDICAL CARE IF: You are having a reaction to or problems with your medicine. SEEK IMMEDIATE MEDICAL CARE IF: You have suicidal feelings. You think you may harm yourself or someone else. MAKE SURE YOU: Understand these instructions. Will watch your condition. Will get help right away if you are not doing well or get worse. Resource: [facility] Information 2015 [facility]. This information is not intended to replace advicegiven to you by your health care provider. Make sure you discuss any questions you have with your health care provider. Home Care Instructions After Delivery After discharge you may discover that you still have questions about body changes, activity, and care during the next few weeks. The following information should be helpful in answering many of your questions. ACTIVITY Resume your daily activities at home gradually. Allow time for rest periods during the day Avoid heavy lifting (more than 10 pounds/4.5 kilograms) and strenuous work or sports. If you had a , you should refrain from vacuuming, stair-climbing, and driving a car for 2 to 3 weeks. VAGINAL FLOW & RETURN OF MENSES Vaginal flow may continue for 4 to 6 weeks after delivery. Usually the amount decreases and the color of blood gets basin tender. Bright red and increased flow may reoccur if you have been too active. Lie down, rest, and call your caregiver if you are soaking more than 1 pad an hour or passing largeclots. Menstrual period will usually return 6 to 8 weeks after delivery. PERINEAL CARE Use the laila-bottle and change sanitary pads each time you go to the bathroom. Use towelettes in place of toilet paper until stitches are healed. Continue to use tucks and/or spray dermoplast. Lidocaine cream for episiotomy pain with your care givers approval. Do not use tampons or douches until vaginal bleeding has stopped (about 4 weeks). No Sexual intercourse until seen by physician. INCISION (CUT BY THE SURGEON) CARE Following , shower as desired but try to keep your incision dry. A small amount of clear or pink drainage is normal. The incision site will be tender for several weeks. Take prescription or dypq-uwy-pxvgzcn medications for pain with your care givers approval. Contact your caregiver if the drainage increases, becomes foul smelling, the incision reddens, or you develop a fever. BOWELS/HEMORRHOIDS Try to avoid constipation by increasing the fluids and fiber in your diet. Drink at least 6 to 8 glasses of non-caffeinated fluids per day. Include whole grains, raw fruits and vegetables in your diet. Avoid straining when trying to pass a stool. Eutk-wbj-ewnrpaa medications, stool softeners, can be used. Check with your caregiver. NUTRITION Eat a well-balanced diet that includes the basic food groups. Do not try to lose weight quickly by drastically cutting back on calories. EXERCISES Kegel exercises Start this exercise right after delivery. You can do it while standing, sitting, or lying down. Tighten your stomach muscles and the muscles surrounding your canal. Hold for a few seconds and then relax. Do Kegel exercises when you take a sitz bath. Repeat often during the day. Choose specialtimes during the day when you will remember to do this (for example, when using the bathroom, turning the water faucet on, etc.). Repeat 5 times each time. Make Kegel exercises a part of your daily routine to maintain the tone of muscles that support your vagina, bladder, and bowels. SELF BREAST EXAMINATION A self breast exam needs to be an important part of every woman's self-care. Do your self breast exam once a month, 5 to 7 days after your period begins, unless you are . Do self breast exams at the same time of the month each month, on a day of your choice. Any lump, bump or discharge should be reported to your caregiver. SEEK MEDICAL CARE IMMEDIATELY IF YOU NOTICE: Sanitary pad soaked with blood in 1 hour or less. Severe lower abdominal pain or cramping. Foul-smelling discharge from vagina. Increased rather than decreased pain around stitches and/or swelling, redness or hardness in area. Pain and/or redness in calf of the leg. Nausea with vomiting for 12 hours. Sudden, severe chest pain. Shortness of breath. Painful urination. Severe headache. Area of the breast is red and sore and you have a fever. (You may feel like you have flu symptoms.) Additional Information VACCINATE! IT SAVES LIVES! Members of the community who have not yet received the COVID-19 vaccine and would like to receive it can visit one of [facility] vaccine clinics. There are many vaccine clinic locations within the [facility]. For locations and available times, please visit [email or web address] It is important to note that some COVID mobile vaccine clinics are held outdoors and may be canceled in rainy or stormy conditions. To learn more about pediatric vaccinations (ages 5-11), we invite you to visit the [facility] webpage. [email or web address] learn more about the COVID-19 vaccine, we invite you to visit the CDC website for a list of frequently asked questions. https://www.cdc.gov/coronavirus/2019-ncov/vaccines/faq.html [facility] Patient Portal Access Instructions: Stay connected with your healthcare team and access your personal medical information anytime with the [facility] Patient Portal.If you would like a full copy of your medical records, please contact the [facility] Medical Records Department, Sunday through Sunday between 8a.m. and 4:30p.m. Please follow the directions below to access the portal: 1.Access the email account you provided upon registration to the hospital.2.Look for an invitation email from [facility].3.Open the email and access the invitation link: Accept Invitation to [facility]4.Fill in the required melara to create your account. Sign into [email or web address] with your username and password that you created in the above steps to stay up to date. You can then view a summary of results, a summary of your visits, and the ability to download your summaries to your computer or send the information securely to a physician. Remember that your healthcare information is confidential, so carefully consider who you will allow to register on the [facility] Patient Portal for access to your information. You can also access the [facility] Patient Portal on the [employer]. Simply click on Health Records under hybris and then click on the [employer] logo. HOW TO SAFELY DISPOSE OF PRESCRIPTION MEDICATIONS Please use one of the following methods to safely dispose of your unused medications. 1.Use a drug disposal kit: the drug disposal pouch allows you to safely discard your old and unuseddrugs. Ask your nurse to give you one when you are discharged.2.Visit a local take-back location: Many local pharmacies and police departments have programs that collect old and unwanted prescriptiondrugs. Call your local pharmacy or go to [email or web address] to find one close to you.3.Make use of household items: Use cat litter or old coffee grounds to dispose medications if other options arenot available. Mix your drugs with these household products, seal them in an airtight container andthrow it into the garbage. Call [facility]: [phone] to be sure your drugs can be disposed of in this way. Some medicines may require a different approach.4.Never flush your medications down the toilet. IF YOU HAVE BEEN PRESCRIBED AN OPIOID FOR PAIN If you have been prescribed an opioid (such as hydrocodone, oxycodone or morphine), it is critical to understand the possible side effects and risks of opioid pain medications. Even when taken as directed, opioids can have several side effects including: Tolerance, meaning you might need to take more of a medication for the same pain relief. Nausea, vomiting and/or constipation. Sleepiness, dizziness, dry mouth, confusion, depression or itching. Physical dependence, meaning you have withdrawal symptoms when a medication is stopped, can develop within a few days. KNOW YOUR RESPONSIBILITIES It is important to know exactly how much and how often to take the opioid pain medications you are prescribed. Never take opioids in higher amounts or more often than prescribed. Do not combine opioids with alcohol or other drugs that cause drowsiness, such as benzodiazepines, also known as benzos,including diazepam and alprazolam, muscle relaxants or sleep aids. Never sell or share prescriptionopioids. This is illegal. Store opioids in a secure place and out of reach of others (including children, family, friends and visitors). The last page of this document has been signed and retained as a CHART COPY Signatures Patient Education Materials Hypertension Hemorrhage 7b- Depression and Blues (04/2020) (CUSTOM) 7- Home Care Instructions After Delivery 08/2019 (CUSTOM) Medication Leaflets My discharge plan and instructions have been reviewed and explained to me and I,BELGICA CORBIN M understand my current condition and have read and understand these discharge instructions. I have received a written copy of the plan/instructions. If I have questions, I am aware that I should contact my doctor. 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, history of gestational hypertension, chronic migraines, short interval Procedures: (_x) Spontaneous vaginal delivery (_) Primary Section (_) Forceps assisted vaginal delivery (_) Repeat Section (_) Vacuum assisted vaginal delivery (_) Section w/tubal ligation (_) Vaginal delivery w/tubal ligation (_) Section w/ hysterectomy (_) Episiotomy (_) Post Tubal Ligation (_) D & C (_) Blood patch (x_) Epidural Anesthesia (_) Spinal Anesthesia Hospital Course: () Uncomplicated (x) See progress notes Abnormal Lab/Test Value: () None (x) See progress notes RH: (_) N/A (_x) Rh positive (_) Rh neg (_) Rhogam given Rubella: (_x) Rubella immune (_) Rubella nmu-rcnljt-Qudjlcm given (_) Rubella was-bilrmi-Sgcbzlw declined Feeding Walters: (x_) Breast feeding (_) Bottle feeding Consultations/referrals: (_) None (x) Anesthesiology (_) Cardiology (_) Endocrinology (_) Genetics (_) Home Health (_) Infectious Disease (_) Neurology (_) Nutrition (_) Perinatology (_) Psychiatry (_) Pulmonology (_) Social Service (_) Surgery (_) Other Disposition: Home Condition on Discharge: Stable Follow-up Care: See discharge instructions Other/Comments: Routine care. F/up in office in 6 weeks for visit Digitally Signed by MILTON KEATING DO on 09/29/2022 05:55 AM [facility] [id number] Anesthesiology Consult note Patient: BELGICA CORBIN Age: 27 years Sex: Female : 1995 Associated Diagnoses: None Author: HAI STEARNS APRN-HYDROPRESS OPERATOR Preoperative Information Anesthesia history Patient's history: negative. Family's history: negative. Review of Systems Ear/Nose/Mouth/Throat: Negative. Respiratory: Negative. Cardiovascular: Negative. Gastrointestinal: Negative. Genitourinary: Negative. Endocrine: Negative. Musculoskeletal: Negative. Integumentary: Negative. Neurologic: chronic migraines. Reproductive: Para Scoring , Week's Gestation 39.4, EDC 09/30/2022. Health Status Allergies: Allergic Reactions (Selected) Severe Omnicef- Swelling in hands, rash and shortness of breath. Mild Ciprofloxacin- Rash and swelling in hands., Allergies (2) ActiveReaction Omnicefswelling in hands ciprofloxacinrash Current medications: (Selected) Inpatient Medications Ordered Bolus LR 500 mL: 500 mL, IV Bolus, AsDirected, PRN: Other (see order comments) Brethine: 0.25 mg, 0.25 mL, Subcutaneous, AsDirected, PRN: Control symptoms LR 1,000 mL: 125 mL/hr, Intravenous LR 500 mL Bolus: 500 mL, IV Bolus, AsDirected, PRN: Other (see order comments) Oxytocin for IV (mL/hr) 20 unit(s) + LR Premix Diluent 1,000 mL: after delivery of placenta, see order comments, Intravenous Oxytocin for IV (munit/min) 20 unit(s) [2 munit/min] + LR Premix Diluent 1,000 mL: 6 mL/hr, Intravenous Pepcid: 20 mg, 2 mL, IV Push, BID, PRN: Heartburn Zofran: 4 mg, 2 mL, IV Push, q4h, PRN: Nausea/Vomiting multivitamin, : 1 tab(s), Oral, qDay Documented Medications Documented AD: 1 tab(s), Oral, qDay, 0 Refill(s) aspirin 81 mg oral delayed release tablet: 81 mg, 1 tab(s), Oral, qDay, 0 Refill(s), Medications (9) Active Scheduled: (1) multivitamin, Multivitamins with Folic Acid 1 mg Tab 1 tab(s), Oral, qDay Continuous: (3) Lactated Ringers 1,000 mL 1,000 mL, Intravenous, 125 mL/hr Oxytocin 20 units in Lactated Ringers 1000 mL 20 unit(s) + LR Premix Diluent 1,000 mL 1,000 mL, Intravenous Oxytocin 20 units in Lactated Ringers 1000 mL 20 unit(s) [2 munit/min] + LR Premix Diluent 1,000 mL1,000 mL, Intravenous, 6 mL/hr PRN: (5) famotidine 20 mg/2 mL vial 20 mg 2 mL, IV Push, BID Lactated Ringers Injection 500 mL * Bolus * 500 mL, IV Bolus, AsDirected Lactated Ringers Injection 500 mL * Bolus * 500 mL, IV Bolus, AsDirected ondansetron 2 mg/ 1 mL 2 mL INJ 4 mg 2 mL, IV Push, q4h terbutaline 1 mg/ml vial 0.25 mg 0.25 mL, Subcutaneous, AsDirected Problem list: Medical Otalgia of left ear / SNOMED CT [id number] / Confirmed / SNOMED CT [id number] / Confirmed / SNOMED CT [id number] / Confirmed, Active Problems (5) Dizziness Migraines Otalgia of left ear Histories Past Medical History: Resolved ([id number]): Onset on 12/01/2020 at 25 years. Resolved on 09/02/2021 at 26 years. Comments: 03/16/2021 EDT 13:54 EDT - SYSTEM System added from documentation. Status documented as Yes on Admission Family History: No family history items have been selected or recorded. Procedure history: No active procedure history items have been selected or recorded. Social History Social & Psychosocial Habits Alcohol 08/31/2021isk Assessment: Denies Alcohol Use Substance Abuse 08/31/2021isk Assessment: Denies Substance Abuse Tobacco 08/31/2021isk Assessment: Denies Tobacco Use 06/08/2022 Tobacco Use: Never (less than 100 in l . Physical Examination Vital Signs 09/27/2022 19:45 EDT Temperature Oral 37.1 DegC Heart Rate Monitored 108 bpm HI Systolic Blood Pressure Non-Invasive 116 mmHg Diastolic Blood Pressure Non-Invasive 75 mmHg Vital Signs(last 24 hrs) Last Charted Temp Oral37.1 DegC (SEP 27 19:45) Heart Rate MonitoredH 108bpm (SEP 27 19:45) YFV490 mmHg (SEP 27 19:45) DBP75 mmHg (SEP 27 19:45) BMI32.05 (SEP 27 20:11) Measurements from flowsheet : Measurements 09/27/2022 20:11 EDT Height 155 cm Admission Weight 77 kg [place] Body Weight 47.85 kg BSA Admission 1.76 Body Mass Index 32.05 kg/m2 Pain assessment: Pain Assessment 09/27/2022 19:45 EDT Primary Pain Location Abdomen Primary Pain Intensity 4 Primary Pain Quality Contraction Pain Scale Type 0-10 Pain scale . General: Alert and oriented. Airway: Normal temporomandibular joint mobility, Nares patent, Normal mouth, No damage to dentition, Normal throat. Mallampati classification: III (soft palate, base of uvula visible). Head: Normocephalic. Dentition Evaluation: Intact, Own teeth. Musculoskeletal Normal range of motion. Normal strength. Integumentary: Intact, Warm, Dry. Neurologic: Alert, Oriented, Normal sensory, Normal motor function, No focal deficits. Review / Management Results review: Labs (Last four charted values) WBC H 13.0(SEP 27) Hgb 12.8(SEP 27) Hct 37.6(SEP 27) Plt 234(SEP 27) , Lab results 09/27/2022 21:10 EDT Monitoring Annotations anesthesia at bedside, ; Positioned for epidural 09/27/2022 21:08 EDT Lactated Ringers Injection Begin Bag 1,000 mL mL 09/27/2022 20:56 EDT Edu-Equipment/Devices Verbalizes/Nonverbally indicates understanding Edu-Pain Management Verbalizes/Nonverbally indicates understanding Ed-Plan of Care Verbalizes/Nonverbally indicates understanding Ed-Safety, Fall Verbalizes/Nonverbally indicates understanding Individuals Taught Patient, Significant other Learning Readiness Willing to learn Barriers to Learning None evident Teaching Method Explanation Preferred Written Language Fijian Family/Caregiver Prefer Written Language Fijian Preferred Spoken Language Fijian Family/Caregiver Prefer Spoken Language Fijian General Infection Prevention Strategies Hand hygiene, Remind visitor/caregiver to wash hands, Remind patient/visitor to mask when w/Healthcare Provider, Respiratory hygiene - Cover Your Cough Catheter Associated UTI Prevention CAUTI FAQ provided, Hand hygiene, Catheter secure education, Avoid twisting/kinking catheter, Collection bag lower than bladder Infection Prevention Teaching Evaluation Verbalizes/Nonverbally indicates understanding Ed- Monitoring Verbalizes/Nonverbally indicates understanding Ed-Contractions Verbalizes/Nonverbally indicates understanding Ed-Fever During Verbalizes/Nonverbally indicates understanding Ed-Vaginal Bleeding Verbalizes/Nonverbally indicates understanding Ed-Medication Side Effects Verbalizes/Nonverbally indicates understanding Ed-Vaccinations Verbalizes/Nonverbally indicates understanding Ed-Complications of Labor/Delivery Verbalizes/Nonverbally indicates understanding Ed-LD Activity Verbalizes/Nonverbally indicates understanding Ed-LD Nutrition/Fluids Verbalizes/Nonverbally indicates understanding Ed-LD Comfort Measures Verbalizes/Nonverbally indicates understanding Ed-Anesthesia Plans Verbalizes/Nonverbally indicates understanding Ed-Induction Process Verbalizes/Nonverbally indicates understanding Ed-Ruptured Membranes Verbalizes/Nonverbally indicates understanding Ed-LD Safety Verbalizes/Nonverbally indicates understanding Ed-Surgery Verbalizes/Nonverbally indicates understanding Ed-LD Treatments/Procedures/Tests Verbalizes/Nonverbally indicates understanding Ed-Infection Signs/Symptoms Verbalizes/Nonverbally indicates understanding Edu-Med Preadministration Procedures Verbalizes/Nonverbally indicates understanding Ed-Medication Dosage, Route, Scheduling Verbalizes/Nonverbally indicates understanding Edu-Med Generic/Brand Name,Purpose,Action Verbalizes/Nonverbally indicates understanding Ed-Diagnostic Results Verbalizes/Nonverbally indicates understanding Edu- Hemorrhage Verbalizes understanding 09/27/2022 20:55 EDT O-Remains Free From Injury Progressing towards goal Edu-Pain Management Verbalizes/Nonverbally indicates understanding Ed-Safety Verbalizes/Nonverbally indicates understanding Ed-Discharge instructions Needs further teaching Ed-Patient/Caregiver about Hand Hygiene Verbalizes/Nonverbally indicates understanding 09/27/2022 20:11 EDT Blood Type, External O positive Rubella, External Immune HIV Antibodies, External Negative Group B Strep, External Negative Group B Strep Date Performed 09/07/2022 Hepatitis B, External Negative Hepatitis B Date Performed 02/09/2023 RPR, External Nonreactive Designated Person #1 We May Share PHI Mika Rojas Designated Person #1 Relationship Significant other Privacy Restrictions Requested None Height 155 cm Admission Weight 77 kg [place] Body Weight 47.85 kg BSA Admission 1.76 Body Mass Index 32.05 kg/m2 Expected Outcome Live Patient Type Inpatient Thrombosis Risk Factors (1) or post- less than 1 month Thrombosis Risk Factor Add'l Assessment NA Thrombosis Risk Score 1 Status Yes Risk Factors, Antepartum Current Preg None Movement Present Vaginal bleeding Yes PPH Risk Low risk for hemorrhage PPH Low Risk Factors Loaiza , Less than 4 previous deliveries, Unscarred uterus, Absence of hemorrhage history Feeding Breast milk Anesthesia/Pain Medication During Labor Epidural/Spinal Circumcision No Baby For Adoption No Surrogate No Tubal Sterilization Planned No Discharge Fontanelle Physician Samira Ballesteros Written Plan No WIC Participant Yes Safe Sleep Environment for Baby Yes Safe Sleep Environment Outside Home Yes Maternal Transport No Thoughts of Harming Others - History No Thoughts of Suicide - History No Coping Effective Emotional Abuse History Denies Physical Abuse History Denies Sexual Abuse Denies Cultural/Spiritual Practices None Hospital Clergy to Visit Patient Verbalizes No Spiritual Needs Financial Concerns Re: Hospital/Disch No Living Situation Home with family care Current Home Treatments None Professional Skilled Services None Special Services and Community Resources None Advanced Directives No - conflicts with cultural/spiritual beliefs Infectious Disease Symptoms Patient states no symptoms Infectious Disease Recent Exposure No Alcohol and Drug Use No Employee of Institutional Living No Health Care Employee No History of Exposure to TB No History of Positive Chest X-Ray for TB No History of Positive TB Skin Test No Homeless No Known Immunosuppression No Recent Immigrant No Resident of Institutional Living No Bloody Sputum No Fatigue No Fever No Loss of Appetite No Night Sweats No Persistent Cough > 3 Weeks No Weight Loss No Safety Brochure Information Reviewed Unable to complete Mickie Dominique Video Viewed Yes Teaching Evaluation Verbalizes/Nonverbally indicates understanding Preferred Written Language Fijian Preferred Spoken Language Fijian Chief Complaint IOL Mode of Arrival Ambulatory Accompanied by Significant other Information Given by Patient, Significant other Emergency Contact Number Emergency Contact Number Belongings At Bedside None Personal Home Medications Received No home medications were brought in Belongings Sent Home None Belongings Sent To Security None Discharge To, Anticipated Home with family care Other Anticipated Needs After Discharge No Anticoagulants Taken In Past 6 Wks. No Prev Test Positive/Diagnosis w/COVID-19 No Current Quarantine/Isolated any Illness No Any Contact with Sick Animals/Birds No Traveled Anywhere in Last 30 Days No Influenza Vaccine Need No prior receipt of vaccine Influenza Risk Factors age 6 months and older Influenza Vaccine Contraindications None Forego Influenza Vaccination Patient/Caregiver refused vaccine No Able To Drink Order Detail Yes Able To Sign Consents Order Detail Yes Code Status Order Detail Full code IV Order Detail Yes Dialysis Schedule Order Detail N/A Has Diabetes Order Detail No Isolation Precautions Order Detail None Nurse Collect Order Detail 1 Oxygen Order Detail No Order Detail Yes Prior Valve Replacement Order Detail No Transport Mode Order Detail Ambulatory Anesthesia/Transfusions Prior anesthesia Admission Note-Nursing Patient History OB (Modified) 09/27/2022 20:06 EDT Lactated Ringers Injection Begin Bag 1,000 mL mL 09/27/2022 20:04 EDT WBC 13.0 10^3/mcL HI RBC 4.48 10^6/mcL Hgb 12.8 G/dL Hct 37.6 % MCV 83.8 fL MCH 28.5 pg MCHC 34.0 G/dL RDW 14.7 % Platelet 234 10^3/mcL MPV 9.8 fL Neutrophil % 74.8 % Lymphocyte % 16.2 % LOW Monocyte % 7.9 % Eosinophil % 0.8 % Basophil % 0.3 % Neutrophil, Absolute 9.7 10^3/mcL HI Lymphocyte, Absolute 2.1 10^3/mcL Monocyte, Absolute 1.0 10^3/mcL Eosinophil, Absolute 0.1 10^3/mcL Basophil, Absolute 0.0 10^3/mcL ABO/Rh Interp O POS ABSC Interp (Gel) Negative ABSC Cervix Dilation 5 cm Cervix Effacement 50 Station -2 Station Calculation -2 Baby A Membrane Status: Intact 09/27/2022 19:45 EDT Temperature Oral 37.1 DegC Heart Rate Monitored 108 bpm HI Systolic Blood Pressure Non-Invasive 116 mmHg Diastolic Blood Pressure Non-Invasive 75 mmHg Primary Pain Location Abdomen Primary Pain Intensity 4 Primary Pain Quality Contraction Pain Scale Type 0-10 Pain scale Murmur Auscultated No Dorsalis Pedis Pulse, Left 2+ Normal Dorsalis Pedis Pulse, Right 2+ Normal Respirations Unlabored Respiratory Pattern Regular All Lobes Breath Sounds Clear, Equal Cough None Oxygen Therapy Room air Oxygen Saturation 93 % Abdomen Description Non-distended Swallowing Disorder None Bowel Sounds All Quadrants Present Urinary Elimination Voiding, no difficulties Skin Temperature Warm Skin Description [place], Dry Skin Integrity Intact Sensory Perception [place] No impairment Moisture [place] Rarely moist Activity [place] Walks frequently Mobility [place] No limitations Nutrition [place] Adequate Friction and Shear [place] No apparent problem [place] Score 22 Hospital Acquired Pressure Injury Risk None/minimal risk (score 19-23) Hand Left 20 gauge Peripheral IV Activity: Insert new site Peripheral IV Dressing Condition: Clean, Dry, Intact Peripheral IV Dressing Activity: Transparent dressing Peripheral IV Line Status/Patency: Continuous infusion Peripheral IV Site Condition: No complications Peripheral IV Equipment: Manual Peripheral IV Number of Attempts: 2 Neurological Symptoms Patient denies Strength All Extremities Strong Tone All Extremities Normal Clemons Screen Daily History of Fall in Last 3 Months Clemons No Presence of Secondary Diagnosis Clemons No Use of Ambulatory Aid Clemons None, bedrest, wheelchair, nurse IV/PRN Adapter Fall Risk Clemons Yes Gait Weak or Impaired Fall Risk Clemons Normal, bedrest, immobile Mental Status Fall Risk Clemons Oriented to own ability Clemons Fall Risk Score 20 Violence Risk Confused No Violence Risk Irritable No Violence Risk Boisterous No Violence Risk Verbal Threats No Violence Risk Physical Threats No Violence Risk Attacking Objects No Violence Risk Predictor Score 0 Violence Risk Intervention None Violence Risk Current Interventions None Ambulation Repositions self Standard Safety ID band on, Allergy Band on, Call device within reach, Bed in low position, Wheels locked, Upper/Half-Length side-rails up, Phone within reach, personal items within reach Demonstrates Correct Call Light Use Yes 09/27/2022 19:33 EDT OBHx Para 1 OBHx Para Full Term 1 09/27/2022 19:28 EDT OBHx 2 09/27/2022 19:05 EDT OB History and Physical H&P (Modified) . Assessment and Plan [place] Society [employer] Anesthesiologists (ASA) physical status classification: Class II. Anesthetic Preoperative Plan Anesthetic technique: Epidural. Regional: Epidural. Risks discussed: nausea, vomiting, headache, sore throat, dental injury, hypotension, allergic reaction, serious complications. Informed consent: signed by patient. Notes: Preop assessment and consent signed by patient directly before placing epidural, therefore this electronic documentation is a late entry. . Digitally Signed by HAI STEARNS on 09/27/2022 09:44 PM [id number] Discharge instructions Patient Education 06/08/2022 21:42:53 External Ear Infection (Adult) External Ear Infection (Adult) External otitis (also called swimmer s ear ) is an infection in the ear canal. It is often caused by bacteria or fungus. It can occur a few days after water gets trapped in the ear canal (from swimming or bathing). It can also occur after cleaning too deeply in the ear canal with a cotton swab or other object. Sometimes, hair care products get into the ear canal and cause this problem. Symptoms can include pain, fever, itching, redness, drainage, or swelling of the ear canal. Temporary hearing loss may also occur. Home care Do not try to clean the ear canal. This can push pus and bacteria deeper into the canal. Use prescribed ear drops as directed. These help reduce swelling and fight the infection. If an earwick was placed in the ear canal, apply drops right onto the end of the wick. The wick will draw the medicine into the ear canal even if it is swollen closed. A cotton ball may be loosely placed in the outer ear to absorb any drainage. You may use acetaminophen or ibuprofen to control pain, unless another medicine was prescribed. Note: If you have chronic liver or kidney disease or ever had a stomach ulcer or GI bleeding, talk to your healthcare provider before taking any of these medicines. Do not allow water to get into your ear when bathing. Also, don't swim until the infection has cleared. Prevention Keep your ears dry. This helps lower the risk of infection. Dry your ears with a towel or office chair assembler after getting wet. Also, use ear plugs when swimming. Do not stick any objects in the ear to remove wax. If you feel water trapped in your ear, use ear drops right away. You can get these drops over the counter at most drugstores. They work by removing water from the ear canal. Follow-up care Follow up with your healthcare provider in 1 week, or as advised. When to seek medical advice Call your healthcare provider right away if any of these occur: Ear pain becomes worse or doesn t improve after 3 days of treatment Redness or swelling of the outer ear occurs or gets worse Headache Painful or stiff neck Drowsiness or confusion Fever of 100.4 F (38 C) or higher, or as directed by your healthcare provider Seizure [phone] [employer] [place] [address]. All rights reserved. This information is not intended as a substitute for professional medical care. Always follow yourhealthcare professional's instructions. Follow Up Care 06/08/2022 21:23:05 With:MARCO ANTONIO CROCKETT DO Address: [address] [place] [phone] When:2-4 days With:ISAIAS ROMERO NP Address: [address] [address]- When:2-4 days [facility] 11-24-2022 Note Discharge Instructions Thank you for allowing [facility] to assist you with your healthcare needs. The following is importantdischarge information regarding your hospital visit. Diagnosis from Today's Visit Ear pain Throat pain - Adult What to Do Next Instructions from Your Care Team No qualifying data available. Post Acute Orders No qualifying data available. You Need to Schedule the Following Appointments Follow Up with MARCO ANTONIO CROCKETT DO When Within 2-4 days Where: [address] [place] [phone] Follow Up with ISAIAS ROMERO NP When Within 2-4 days Where: [place] [address]- Allergies Omnicef (shortness of breath, rash, swelling in hands) ciprofloxacin (rash, swelling in hands) Medications Please ask your primary doctor or pharmacist before taking any other medication not listed, including over the counter drugs, herbal medications, vitamins and or supplements as they may interact withyour home medications. What How Much When Why Instructions Last Dose New amoxicillin (amoxicillin 500 mg oral tablet) 1 tab(s) by mouth Three (3) times a day Duration: 10 Days Take with a probiotic Printed Prescription New hydrocortisone/ neomycin/ polymyxin B otic (Cortisporin otic use hydrocortisone/ neomycin/ polymyxin B otic ) 4 Drops Left ear Four (4) times a day Duration: 10 Days Printed Prescription New nystatin topical (nystatin 100,000 units/ g topical ointment) 1 application Topical Three (3) times a day Duration: 10 Days Printed Prescription Unchanged docusate (Colace 100 mg oral capsule) 1 cap by mouth Two (2) times a day as needed for for constipation Duration: 10 Days Unchanged doxylamine-pyridoxine (Diclegis 10 mg-10 mg oral delayed release tablet) 2 tab(s) by mouth Daily at bedtime as needed for Nausea Nausea Unchanged multivitamin, ( AD) 1 tab(s) by mouth Once a day Unchanged norethindrone (norethindrone 0.35 mg oral tablet) 1 tab(s) by mouth Once a day Please take this list to your next doctor s visit. Bring all medications you take, including over the counter medications, herbals and other supplements with you to your doctor s visit. Patients and families are reminded to discard old lists and to update any records with all medication providers or retail pharmacies. Education Materials External Ear Infection (Adult) External otitis (also called swimmer s ear ) is an infection in the ear canal. It is often caused by bacteria or fungus. It can occur a few days after water gets trapped in the ear canal (from swimming or bathing). It can also occur after cleaning too deeply in the ear canal with a cotton swab or other object. Sometimes, hair care products get into the ear canal and cause this problem. Symptoms can include pain, fever, itching, redness, drainage, or swelling of the ear canal. Temporary hearing loss may also occur. Home care Do not try to clean the ear canal. This can push pus and bacteria deeper into the canal. Use prescribed ear drops as directed. These help reduce swelling and fight the infection. If an earwick was placed in the ear canal, apply drops right onto the end of the wick. The wick will draw the medicine into the ear canal even if it is swollen closed. A cotton ball may be loosely placed in the outer ear to absorb any drainage. You may use acetaminophen or ibuprofen to control pain, unless another medicine was prescribed. Note: If you have chronic liver or kidney disease or ever had a stomach ulcer or GI bleeding, talk to your healthcare provider before taking any of these medicines. Do not allow water to get into your ear when bathing. Also, don't swim until the infection has cleared. Prevention Keep your ears dry. This helps lower the risk of infection. Dry your ears with a towel or office chair assembler after getting wet. Also, use ear plugs when swimming. Do not stick any objects in the ear to remove wax. If you feel water trapped in your ear, use ear drops right away. You can get these drops over the counter at most drugstores. They work by removing water from the ear canal. Follow-up care Follow up with your healthcare provider in 1 week, or as advised. When to seek medical advice Call your healthcare provider right away if any of these occur: Ear pain becomes worse or doesn t improve after 3 days of treatment Redness or swelling of the outer ear occurs or gets worse Headache Painful or stiff neck Drowsiness or confusion Fever of 100.4 F (38 C) or higher, or as directed by your healthcare provider Seizure [phone] [employer]. [address] [place] [address], [place] [address]. All rights reserved. This information is not intended as a substitute for professional medical care. Always follow yourhealthcare professional's instructions. Additional Information VACCINATE! IT SAVES LIVES! Members of the community who have not yet received the COVID-19 vaccine and would like to receive it can visit one of [facility] vaccine clinics. There are many vaccine clinic locations within the [facility]. For locations and available times, please visit [email or web address]. It is important to note that some COVID mobile vaccine clinics are held outdoors and may be canceled in rainy orstormy conditions. To learn more about pediatric vaccinations (ages 5-11), we invite you to visit the [facility] webpage. [email or web address] [email or web address] learn more about the COVID-19 vaccine, we invite you to visit the [facility] website for a list of frequently asked questions. [email or web address] [facility] Patient Portal Access Instructions: Stay connected with your healthcare team and access your personal medical information anytime with the [facility] Patient [facility]. If you would like a full copy of your medical records please contact the [facility] Medical Records Department Sunday through Sunday between 8a.m. and 4:30p.m. Please follow the directions below to access the portal: 1.Access the email account you provided upon registration to the [facility].2.Look for an invitation email from [facility].3.Open the email and access the invitation link: Accept Invitation to [facility]4.Fill in the required melara to create your account. Sign into [email or web address] with your username and password that you created in the above steps to stay up to date. You can then view a summary of results, a summary of your visits, and the ability to download your summaries to your computer or send the information securely to a physician. Remember that your healthcare information is confidential, so carefully consider who you will allow to register on the [facility] Patient Portal for access to your information. You can also access the [facility] Patient Portal on the [employer] giorgio. Simply click on Health Records under GetNotesta and then click on the [facility] logo. HOW TO SAFELY DISPOSE OF PRESCRIPTION MEDICATIONS Please use one of the following methods to safely dispose of your unused medications. 1.Use a drug disposal kit: the drug disposal pouch allows you to safely discard your old and unuseddrugs. Ask your nurse to give you one when you are discharged.2.Visit a local take-back location: Many local pharmacies and police departments have programs that collect old and unwanted prescriptiondrugs. Call your local pharmacy or go to http://bit.ly/3B3Vn1a to find one close to you.3.Make use of household items: Use cat litter or old coffee grounds to dispose medications if other options arenot available. Mix your drugs with these household products, seal them in an airtight container andthrow it into the garbage. Call [facility]: [phone] to be sure your drugs can be disposed of in this way. Some medicines may require a different approach.4.Never flush your medications down the toilet. IF YOU HAVE BEEN PRESCRIBED AN OPIOIDS FOR PAIN If you have been prescribed an opioid (such as hydrocodone, oxycodone or morphine), it is critical to understand the possible side effects and risks of opioid pain medications. Even when taken as directed, opioids can have several side effects including: Tolerance, meaning you might need to take more of a medication for the same pain relief. Nausea, vomiting and/or constipation. Sleepiness, dizziness, dry mouth, confusion, depression or itching. Physical dependence, meaning you have withdrawal symptoms when a medication is stopped ? this can develop within a few days. KNOW YOUR RESPONSIBILITIES It is important to know exactly how much and how often to take the opioid pain medications you are prescribed. Never take opioids in higher amounts or more often than prescribed. Do not combine opioids with alcohol or other drugs that cause drowsiness, such as benzodiazepines, also known as benzos,including diazepam and alprazolam, muscle relaxants or sleep aids. Never sell or share prescriptionopioids. This is illegal. Store opioids in a secure place and out of reach of others (including children, family, friends and visitors). The last page(s) of this document has been signed and retained as a CHART COPY Signatures Patient Education Materials External Ear Infection (Adult) Medication Leaflets My discharge plan and instructions have been reviewed and explained to me and I,BELGICA CORBIN M understand my current condition and have read and understand these discharge instructions. I have received a written copy of the plan/instructions. If I have questions, I am aware that I should contact my doctor. 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 The following information should be helpful in answering many of your questions. ACTIVITY Resume your daily activities at home gradually. Allow time for rest periods during the day Avoid heavy lifting (more than 10 pounds/4.5 kilograms) and strenuous work or sports. If you had a , you should refrain from vacuuming, stair-climbing, and driving a car for 2 to 3 weeks. VAGINAL FLOW & RETURN OF MENSES Vaginal flow may continue for 4 to 6 weeks after delivery. Usually the amount decreases and the color of blood gets basin tender. Bright red and increased flow may reoccur if you have been too active. Lie down, rest, and call your caregiver if you are soaking more than 1 pad an hour or passing largeclots. Menstrual period will usually return 6 to 8 weeks after delivery. PERINEAL CARE Use the laila-bottle and change sanitary pads each time you go to the bathroom. Use towelettes in place of toilet paper until stitches are healed. Continue to use tucks and/or spray dermoplast. Lidocaine cream for episiotomy pain with your care givers approval. Do not use tampons or douches until vaginal bleeding has stopped (about 4 weeks). No Sexual intercourse until seen by physician. INCISION (CUT BY THE SURGEON) CARE Following , shower as desired but try to keep your incision dry. A small amount of clear or pink drainage is normal. The incision site will be tender for several weeks. Take prescription or ffwf-wmj-ucsidft medications for pain with your care givers approval. Contact your caregiver if the drainage increases, becomes foul smelling, the incision reddens, or you develop a fever. BOWELS/HEMORRHOIDS Try to avoid constipation by increasing the fluids and fiber in your diet. Drink at least 6 to 8 glasses of non-caffeinated fluids per day. Include whole grains, raw fruits and vegetables in your diet. Avoid straining when trying to pass a stool. Drlo-bso-qpkvkor medications, stool softeners, can be used. Check with your caregiver. NUTRITION Eat a well-balanced diet that includes the basic food groups. Do not try to lose weight quickly by drastically cutting back on calories. EXERCISES Kegel exercises Start this exercise right after delivery. You can do it while standing, sitting, or lying down. Tighten your stomach muscles and the muscles surrounding your canal. Hold for a few seconds and then relax. Do Kegel exercises when you take a sitz bath. Repeat often during the day. Choose specialtimes during the day when you will remember to do this (for example, when using the bathroom, turning the water faucet on, etc.). Repeat 5 times each time. Make Kegel exercises a part of your daily routine to maintain the tone of muscles that support your vagina, bladder, and bowels. SELF BREAST EXAMINATION A self breast exam needs to be an important part of every woman's self-care. Do your self breast exam once a month, 5 to 7 days after your period begins, unless you are . Do self breast exams at the same time of the month each month, on a day of your choice. Any lump, bump or discharge should be reported to your caregiver. SEEK MEDICAL CARE IMMEDIATELY IF YOU NOTICE: Sanitary pad soaked with blood in 1 hour or less. Severe lower abdominal pain or cramping. Foul-smelling discharge from vagina. Increased rather than decreased pain around stitches and/or swelling, redness or hardness in area. Pain and/or redness in calf of the leg. Nausea with vomiting for 12 hours. Sudden, severe chest pain. Shortness of breath. Painful urination. Severe headache. Area of the breast is red and sore and you have a fever. (You may feel like you have flu symptoms.) 09/04/2021 10:00:07 7b- Depression and Blues (04/2020) (CUSTOM) Mickie Depression and Blues All mothers are at risk of developing depression or the blues. These mood changes can occur right after giving , or they may occur many months after giving . blues or depression can be mild or severe. Additionally, depression can goaway rather quickly, or it can be a long-term condition. CAUSES Raised hormone levels and the rapid drop in those levels are thought to be a main cause of depression and blues. A number of hormones change during and after . Estrogenand progesterone usually decrease right after delivery. The levels of thyroid hormone and various cortisol steroids also rapidly drop. Other factors that play a role in these mood changes include major life events and genetics. RISK FACTORS If you have any of the following risks for blues or depression, know what symptoms to watch out for during the period. Risk factors that may increase the likelihood of getting blues or depression include: Having a personal or family history of depression. Having depression while being . Having premenstrual mood issues or mood issues related to oral contraceptives. Having a lot of life stress. Having marital conflict. Lacking a social support network. Having health problems, such as diabetes. SIGNS AND SYMPTOMS Symptoms of blues include: Brief changes in mood, such as going from extreme happiness to sadness. Decreased concentration. Difficulty sleeping. Crying spells, tearfulness. Irritability. Anxiety. Symptoms of depression typically begin within the first month after giving . These symptoms include: Difficulty sleeping or excessive sleepiness. Marked weight loss. Agitation. Feelings of worthlessness. Lack of interest in activity or food. psychosis is a very serious condition and can be dangerous. Fortunately, it is rare. Displaying any of the following symptoms is cause for immediate medical attention. Symptoms of psychosis include: Hallucinations and delusions. Bizarre or disorganized behavior. Confusion or disorientation. DIAGNOSIS A diagnosis is made by an evaluation of your symptoms. There are no medical or lab tests that lead to a diagnosis, but there are various questionnaires that a health care provider may use to identifythose with blues, depression, or psychosis. Often, a screening tool called the Malcom Depression Scale is used to diagnose depression in the period. TREATMENT blues usually goes away on its own in 1 2 weeks. Social support is often all that is needed. You will be encouraged to get adequate sleep and rest. Occasionally, you may be given medicinesto help you sleep. depression requires treatment because it can last several months or longer if it is not treated. Treatment may include individual or group therapy, medicine, or both to address any social,physiological, and psychological factors that may play a role in the depression. Regular exercise, a healthy diet, rest, and social support may also be strongly recommended. psychosis is more serious and needs treatment right away. Hospitalization is often needed. HOME CARE INSTRUCTIONS Get as much rest as you can. Exercise regularly. Some women find yoga and walking to be beneficial. Eat a balanced and nourishing diet. Do little things that you enjoy. Have a cup of tea, take a bubble bath, read your favorite magazine, or listen to your favorite music. Avoid alcohol. Ask for help with correctional substance abuse counselor, cooking, grocery shopping, or running errands as needed. Do nottry to do everything. Talk to people close to you about how you are feeling. Get support from your partner, family members, and friends. Try to stay positive in how you think. Think about the things you are grateful for. Do not spend a lot of time alone. Only take qyge-xup-pfgmstc or prescription medicine as directed by your health care provider. Keep all your appointments. Let your health care provider know if you have any concerns. SEEK MEDICAL CARE IF: You are having a reaction to or problems with your medicine. SEEK IMMEDIATE MEDICAL CARE IF: You have suicidal feelings. You think you may harm yourself or someone else. MAKE SURE YOU: Understand these instructions. Will watch your condition. Will get help right away if you are not doing well or get worse. Resource: ExitCare Patient Information 2015 [employer]. This information is not intended to replace advicegiven to you by your health care provider. Make sure you discuss any questions you have with your health care provider. Follow Up Care 08/31/2021 18:07:55 With:OB OB Address: [address] [place] [address]- When:Within 5 Day(s) With:ISAIAS ROMERO Address: [address] [phone]- Business (1) When: Unknown [facility] 02-16-2022 Evaluation + Plan noteExtracted from: Title:Clinical Document Author:FATOUMATA PINEDO MD Date:08/31/21 [facility] ADMISSION HISTORY AND PHYSICAL Chief complaint: Leakage of fluid History of present illness: 26 yo at 39/0 wks with [facility] of 09/07/21 by LMP c/w 18 wk US presents to L&D for leakage of fluid. Had large gush of clear fluid around 1600 and has not stopped leaking since. Patient denies vaginal bleeding, regular contractions and decreased movement. Patient denies any history of genital lesions or outbreaks, including known HSV. 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 care: ODS Obstetric History G1) current Past Medical History Denies Past Surgical History Denies Family History Denies a family history of: -problems with anesthesia, including malignant hyperthermia -bleeding/clotting disorders Social History Tobacco: denies in this Alcohol: denies in this Illicit drug use: denies in this Obstetrical dating: LMP c/w 18 wk Medications: PNV Keflex labs: O+/ab neg GBS neg 08/11 Rubella imm Varicella imm Gonorrhea/Chlamydia neg Hep B neg RPR neg HIV neg Allergies Omnicef; rash, throat/hand swelling [employer] Review of systems: HEENT: Denies HERNANDES, change in vision Heart: Denies CP Lungs: Denies SOB GI: No N/V, diarrhea Psych: No SI/HI Physical exam: Vitals Signs Minimum Maximum Heart Rate95(FEB 16 18:27)95(FEB 16 18:27)95(FEB 16 18:27) MGV125(FEB 16 18:27)133(FEB 16 18:27)133(FEB 16 18:27) DBP80(FEB 16 18:27)80(FEB 16 18:27)80(FEB 16 18:27) GENERAL: NAD, A&O x3 NEUROLOGICAL: A&Ox3, CN II-XII grossly intact HEENT: EOMI, mucus membranes moist CARDIOVASCULAR: No JVD RESPIRATORY: No increased work of breathing ABDOMEN: soft, gravid, nontender EXREMETIES: No peripheral edema CE: 3/40/-3 FHT: 140/mod variability/+accel/-decels TOCO: q 5 minutes SSE: gross pooling, positive nitrazine and ferning on microscopy BSUS: Cephalic Impression: 26 yo at 39/0 wks presents to L&D for leakage of fluid. 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 Plan: Admit for labor induction in setting of SROM -Admit to L&D -CEFM -Routine orders -Anesthesia to see -GBS neg -For pitocin induction ASCUS -For PP repeat pap smear Migraines -Stable, no meds UTI -S/p 7 days Keflex, finished 1 week ago, asymptomatic today Low-lying placenta, resolved SMA carrier -FOB not tested D/w Dr. Cano, aware of admission Addendum by MYLA CANO DO on August 31, 2021 19:27 EST I agree with the kirsten resident's assessment and plan and discussed this plan of care with both the kirsten resident and the attending physician, Dr. Hunter. [facility] 01-31-2022 Evaluation + Plan note Diagnostic Tests Pending * Urine Culture 08/15/21 * Bile Acids Fract/Tot 08/15/21 [facility] 01-31-2022 Hospital Discharge instructions Patient Education 08/15/2021 11:20:06 Form - Return to Work Return to Work EMERALD LINDO was treated at our facility. Injury or illness was: ___Work-related. ___Not work-related. ___Undetermined if work-related. Return to work Employee may return to work on 08/16/21 . Employee may return to modified work on . Work activity restrictions This person is not able to do the following activities: ___Bend ___Sit for a prolonged time This person should not sit for more than ____ hours at a time. This person should not sit for more than ____ hours during an 8-hour workday. ___Lift more than lb ___Squat ___ Stand for a prolonged time ___ This person should not stand for more than ____ hours at a time. ___ This person should not stand for more than ____ hours during an 8-hour workday. ___Climb ___Reach ___Push and pull with the ___ right hand ___ left hand ___ Walk ___ This person should not walk for more than ____ hours at a time. ___ This person should not walk for more than ____ hours during an 8-hour workday. ___ Drive or operate a motor vehicle at work ___ Grasp with the ___ right hand ___ left hand ___Other These restrictions are effective until or until a recheck appointment on . 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 Your employer should be aware of your condition and may be able to help with the necessary work activity restrictions. Contact your health care provider if: You wish to return to work sooner than the date that is listed above. You have problems that make it difficult for you to return at that time. This information is not intended to replace advice given to you by your health care provider. Make sure you discuss any questions you have with your health care provider. Document Released: 07/02/2006 Document Revised: 06/27/2018 Document Reviewed: 06/27/2018 Elsevier Patient Education 2020 [employer]. 08/15/2021 11:20:06 7 - Labor and Delivery Outpatient Instructions (CUSTOM) [facility] OUT[facility] HOME-GOING INSTRUCTIONS _X_ You are to follow up with your physician as scheduled ACTIVITY ___ Bedrest _X__Activity as tolerated ___ No work/school for ___ days. ___Other PRESCRIPTION GIVEN _X__Yes ____Keflex and triamcinolone NAUSEA/VOMITING ___ Take small, frequent amounts of clear liquids. Avoid fruit juices and milk. ___ Increase fluid intake to a minimum of 8 ounces of fluid every hour while awake. ___ Soft diet. Rice, crackers, bananas, Jell-O, cooked carrots, applesauce. ___ [place] diet. Avoid caffeine, chocolate, alcohol, spiced/greasy foods. URINARY TRACT INFECTION _X__ Drink 8-12 glasses of water every day. _X__ Urinate frequently; do not limit fluids to reduce frequency of urination. _X__ Call your physician if burning and frequency with urination returns after taking all your medication. _X__ Call your physician if you have a temperature of 100.4 degrees Fahrenheit or higher. _X__ Wipe from front to back. SIGNS OF PRE-ECLAMPSIA ___ Severe heartburn. ___ Persistent headache not relieved by Tylenol. ___ Increased in swelling of face, hands and feet. ___ Blurred vision, double vision, or spots in the eyes. ___ Persistent vomiting. ___ *Convulsions or seizures. LABOR ___ Restrict activity. ___ Drink 8-12 glasses of water every day. ___ Urinate frequently ___ Pelvic rest. No sexual intercourse/ Call your physician if you experience: ___ Increase in vaginal discharge, leaking fluid, or vaginal bleeding. ___ More than 4, 5, or 6 contractions in one hour. ___ Burning and frequency with urination. DECREASED MOVEMENT _X__ Lie down on your left side, drink some fluids and relax. Count the movements. You need to have 10 movements in 2 hours. _X__ If you do not feel the 10 movements, call your physician. OTHER _X__ After an exam you may experience some spotting or discharge. As long as it is not bright red and heavy like a period or continues to leak as if your water broke, it is to be expected. ___ LABOR Call your physician if you experience: _X__ Painful uterine contractions every _3-5__ minutes for _1-2__ hours. _X__A gush or continuous trickle of watery discharge. COME TO THE HOSPITAL AND CALL PHYSICIAN IF: _X__ Your abdomen feels continually firm. _X__ *Bleeding is bright red and enough to saturate a pad in one hour or less. *Call 911 or go to the nearest Emergency Room for assistance. Form 408322 D: 06/23 Document Released: 07/02/2006 Document Revised: 06/20/2012 Document Reviewed: 07/02/2006 [facility] Patient Information 2012 [employer]. 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 [facility] [address] [place] [address]- Business (1) When: Unknown [facility] 10-30-2021 Hospital Discharge instructions Patient Education 05/14/2021 02:31:29 7 - Labor and Delivery Outpatient Instructions (CUSTOM) [facility] OUTPATIENT HOME-GOING INSTRUCTIONS _X_ You are to follow up with your physician a scheduled. ACTIVITY ___ Bedrest _X__Activity as tolerated ___ No work/school for ___ days. ___Other PRESCRIPTION GIVEN ___Yes NAUSEA/VOMITING ___ Take small, frequent amounts of clear liquids. Avoid fruit juices and milk. ___ Increase fluid intake to a minimum of 8 ounces of fluid every hour while awake. ___ Soft diet. Rice, crackers, bananas, Jell-O, cooked carrots, applesauce. ___ [place] diet. Avoid caffeine, chocolate, alcohol, spiced/greasy foods. URINARY TRACT INFECTION ___ Drink 8-12 glasses of water every day. ___ Urinate frequently; do not limit fluids to reduce frequency of urination. ___ Call your physician if burning and frequency with urination returns after taking all your medication. ___ Call your physician if you have a temperature of 100.4 degrees Fahrenheit or higher. ___ Wipe from front to back. SIGNS OF PRE-ECLAMPSIA ___ Severe heartburn. ___ Persistent headache not relieved by Tylenol. ___ Increased in swelling of face, hands and feet. ___ Blurred vision, double vision, or spots in the eyes. ___ Persistent vomiting. ___ *Convulsions or seizures. LABOR ___ Restrict activity. ___ Drink 8-12 glasses of water every day. ___ Urinate frequently ___ Pelvic rest. No sexual intercourse/ Call your physician if you experience: _X__ Increase in vaginal discharge, leaking fluid, or vaginal bleeding. _X__ More than 4, 5, or 6 contractions in one hour. _X__ Burning and frequency with urination. DECREASED MOVEMENT _X__ Lie down on your left side, drink some fluids and relax. Count the movements. You need to have 10 movements in 2 hours. _X__ If you do not feel the 10 movements, call your physician. OTHER ____ After an exam you may experience some spotting or discharge. As long as it is not bright red and heavy like a period or continues to leak as if your water broke, it is to be expected. ___ LABOR Call your physician if you experience: ___ Painful uterine contractions every ___ minutes for ___ hours. ___A gush or continuous trickle of watery discharge. COME TO THE HOSPITAL AND CALL PHYSICIAN IF: _X__ Your abdomen feels continually firm. _X__ *Bleeding is bright red and enough to saturate a pad in one hour or less. *Call 911 or go to the nearest Emergency Room for assistance. Form [id number] D: 06/23 Document Released: 07/02/2006 Document Revised: 06/20/2012 Document Reviewed: 07/02/2006 [facility] Patient Information 2012 [employer]. Follow Up Care 05/14/2021 00:16:59 With:OB, CLINIC Address: When: Unknown Comments:Follow-up as scheduled [facility] 10-11-2021 Evaluation + Plan note Diagnostic Tests Pending * [facility] Send out (Blood Specimens) 04/25/21 [facility] 03-25-2018 History of Present illness Narrative* Brody Carballo PA-C - 10/07/2017 9:18 PM EDT DATE OF SERVICE: 10/07/2017 HISTORY OF PRESENT ILLNESS: This 22-year-old female presents with pain in the left side of her neck after awakening last night. No fever or chills. No nausea or vomiting. Pain is worse with movement. She denies any pain to the bones of the neck. She states it is all left sided, worse with palpation and movement of her head to the right. This has happened in the past. PHYSICAL EXAMINATION: Vital Signs: Noted and within normal limits. General: Nontoxic, no acute distress. Neck: There is tenderness along the left paraspinal musculature. No rash. No external signs of injury. No meningismus. Extremities: Upper extremities: Strength is 5/5 and symmetric. Distal sensation is intact. Given the above, I feel the symptoms are consistent with acute cervical strain. She will be treated with antiinflammatories and muscle relaxers. Follow up with outpatient referral. DIAGNOSTIC IMPRESSION: Acute cervical strain. DEMOND Templeton/[id number] [facility] File#: [id number] Verified/Reviewed by 11/25/20 1541 [address] [facility] PATIENT NAME: BELGICA CORBIN [address] Epstein MEDICAL REC #: [id number] [place] [address] [facility] STAT[facility] PHYSICIAN documented in [facility] + Plan note Future Appointments Appointment Date:05/09/2023 11:30:00 AM Scheduled Provider:DEE ENCARNACION DO Location:[facility] Appointment Type:[facility] Evaluation + Plan note Future Appointments Appointment Date:09/13/2023 01:30:00 PM Scheduled Provider:DEE ENCARNACION DO Location:[facility] Appointment Type:[facility] Evaluation + Plan note Future Appointments Appointment Date:05/13/2024 03:00:00 PM Scheduled Provider:DEE ENCARNACION DO Location:[facility] Appointment Type: Wellness Annual Appointment Date:06/06/2024 02:45:00 PM Scheduled Provider:CRISTIN JACKSON DPM Location:[facility] [place] Appointment Type:POD 30 [facility] Evaluation + Plan note Future Appointments Appointment Date:11/11/2024 04:00:00 PM Scheduled Provider:DEE ENCARNACION DO Location:[facility] Appointment Type:PC OV Future Scheduled Tests Laboratory* Complete Blood Count 05/13/24 * Lipid Profile 05/13/24 * Complete Metabolic Panel 05/13/24 [facility] Evaluation + Plan note Future Appointments Appointment Date:09/10/2024 09:00:00 AM Scheduled Provider:Giana De La Rosa PT Location:[facility] Appointment Type:PT [facility] Appointment Date:09/17/2024 09:00:00 AM Scheduled Provider:Giana De La Rosa PT Location:[facility] Appointment Type:PT [facility] Appointment Date:09/24/2024 09:00:00 AM Scheduled Provider:Giana De La Rosa PT Location:[facility] Appointment Type:PT [facility] Appointment Date:11/11/2024 04:00:00 PM Scheduled Provider:DEE ENCARNACION DO Location:[facility] Appointment Type:PC OV [facility] Evaluation + Plan note Future Appointments Appointment Date:09/17/2024 09:00:00 AM Scheduled Provider:Giana De La Rosa PT Location:[facility] Appointment Type:PT [facility] Appointment Date:09/23/2024 10:00:00 AM Scheduled Provider: Location:[facility] Appointment Type:US Abdomen Limited Appointment Date:09/24/2024 09:00:00 AM Scheduled Provider:Giana De La Rosa PT Location:[facility] Appointment Type:PT [facility] Appointment Date:09/30/2024 04:00:00 PM Scheduled Provider:DEE ENCARNACION DO Location:[facility] Appointment Type:PC OV Appointment Date:10/01/2024 10:00:00 AM Scheduled Provider:Giana De La Rosa PT Location:[facility] Appointment Type:PT [facility] Appointment Date:11/11/2024 04:00:00 PM Scheduled Provider:EDE ENCARNACION DO Location:[facility] Appointment Type:PC OV Future Scheduled Tests Radiology* US Abdomen Limited 09/23/24 [facility] Evaluation + Plan note Future Appointments Appointment Date:12/30/2024 11:00:00 AM Scheduled Provider:DEE ENCARNACION DO Location:[facility] Appointment Type:PC OV [facility] Evaluation + Plan note Future Appointments Appointment Date:12/30/2024 11:00:00 AM Scheduled Provider:DEE ENCARNACION DO Location:[facility] Appointment Type:PC OV Diagnostic Tests Pending * Hepatitis A Antibody IgG 12/02/24 * .LCHep B Core Ab, Tot 12/02/24 * TASIA by IFA Screen 12/02/24 * Actin (Smooth Muscle) Antibody 12/02/24 * Cytoplasmic Neutro. Antibody 12/02/24 [facility] Evaluation + Plan note Future Appointments Appointment Date:03/03/2025 09:00:00 AM Scheduled Provider:DEE ENCARNACION DO Location:[facility] Appointment Type:PC OV Appointment Date:04/20/2025 01:00:00 PM Scheduled Provider: Location:[facility] Appointment Type:NM HIDA Scan Diagnostic Tests Pending * Urine Culture 02/22/25 Future Scheduled Tests Radiology* NM Hepatobiliary Duct System Imaging 04/20/25 [facility] Evaluation + Plan note Future Appointments Appointment Date:04/20/2025 01:00:00 PM Scheduled Provider: Location:[facility] Appointment Type:NM HIDA Scan Appointment Date:04/24/2025 09:30:00 AM Scheduled Provider:CRISTIN JACKSON DPM Location:[facility] [place] Appointment Type:POD 15 Appointment Date:05/04/2025 02:10:00 PM Scheduled Provider: Location:[facility] Appointment Type:PM EMG/NCV 2 Extremity Appointment Date:05/08/2025 08:30:00 AM Scheduled Provider: Location:[facility] Appointment Type:OSM OV Review Testing Appointment Date:06/02/2025 11:30:00 AM Scheduled Provider:DEE ENCARNACION DO Location:[facility] Appointment Type:PC Wellness Annual Future Scheduled Tests Radiology* NM Hepatobiliary Duct System Imaging 04/20/25 * US Abdomen Complete 04/07/25 [facility] Evaluation + Plan note Future Appointments Appointment Date:04/21/2025 01:30:00 PM Scheduled Provider: Location:[facility] Appointment Type:US Abdomen Complete Appointment Date:04/24/2025 09:30:00 AM Scheduled Provider:CRISTIN JACKSON DPM Location:[facility] [place] Appointment Type:POD 15 Appointment Date:05/04/2025 02:10:00 PM Scheduled Provider: Location:[facility] Appointment Type:PM EMG/NCV 2 Extremity Appointment Date:05/08/2025 08:30:00 AM Scheduled Provider: Location:[facility] Appointment Type:OSM OV Review Testing Appointment Date:06/02/2025 11:30:00 AM Scheduled Provider:DEE ENCARNACION DO Location:[facility] Appointment Type:PC Wellness Annual Future Scheduled Tests Radiology* US Abdomen Complete 04/21/25 [facility] Evaluation + Plan note Future Appointments Appointment Date:04/24/2025 09:30:00 AM Scheduled Provider:CRISTIN JACKSON DPM Location[facility] [place] Appointment Type:POD 15 Appointment Date:05/04/2025 02:10:00 PM Scheduled Provider: Location:[facility] Appointment Type:PM EMG/NCV 2 Extremity Appointment Date:05/08/2025 08:30:00 AM Scheduled Provider: Location:[facility] Appointment Type:OSM OV Review Testing Appointment Date:06/02/2025 11:30:00 AM Scheduled Provider:DEE ENCARNACION DO Location:[facility] Appointment Type:PC Wellness Annual [facility] evaluation + Plan note Future Appointments Appointment Date:05/08/2025 08:30:00 AM Scheduled Provider: Location:[facility] Appointment Type:OSM OV Review Testing Appointment Date:06/02/2025 11:30:00 AM Scheduled Provider:DEE ENCARNACION DO Location:[facility] Appointment Type:PC Wellness Annual Appointment Date:09/18/2025 09:00:00 AM Scheduled Provider:CRISTIN JACKSON DPM Location:[facility] [place] Appointment Type:POD 15 [facility] Evaluation note* Diagnosis Onset Date Resolution Status Admit Date Elevated liver enzymes acute Ma y 2024 1:21pm [facility] Work Phone: Evaluation note* Diagnosis Onset Date Resolution Status Admit Date Epigastric pain acute April 162024 3:09pm RUQ pain acute May 05, 2025 3:09pm [facility] Work Phone: Hospital course Narrative No data available for this section [facility] Hospital Discharge instructions No data available for this section [facility] Progress note No data available for this section [facility] Reason for referral (narrative)No reason for referral information availablePalmdale [facility] Work Phone: Discharge Instructions No hospital discharge instructions. Summary Purpose Family History No Family History Records Found Relationship Condition Age at Onset Recorded Date/T toñito father Cardiac disease Unknown Myocardial infarction Unknown mother Hypertension Unknown sister Multiple sclerosis Unknown Advance Directives No Advanced Directives Records FoundNo Advanced Directives Records FoundNo Advanced Directives Records FoundNo Advanced Directives Records FoundNo Advanced Directives Records FoundNo Advanced Directives Records FoundNo Advanced Directives Records FoundNo Advanced Directives Records FoundNo Advanced Directives Records Found Chief Complaint and Reason for Visit Chief Complaint Admit Date ELEVATED LIVER ENZYMES HEPATIC STEATOSIS December 01, 2024 1:21pm Reason for Visit Admit Date Elevated liver enzymes December 01, 2024 1: 21pm Chief Complaint Admit Date Test Result-Elevated liver enzymes Octob 2024 3:09pm Reason for Visit Admit Date Epigastric pain May 05, 2025 3 :09pm RUQ pain May 05, 2025 3 :09pm Additional Source Comments INFORMATION SOURCE (unrecogn ized section and content) DATE CREATED AUTHOR 01/04/2018 [facility] Brenda Kate DATE CREATED AUTHOR AUTHOR'S ORGANIZ ATION 02/08/2018 [facility] DATE CREATED AUTHOR AUTHOR'S ORGANIZ ATION 06/23/2018 [facility] DATE CREATED AUTHOR AUTHOR'S ORGANIZ ATION 05/09/2022 [facility] DATE CREATED AUTHOR AUTHOR'S ORGANIZ ATION 02/14/2024 [facility] ([place]) DATE CREATED AUTHOR AUTHOR'S ORGANIZ ATION 10/04/2024 [facility] DATE CREATED AUTHOR AUTHOR'S ORGANIZ ATION 04/23/2025 [facility] DATE CREATED AUTHOR AUTHOR'S ORGANIZ ATION 05/08/2025 [facility] DATE CREATED AUTHOR AUTHOR'S ORGANIZ ATION 05/25/2025 [facility] Source Comments (unrecognize d section and content) In the event this informatio n is protected by the Federal Confidentiality of Alcohol and Drug Abuse Patient Records regulations: The Federal rules restrict any use of the information to criminally investigate or prosecute any alcohol or drug abuse patient.[facility] Care Team (unrecognized sect ion and content) Care Team Personnel Name: ISAIAS ROMERO MULE OPERATOR Member Role: Primary Care Physician Address: Address: [address] Care Team Related Persons Name: NEGIN CORBIN Address: Home [address] Name: MIKA ROJAS Name: JOVANNY ROJAS Address: Home [address] Care Team Personnel Name: ISAIAS ROMERO MULE OPERATOR Member Role: Primary Care Physician Address: Address: [address] [place] [address]- Name: Leilani Hinkle RN Position: ED RN Member Role: ED RN Name: MIKA MICHEL DO Position: ED Physician Member Role: Attending Physician Address: Address: [facility] [address] [place] [address]- Care Team Related Persons Name: NEGIN CORBIN Address: Home [address] [place] [address] Name: MIKA ROJAS Name: JOVANNY ROJAS Address: Home [address] [place], [place] [address] Patient Care team informatio n (unrecognized section and content) Team Status: Inactive Member Role Status Dates IMER Leija Attending Provider Active Start: December 01, 2024 End: December 01, 2024 Team Status: Inactive Member Role/Relationship Status Dates IMER Leija Attending physician Active Start: May 05, 2025 End: May 05, 2025 Goals (unrecognized section and content) Goals may be documented in a n alternate section FOR RECORDS PERTAINING TO PATIENTS WHO ARE OR HAVE BEEN ENROLLED IN A CHEMICAL DEPENDENCY/SUBSTANCEABUSE PROGRAM, SOME INFORMATION MAY BE OMITTED. This clinical summary was aggregated from multiple sources. Caution should be exercised in using it in the provision of clinical care. This summary normalizes information from multiple sources, and as a consequence, information in this document may materially change the coding, format and clinical context of patient data. In addition, data may be omitted in some cases. CLINICAL DECISIONS SHOULD BE BASED ON THE PRIMARY CLINICAL RECORDS. [employer] provides no warranty or guarantee of the accuracy or completeness of information in this document.
--- NOTE | 2025-06-08 07:20 | PCM.HP.STD ---
HPI - General General Date of Admission: 06/08/25 Date of Service: 06/08/25 Chief Complaint: Epigastric pain HPI Narrative BELGICA CORBIN, is a 30 F who presents for evaluation of abdominal pain. Details: OV 12/01/2024 29-year-old female presenting with elevated liver enzymes in the setting of hepatic steatosis and hepatomegaly on imaging, likely consistent with MAS viral hepatitis panel is negative, and elastography suggest minimal fibrosis (F1). LD, particularly given her significant weight gain of 45 pounds over the past 6 months. MRI also noted a small hepatic hemangioma, an incidental and likely benign finding. She reports intermittent RUQ pain, often postprandial, which raises suspicion for biliary dyskinesia despite a normal ultrasound of the gallbladder and CBD. A HIDA scan has been ordered to assess gallbladder function. Additional labs including repeat CBC, CMP, in addition to autoimmune/infectious workup are pending to further evaluate potential causes of transaminitis. TSH, lipase, and iron studies are within normal limits. The patient will follow-up in 1 month to review results and discuss weight management strategies, as lifestyle modification remains a cornerstone of MASLD management. Consideration for hepatology referral will depend on her evolving clinical picture and lab findings. Note: [employer] speech recognition cabinet builder software was used to create portions of this document. Sound-alike and misspelled words, as well as other cabinet builder errors may be contained in the documentation. Patient Instructions: Labs - patient will have completed at [facility] HIDA - patient will have completed at [facility] Plan Details Follow Up: 1 Month - seen in office today with and two toddlers - abdominal pain is primarily on the right and mid abdomen, worse with palpation of the abdomen - pain can be sharp and dull - pain is not triggered by PO intake - nausea can be triggered by PO intake - denies any HB - denies any weight loss HIDA completed 04/20/2025 revealed an EF of 87% ABD US 04/21/2025 no changes from previously - no previous EGD [facility] Medical History Wears glasses Fatty liver Low iron Easy bruising Migraine headache Gastric reflux Non-smoker History of edema Hypertension Stomatitis Sleep difficulties Recurrent headache Perioral dermatitis Paronychia of great toe, right Otalgia of left ear Depression Carpal tunnel syndrome, bilateral Tachycardia Recurrent boils Home Medications ?Medication ?Instructions ?Recorded ?Last Taken ?Type amitriptyline 10 mg tablet 10 mg PO QHS 12/01/24 Unknown History escitalopram oxalate 10 mg tablet 10 mg PO QHS 12/01/24 Unknown History melatonin 3 mg capsule 3 mg PO HS PRN sleep 12/01/24 Unknown History norgestimate 0.25 mg-ethinyl 1 tab PO .NOON 12/01/24 Unknown History estradiol 0.035 mg tablet (Sprintec (28)) nystatin 100,000 unit/gram topical 1 applic topical TID PRN rash 12/01/24 Unknown History powder ubrogepant 100 mg tablet (Ubrelvy) 100 mg PO ONCE PRN MIGRAINE 12/01/24 Unknown History pantoprazole 40 mg tablet,delayed 40 mg PO QDAY #90 tabs 05/05/25 Unknown Rx release amlodipine 5 mg tablet 5 mg PO QHS 06/05/25 Unknown History atogepant 60 mg tablet (Qulipta) 60 mg PO QHS 06/05/25 Unknown History escitalopram oxalate 20 mg tablet 20 mg PO DAILY 06/05/25 Unknown History ferrous sulfate 325 mg (65 mg 325 mg PO MOWEFR 06/05/25 Unknown History iron) tablet Allergy/AdvReac Type Severity Reaction Status Date / Time cefdinir (From [employer] OTR) Allergy Severe Shortness Verified 06/05/25 09:41 of breath, rash, swelling of hands ciprofloxacin AdvReac Mild rash, Verified 06/05/25 09:41 swelling in hands Family History Father Heart disease Myocardial infarction Mother Hypertension Sister Multiple sclerosis Surgical History No pertinent past surgical history Social History Smoking Status: Never smoker alcohol intake: current alcohol intake frequency: holidays/special occasions only substance use type: does not use caffeine: Yes ROS Constitutional Constitutional: Denies fatigue, fever(s), poor appetite, weight gain or weight loss Gastrointestinal Gastrointestinal: Denies belching, bloating, change in bowel habits, change in stool character, chewing difficulty, coffee ground emesis, constipation, cramping, diarrhea, dyspepsia, dysphagia, early satiety, excessive flatus, fecal incontinence, heartburn, hematemesis, hematochezia, hemorrhoids, loose stools, melena, nausea, odynophagia, rectal bleeding, tenesmus, vomiting or weight changes Physical Exam Const alert, oriented x3, no apparent distress and healthy appearing General Appearance: cooperative GI normal to inspection, nondistended, normoactive bowel sounds, soft to palpation, non-tender and non-distended Percussion: normal to percussion Rectal Exam: deferred Assessment & Plan Assessment/Plan (1) Epigastric pain: (2) RUQ pain: (3) Elevated liver enzymes: PLAN: Assessment and Plan Assessment and Plan (1) Epigastric pain: Status: Acute (2) RUQ pain: Status: Acute Medications: New pantoprazole Take once daily 30 minutes before first meal 40 mg PO QDAY 90 tabs 1RF Plan 30-year-old female with a history of epigastric and RUQ abdominal pain presents for follow-up. She was last seen in the office this past November. Abdominal ultrasound was previously revealing for hepatic steatosis. Recent HIDA scan revealed an EF of 87%. Her symptoms are not typical for biliary colic. Pain begins RUQ and either radiates to the right flank or epigastric area, can be dull or sharp, is occasionally associated with nausea. Pain is primarily triggered by applying pressure to the abdomen. Denies any increase in abdominal pain with p.o. intake, although she does report an increase in nausea with eating. I have started her on a PPI daily and scheduled her for an EGD. Patient Instructions: Start daily PPI EGD ]
[2025-06-08 07:25] LABS: Internal QC Validated? YES +Cl - CLEAR BKGD; Pregnancy, Urine Negative Negative; Record Kit Lot#,Urine Preg 980607
[2025-06-08] MEDS: Lactated Ringers 1,000 ML 15 ML IV (07:28)
--- NOTE | 2025-06-08 07:51 | PRE.ANES_ITS ---
ASA Classification* ASA Classification ASA Classification: 2 (Hepatic steatosis, GERD) Assessment & Plan Anesthesia* Anesthesia Assessment Anesthesia Assessment: Discussed sedation and/or anesthesia options, risks, benefits, and alternatives with patient/parents/legal guardian/POA. Questions invited. The patient/parents/legal guardian/POA seems to understand and agrees to proceed with anesthesia plan. Reviewed the physical assessment, medical history, allergy history and patient home medications list prior to surgery/procedure/anesthetic and documented any changes. Performed airway and anesthesia risk assessments. Anesthesia Type Anesthesia Type: MAC History Source History Obtained from:: Patient and Chart Anesthesia Focused Assessment* Temperature: 98.4 F Pulse Rate: 93 Blood Pressure: 133/78 Respiratory Rate: 16 Pulse Ox: 16 Oxygen Delivery Method: Room Air Airway Assessment Mouth opens: >3 cm Mallampati Score: III Teeth Condition: Intact Neck Range of motion (ROM): Full ROM Labs Anesthesia Preop lab: CBC CHEMISTRY COAG Urine Test Negative Negative Today, 07:14 Pre-Assessment Diagnosis/Proposed Procedure Planned Operative Procedure(s): EGD Anesthesia History Anesthesia History - sales promoter: Anesthesia History - sales promoter Hx Hospitalization No 06/05/25 09:46 Any Problems With Anesthesia No 06/05/25 09:46 Cholinesterase deficiency No 06/05/25 09:46 You/Your Family Experience No 06/05/25 09:46 fever (hyperthermia) with Relationship Recent Exposure to Contagious No 06/08/25 07:24 Disease Does patient have nerve No 06/05/25 09:46 stimulator Patient instructed to have device shut off --Does patient have Pacemaker No 06/08/25 07:24 or ICD? When Was Last Pacemaker Check QUESTION #4 FULL TEXT: You/Your Family Experience fever (hyperthermia) with Anesthesia Last Oral Intake Last Oral intake: Last Oral Intake NPO since 20:00 06/08/25 07:24 Meds taken in AM with sips of No 06/08/25 07:24 water? Meds patient instructed to take am of surgery PONV PONV - sales promoter: PONV - sales promoter Female Yes 06/05/25 09:46 HX of Motion Sickness No 06/05/25 09:46 HX of N/V After Surgery No 06/05/25 09:46 Non-Smoker Yes 06/05/25 09:46 Duration of Surgery greater No 06/05/25 09:46 than 60 minutes Number of Risk Factors 2 06/05/25 09:46 PONV Score Moderate Risk 06/05/25 09:46 Height & Weight Height & Weight: Anesthesia: Height & Weight Height 5 ft 1.02 in 06/08/25 07:24 Weight: 82.9 kg 06/08/25 07:24 Body Mass Index (BMI) 34.4 06/08/25 07:24 Respiratory Assessment Respiratory Assessment - sales promoter: Respiratory Tract Infection Hx - sales promoter Hx Respiratory Tract Infection No 06/05/25 09:46 STOP Sleep Apnea STOP Sleep Apnea - sales promoter: STOP Sleep Apnea - sales promoter Hx Hypertension Yes: PER PT, CONTROLLED ON 06/05/25 09:46 MEDS Hx Sleep Apnea No 06/05/25 09:46 CPAP BIPAP Do you snore loudly (louder No 06/05/25 09:46 than talking or can be heard Do you often feel tired/ No 06/05/25 09:46 fatigued/ sleepy during daytime? Has anyone observed you stop No 06/05/25 09:46 breathing during sleep? STOP Results Negative 06/05/25 09:46 QUESTION #5 FULL TEXT : Do you snore loudly (louder than talking or can be heard through closed doors)? Tobacco Use History Tobacco Use History - sales promoter: Tobacco Use History - sales promoter Tobacco Use Smoking Status Never smoker 06/05/25 09:46 Hx Tobacco Use No 06/05/25 09:46 Years Smoking Packs Smoked per Day Smoking Cessation Date was within the last 15 years Hx Smoking Cessation Date Hx Smoking Cessation Counseling Hematologic Medial History Hematologic Hx - sales promoter: Hematologic Medical Hx - welt sewer Hx of Blood Transfusion No 06/05/25 09:46 Hx of Transfusion in last 3 No 06/05/25 09:46 Months Date of Last Transfusion (if within last 3 months) Ever experience any problems No 06/05/25 09:46 with transfusion(s)? Specify any problems Hx of Preganancy in last 3 No 06/05/25 09:46 Months Nurse Filling Out Transfusion MGRIFFITH 06/05/25 09:46 & Questions: Date: 06/05/25 06/05/25 09:46 Time: 09:49 06/05/25 09:46 Patient unable to answer at this time (ie. confused, unrespo /Reproduction History /Reproductive History - sales promoter: /Reproductive Hx- sales promoter Hx Now No 06/05/25 09:46 Gestational Age (in weeks): EDC: Hx Hx Para Hx Section SAB No 06/05/25 09:46 Does the father of the baby or his family experience fever w Father of the baby Malignant Hypertension history comment Active Medications Active Medications: Current Medications Generic Name Dose Route Start Last Admin Trade Name Freq PRN Reason Stop Dose Admin Lactated Ringer's 1,000 mls @ 15 mls/hr 06/08/25 07:15 06/08/25 07:28 IV 15 mls/hr .Q48H JOSEF Administration PFSH Medical History Wears glasses Fatty liver Low iron Easy bruising Migraine headache Gastric reflux Non-smoker History of edema Hypertension Stomatitis Sleep difficulties Recurrent headache Perioral dermatitis Paronychia of great toe, right Otalgia of left ear Depression Carpal tunnel syndrome, bilateral Tachycardia Recurrent boils Home Medications ?Medication ?Instructions ?Recorded ?Last Taken ?Type amitriptyline 10 mg tablet 10 mg PO QHS 12/01/2406/07 History escitalopram oxalate 10 mg tablet 10 mg PO QHS 5 06/07/25 History melatonin 3 mg capsule 3 mg PO HS PRN sleep 5 Unknown History norgestimate 0.25 mg-ethinyl 1 tab PO .NOON 12/01/24 U nknown History estradiol 0.035 mg tablet (Sprintec (28)) nystatin 100,000 unit/gram topical 1 applic topical TI D PRN rash 12/01/24 Unknown History powder ubrogepant 100 mg tablet (Ubrelvy) 100 mg PO ONCE PRN MIGRAINE 12/01/24 Unknown History pantoprazole 40 mg tablet,delayed 40 mg PO QDAY #90 ta bs 05/05/25 06/07/25 Rx release amlodipine 5 mg tablet 5 mg PO QHS 06/05/25 5 History atogepant 60 mg tablet (Qulipta) 60 mg PO QHS 06/05/25 06/07/25 History escitalopram oxalate 20 mg tablet 20 mg PO DAILY 06/0506/07/25 History ferrous sulfate 325 mg (65 mg 325 mg PO MOWEFR 5 06/07/25 History iron) tablet Allergy/AdvReac Type Severity Reaction Status Date / Time cefdinir (From [employer]) Allergy Severe Shortness Verified 06/05/25 09:41 of breath, rash, swelling of hands ciprofloxacin AdvReac Mild rash, Verified 06/05/25 09:41 swelling in hands Family History Father Heart disease Myocardial infarction Mother Hypertension Sister Multiple sclerosis Surgical History No pertinent past surgical history Social History Smoking Status: Never smoker alcohol intake: current alcohol intake frequency: holidays/special occasions only substance use type: does not use caffeine: Yes Review of Systems (Anesthesia) ROS Narrative System reviewed and no additional complaints, except as documented. Physical Exam Const alert, oriented x3 and average body habitus Resp normal respiratory effort, normal air movement and clear to auscultation bilaterally Cardio regular rate, regular rhythm and no murmurs; Negative for diaphoretic
--- NOTE | 2025-06-08 08:15 | EGD_PTH ---
PATIENT: BELGICA CORBIN LOC: EN U#:[id number] AGE/SX: 30/F ROOM: RE06/08/[address]: Dr. Chetan Woodall DO : 1995 BED: DIS: 06/08/2025 SPEC #: [id number] RECD: 06/08/25 10:39 STATUS: BENITO REQ #: [id number] HANNY: 06/08/25 08:[address]: Chetan Woodall DEPT: SURGICAL PATHOLOGY RECD BY: Shashi Dill ENTERED: 06/08/25 13:50 SP TYPE: EGD BIOPSY NERSISA DR: Dr. Alan Irwin DO Tissues: A - Gastric mucous membrane B - Duodenum, NOS C - Esophagus, NOS Procedures: Immunohistochemical Stains Surgery Specimen Level IV HEADER OPERATION: EGD with biopsy PRE-OP DIAGNOSIS: Epigastric pain, right upper quadrant pain, elevated liver enzymes TISSUE SUBMITTED: A- Gastric body biopsy, B- Duodenum biopsy, C- Random esophagus biopsy MICROSCOPIC DIAGNOSIS A. Stomach, body, biopsy: * Oxyntic mucosa with mild chronic inflammation * No morphologic evidence of Helicobacter pylori organisms on H&E or immunostained sections B. Small intestine, duodenum, biopsy: * Small bowel mucosa with no pathologic change C. Esophagus, random, biopsy: * Benign squamous epithelium with no pathologic change MICROSCOPIC DESCRIPTION Slides are reviewed. All matched controls reacted appropriately. These tests were developed and their performance characteristics determined by [facility]. They may not have been cleared or approved by the U.S. Food and Drug Administration. The FDA has determined that such clearance or approval is not necessary. The above immunohistochemical markers are viewed by the Pathologist. GROSS DESCRIPTION A. Received in fixative is one container labeled with the patient's name and designated Gastric body biopsy. The specimen consists of one irregular fragment of noguera tissue that measures 0.5 x 0.5 x 0.2 cm. The specimen is totally submitted in one cassette. B. Received in fixative is one container labeled with the patient's name and designated Duodenum biopsy. The specimen consists of two irregular fragments of noguera tissue that measure 1 x 0.5 x 0.2 cm. The specimen is totally submitted in one cassette. C. Received in fixative is one container labeled with the patient's name and designated Random esophagus biopsy. The specimen consists of multiple irregular fragments of noguera tissue that in aggregate measure 1 x 0.5 x 0.2 cm. The specimen is totally submitted in one cassette. Irma 06/08/2025 CPT:[id number]
--- NOTE | 2025-06-08 09:14 | OP.EGD_ITS ---
Patient Name: Rossi Benavidez Procedure Date: 06/08/2025 8:55 AM Date of : 1995 Age: 30 Procedure: Upper GI endoscopy Indications: Epigastric abdominal pain, Functional Dyspepsia, Indigestion, Failure to respond to medical treatment Providers: Chetan Woodall DO Referring MD: Alan Irwin Do Medicines: Monitored Anesthesia Care Patient Profile: This is a 30 year old female. Refer to note in patient chart for documentation of history and physical. Patient has symptoms of chronic abdominal cramping, chronic abdominal distention, acute right upper quadrant abdominal pain, acute left lower quadrant abdominal pain, chronic dysphagia, chronic dyspepsia and chronic nausea. Complications: No immediate complications. Procedure: Pre-Anesthesia Assessment: - Prior to the procedure, a History and Physical was performed, and patient medications and allergies were reviewed. The patient is competent. The risks and benefits of the procedure and the sedation options and risks were discussed with the patient. All questions were answered and informed consent was obtained. Patient identification and proposed procedure were verified by the physician in the pre-procedure area. Mental Status Examination: alert and oriented. Airway Examination: normal oropharyngeal airway and neck mobility. Respiratory Examination: clear to auscultation. CV Examination: normal. Prophylactic Antibiotics: The patient does not require prophylactic antibiotics. Prior Anticoagulants: The patient has taken no anticoagulant or antiplatelet agents. ASA Grade Assessment: II - A patient with mild systemic disease. After reviewing the risks and benefits, the patient was deemed in satisfactory condition to undergo the procedure. The anesthesia plan was to use monitored anesthesia care (MAC). Immediately prior to administration of medications, the patient was re-assessed for adequacy to receive sedatives. The heart rate, respiratory rate, oxygen saturations, blood pressure, adequacy of pulmonary ventilation, and response to care were monitored throughout the procedure. The physical status of the patient was re-assessed after the procedure. After obtaining informed consent, the endoscope was passed under direct vision. Throughout the procedure, the patient's blood pressure, pulse, and oxygen saturations were monitored continuously. The Endoscope was introduced through the mouth, and advanced to the third part of the duodenum. Small bowel enteroscopy was deemed necessary. The upper GI endoscopy was accomplished without difficulty. The patient tolerated the procedure well. Scope In: 9:05:40 AM Scope Out: 9:08:24 AM Total Procedure Duration Time 0 hours 2 minutes 44 seconds Findings: No gross lesions were noted in the entire esophagus. Biopsies were obtained from the proximal and distal esophagus with cold forceps for histology of suspected eosinophilic esophagitis. No gross lesions were noted in the entire examined stomach. Biopsies were taken with a cold forceps for Helicobacter pylori testing. Biopsies were taken with a cold forceps for histology. Verification of patient identification for the specimen was done. Estimated blood loss was minimal. Patchy mild inflammation characterized by congestion (edema) and granularity was found in the entire duodenum. Biopsies were taken with a cold forceps for histology. Verification of patient identification for the specimen was done. Estimated blood loss was minimal. Impression: - No gross lesions in the entire esophagus. - No gross lesions in the entire stomach. Biopsied. - Chronic duodenitis. Biopsied. - Biopsies were taken with a cold forceps for evaluation of eosinophilic esophagitis. Recommendation: - Discharge patient to home. - Resume previous diet. - Continue present medications. - Await pathology results. Procedure Code(s): --- Professional --- 54170, Small intestinal endoscopy, enteroscopy beyond second portion of duodenum, not including ileum; with biopsy, single or multiple CPT copyright 2021 [employer]. All rights reserved. The codes documented in this report are preliminary and upon insurance coder review may be revised to meet current compliance requirements. Chetan Woodall DO 06/08/2025 9:14:15 AM This report has been signed electronically. Number of Addenda: 0 Note Initiated On: 06/08/2025 8:55 AM
--- NOTE | 2025-06-08 09:15 | OP.PROVAT_ITS ---
06/08/2025 Alan Irwin Do Re : Upper GI endoscopy procedure for Rossi Limar Dc This procedure was performed on Sunday, June 08, 2025. My impressions and recommendations are as follows: Impressions : - No gross lesions in the entire esophagus. - No gross lesions in the entire stomach. Biopsied. - Chronic duodenitis. Biopsied. - Biopsies were taken with a cold forceps for evaluation of eosinophilic esophagitis. Recommendations : - Discharge patient to home. - Resume previous diet. - Continue present medications. - Await pathology results. My findings are described in the full procedure note, which is enclosed. If I can be of further assistance, please feel free to contact me at . Sincerely, Chetan Woodall, 06/08/2025 9:14:15 AM This report has been signed electronically.
--- NOTE | 2025-06-08 09:18 | PCM.POST.ANE ---
Anesthesia: Postop Eval I Current Vital Signs Temperature: 97.5 F Pulse Rate: 86 Blood Pressure: 100/61 Respiratory Rate: 16 Pulse Ox: 96 Oxygen Delivery Method: Room Air Assessment Airway patent: Yes Spontaneous unlabored respirations: Yes Mental status: Asleep nausea: No Vomiting: No Anesthesia Complication: No Fluid Hydration Crystalloid volume administer (ml): 300 Total IV fluid infused: 300 Progress Note Anesthesia document: Postop Eval 1 completed: Yes
--- NOTE | 2025-06-08 16:39 | PCM.POSTANE2 ---
Anesthesia Postop Eval I Sum Postop Eval Completion status Anesthesia document: Postop Eval 1 completed: Yes Anesthesia Postop Eval I Summary Anesthesia Postop Eval I Summary: Anesthesia Postop Eval I: Assessment Summary Airway patent Yes 06/08/25 09:19 [email or web address] Spontaneous unlabored Yes 06/08/25 09:19 [email or web address] respirations Mental status Asleep 06/08/25 09:19 [email or web address] nausea No 06/08/25 09:19 [email or web address] Vomiting No 06/08/25 09:19 [email or web address] Anesthesia Postop Eval I: Fluid Summary Crystalloid volume administer 300 06/08/25 09:19 [email or web address] (ml) Colloids volume administered ( ml) Blood Product volume administered (ml) Total IV fluid infused 300 06/08/25 09:19 [email or web address] Anesthesia Postop Eval I: Summary Notes Anesthesia Complication No 06/08/25 09:19 [email or web address] Anesthesia Complication Comment: Post-operative progress note Anesthesia: Postop Eval II Evaluation Mental status: Awake Pain Level: 0 nausea: No Vomiting: No Complications Anesthesia Complication: No
== END 2025-06-08 10:01 | disposition home or self-care (01) ==
LOC: EN 06:56 → AC 06:57
PROVIDERS: Anesthesiology; PCP Student in an Organized Health Care Education/Training Program; Referring Provider Student in an Organized Health Care Education/Training Program; Visit Provider Internal Medicine Gastroenterology
PROC: 0DJ08ZZ Inspection of Upper Intestinal Tract, Via Natural or Artificial Opening Endoscopic (ICD-10-PCS; CPT 43235; principal; 2025-06-08 08:10)
DX: K29.50 Unspecified chronic gastritis without bleeding (principal); K21.9 Gastro-esophageal reflux disease without esophagitis; K29.80 Duodenitis without bleeding; D18.03 Hemangioma of intra-abdominal structures; Z79.899 Other long term (current) drug therapy; R74.8 Abnormal levels of other serum enzymes; I10 Essential (primary) hypertension
CPT/HCPCS: 44361; 81025; 88305; 88342; J2405